=== PATIENT | female | born 1955 | race Caucasian/White ===

== ENCOUNTER 2016-11-20 16:00 | Inpatient (IN) | payer MEDICARE, MEDICAID ==
[2016-11-20] MEDS ORDERED: ASPIRIN 81 MG TABLET, CHEWABLE PO ONE (16:02)
--- NOTE | 2016-11-20 16:28 | RADIOLOGY REPORT (SQ) ---
EXAM DESCRIPTION: CHEST SINGLE VIEW COMPLETED DATE/TIME: 11/20/2016 4:20 pm REASON FOR STUDY: cp COMPARISON: 02/10/2015 EXAM PARAMETERS: NUMBER OF VIEWS: One view. TECHNIQUE: Single frontal radiographic view of the chest acquired. RADIATION DOSE: NA LIMITATIONS: None. FINDINGS: LUNGS AND PLEURA: No opacities, masses or pneumothorax. No pleural effusion. MEDIASTINUM AND HILAR STRUCTURES: No masses. Contour normal. HEART AND VASCULAR STRUCTURES: Heart normal in size. Normal vasculature. BONES: No acute findings. HARDWARE: Sternotomy wires are in place. OTHER: No other significant finding. IMPRESSION: NO ACUTE RADIOGRAPHIC FINDING IN THE CHEST. TECHNICAL DOCUMENTATION: JOB ID: [id number]
--- NOTE | 2016-11-20 16:32 | ER Document Report ---
ED Cardiac - General Chief Complaint: Chest Pain Stated Complaint: CHEST PAIN Time Seen by Provider: 11/20/16 16:21 Mode of Arrival: Medic Information source: Patient, Relative TRAVEL OUTSIDE OF THE [place] IN LAST 30 DAYS: No - HPI Patient complains to provider of: Chest pain - pt with episode of SSCP at rest earlier this afternoon while talking to sister (sharp pain) -- denies diaphoresis, radiation of pain, N,V. Pt given ASA by EMS and pain had totally resolved - Related Data Allergies/Adverse Reactions: No Known Allergies Allergy (Unverified 05/05/13 17:39) Past Medical History - General Information source: Patient, Relative - Social History Smoking Status: Current Every Day Smoker Cigarette use (# per day): Yes Chew tobacco use (# tins/day): No Smoking Education Provided: Yes Family History: Reviewed & Not Pertinent - Past Medical History Cardiac Medical History: Reports: Hx Hypercholesterolemia, Hx Hypertension Endocrine Medical History: Reports: Hx Diabetes Mellitus Type 2 Past Surgical History: Reports: Hx Cardiac Surgery - triple bypass, Hx Tubal Ligation - Immunizations Hx Diphtheria, Pertussis, Tetanus Vaccination: Yes Review of Systems - Review of Systems Constitutional: No symptoms reported Cardiovascular: See HPI, Chest pain Respiratory: No symptoms reported Gastrointestinal: No symptoms reported Musculoskeletal: No symptoms reported Neurological/Psychological: No symptoms reported -: Yes All other systems reviewed and negative Physical Exam - Vital signs Vitals: Temp Resp BP Pulse Ox 97.8 F 20 139/86 H 97 11/20/16 16:16 11/20/16 16:16 11/20/16 16:16 11/20/16 16:16 - General General appearance: Appears well In distress: None - Respiratory Respiratory status: No respiratory distress Breath sounds: Normal - Cardiovascular Rhythm: Regular Course - Re-evaluation Re-evalutation: 11/20/16 17:14 pt feels better on re-eval -- denies CP at present. Will call hospitalist for admission - Vital Signs Vital signs: Temp Pulse Resp BP Pulse Ox 97.8 F 16 139/86 H 98 11/20/16 16:16 11/20/16 16:18 11/20/16 16:16 11/20/16 16:18 - Laboratory Result Diagrams: 11/20/16 16:10 11/20/16 16:10 Laboratory results interpreted by me: 11/20/16 11/20/16 16:10 16:10 Lymphocytes % 45.9 H Glucose 350 H AST 12 L Alkaline Phosphatase 139 H - Diagnostic Test Radiology reviewed: Reports reviewed - nad - EKG Interpretation by Me EKG shows normal: Sinus rhythm Rate: Normal Rhythm: NSR - nsr with non-specific st-t changes but not acute change - Consults dr mckinney Time consulted: 17:15 Consulted provider: will come to ER Critical Care Note - Critical Care Note Total time excluding time spent on procedures (mins): 30 Discharge - Discharge Clinical Impression: Diabetes mellitus type 2 in nonobese, Smoker Chest pain Qualifiers: Chest pain type: unspecified Qualified Code(s): R07.9 - Chest pain, unspecified Hyperlipidemia Qualifiers: Hyperlipidemia type: unspecified Qualified Code(s): E78.5 - Hyperlipidemia, unspecified Condition: Stable Disposition: ADMITTED OBSERVATION Admitting Provider: Hospitalist Unit Admitted: Telemetry
[2016-11-20 16:35] LABS: ABSOLUTE BASOPHILS # (AUTO) 0.1 10^3/uL (0.0-0.2); ABSOLUTE EOSINOPHILS # (AUTO) 0.2 10^3/uL (0.0-0.6); ABSOLUTE LYMPHOCYTES (AUTO) 4.4 10^3/uL (0.5-4.7); ABSOLUTE MONOCYTES (AUTO) 0.7 10^3/uL (0.1-1.4); ABSOLUTE NEUT (AUTO) 4.2 10^3/uL (1.7-8.2); BASOPHILS % (AUTO) 0.7 % (0-2); EOSINOPHILS % (AUTO) 1.9 % (0-6); HEMATOCRIT 40.5 % (36.0-47.0); HEMOGLOBIN 14.3 g/dL (12.0-15.5); HGB HCT DIFFERENCE 2.4; LYMPHOCYTES % (AUTO) 45.9 % (13-45); MEAN CORPUSCULAR HEMOGLOBIN 29.7 pg (27.0-33.4); MEAN CORPUSCULAR HGB CONC 35.2 g/dL (32.0-36.0); MEAN CORPUSCULAR VOLUME 84 fl (80-97); MONOCYTES % (AUTO) 7.3 % (3-13); RED BLOOD COUNT 4.81 10^6/uL (3.72-5.28); RED CELL DISTRIBUTION WIDTH 13.5 % (11.5-14.0); SEGMENTED NEUTROPHILS % (AUTO) 44.2 % (42-78); WHITE BLOOD COUNT 9.6 10^3/uL (4.0-10.5)
[2016-11-20 16:52] LABS: ALANINE AMINOTRANSFERASE 19 U/L (9-52); ALBUMIN 3.9 g/dL (3.5-5.0); ALKALINE PHOSPHATASE 139 U/L (38-126); ANION GAP 13 (5-19); ASPARTATE AMINO TRANSFERASE 12 U/L (14-36); BILIRUBIN,DIRECT 0.4 mg/dL (0.0-0.4); BILIRUBIN,TOTAL 0.5 mg/dL (0.2-1.3); BLOOD UREA NITROGEN 12 mg/dL (7-20); CALCIUM 9.5 mg/dL (8.4-10.2); CARBON DIOXIDE 26 mmol/L (22-30); CHLORIDE 100 mmol/L (98-107); CREATINE KINASE 41 U/L (30-135); GLUCOSE 350 mg/dL (75-110); POTASSIUM 3.7 mmol/L (3.6-5.0); SODIUM 138.5 mmol/L (137-145); TOTAL PROTEIN 7.2 g/dL (6.3-8.2)
[2016-11-20 17:02] LABS: CREATINE KINASE MB 0.72 ng/mL (<4.55); TROPONIN I 0.02 ng/mL
[2016-11-20] MEDS ORDERED: NORMAL SALINE 1000 ML 1,000 ML IV ONE (17:09)
[2016-11-20] MEDS ORDERED: MORPHINE SULFATE 10 MG/ML INJ IV PRN (17:49)
[2016-11-20] MEDS ORDERED: MAG HYDROX/AL HYDROX/SIMETH SUSP 30 ML UDCUP PO PRN (17:49)
[2016-11-20] MEDS ORDERED: NITROGLYCERIN 0.4 MG/TAB 25 TAB/BOTTLE SL PRN (17:49)
[2016-11-20] MEDS ORDERED: ONDANSETRON HCL INJ/PF 4 MG/2 ML SDV IV PRN (17:49)
[2016-11-20] MEDS ORDERED: DIAZEPAM 5 MG TABLET PO PRN (17:49)
[2016-11-20] MEDS ORDERED: NORMAL SALINE 1000 ML 1,000 ML IV PRN (17:49)
[2016-11-20] MEDS ORDERED: GLUCAGON,HUMAN RECOMB 1 MG INJ IM PRN (18:03)
[2016-11-20] MEDS ORDERED: DEXTROSE 40% GEL 15 GM TUBE PO PRN ×2 (18:03)
[2016-11-20] MEDS ORDERED: DEXTROSE 50%-WATER 25 GM/50 ML DISP.SYRIN IV PRN ×2 (18:03)
[2016-11-20] MEDS ORDERED: ACETAMINOPHEN 325 MG TABLET PO PRN (19:15)
[2016-11-20] MEDS ORDERED: ENOXAPARIN SODIUM INJ 60 MG/0.6 ML DISP.SYRIN SUBCUT SCH (22:00)
--- NOTE | 2016-11-20 22:32 | HISTORY AND PHYSICAL E ---
History and Physical NAME: STELLA FRANKLIN : 1955 AGE: 61Y ADMITTED: 11/20/2016 ROOM: 534 PRIMARY CARE PHYSICIAN: Dr. Santizo. CHIEF COMPLAINT: Chest pain. HISTORY OF PRESENT ILLNESS: The patient reports that today she was talking with her sister and developed left upper chest pain without radiation. The patient reports that it improved after receiving 4 baby aspirin from EMS. She did not take her home medications today. She reports that she has not had any associated cough more than normal, sputum production, nausea, vomiting, diaphoresis or abnormal taste in her mouth. The patient is currently chest pain free. The patient also reports she is not taking her insulin due to not being able to give herself an injection. She is referred to the hospitalist service for chest pain. PAST MEDICAL HISTORY: 1. Coronary artery disease. 2. Hypertension. 3. Hyperlipidemia. 4. TIA. 5. Diabetes mellitus. 6. Questionable thyroid disease. PAST SURGICAL HISTORY: CABG 4 years ago and a stent in January. SOCIAL HISTORY: She is a pack per day smoker. She denies alcohol, denies illicit drugs. She cares for her son who is developmentally disabled. FAMILY HISTORY: Her mother of diabetes, coronary artery disease and hypertension. Father's history is unknown. CODE STATUS: FULL CODE. Her sister, Maria E Bradford, is her surrogate decision maker. HOME MEDICATIONS: Currently being reconciled but these do include Lantus, oxybutynin, Lopressor, Glucophage, Glucotrol, gabapentin, TriCor, Plavix vitamin D, Lipitor and aspirin. ALLERGIES: No known drug allergies. REVIEW OF SYSTEMS: CONSTITUTIONAL: The patient denies fever or chills, weight loss, weight gain, anorexia. HEENT: Denies visual disturbance, headache, hearing loss. RESPIRATORY: Denies dyspnea, cough, hemoptysis or pleurisy. CARDIAC: Admits to chest pain as outlined above. Denies PND, orthopnea or edema. ABDOMEN: Denies abdominal pain, nausea, vomiting and diarrhea, constipation, hematemesis, melena or hematochezia. GENITOURINARY: Denies dysuria, urgency, frequency or hematuria. SKIN: Denies rash or wounds. MUSCULOSKELETAL: Denies joint pain or swelling. NEUROLOGIC: Denies weakness, numbness, dizziness, dysphasia, dysarthria or ataxia. ENDOCRINE: Denies polydipsia, polyuria, hot or cold intolerance. PSYCHIATRIC: Denies depression, anxiety, hallucinations or delusions. HEMATOLOGIC: Denies easy bleeding or bruising. PHYSICAL EXAMINATION: VITAL SIGNS: Temperature is 97.8. Pulse of 79. Blood pressure of 143/85. Respiratory rate of 24. Saturation of 96% on room air. GENERAL: The patient appears well. She is in no acute distress. HEENT: She is normocephalic. She has no icterus. Conjunctivae are clear. Extraocular movements are intact. Pupils are small. Pupils are equal, round and reactive to light. Mucosa is dry. Her chin reveals hair. NECK: Her trachea is midline. She has no thyromegaly. RESPIRATORY: The patient has bilateral light wheezes with good air excursion. CARDIOVASCULAR: Regular rate and rhythm without appreciable murmur, rub or gallop. ABDOMEN: Soft, nontender to palpation, nondistended with active bowel sounds. Negative Gleason sign. RECTAL: Deferred. GENITOURINARY: Deferred. EXTREMITIES: Reveal no edema or cyanosis. She does have clubbing. MUSCULOSKELETAL: Reveals no joint swelling or deformity. VASCULATURE: Reveals normal peripheral pulses. NEUROLOGIC: She is alert and oriented to person, place and time. Her speech is normal. Her cranial nerves are grossly intact. Strength is 5/5 in upper and lower extremity extremities. Tactile sensation is present in all extremities. SKIN: Reveals no rashes, wounds or worrisome skin lesions. PSYCHIATRIC: Normal mood and affect. LABORATORY VALUES: White count of 9.6, hemoglobin 14.3, hematocrit 40.5 and platelets of 248. Sodium 139, potassium 3.7, chloride 100, CO2 of 26, BUN of 12, creatinine 0.6, glucose of 350, calcium 9.5, total bilirubin 0.5, direct bilirubin 0.4, AST 12, ALT 19, alkaline phosphatase 139, CK 41, MB of 0.72, troponin of 0.02, total protein of 7.2, albumin 3.9. The patient's EKG revealed normal sinus rhythm with very nonspecific T-wave changes laterally and left axis deviation. IMPRESSION AND PLAN: This is a 61-year-old female with: 1. Chest pain. The patient's chest pain is likely secondary to musculoskeletal given its relief with aspirin; however, given the patient's noncompliance and her significant cardiovascular risk, we will observe the patient and collect serial cardiac enzymes and continue her on aspirin, beta-fiordaliza and statin. Will obtain a stress test in the a.m. and monitor patient on telemetry. 2. For patient's diabetes mellitus, we will resume her metformin and Glipizide. We will place her on sliding scale insulin and we will consult Dietary and patient educator to help her with her diabetes mellitus. I have discussed it also with her sister. 3. For her hyperlipidemia, we will check an FLP. 4. For her tobacco abuse, she has been counseled to stop smoking and offered nicotine patch. Total time spent with the patient including physical examination, coordination of care and formulation of this plan was 40 minutes of time. DICTATING PHYSICIAN: MOHAN LOVETT M.D. [id number] PHY#: [id number] ID: [id number] JOB#: [id number] ACCT: [id number] cc:MOHAN LOVETT M.D. > MTDD
[2016-11-20] MEDS: FENOFIBRATE NANOCRYSTALLIZED 145 MG TABLET PO SCH (23:12)
[2016-11-20] MEDS: ATORVASTATIN CALCIUM 40 MG TABLET PO SCH (23:13)
[2016-11-20] MEDS: INSULIN LISPRO 100 UNIT/ML 3 ML VIAL SUBCUT PRN (23:15)
--- NOTE | 2016-11-20 23:25 | EKG REPORT ---
SEVERITY:- ABNORMAL ECG - SINUS RHYTHM LEFT ATRIAL ABNORMALITY NONSPECIFIC T ABNORMALITIES, LATERAL LEADS : Confirmed by: Rich Butler 20-Nov-2016 23:24:14
[2016-11-21 00:28] LABS: CREATINE KINASE MB 1.08 ng/mL (<4.55)
[2016-11-21 00:30] LABS: TROPONIN I 0.196 ng/mL
[2016-11-21] MEDS ORDERED: HEPARIN SODIUM,PORCINE/D5W 25,000 UNIT/250 ML RTUINJ IV PRN (01:14)
[2016-11-21] MEDS ORDERED: HEPARIN SOD (PORCINE) 1,000 UNIT/ML 10 ML VIAL IV PRN (01:14)
[2016-11-21] MEDS ORDERED: METOPROLOL TARTRATE PF/INJ 5 MG/5 ML SDV IV ONE (01:15)
[2016-11-21] MEDS: LANSOPRAZOLE 15 MG TAB.RAP.DR PO SCH ×2 (05:22→16:57)
[2016-11-21 06:38] LABS: CHOLESTEROL 210.68 mg/dL (0-200); CREATINE KINASE 42 U/L (30-135); Direct HDL 27 mg/dL (>40); TRIGLYCERIDES 304 mg/dL (<150)
[2016-11-21 06:48] LABS: DIRECT LDL 147 mg/dL (<100)
[2016-11-21 06:49] LABS: CREATINE KINASE MB 1.25 ng/mL (<4.55); VLDL CHOLESTEROL 60.8 mg/dL (10-31)
[2016-11-21 06:55] LABS: TROPONIN I 0.21 ng/mL
[2016-11-21] MEDS: INSULIN LISPRO 100 UNIT/ML 3 ML VIAL SUBCUT PRN ×2 (07:48→11:58)
--- NOTE | 2016-11-21 09:07 | EKG REPORT ---
SEVERITY:- ABNORMAL ECG - SINUS RHYTHM PROBABLE LEFT ATRIAL ABNORMALITY NONSPECIFIC T ABNORMALITIES, LATERAL LEADS BORDERLINE PROLONGED QT INTERVAL : Confirmed by: Lee Bautista MD 21-Nov-2016 09:07:02
--- NOTE | 2016-11-21 09:09 | EKG REPORT ---
SEVERITY:- ABNORMAL ECG - SINUS RHYTHM NONSPECIFIC ST-T CHANGES- LATERAL LEADS LEFT ATRIAL ENLARGEMENT : Confirmed by: Lee Bautista MD 21-Nov-2016 09:08:07
[2016-11-21 09:11] LABS: APPEARANCE,URINE CLEAR; BILIRUBIN,URINE NEGATIVE (NEGATIVE); GLUCOSE, URINE >=500 mg/dL (NEGATIVE); KETONES,URINE NEGATIVE (NEGATIVE); LEUKOCYTE ESTERASE,URINE TRACE (NEGATIVE); NITRITE,URINE NEGATIVE (NEGATIVE); PROTEIN,URINE NEGATIVE (NEGATIVE); URINE SPECIFIC GRAVITY 1.005; UROBILINOGEN,URINE NEGATIVE mg/dL (<2.0)
[2016-11-21] MEDS: GABAPENTIN 100 MG CAPSULE PO SCH ×2 (09:44→16:58)
[2016-11-21] MEDS: OXYBUTYNIN CHLORIDE 5 MG TABLET PO SCH ×2 (09:44→16:59)
[2016-11-21] MEDS: GLIPIZIDE 10 MG TABLET PO SCH ×2 (09:44→16:57)
[2016-11-21] MEDS: METOPROLOL TARTRATE 25 MG TABLET PO SCH (09:44)
[2016-11-21] MEDS: ENOXAPARIN SODIUM INJ 60 MG/0.6 ML DISP.SYRIN SUBCUT SCH ×2 (09:45→16:57)
[2016-11-21] MEDS: ASPIRIN 325 MG TABLET, ENT COATED PO SCH (09:45)
[2016-11-21] MEDS ORDERED: CLOPIDOGREL BISULFATE 75 MG TABLET PO SCH ×2 (10:00)
[2016-11-21] MEDS ORDERED: METFORMIN HCL 500 MG TABLET PO SCH (10:00)
--- NOTE | 2016-11-21 11:26 | PDOC CONSULTATION ---
Consultation Consult Date: 11/21/16 Attending physician:: MOHAN LOVETT Consult reason:: Chest pain and positive troponin I History of Present Illness Admission Date/PCP: 11/20/16 17:27 Patient complains of: Chest pain History of Present Illness: STELLA FRANKLIN is a 61 year old female, has known history of coronary artery disease, status post coronary artery bypass graft surgery and also a stent placement. Stent was placed within the last 1 year. Patient has continued to smoke. She presented to the emergency department with subsequent admission, with chest discomfort. Patient is very vague about the chest discomfort. She described is as pressure and tightness as well as sharp in the center of chest without any significant radiation but associated with some shortness of breath. There was no associated nausea vomiting or diaphoresis. Patient as a whole is a poor historian. Patient claims that the EMS gave her nitroglycerin and 4 sublingual aspirin to chew. Since then her chest discomfort has resolved and there has been no recurrence. Patient initial troponin I was negative but subsequently came back positive in the non-STEMI range. Patient electrocardiogram had shown minor nonspecific ST-T wave changes consistent with ischemia and or LVH. Patient claims that she has been noncompliant with the medication. Patient continues to smoke. Past Medical History Cardiac Medical History: Reports: Myocardial Infarction, Hyperlipidema, Hypertension Pulmonary Medical History: Reports: Asthma Endocrine Medical History: Reports: Diabetes Mellitus Type 2 Past Surgical History Past Surgical History: Reports: Cardiac Catheterization, Coronary Artery Bypass Graft, Coronary Stent, Tubal Ligation Social History Information Source: Patient Smoking Status: Current Every Day Smoker Frequency of Alcohol Use: None Hx Recreational Drug Use: No Hx Prescription Drug Abuse: No - Advance Directive Resuscitation Status: Full Code Surrogate healthcare decision maker:: Patient sister is the surrogate decision-maker Family History Family History: CAD, Hypertension Parental Family History Reviewed: Yes Children Family History Reviewed: Yes Sibling(s) Family History Reviewed.: Yes Medication/Allergy Home Medications: Aspirin [Aspirin EC] 81 mg PO DAILY 11/21/16 Atorvastatin Calcium [Lipitor 80 mg Tablet] 80 mg PO QHS 11/21/16 Cholecalciferol (Vitamin D3) [Vitamin D3 400 Unit Tablet] 400 unit PO DAILY 07/04 Fenofibrate 160 mg PO QHS 11/21/16 Gabapentin [Neurontin 100 mg Capsule] 100 mg PO BID 11/21/16 Glipizide [Glocotrol 10 Mg Tablet] 10 mg PO BIDBS 11/21/16 Metformin HCl [Glucophage] 1,000 mg PO BIDBS 11/21/16 Metoprolol Tartrate [Lopressor 25 mg Tablet] 25 mg PO Q12 11/21/16 Oxybutynin Chloride [Ditropan 5 Mg Tablet] 5 mg PO BID 11/21/16 Ticagrelor [Brilinta 90 mg Tablet] 90 mg PO BID 11/21/16 Allergies/Adverse Reactions: No Known Allergies Allergy (Unverified 05/05/13 17:39) Review of Systems Review of Systems: GENERAL: well-nourished and in no acute distress. Alert and oriented x3 HEAD: Atraumatic, normocephalic. EYES: Pupils equal round and reactive to light, extraocular movements intact, sclera anicteric, conjunctiva are normal. ENT: TMs normal, nares patent, oropharynx clear without exudates. Moist mucous membranes. No oral ulcerations or bleeding gums noted NECK: supple without lymphadenopathy. Trachea is central. No cervical or axillary lymphadenopathy noted. Carotids are 2+, JVD WNL LUNGS: Respiration seems nonlabored, no significant accessory muscle action noted. Breath sounds clear to auscultation bilaterally and equal noted. No wheezes rales or rhonchi noted. No significant dullness noted on percussion. CHEST: Palpation of the chest wall shows no significant chest wall tenderness. No other significant abnormalities noted. HEART: [employer], No PSH, 1/6 JANIYA aortic area, 1/6 best systolic murmur mitral area, no rubs, no gallops. ABDOMEN: Soft, no significant tenderness appreciated, normoactive bowel sounds. No guarding, no rebound. No rigidity noted . No masses appreciated. EXTREMITIES: Pedal pulses are 1-2+, no calf tenderness noted. No clubbing or cyanosis.trace to 1+ pedal edema noted NEUROLOGICAL: Focused neurological exam showed no significant neurologic deficit. Normal speech, no focal weakness appreciated. PSYCH: Normal mood, normal affect. Judgment and insight within normal limits. SKIN: No significant ecchymosis, rash, ulcerations or signs of pruritus noted. MUSCULOSKELETAL EXAM: No significant joint swelling noted. Physical Exam Vital Signs: Temp Pulse Resp BP Pulse Ox 98.0 F 80 18 121/69 97 11/21/16 07:58 11/21/16 07:58 11/21/16 07:58 11/21/16 07:58 11/21/16 07:58 Intake & Output 11/20/16 11/21/16 11/22/16 06:59 06:59 06:59 Weight 54.5 kg Exam: GENERAL: well-nourished and in no acute distress. Alert and oriented x3 HEAD: Atraumatic, normocephalic. Patient has significant facial hair and hirsutism EYES: Pupils equal round and reactive to light, extraocular movements intact, sclera anicteric, conjunctiva are normal. ENT: TMs normal, nares patent, oropharynx clear without exudates. Moist mucous membranes. No oral ulcerations or bleeding gums noted NECK: supple without lymphadenopathy. Trachea is central. No cervical or axillary lymphadenopathy noted. Carotids are 2+, JVD WNL LUNGS: Respiration seems nonlabored, no significant accessory muscle action noted. Breath sounds clear to auscultation bilaterally and equal noted. No wheezes rales or rhonchi noted. No significant dullness noted on percussion. CHEST: Palpation of the chest wall shows no significant chest wall tenderness. No other significant abnormalities noted. HEART: [employer], No PSH, 1/6 JANIYA aortic area, 1/6 best systolic murmur mitral area, no rubs, no gallops. ABDOMEN: Soft, no significant tenderness appreciated, normoactive bowel sounds. No guarding, no rebound. No rigidity noted . No masses appreciated. EXTREMITIES: Pedal pulses are 1-2+, no calf tenderness noted. No clubbing or cyanosis.trace to 1+ pedal edema noted NEUROLOGICAL: Focused neurological exam showed no significant neurologic deficit. Normal speech, no focal weakness appreciated. PSYCH: Normal mood, normal affect. Judgment and insight within normal limits. SKIN: No significant ecchymosis, rash, ulcerations or signs of pruritus noted. MUSCULOSKELETAL EXAM: No significant joint swelling noted. Results Laboratory Results: 11/21/16 11/21/16 05:47 08:55 Triglycerides 304 H Cholesterol 210.68 H LDL Cholesterol Direct 147 H VLDL Cholesterol 60.8 H HDL Cholesterol 27 L Urine Color STRAW Urine Appearance CLEAR Urine pH 6.0 Ur Specific Central 1.005 Urine Protein NEGATIVE Urine Glucose (UA) >=500 H Urine Ketones NEGATIVE Urine Blood NEGATIVE Urine Nitrite NEGATIVE Ur Leukocyte Esterase TRACE H Urine WBC (Auto) 9 Urine RBC (Auto) 1 11/20/16 11/20/16 11/21/16 22:20 23:34 05:47 Creatine Kinase CK-MB (CK-2) Cancelled 1.08 1.25 Troponin I Cancelled 0.196 0.210 11/21/16 05:47 Creatine Kinase 42 CK-MB (CK-2) Troponin I EKG Comments: Sinus rhythm with minor nonspecific ST-T wave changes. Impressions: Chest X-Ray 11/20/16 16:02 IMPRESSION: NO ACUTE RADIOGRAPHIC FINDING IN THE CHEST. Assessment & Plan - Diagnosis (1) Non-STEMI (non-ST elevated myocardial infarction) Is this a current diagnosis for this admission?: Yes (2) Chest pain Qualifiers: Chest pain type: unspecified Qualified Code(s): R07.9 - Chest pain, unspecified Is this a current diagnosis for this admission?: Yes (3) Diabetes mellitus type 2 in nonobese Is this a current diagnosis for this admission?: Yes (4) Hyperlipidemia Qualifiers: Hyperlipidemia type: unspecified Qualified Code(s): E78.5 - Hyperlipidemia , unspecified Is this a current diagnosis for this admission?: Yes (5) Smoker Is this a current diagnosis for this admission?: Yes (6) Hypertension Qualifiers: Hypertension type: essential hypertension Qualified Code(s): I10 - Essential (primary) hypertension Is this a current diagnosis for this admission?: Yes (7) PAD (peripheral artery disease) Is this a current diagnosis for this admission?: Yes - Notes Notes: Non-STEMI: Patient has known CAD with previous bypass surgery and stent placement. Patient presented with chest pain. Has positive troponin I elevation and also minor nonspecific ST-T wave changes. Patient qualifies for diagnosis of acute coronary syndrome and non-STEMI. At this point patient will be treated with full dose Lovenox or other anticoagulation, dual antiplatelet therapy, beta-fiordaliza, statins, CHANDLER inhibitor/ARB's. Should patient has recurrent chest pain will recommend transfer to tertiary care for heart catheterization however if patient remains stable would recommend stress testing for myocardium in jeopardy determination. Would also recommend a 2D echo for overall risk stratification. Chest pain: Currently chest pain-free. Optimize medical management for underlying CAD. Coronary artery disease: Currently stable. Patient did sustain a non-STEMI. Medical management is being optimized. Diabetes: Recommend good control of blood sugar. However should avoid any hypoglycemia. Patient being expertly managed by primary care MArielle Hypertension: Reasonably well controlled. Blood pressure goal in this patient is 135/85 or less. This was discussed with the patient. Currently blood pressure under reasonable control. Better medication for this patient are CHANDLER inhibitor/ARB/beta fiordaliza etc. Hyperlipidemia: LDL goal is less than 70. Recommend statin therapy at least intermediate or high dose, of high potency status. Periodic lipid panel and liver panel is indicated. Patient to report any significant muscle discomfort or other side effects. Patient has history of chronic smoking. Discussed detrimental effect of chronic smoking including worsening COPD, increased risk of cardiovascular events, cerebrovascular events, cancer and multiple other side effects of smoking. The benefits of smoking cessation discussed. Patient unwilling to give acommitment to quit. Patient informed that we'll be happy to help should pt decide to quit. Continue nicotine patch while inpatient. PVD: No acute limb ischemia noted. Based on previous evaluation, patient has significant PVD. Further evaluation can be performed as an outpatient. Rest ischemia symptoms discussed. Patient to report immediately if such symptoms occur. - Time Time Spent: 50 to 70 Minutes - CODE STATUS was discussed, patient remains full code. Surrogate decision-maker patient's sister. Multiple medical problems were addressed. More than 50% of the time spent coordinating care, discussing management plans with involved caregivers. Management plans discussed with involved personnels. Medical decision making was of moderate to high complexity , patient's has multiple comorbidities. Medications reviewed and adjusted accordingly: Yes
[2016-11-21 12:13] LABS: CREATINE KINASE MB 1.12 ng/mL (<4.55); TROPONIN I 0.127 ng/mL
--- NOTE | 2016-11-21 14:01 | XCELERA REPORT ---
[address] [address] Transthoracic Echocardiogram Report Name: STELLA FRANKLIN Age: 61 yrs Gender: Female : 1955 Patient Status: Inpatient Patient Location: [address] [place] [address] Study Date: 11/21/2016 12:20 PM Height: 61 in Weight: 120 lb BSA: 1.5 m2 Procedure: A complete two-dimensional transthoracic echocardiogram was performed (2D, M-mode, spectral and color flow Doppler). The study was technically adequate with some images being suboptimal in quality. Reason For Study: NSTEMI Ordering Physician: RICH JUDGE Performed By: James King Interpretation Summary The left ventricular ejection fraction is normal. There is mild concentric left ventricular hypertrophy. The left ventricle is grossly normal size. Doppler measurements suggest pseudonormalized left ventricular relaxation, which is associated with grade II/IV or mild to moderate diastolic dysfunction Wall motion cannot be accurately commented on, but no definite regional wall motion abnormalities noted. The right ventricle is grossly normal size. The right ventricular systolic function is normal. The left atrium is mildly dilated. There is no mitral valve stenosis. There is a mild amount of mitral regurgitation There is no aortic valve stenosis No aortic regurgitation is present. The aortic root is not well visualized. The inferior vena cava appeared dilated and decreased < 50% with respiration (RAP 15-20 mmHg) There is no pericardial effusion. MMode/2D Measurements & Calculations RVDd: 2.8 cm LVIDd: 4.3 cm FS: 30.7 % Ao root diam: 2.8 cm IVSd: 1.1 cm LVIDs: 3.0 cm EDV(Teich): 84.0 ml LVPWd: 1.1 cm ESV(Teich): 34.8 ml Ao root area: 6.3 cm2 EF(Teich): 58.6 % LA dimension: 4.1 cm Doppler Measurements & Calculations MV E max cristopher: MV P1/2t max cristopher: Ao V2 max: LV V1 max P.4 cm/sec 125.9 cm/sec 129.4 cm/sec 2.3 mmHg MV A max cristopher: MV P1/2t: 57.2 msec Ao max PG: LV V1 max: 78.5 cm/sec 6.7 mmHg 75.0 cm/sec MV E/A: 1.6 MVA(P1/2t): 3.8 cm2 MV dec slope: 644.8 cm/sec2 PA V2 max: PI end-d cristopher: TR max cristopher: RAP systole: 59.7 cm/sec 89.6 cm/sec 214.2 cm/sec 10.0 mmHg PA max P.4 mmHg TR max P.4 mmHg RVSP(TR): 28.4 mmHg Left Ventricle The left ventricle is grossly normal size. There is mild concentric left ventricular hypertrophy. The left ventricular ejection fraction is normal. Doppler measurements suggest pseudonormalized left ventricular relaxation, which is associated with grade II/IV or mild to moderate diastolic dysfunction. Wall motion cannot be accurately commented on, but no definite regional wall motion abnormalities noted. Right Ventricle The right ventricle is grossly normal size. There is normal right ventricular wall thickness. The right ventricular systolic function is normal. Atria The right atrium is normal in size. The left atrium is mildly dilated. Interarterial septum not well visualized and not well dopplered. Cannot comment on ASD/PFO presence. Mitral Valve The mitral valve leaflets are sclerotic, but show no functional abnormalities. There is no mitral valve stenosis. There is a mild amount of mitral regurgitation. Aortic Valve The aortic valve is grossly normal. There is no aortic valve stenosis. No aortic regurgitation is present. Tricuspid Valve The tricuspid valve is not well visualized, but is grossly normal. There is no tricuspid stenosis. There is a trace amount of tricuspid regurgitation. There is mild pulmonary hypertension by echo. Right ventricular systolic pressure is estimated to be elevated at 30-40mmHg. Pulmonic Valve The pulmonic valve is not well visualized. Great Vessels The aortic root is not well visualized. The inferior vena cava appeared dilated and decreased < 50% with respiration (RAP 15-20 mmHg). Effusions There is no pericardial effusion. : RICH JUDGE > Rich Judge
--- NOTE | 2016-11-21 14:49 | PDOC PROGRESS REPORT ---
Subjective Progress Note for:: 11/21/16 Subjective:: overnight, patient's cardiac enzymes became positive and are trending up. Patient reports she is feeling significantly improved. She denies any further chest pain. Patient denies chest pain, shortness of breath, abdominal pain, nausea, vomiting , fevers, chills, diarrhea, constipation, headache, new onset weakness. Physical Exam Vital Signs: Temp Pulse Resp BP Pulse Ox 98.2 F 63 18 138/76 H 100 11/21/16 11:48 11/21/16 14:00 11/21/16 11:48 11/21/16 11:48 11/21/16 11:48 Exam: General: Awake alert and oriented x3, no acute respiratory distress HEENT: AT/NC, PERRL, EOMI, oropharynx is moist, pink, no scleral icterus, no conjunctival injection Neck: No JVD, trachea midline Chest: Prolonged expiratory phase, clear to auscultation bilaterally, no wheezes rhonchi or rales CV: Regular rate and rhythm, normal S1 and S2, no rub or gallop Abdomen: Soft, nontender to palpation, nondistended, active bowel sounds; no rebound, rigidity, or guarding Extremities: No cyanosis; +clubbing; no edema Neuro: Cranial nerves II through XII are grossly intact without focal deficits; awake alert and oriented x3 Psych: Normal mood and affect Results Impressions: Chest X-Ray 11/20/16 16:02 IMPRESSION: NO ACUTE RADIOGRAPHIC FINDING IN THE CHEST. Assessment & Plan - Diagnosis (1) Non-STEMI (non-ST elevated myocardial infarction) Is this a current diagnosis for this admission?: Yes Plan: Overnight patient's troponin plateaued at 0.2 and is now trending down. Appreciate cardiology input. Continue patient on Lovenox. Patient likely suffered from some minor occlusion of a previously placed stent that she is not compliant with her medication and continues to smoke and does not take her medicines as prescribed. Generic Name Dose Route Start Last Admin Trade Name Freq PRN Reason Stop Dose Admin Nitroglycerin 1 tab 11/20/16 17:49 Nitrostat 0.4 Mg (1/150 Gr) Tabs 25/Bottle SL Q5MP PRN chest pain Ranolazine 500 mg 11/21/16 22:00 Ranexa 500 Mg Tab.Sr PO 12/21/16 21:59 Q12 ANAMARIA Aspirin 325 mg 11/21/16 10:00 11/21/16 09:45 Ecotrin 325 Mg Ec Tablet PO 12/21/16 09:59 325 mg DAILY [facility] Atorvastatin Calcium 40 mg 11/20/16 22:00 11/20/16 23:13 Lipitor 40 Mg Tablet PO 12/20/16 21:59 40 mg QHS [facility] Enoxaparin Sodium 60 mg 11/21/16 10:00 11/21/16 09:45 Lovenox Inj 60 Mg/0.6 Ml Disp.Syrin SUBCUT 12/21/16 09:59 60 mg BID [facility] Lisinopril 2.5 mg 11/22/16 10:00 Prinivil 5 Mg Tablet PO 12/22/16 09:59 DAILY [facility] Metoprolol Tartrate 25 mg 11/21/16 10:00 11/21/16 09:44 Lopressor 25 Mg Tablet PO 12/21/16 09:59 25 mg DAILY [facility] (2) Diabetes mellitus type 2 in nonobese Is this a current diagnosis for this admission?: Yes Plan: We will consider the addition of Lantus to her regimen Generic Name Dose Route Start Last Admin Trade Name Freq PRN Reason Stop Dose Admin Glipizide 10 mg 11/21/16 10:00 11/21/16 09:44 Glucotrol 10 Mg Tablet PO 12/21/16 09:59 10 mg BID [facility] Metformin HCl 1,000 mg 11/21/16 10:00 11/21/16 09:44 Glucophage 500 Mg Tablet PO 12/21/16 09:59 1,000 mg BID [facility] Insulin Human Lispro 0 - 12 unit 11/20/16 18:03 11/21/16 11:58 Humalog Insulin 100 Unit/1 Ml 3 Ml Vial SUBCUT 12/20/16 18:02 4 unit ACHSP PRN Protocol (3) Hyperlipidemia Qualifiers: Hyperlipidemia type: unspecified Qualified Code(s): E78.5 - Hyperlipidemia , unspecified Is this a current diagnosis for this admission?: Yes Plan: Lipitor (4) Diabetic neuropathy Qualifiers: Diabetes mellitus type: type 2 Diabetes mellitus complication detail: diabetic polyneuropathy Qualified Code(s): E11.42 - Type 2 diabetes mellitus with diabetic polyneuropathy Is this a current diagnosis for this admission?: Yes Plan: Continue Neurontin (5) Hypertension Qualifiers: Hypertension type: essential hypertension Qualified Code(s): I10 - Essential (primary) hypertension Is this a current diagnosis for this admission?: Yes Plan: Well-controlled on current medicine Generic Name Dose Route Start Last Admin Trade Name Ita PRN Reason Stop Dose Admin Lisinopril 2.5 mg 11/22/16 10:00 Prinivil 5 Mg Tablet PO 12/22/16 09:59 DAILY ANMAARIA Metoprolol Tartrate 25 mg 11/21/16 10:00 11/21/16 09:44 Lopressor 25 Mg Tablet PO 12/21/16 09:59 25 mg DAILY ANAMARIA (6) Hyperthyroidism Is this a current diagnosis for this admission?: Yes Plan: Check TSH and free T4 (7) OAB (overactive bladder) Is this a current diagnosis for this admission?: Yes (8) PAD (peripheral artery disease) Is this a current diagnosis for this admission?: Yes (9) Vitamin D deficiency Is this a current diagnosis for this admission?: Yes Plan: Vitamin D (10) Noncompliance w/medication treatment due to intermit use of medication Is this a current diagnosis for this admission?: Yes Plan: Patient reports that she is not taking any of her medication at home (11) Smoker Is this a current diagnosis for this admission?: Yes Plan: Have encouraged patient to stop. Given nicotine patch - Time Time Spent with patient: 25-34 minutes Medications reviewed and adjusted accordingly: Yes Anticipated discharge: Home Within: within 24 hours - Inpatient Certification Based on my medical assessment, after consideration of the patient's comorbidities, presenting symptoms, or acuity I expect that the services needed warrant INPATIENT care.: Yes I certify that my determination is in accordance with my understanding of Medicare's requirements for reasonable and necessary INPATIENT services [42 CFR 412.3e].: Yes Medical Necessity: Need For Continuous Telemetry Monitoring 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
--- NOTE | 2016-11-21 15:29 | RADIOLOGY REPORT (SQ) ---
EXAM DESCRIPTION: CTA CHEST COMPLETED DATE/TIME: 11/21/2016 3:09 pm REASON FOR STUDY: CP E78.2 MIXED HYPERLIPIDEMIA I20.8 OTHER FORMS OF ANGINA PECTORIS COMPARISON: None. TECHNIQUE: CT scan of the chest performed using helical scanning technique with dynamic intravenous contrast injection. Images reviewed with lung, soft tissue and bone windows. Reconstructed coronal and sagittal MPR images reviewed. Additional 3 dimensional post-processing performed to develop Maximal Intensity Projection images ([place] P). All images stored on PACS. All CT scanners at this facility use dose modulation, iterative reconstruction, and/or weight based d osing when appropriate to reduce radiation dose to as low as reasonably achievable (ALARA). [facility]: Dose Right [facility]: CareDose [facility]: Dose Right [facility]: Teradose 4D [facility]: [employer] CONTRAST TYPE AND DOSE: contrast/concentration: Isovue 370.00 mg/ml; Total Contrast Delivered: 62.0 ml; Total Saline Delivered: 103.0 ml Contrast bolus optimized for the pulmonary arteries. Not diagnostic for the aorta. RENAL FUNCTION: GFR > 60. RADIATION DOSE: Up-to-date CT equipment and radiation dose reduction techniques were employed. CTDIv ol: 14.7 - 16.5 mGy. DLP: 507 mGy-cm. . LIMITATIONS: None. FINDINGS: LUNGS AND PLEURA: Centrilobular and paraseptal emphysema most notably involving the upper lobes. 5 mm ground-glass nodule left lower lobe seen on series 4, image 74. Lungs otherwise clear. No pleural effusion or pneumothorax. AORTA AND GREAT VESSELS: No aneurysm. Contrast bolus not optimized for the aorta. HEART: No pericardial effusion. No significant coronary artery calcifications. PULMONARY ARTERIES: No emboli visualized in the main pulmonary arteries or the segmental branches. HILAR AND MEDIASTINAL STRUCTURES: Possible nodule versus secretions within the visualized upper trach ea seen on series 4, image 1. No addition identified masses or abnormal nodes. HARDWARE: Post CABG change. UPPER ABDOMEN: Mixed density mass right adrenal gland measuring 3.0 x 1.9 x 2.8 cm. Simple cyst left kidney. No additional acute or significant findings. THYROID AND OTHER SOFT TISSUES: No masses. No adenopathy. BONES: No acute or significant finding. 3D MIPS: Confirm above findings. OTHER: No other significant finding. IMPRESSION: NO PULMONARY EMBOLI. 5 MM GROUND-GLASS NODULE LEFT LOWER LOBE PRESUMABLY INFECTIOUS INFLAMMATORY. RECOMMEND THREE-MONTH F OLLOW-UP NONCONTRAST CT CHEST TO ENSURE RESOLUTION. 3 CM MIXED DENSITY MASS RIGHT ADRENAL GLAND. RECOMMEND DEDICATED ADRENAL CT OR MRI. COMMENT: Quality ID # [id number]: Final reports with documentation of one or more dose reduction techniques (e.g., Automated exposure control, adjustment of the mA and/or kV according to patient size, use of iterative reconstruction technique) TECHNICAL DOCUMENTATION: JOB ID: [id number] [employer]- All Rights Reserved
[2016-11-21] MEDS ORDERED: NICOTINE 21 MG/24 HR PATCH.TD24 TD ONE (15:30)
[2016-11-21 19:00] LABS: THYROID STIMULATING HORMONE < 0.01 uIU/mL (0.47-4.68)
[2016-11-21] MEDS: ATORVASTATIN CALCIUM 40 MG TABLET PO SCH (22:02)
[2016-11-21] MEDS: FENOFIBRATE NANOCRYSTALLIZED 145 MG TABLET PO SCH (22:02)
[2016-11-21] MEDS: RANOLAZINE 500 MG TAB.SR.12H PO SCH (22:02)
[2016-11-22] MEDS: LANSOPRAZOLE 15 MG TAB.RAP.DR PO SCH ×2 (05:37→16:34)
[2016-11-22] MEDS: INSULIN LISPRO 100 UNIT/ML 3 ML VIAL SUBCUT PRN ×4 (07:33→22:32)
[2016-11-22] MEDS: ASPIRIN 325 MG TABLET, ENT COATED PO SCH (09:41)
[2016-11-22] MEDS: METOPROLOL TARTRATE 25 MG TABLET PO SCH (09:41)
[2016-11-22] MEDS: LISINOPRIL 5 MG TABLET PO SCH (09:41)
[2016-11-22] MEDS: ENOXAPARIN SODIUM INJ 60 MG/0.6 ML DISP.SYRIN SUBCUT SCH ×2 (09:41→17:47)
[2016-11-22] MEDS: GABAPENTIN 100 MG CAPSULE PO SCH ×2 (09:42→17:47)
[2016-11-22] MEDS: OXYBUTYNIN CHLORIDE 5 MG TABLET PO SCH ×2 (09:42→17:48)
[2016-11-22] MEDS: RANOLAZINE 500 MG TAB.SR.12H PO SCH ×2 (09:42→22:06)
[2016-11-22] MEDS: CHOLECALCIFEROL (D3) 400 UNIT TABLET PO SCH (09:42)
[2016-11-22] MEDS: GLIPIZIDE 10 MG TABLET PO SCH ×2 (09:42→16:34)
[2016-11-22] MEDS: NICOTINE 21 MG/24 HR PATCH.TD24 TD SCH (09:43)
[2016-11-22] MEDS ORDERED: DEXTROSE 50%-WATER 25 GM/50 ML DISP.SYRIN IV PRN ×2 (10:18)
[2016-11-22] MEDS ORDERED: DEXTROSE 40% GEL 15 GM TUBE PO PRN ×2 (10:18)
[2016-11-22] MEDS ORDERED: GLUCAGON,HUMAN RECOMB 1 MG INJ SUBCUT PRN (10:18)
[2016-11-22] MEDS ORDERED: DIAZEPAM 5 MG TABLET PO PRN (10:30)
[2016-11-22] MEDS ORDERED: ONDANSETRON HCL INJ/PF 4 MG/2 ML SDV IV PRN (10:30)
[2016-11-22] MEDS ORDERED: MAG HYDROX/AL HYDROX/SIMETH SUSP 30 ML UDCUP PO PRN (10:30)
[2016-11-22] MEDS ORDERED: MORPHINE SULFATE 10 MG/ML INJ IV PRN (10:30)
--- NOTE | 2016-11-22 10:45 | PDOC PROGRESS REPORT ---
Subjective Progress Note for:: 11/22/16 Subjective:: Pt states that she wants to go home. Pt states that she has not been taking her home medication as directed. Physical Exam Vital Signs: Temp Pulse Resp BP Pulse Ox 98.3 F 83 18 130/96 H 99 11/22/16 07:36 11/22/16 07:36 11/22/16 07:36 11/22/16 07:36 11/22/16 07:36 Intake & Output 11/21/16 11/22/16 11/23/16 06:59 06:59 06:59 Intake Total 1660 Balance 1660 Weight 58.4 kg General appearance: PRESENT: no acute distress, other - ambulating around room Head exam: PRESENT: atraumatic, normocephalic Eye exam: PRESENT: conjunctiva pink, EOMI, PERRLA. ABSENT: scleral icterus Ear exam: PRESENT: normal external ear exam Mouth exam: PRESENT: moist, tongue midline Neck exam: ABSENT: carotid bruit, JVD, lymphadenopathy, thyromegaly Respiratory exam: PRESENT: clear to auscultation caroline. ABSENT: rales, rhonchi, wheezes Cardiovascular exam: PRESENT: RRR, systolic murmur Pulses: PRESENT: normal dorsalis pedis pul Vascular exam: PRESENT: normal capillary refill GI/Abdominal exam: PRESENT: normal bowel sounds, soft. ABSENT: distended, guarding, mass, organolmegaly, rebound, tenderness Rectal exam: PRESENT: deferred Extremities exam: PRESENT: full ROM. ABSENT: calf tenderness, clubbing, pedal edema Neurological exam: PRESENT: alert, awake, oriented to person, oriented to place , oriented to time, oriented to situation, CN II-XII grossly intact. ABSENT: motor sensory deficit Psychiatric exam: PRESENT: appropriate affect, normal mood. ABSENT: homicidal ideation, suicidal ideation Skin exam: PRESENT: dry, intact, warm. ABSENT: cyanosis, rash Results Laboratory Results: 11/21/16 17:47 TSH < 0.01 L Free T4 1.12 11/21/16 11/21/16 17:47 23:41 Troponin I 0.108 0.095 Impressions: Chest X-Ray 11/20/16 16:02 IMPRESSION: NO ACUTE RADIOGRAPHIC FINDING IN THE CHEST. Chest/Abdomen CTA 11/21/16 14:08 IMPRESSION: NO PULMONARY EMBOLI. 5 MM GROUND-GLASS NODULE LEFT LOWER LOBE PRESUMABLY INFECTIOUS INFLAMMATORY. RECOMMEND THREE-MONTH FOLLOW-UP NONCONTRAST CT CHEST TO ENSURE RESOLUTION. 3 CM MIXED DENSITY MASS RIGHT ADRENAL GLAND. RECOMMEND DEDICATED ADRENAL CT OR MRI. Assessment & Plan - Diagnosis (1) Non-STEMI (non-ST elevated myocardial infarction) Is this a current diagnosis for this admission?: Yes Plan: Cardiology recommends that pt have stress test done prior to discharge. Pt states that she wants to go home now. Have recommended that pt have stress done to ensure that no additional procedures are required. Pt has agreed to stress test for tomorrow. Will continue current treatment regimen. (2) Chest pain Qualifiers: Chest pain type: unspecified Qualified Code(s): R07.9 - Chest pain, unspecified Is this a current diagnosis for this admission?: Yes Plan: Secondary to NSTEMI: Will continue current treatment plan. Pt has agreed to stress test for tomorrow. Will continue current treatment. (3) Noncompliance w/medication treatment due to intermit use of medication Is this a current diagnosis for this admission?: Yes Plan: Expressed that importance of using medication as directed. (4) Diabetes mellitus type 2 in nonobese Is this a current diagnosis for this admission?: Yes Plan: Will continue SSI. (5) Hyperlipidemia Qualifiers: Hyperlipidemia type: unspecified Qualified Code(s): E78.5 - Hyperlipidemia , unspecified Is this a current diagnosis for this admission?: Yes Plan: Will continue Tricor and Lipitor. (6) Smoker Is this a current diagnosis for this admission?: Yes Plan: Encouraged the importance of not smoking. (7) Hypertension Qualifiers: Hypertension type: essential hypertension Qualified Code(s): I10 - Essential (primary) hypertension Is this a current diagnosis for this admission?: Yes Plan: Will continue current regimen. Will most likely increase Lisinopril. (8) PAD (peripheral artery disease) Is this a current diagnosis for this admission?: Yes Plan: Encourage not smoking. Pt also encouraged to use medications as directed. - Time Time Spent with patient: 25-34 minutes
[2016-11-22] MEDS: ATORVASTATIN CALCIUM 40 MG TABLET PO SCH (22:05)
[2016-11-22] MEDS: FENOFIBRATE NANOCRYSTALLIZED 145 MG TABLET PO SCH (22:06)
--- NOTE | 2016-11-22 22:58 | PROGRESS NOTE E ---
Progress Note NAME: STELLA FRANKLIN : 1955 AGE: 61Y DATE: 11/22/2016 ROOM: 534 SUBJECTIVE: The patient denies any chest pain or discomfort. There is no shortness of breath. There is no PND, orthopnea. There are no palpitations. The patient is very anxious to go home. She just had a non-ST elevation FL. She is a smoker and has multiple risk factors and has a history of coronary artery bypass graft surgery. Hence, counseled the patient she should stay until tomorrow to have a stress test done. Finally she accepted. OBJECTIVE: GENERAL: On examination the patient is well-built and well-nourished, in no acute distress. VITAL SIGNS: She is afebrile with a temperature of 98.3 degrees Fahrenheit, pulse is 83 beats per minute, blood pressure 130/96, respirations are 18 per minute, O2 saturations are 99% on room air. HEENT: Head is atraumatic, normocephalic. Eyes: Pupils are equal, round and regular, reactive to light and accommodation. Extraocular movements are normal. There is no conjunctival pallor. There is no scleral icterus. ENT is negative. NECK: Supple. There is no JVD. There is no lymphadenopathy. There is no goiter. Carotids are equal. There is no bruit. LUNGS: Clear to auscultation and percussion. There is no chest wall tenderness. HEART: S1 and S2 is heard. There is no S3 gallop. There is no S4 gallop. There is a systolic murmur in the left sternal border and the apex. There is no rub. ABDOMEN: Soft, nontender. There is no hepatosplenomegaly. Bowel sounds are well heard. There are no tender areas of masses. EXTREMITIES: Femorals are diminished. There are no femoral bruits. Leg pulses are diminished. There is no pedal edema. There is no DVT or cellulitis. There is no calf tenderness. CENTRAL NERVOUS SYSTEM: The patient is conscious, awake, alert and oriented x3 with no focal deficits. PSYCHIATRIC: The patient's judgment and insight are intact. Her affect is normal. ASSESSMENT: 1. NON-ST ELEVATION FL. Note that the patient is on full dose of heparin, she is also on aspirin 325 mg p.o. daily. She is also on lisinopril and fenofibrate and also metoprolol. The metoprolol is a short acting drug that is only placed on her once a day. After the stress test tomorrow we will change it to Toprol XL. 2. CHEST PAIN. 3. CAD, HISTORY OF CORONARY ARTERY BYPASS GRAFT SURGERY. 4. DIABETES MELLITUS TYPE 2 IN A NONOBESE PATIENT. 5. HYPERLIPIDEMIA. 6. HYPERTENSION. BLOOD PRESSURE, DIASTOLIC IS SLIGHTLY ELEVATED. 7. PERIPHERAL ARTERIAL DISEASE. PLAN: As mentioned earlier the patient will have a stress test done tomorrow in the form of IV Lexiscan Cardiolite. Continue her beta fiordaliza. Continue aspirin. Continue her other cardiac medications. Her medications have been reviewed. She is also on metformin. She is also on sliding scale insulin. She is also on hypoglycemic precautions. She is also on Lovenox 60 mg subcutaneously b.i.d. Discussed procedure of stress testing with the patient. Note 30 minutes spent on this patient with more than 50% of the time spent on direct patient care. Medications have been reviewed and the case was discussed with the other caregiving providers on the case. Medical decision making is of high complexity *------* need for stress test in a patient with coronary artery disease and history of coronary artery bypass graft surgery and who has sustained a non-ST elevation FL. DICTATING PHYSICIAN: DORIS CHILDRESS M.D. [id number] GASPERY#: [id number] ID: [id number] JOB#: [id number] ACCT: [id number] cc: >
[2016-11-23] MEDS: LANSOPRAZOLE 15 MG TAB.RAP.DR PO SCH (05:22)
[2016-11-23 05:25] LABS: ABSOLUTE BASOPHILS # (AUTO) 0.1 10^3/uL (0.0-0.2); ABSOLUTE EOSINOPHILS # (AUTO) 0.2 10^3/uL (0.0-0.6); ABSOLUTE LYMPHOCYTES (AUTO) 3.4 10^3/uL (0.5-4.7); ABSOLUTE MONOCYTES (AUTO) 0.7 10^3/uL (0.1-1.4); ABSOLUTE NEUT (AUTO) 4.3 10^3/uL (1.7-8.2); BASOPHILS % (AUTO) 0.8 % (0-2); EOSINOPHILS % (AUTO) 2.1 % (0-6); HEMATOCRIT 40.5 % (36.0-47.0); HEMOGLOBIN 13.7 g/dL (12.0-15.5); HGB HCT DIFFERENCE 0.6; LYMPHOCYTES % (AUTO) 39.2 % (13-45); MEAN CORPUSCULAR HEMOGLOBIN 28.9 pg (27.0-33.4); MEAN CORPUSCULAR VOLUME 85 fl (80-97); MONOCYTES % (AUTO) 7.7 % (3-13); RED BLOOD COUNT 4.76 10^6/uL (3.72-5.28); RED CELL DISTRIBUTION WIDTH 13.1 % (11.5-14.0); SEGMENTED NEUTROPHILS % (AUTO) 50.2 % (42-78); WHITE BLOOD COUNT 8.6 10^3/uL (4.0-10.5)
[2016-11-23 06:41] LABS: ANION GAP 10 (5-19); BLOOD UREA NITROGEN 23 mg/dL (7-20); CALCIUM 10.1 mg/dL (8.4-10.2); CARBON DIOXIDE 28 mmol/L (22-30); CHLORIDE 103 mmol/L (98-107); CREATININE RESULT 0.92 mg/dL (0.52-1.25); GLUCOSE 213 mg/dL (75-110); POTASSIUM 4.1 mmol/L (3.6-5.0); SODIUM 140.5 mmol/L (137-145)
[2016-11-23 08:21] LABS: APPEARANCE,URINE SLIGHTLY-CLOUDY; BILIRUBIN,URINE NEGATIVE (NEGATIVE); GLUCOSE, URINE NEGATIVE (NEGATIVE); KETONES,URINE NEGATIVE (NEGATIVE); LEUKOCYTE ESTERASE,URINE TRACE (NEGATIVE); NITRITE,URINE NEGATIVE (NEGATIVE); PROTEIN,URINE NEGATIVE (NEGATIVE); URINE SPECIFIC GRAVITY 1.012; UROBILINOGEN,URINE NEGATIVE mg/dL (<2.0)
[2016-11-23] MEDS: GLIPIZIDE 10 MG TABLET PO SCH (08:42)
[2016-11-23] MEDS: INSULIN LISPRO 100 UNIT/ML 3 ML VIAL SUBCUT PRN ×2 (08:43→11:44)
[2016-11-23] MEDS ORDERED: REGADENOSON INJ 0.4 MG/5 ML DISP.SYRIN IV ONE (11:21)
[2016-11-23] MEDS ORDERED: AMINOPHYLLINE INJ/PF 250 MG/10 ML SDV IV ONE (11:21)
[2016-11-23] MEDS: ENOXAPARIN SODIUM INJ 60 MG/0.6 ML DISP.SYRIN SUBCUT SCH (11:44)
[2016-11-23] MEDS: GABAPENTIN 100 MG CAPSULE PO SCH (11:46)
[2016-11-23] MEDS: LISINOPRIL 5 MG TABLET PO SCH (11:46)
[2016-11-23] MEDS: METOPROLOL TARTRATE 25 MG TABLET PO SCH (11:46)
[2016-11-23] MEDS: ASPIRIN 325 MG TABLET, ENT COATED PO SCH (11:47)
[2016-11-23] MEDS: OXYBUTYNIN CHLORIDE 5 MG TABLET PO SCH (11:47)
[2016-11-23] MEDS: NICOTINE 21 MG/24 HR PATCH.TD24 TD SCH (11:48)
[2016-11-23] MEDS: RANOLAZINE 500 MG TAB.SR.12H PO SCH (11:48)
[2016-11-23] MEDS: CHOLECALCIFEROL (D3) 400 UNIT TABLET PO SCH (11:48)
--- NOTE | 2016-11-23 12:59 | DRAGON STRESS TEST REPORT ---
INTRAVENOUS LEXISCAN CARDIOLITE STRESS TEST USING SINGLE PHOTON EMMISION COMPUTERIZED TOMOGRAPHIC. DATE OF PROCEDURE: November 23, 2016 INDICATION : Chest pain and non-STEMI CARDIAC RISK FACTORS: Hypertension, dyslipidemia, tobacco abuse and diabetes. RESTING EKG: Sinus rhythm with nonspecific ST-T wave changes STRESS EKG: No significant changes noted with LexiScan bolus REASON FOR TERMINATION: Protocol. PROCEDURE REPORT: Baseline heart rate 75 beats per minute with blood pressure of 129/62. Patient had no significant complaints. Heart rate at 2 minutes post bolus 104 with a blood pressure of 127/48. 3 minutes post bolus heart rate 83 with blood pressure of 127/53. No significant EKG changes were noted. Patient had no significant complaints during the procedure or postprocedure. Patient injected with Aminophyllin 75 mg at 3 minutes or later after Lexiscan bolus. CONCLUSIONS: Normal EKG and hemodynamic response to IV LexiScan. NUCLEAR DATA: At rest the patient was given 10.73 millicuries of technetium 99 sestamibi injected intravenously. As per protocol rest gated SPECT images were obtained. Subsequently the patient was given intravenous LexiScan at a dose of 0.4 mg in 5 mL intravenously, followed by flush with normal saline. Subsequently the stress dose of 23.8 millicuries of technetium 99 sestamibi was injected intravenously. As per protocol stress gated images were obtained. NUCLEAR INTERPRETATION: Both raw and processed data were used for interpretation. Visual, qualitative, computer-generated quantitative data was used. There was good myocardial uptake of technetium compound. Motion artifact and soft tissue attenuations were noted. Increased visceral uptake was noted. No definitive areas of transient perfusion defect noted. No definitive areas of fixed perfusion defect or scars noted. EKG gated imaging showed LV EF at 63 %, rest and stress gated EF similar visually. T. I D. ratio was 1.10. Lung heart ratio noted to be within normal limits 0.36. No significant extracardiac and abnormal radiotracer activities were noted. RV free wall uptake was noted to be normal. IMPRESSION: Also refer to comments under nuclear interpretation. Also test results needs to be interpreted in the context of pretest probability. 1. There is no definitive scintigraphic evidence of LexiScan induced myocardial ischemia. 2. There is no definitive scintigraphic evidence of myocardial infarction/scar. 3. EKG gated imaging shows left ventricular ejection fraction of approximately 63 %. 4. Clinical correlation requested as occasionally single vessel disease or balanced ischemia could be missed. In approximately 10% of the cases Lexiscan may not cause adequate vasodilatory stress. RECOMMENDATIONS: Aggressive risk factor modification, medical therapy. Clinical correlation with echocardiogram derived ejection fraction. Inability to exercise by itself can lead to increased cardiovascular event risks. Consider cardiology consultation and or follow-up if clinically indicated. I AM AVAILABLE FOR CARDIOLOGY CONSULTATION AND FOLLOWUP IF REQUESTED BY PMD Rich Butler M.D., BLAN[place] Assistant Superintendent microfilmer, Board certified in cardiovascular diseases, Nuclear cardiology, Echocardiography Cardiac CT and cardiac MRI Ph. [phone] [facility]
[2016-11-23 14:27] VITALS: BP 133/58
--- NOTE | 2016-11-23 15:43 | PDOC DISCHARGE SUMMARY ---
General - Admit/Disc Date/PCP Admission Date/Primary Care Provider: 11/21/16 13:05 Discharge Date: 11/23/16 - Discharge Diagnosis (1) Non-STEMI (non-ST elevated myocardial infarction) Is this a current diagnosis for this admission?: Yes Summary: Patient was noncompliant with home medications. Patient had a nuclear stress test demonstrated no significant disease. Cardiology recommended medical management and patient been adherent with medications. (2) Chest pain Is this a current diagnosis for this admission?: Yes Summary: NSTEMI. Told to use home medications. (3) Noncompliance w/medication treatment due to intermit use of medication Is this a current diagnosis for this admission?: Yes Summary: She reported that she stopped taking all of her home medications because she did not want to take them. Patient was instructed that she needs to take her home medications as directed. (4) Diabetes mellitus type 2 in nonobese Is this a current diagnosis for this admission?: Yes Summary: Patient stated that she did not want to take insulin therefore patient was continued on home medications. Patient was told to make dietary changes. (5) Hyperlipidemia Is this a current diagnosis for this admission?: Yes Summary: Continue statin and fenofibrate (6) Smoker Is this a current diagnosis for this admission?: Yes Summary: Patient was encouraged to stop smoking (7) Hypertension Is this a current diagnosis for this admission?: Yes Summary: We will continue current medications (8) PAD (peripheral artery disease) Is this a current diagnosis for this admission?: Yes Summary: Continue current medications - Additional Information Resuscitation Status: Full Code Discharge Diet: Cardiac, Diabetic Discharge Activity: Activity As Tolerated Home Medications: Aspirin [Aspirin EC] 81 mg PO DAILY 11/21/16 Atorvastatin Calcium [Lipitor 80 mg Tablet] 80 mg PO QHS 11/21/16 Fenofibrate 160 mg PO QHS 11/21/16 Gabapentin [Neurontin 100 mg Capsule] 100 mg PO BID 11/21/16 Glipizide [Glucotrol 10 mg Tablet] 10 mg PO BIDBS 11/21/16 Metformin HCl [Glucophage] 1,000 mg PO BIDBS 11/21/16 Metoprolol Tartrate [Lopressor 25 mg Tablet] 25 mg PO Q12 11/21/16 Oxybutynin Chloride [Ditropan 5 mg Tablet] 5 mg PO BID 11/21/16 Ticagrelor [Brilinta 90 mg Tablet] 90 mg PO BID 11/21/16 Aspirin [Adult Low Dose Aspirin EC] 81 mg PO DAILY #2 tablet. 11/23/16 Lisinopril [Prinivil 5 mg Tablet] 2.5 mg PO DAILY #30 tablet 11/23/16 Ranolazine [Ranexa 500 mg Tab.sr] 500 mg PO Q12 #60 tab.sr.12h 11/23/16 History of Present Illness History of Present Illness: STELLA FRANKLIN is a 61 year old female who presents to our facility with complaint of chest pain. Patient reported that she had not been taking any of her home medications for the last several weeks. When patient was seen in the emergency department patient was found to have elevated troponins with nonspecific ST T-wave changes. Patient was seen by cardiology and diagnosed as having an STEMI. Patient had a 2D echo which demonstrated a normal EF. Cardiology recommended the patient have a nuclear stress test due to patient's cardiac history therefore patient a nuclear stress test which demonstrated no significant disease. Patient did well throughout hospitalization and was discharged home Physical Exam Vital Signs: Temp Pulse Resp BP Pulse Ox 98.0 F 89 17 133/58 H 97 11/23/16 14:17 11/23/16 14:17 11/23/16 14:17 11/23/16 14:17 11/23/16 14:17 Intake & Output 11/22/16 11/23/16 11/24/16 06:59 06:59 06:59 Intake Total 1660 1626 Balance 1660 1626 Weight 58.4 kg 55.5 kg General appearance: PRESENT: no acute distress, well-developed, well-nourished Head exam: PRESENT: atraumatic, normocephalic Eye exam: PRESENT: conjunctiva pink, EOMI, PERRLA. ABSENT: scleral icterus Ear exam: PRESENT: normal external ear exam Mouth exam: PRESENT: dry mucosa Neck exam: ABSENT: carotid bruit, JVD, lymphadenopathy, thyromegaly Respiratory exam: PRESENT: clear to auscultation caroline. ABSENT: rales, rhonchi, wheezes Cardiovascular exam: PRESENT: RRR. ABSENT: diastolic murmur, rubs, systolic murmur Pulses: PRESENT: normal dorsalis pedis pul Vascular exam: PRESENT: normal capillary refill GI/Abdominal exam: PRESENT: normal bowel sounds, soft. ABSENT: distended, guarding, mass, organolmegaly, rebound, tenderness Rectal exam: PRESENT: deferred Extremities exam: PRESENT: full ROM. ABSENT: calf tenderness, clubbing, pedal edema Neurological exam: PRESENT: alert, awake, oriented to person, oriented to place , oriented to time, oriented to situation, CN II-XII grossly intact. ABSENT: motor sensory deficit Psychiatric exam: PRESENT: appropriate affect, normal mood. ABSENT: homicidal ideation, suicidal ideation Skin exam: PRESENT: dry, intact, warm. ABSENT: cyanosis, rash Results Laboratory Results: 11/23/16 05:12 11/23/16 05:12 11/23/16 11/23/16 11/23/16 05:12 05:12 08:00 WBC 8.6 RBC 4.76 Hgb 13.7 Hct 40.5 MCV 85 MCH 28.9 MCHC 34.0 RDW 13.1 Plt Count 229 Seg Neutrophils % 50.2 Lymphocytes % 39.2 Monocytes % 7.7 Eosinophils % 2.1 Basophils % 0.8 Absolute Neutrophils 4.3 Absolute Lymphocytes 3.4 Absolute Monocytes 0.7 Absolute Eosinophils 0.2 Absolute Basophils 0.1 Sodium 140.5 Potassium 4.1 Chloride 103 Carbon Dioxide 28 Anion Gap 10 BUN 23 H Creatinine 0.92 Est GFR ( Amer) > 60 Est GFR (Non-Af Amer) > 60 Glucose 213 H Calcium 10.1 Urine Color YELLOW Urine Appearance SLIGHTLY-CLOUDY Urine pH 5.0 Ur Specific [place] 1.012 Urine Protein NEGATIVE Urine Glucose (UA) NEGATIVE Urine Ketones NEGATIVE Urine Blood NEGATIVE Urine Nitrite NEGATIVE Ur Leukocyte Esterase TRACE H Urine WBC (Auto) 45 Urine RBC (Auto) 1 11/21/16 11/21/16 17:47 23:41 Troponin I 0.108 0.095 Impressions: Chest X-Ray 11/20/16 16:02 IMPRESSION: NO ACUTE RADIOGRAPHIC FINDING IN THE CHEST. Chest/Abdomen CTA 11/21/16 14:08 IMPRESSION: NO PULMONARY EMBOLI. 5 MM GROUND-GLASS NODULE LEFT LOWER LOBE PRESUMABLY INFECTIOUS INFLAMMATORY. RECOMMEND THREE-MONTH FOLLOW-UP NONCONTRAST CT CHEST TO ENSURE RESOLUTION. 3 CM MIXED DENSITY MASS RIGHT ADRENAL GLAND. RECOMMEND DEDICATED ADRENAL CT OR MRI. Qualifiers PATEINT BEING DISCHARGED WITH ANY OF THE FOLLOWING DIAGNOSIS?: OK VTE patient discharged on overlapping Therapy?: Yes Plan Time Spent: Greater than 30 Minutes
--- NOTE | 2016-11-23 19:22 | PDOC PROGRESS REPORT ---
Subjective Progress Note for:: 11/23/16 Subjective:: Patient seems to be doing better. Pt is denying any chest arm or neck discomfort. Patient denying any PND, orthopnea. Patient denied any sustained palpitations, dizziness, syncope, near syncope. Patient denying any fever chills. Patient denying any other significant discomfort. Patient is maintaining sinus rhythm. Review of systems: Rest review of systems negative. Medications: Medications have been reviewed. Nuclear stress test procedure was explained to the patient in detail. Risks benefits were discussed and informed consent was obtained. Alternatives were discussed. Patient informed that based on risk factors, physical exam, lab data findings and symptoms there is at least intermediate probability of underlying CAD. Nuclear stress test procedure was therefore scheduled. Physical Exam Vital Signs: Temp Pulse Resp BP Pulse Ox 98.0 F 89 17 133/58 H 97 11/23/16 14:17 11/23/16 14:17 11/23/16 14:17 11/23/16 14:17 11/23/16 14:17 Intake & Output 11/22/16 11/23/16 11/24/16 06:59 06:59 06:59 Intake Total 1660 1626 Balance 1660 1626 Weight 58.4 kg 55.5 kg Exam: GENERAL: well-nourished and in no acute distress. Alert and oriented x3 HEAD: Atraumatic, normocephalic. EYES: Pupils equal round and reactive to light, extraocular movements intact, sclera anicteric, conjunctiva are normal. ENT: TMs normal, nares patent, oropharynx clear without exudates. Moist mucous membranes. No oral ulcerations or bleeding gums noted NECK: supple without lymphadenopathy. Trachea is central. No cervical or axillary lymphadenopathy noted. Carotids are 2+, JVD WNL LUNGS: Respiration seems nonlabored, no significant accessory muscle action noted. Breath sounds clear to auscultation bilaterally and equal noted. No wheezes rales or rhonchi noted. No significant dullness noted on percussion. CHEST: Palpation of the chest wall shows no significant chest wall tenderness. No other significant abnormalities noted. HEART: [place] [employer]APH[employer] DES[employer] TE[employer]ER, No PSH, 1/6 JANIYA aortic area, 1/6 best systolic murmur mitral area, no rubs, no gallops. ABDOMEN: Soft, no significant tenderness appreciated, normoactive bowel sounds. No guarding, no rebound. No rigidity noted . No masses appreciated. EXTREMITIES: Pedal pulses are 1-2+, no calf tenderness noted. No clubbing or cyanosis.trace to 1+ pedal edema noted NEUROLOGICAL: Focused neurological exam showed no significant neurologic deficit. Normal speech, no focal weakness appreciated. PSYCH: Normal mood, normal affect. Judgment and insight within normal limits. SKIN: No significant ecchymosis, rash, ulcerations or signs of pruritus noted. MUSCULOSKELETAL EXAM: No significant joint swelling noted. Results Laboratory Results: 11/23/16 05:12 11/23/16 05:12 11/23/16 11/23/16 11/23/16 05:12 05:12 08:00 WBC 8.6 RBC 4.76 Hgb 13.7 Hct 40.5 MCV 85 MCH 28.9 MCHC 34.0 RDW 13.1 Plt Count 229 Seg Neutrophils % 50.2 Lymphocytes % 39.2 Monocytes % 7.7 Eosinophils % 2.1 Basophils % 0.8 Absolute Neutrophils 4.3 Absolute Lymphocytes 3.4 Absolute Monocytes 0.7 Absolute Eosinophils 0.2 Absolute Basophils 0.1 Sodium 140.5 Potassium 4.1 Chloride 103 Carbon Dioxide 28 Anion Gap 10 BUN 23 H Creatinine 0.92 Est GFR ( Amer) > 60 Est GFR (Non-Af Amer) > 60 Glucose 213 H Calcium 10.1 Urine Color YELLOW Urine Appearance SLIGHTLY-CLOUDY Urine pH 5.0 Ur Specific [place] 1.012 Urine Protein NEGATIVE Urine Glucose (UA) NEGATIVE Urine Ketones NEGATIVE Urine Blood NEGATIVE Urine Nitrite NEGATIVE Ur Leukocyte Esterase TRACE H Urine WBC (Auto) 45 Urine RBC (Auto) 1 11/21/16 11/21/16 17:47 23:41 Troponin I 0.108 0.095 EKG Comments: Telemetry strips reviewed showed sinus rhythm, no acute ST-T wave changes were noted. Impressions: Chest X-Ray 11/20/16 16:02 IMPRESSION: NO ACUTE RADIOGRAPHIC FINDING IN THE CHEST. Chest/Abdomen CTA 11/21/16 14:08 IMPRESSION: NO PULMONARY EMBOLI. 5 MM GROUND-GLASS NODULE LEFT LOWER LOBE PRESUMABLY INFECTIOUS INFLAMMATORY. RECOMMEND THREE-MONTH FOLLOW-UP NONCONTRAST CT CHEST TO ENSURE RESOLUTION. 3 CM MIXED DENSITY MASS RIGHT ADRENAL GLAND. RECOMMEND DEDICATED ADRENAL CT OR MRI. Assessment & Plan - Diagnosis (1) Non-STEMI (non-ST elevated myocardial infarction) Is this a current diagnosis for this admission?: Yes (2) Chest pain Qualifiers: Chest pain type: unspecified Qualified Code(s): R07.9 - Chest pain, unspecified Is this a current diagnosis for this admission?: Yes (3) Diabetes mellitus type 2 in nonobese Is this a current diagnosis for this admission?: Yes (4) Hyperlipidemia Qualifiers: Hyperlipidemia type: unspecified Qualified Code(s): E78.5 - Hyperlipidemia , unspecified Is this a current diagnosis for this admission?: Yes (5) Smoker Is this a current diagnosis for this admission?: Yes (6) Hypertension Qualifiers: Hypertension type: essential hypertension Qualified Code(s): I10 - Essential (primary) hypertension Is this a current diagnosis for this admission?: Yes (7) PAD (peripheral artery disease) Is this a current diagnosis for this admission?: Yes - Notes Notes: Nuclear stress test completed and results discussed. 2D echo results reviewed. Risk factor modifications discussed. Non-STEMI: Patient has known CAD with previous bypass surgery and stent placement. Patient presented with chest pain. Has positive troponin I elevation and also minor nonspecific ST-T wave changes. 2D echo results were reviewed with the patient. Patient today underwent nuclear stress test which was noted to be negative for any significant ischemia or fixed defect. These results were discussed. Patient's medical regimen to be optimized. Patient encouraged to follow-up as an outpatient. Chest pain: Currently chest pain-free. Optimize medical management for underlying CAD. Coronary artery disease: Currently stable. Patient did sustain a non-STEMI. Medical management is being optimized. Diabetes: Recommend good control of blood sugar. However should avoid any hypoglycemia. Patient being expertly managed by primary care MArielle Hypertension: Reasonably well controlled. Blood pressure goal in this patient is 135/85 or less. This was discussed with the patient. Currently blood pressure under reasonable control. Better medication for this patient are CHANDLER inhibitor/ARB/beta fiordaliza etc. Hyperlipidemia: LDL goal is less than 70. Recommend statin therapy at least intermediate or high dose, of high potency status. Periodic lipid panel and liver panel is indicated. Patient to report any significant muscle discomfort or other side effects. Patient has history of chronic smoking. Discussed detrimental effect of chronic smoking including worsening COPD, increased risk of cardiovascular events, cerebrovascular events, cancer and multiple other side effects of smoking. The benefits of smoking cessation discussed. Patient unwilling to give acommitment to quit. Patient informed that we'll be happy to help should pt decide to quit. Continue nicotine patch while inpatient. PVD: No acute limb ischemia noted. Based on previous evaluation, patient has significant PVD. Further evaluation can be performed as an outpatient. Rest ischemia symptoms discussed. Patient to report immediately if such symptoms occur. - Time Time with patient: Greater than 35 minutes - Patient was seen multiple times. Total time exceeds 40 minutes. In the morning nuclear stress test procedure, risks benefits, alternatives were discussed. Patient seen during the stress test. Patient also seen after stress test when results were discussed with the patient in detail. Patient's questions were answered. Nuclear stress test results were discussed with the patient. Patient was informed that no definitive evidence of pharmacologic stress-induced ischemia noted. No definite fixed defects were noted. Patient informed that occasionally balanced ischemia could be missed. However based on the current study results, would recommend aggressive risk factor modification and medical therapy. Patient informed that if she has recurrence or persistent in having chest pain, then cardiac catheterization should be considered. Right now, recommendations are for aggressive risk factor modification and medical management. CODE STATUS was discussed, patient remains full code. Surrogate decision-maker unchanged. Multiple medical problems were addressed. More than 50% of the time spent coordinating care, discussing management plans with involved caregivers. Management plans discussed with involved personnels. Medical decision making was of moderate to high complexity, patient's has multiple comorbidities. Medications reviewed and adjusted accordingly: Yes
== END 2016-11-23 14:52 | disposition hospice, inpatient (51) | DRG 282 ==
LOC: ER 16:00 → EH 17:27 → 5 21:05 → OBSVTOIN 11-21 13:05
PROVIDERS: ADMIT Family Medicine; ATTEND Family Medicine
DX: I21.4 Non-ST elevation (NSTEMI) myocardial infarction (principal); I73.9 Peripheral vascular disease, unspecified; I10 Essential (primary) hypertension; I25.10 Atherosclerotic heart disease of native coronary artery without angina pectoris; F17.210 Nicotine dependence, cigarettes, uncomplicated; J45.909 Unspecified asthma, uncomplicated; E11.42 Type 2 diabetes mellitus with diabetic polyneuropathy; E87.5 Hyperkalemia; E05.90 Thyrotoxicosis, unspecified without thyrotoxic crisis or storm; N32.81 Overactive bladder; E55.9 Vitamin D deficiency, unspecified; Z95.1 Presence of aortocoronary bypass graft; Z79.82 Long term (current) use of aspirin; Z79.84 Long term (current) use of oral hypoglycemic drugs; Z79.899 Other long term (current) drug therapy; Z91.14 Patient's other noncompliance with medication regimen; Z98.51 Tubal ligation status; Z82.49 Family history of ischemic heart disease and other diseases of the circulatory system; Z86.73 Personal history of transient ischemic attack (TIA), and cerebral infarction without residual deficits
CPT/HCPCS: 36415; 71010; 71275; 78452; 80048; 80053; 80061; 81001; 82550; 82553; 82962; 84439; 84443; 84484; 85025; 93005; 93010; 93017; 93306; 96360; 99291; A9500; G0378; J0280; J1650; J1815; J2785; J3490; J7030; Q9969

== ENCOUNTER 2017-02-05 05:06 | Emergency (ER) | payer MEDICARE, MEDICAID ==
--- NOTE | 2017-02-05 05:36 | ER Document Report ---
Doctor's Note Notes: 02/05/17 05:34 I performed a quick triage evaluation the patient. Patient is a pleasant 61- year-old female presents with complaint of difficulty breathing is started suddenly tonight. She does have history of asthma and COPD. She does still smoke. She does not wear oxygen at home. She denies any chest pain. She does have a history of open heart surgery coronary bypass. She denies any recent fevers or infections. No vomiting. No other complaints at this time. She says she is feeling improved since arriving to the ER. No other complaints at this time. On exam patient has very faint rales in the bases. Her lung amador are otherwise clear. He is in no distress. She appears very comfortable. Heart is regular rate. EKG does not show any ST segment elevation or signs of [place]. She has no edema in her lower extremities. I will order blood work as well as chest x-ray. Will place patient on oven unloader. Dictation of this chart was performed using voice recognition software; therefore, there may be some unintended grammatical errors.
[2017-02-05 06:01] LABS: ABSOLUTE BASOPHILS # (AUTO) 0.1 10^3/uL (0.0-0.2); ABSOLUTE EOSINOPHILS # (AUTO) 0.1 10^3/uL (0.0-0.6); ABSOLUTE MONOCYTES (AUTO) 0.7 10^3/uL (0.1-1.4); ABSOLUTE NEUT (AUTO) 6.1 10^3/uL (1.7-8.2); BASOPHILS % (AUTO) 0.7 % (0-2); EOSINOPHILS % (AUTO) 1.6 % (0-6); HEMATOCRIT 38.7 % (36.0-47.0); HEMOGLOBIN 13.3 g/dL (12.0-15.5); HGB HCT DIFFERENCE 1.2; LYMPHOCYTES % (AUTO) 21.8 % (13-45); MEAN CORPUSCULAR HEMOGLOBIN 28.4 pg (27.0-33.4); MEAN CORPUSCULAR HGB CONC 34.3 g/dL (32.0-36.0); MEAN CORPUSCULAR VOLUME 83 fl (80-97); MONOCYTES % (AUTO) 8.2 % (3-13); RED BLOOD COUNT 4.67 10^6/uL (3.72-5.28); RED CELL DISTRIBUTION WIDTH 13.3 % (11.5-14.0); SEGMENTED NEUTROPHILS % (AUTO) 67.7 % (42-78)
--- NOTE | 2017-02-05 06:18 | RADIOLOGY REPORT (SQ) ---
EXAM DESCRIPTION: CHEST SINGLE VIEW CLINICAL HISTORY: dyspnea COMPARISON: None. FINDINGS: Single frontal view of the chest. Prior median sternotomy. Leads overlie the chest. No consolidation, pneumothorax, or pleural effusion. No displaced rib fractures identified. Upper abdominal soft tissues are unremarkable. IMPRESSION: 1. No acute pulmonary process identified.
[2017-02-05 06:29] LABS: CREATINE KINASE MB 0.56 ng/mL (<4.55)
[2017-02-05 07:12] LABS: ALANINE AMINOTRANSFERASE 22 U/L (9-52); ALBUMIN 3.7 g/dL (3.5-5.0); ALKALINE PHOSPHATASE 127 U/L (38-126); ANION GAP 11 (5-19); ASPARTATE AMINO TRANSFERASE 34 U/L (14-36); BILIRUBIN,DIRECT 0.5 mg/dL (0.0-0.4); BILIRUBIN,TOTAL 0.5 mg/dL (0.2-1.3); BLOOD UREA NITROGEN 16 mg/dL (7-20); CALCIUM 9.1 mg/dL (8.4-10.2); CARBON DIOXIDE 29 mmol/L (22-30); CHLORIDE 103 mmol/L (98-107); CREATINE KINASE 38 U/L (30-135); CREATININE RESULT 0.67 mg/dL (0.52-1.25); GLUCOSE 260 mg/dL (75-110); POTASSIUM 3.4 mmol/L (3.6-5.0); SODIUM 142.8 mmol/L (137-145); TOTAL PROTEIN 7.4 g/dL (6.3-8.2)
[2017-02-05 07:13] LABS: TROPONIN I 0.487 ng/mL
[2017-02-05] MEDS ORDERED: ENOXAPARIN SODIUM INJ 60 MG/0.6 ML DISP.SYRIN SUBCUT SCH (07:30)
[2017-02-05] MEDS ORDERED: ASPIRIN 325 MG TABLET PO ONE (07:56)
--- NOTE | 2017-02-05 08:01 | ER Document Report ---
ED General - General Chief Complaint: Shortness Of Breath Stated Complaint: SHORTNESS OF BREATH Time Seen by Provider: 02/05/17 05:33 TRAVEL OUTSIDE OF THE [place] IN LAST 30 DAYS: No - HPI Patient complains to provider of: Shortness of breath Notes: Patient coming in for evaluation shortness of breath. Patient states woke up in the middle night around 3 to 4:00 with extreme shortness of breath. Upon EMS arrival patient was found to have normal vital signs. No signs of hypoxia or tachypnea. Patient does have a significant history of COPD and smoking. Patient states continues to smoke. Patient was transported to the ER upon my evaluation patient is on 2 L nasal cannula states feeling better after receiving oxygen. Patient denies any chest pain fevers chills nausea vomiting diarrhea. Patient states recently was admitted to the hospital and November with a negative stress test. - Related Data Allergies/Adverse Reactions: No Known Allergies Allergy (Verified 02/05/17 05:56) Past Medical History - Social History Smoking Status: Unknown if Ever Smoked Chew tobacco use (# tins/day): No Frequency of alcohol use: None Drug Abuse: None Family History: CAD, Hypertension Patient has suicidal ideation: No Patient has homicidal ideation: No - Past Medical History Cardiac Medical History: Reports: Hx Congestive Heart Failure, Hx Heart Attack, Hx Hypercholesterolemia, Hx Hypertension Pulmonary Medical History: Reports: Hx Asthma, Hx COPD Endocrine Medical History: Reports: Hx Diabetes Mellitus Type 2 Renal/ Medical History: Denies: Hx Peritoneal Dialysis Past Surgical History: Reports: Hx Cardiac Catheterization, Hx Cardiac Surgery - CABG, Hx Coronary Artery Bypass Graft, Hx Coronary Stent, Hx Tubal Ligation - Immunizations Hx Diphtheria, Pertussis, Tetanus Vaccination: Yes Review of Systems - Review of Systems Constitutional: No symptoms reported EENT: No symptoms reported Cardiovascular: No symptoms reported Respiratory: Short of breath Gastrointestinal: No symptoms reported Genitourinary: No symptoms reported Female Genitourinary: No symptoms reported Musculoskeletal: No symptoms reported Skin: No symptoms reported Hematologic/Lymphatic: No symptoms reported Neurological/Psychological: No symptoms reported -: Yes All other systems reviewed and negative Physical Exam - Vital signs Vitals: Temp 97.6 F 02/05/17 05:07 Interpretation: Normal - General General appearance: Appears well, Alert - HEENT Head: Normocephalic, Atraumatic Eyes: Normal Pupils: PERRL - Respiratory Respiratory status: No respiratory distress Chest status: Nontender Breath sounds: Wheezing - Very fine wheezing Chest palpation: Normal - Cardiovascular Rhythm: Regular Heart sounds: Normal auscultation Murmur: No - Abdominal Inspection: Normal Distension: No distension Bowel sounds: Normal Tenderness: Nontender Organomegaly: No organomegaly - Back Back: Normal, Nontender - Extremities General upper extremity: Normal inspection, Nontender, Normal color, Normal ROM , Normal temperature General lower extremity: Normal inspection, Nontender, Normal color, Normal ROM , Normal temperature, Normal weight bearing. No: Ari's sign - Neurological Neuro grossly intact: Yes Cognition: Normal Orientation: AAOx4 [place] Coma Scale Eye Opening: Spontaneous [place] Coma Scale Verbal: Oriented [place] Coma Scale Motor: Obeys Commands [place] Coma Scale Total: 15 Speech: Normal Motor strength normal: LUE, RUE, LLE, RLE Sensory: Normal - Psychological Associated symptoms: Normal affect, Normal mood - Skin Skin Temperature: Warm Skin Moisture: Dry Skin Color: Normal Course - Re-evaluation Re-evalutation: 02/05/17 09:[address] segment depressions V4 through V6 and is noted ST segment elevation no signs of acute MD. Troponin did return positive at 0.4. With a recent negative stress test felt patient would be better served to the facility that can provide cardiac catheterization more likely dyspnea this anginal equivalent. Patient case was discussed with Dr. garcia of [facility] patient was accepted in transfer. Currently waiting for transport 02/05/17 14:54 Transfer team currently at bedside patient has been stable for transfer while pending here in the ER. Patient looks good from door. - Vital Signs Vital signs: Temp Pulse Resp BP Pulse Ox 97.6 F 22 H 117/74 96 02/05/17 05:07 02/05/17 14:05 02/05/17 14:05 02/05/17 14:05 - Laboratory Result Diagrams: 02/05/17 05:38 02/05/17 05:38 Laboratory results interpreted by me: 02/05/17 02/05/17 05:38 05:38 Potassium 3.4 L Glucose 260 H Direct Bilirubin 0.5 H Alkaline Phosphatase 127 H NT-Pro-B Natriuret Pep 1370 H Critical Care Note - Critical Care Note Total time excluding time spent on procedures (mins): 35 Comments: Management ofnSTEMI Discharge - Discharge Clinical Impression: Diabetes mellitus type 2 in nonobese, Noncompliance w/medication treatment due to intermit use of medication, Smoker, NSTEMI (non-ST elevated myocardial infarction) Dyspnea Qualifiers: Dyspnea type: unspecified Qualified Code(s): R06.00 - Dyspnea, unspecified Referrals: GEO AVALOS MD [Primary Care Provider] - Follow up as needed
[2017-02-05 15:16] VITALS: BP 120/69
--- NOTE | 2017-02-06 09:09 | EKG REPORT ---
SEVERITY:- ABNORMAL ECG - SINUS RHYTHM PROBABLE LVH WITH SECONDARY REPOL ABNRM ST DEPRESSION, CONSIDER ISCHEMIA, ANT-LAT LDS : Confirmed by: Rich Butler 06-Feb-2017 09:09:15
--- NOTE | 2017-02-06 09:10 | EKG REPORT ---
SEVERITY:- ABNORMAL ECG - SINUS RHYTHM PROBABLE LVH WITH SECONDARY REPOL ABNRM ST DEPRESSION, CONSIDER ISCHEMIA, ANT-LAT LDS : Confirmed by: Rich Butler 06-Feb-2017 09:09:24
== END 2017-02-05 15:20 | disposition short-term general hospital (02) ==
LOC: ER 05:06
DX: I21.4 Non-ST elevation (NSTEMI) myocardial infarction (principal); R06.00 Dyspnea, unspecified; E11.9 Type 2 diabetes mellitus without complications; Z91.14 Patient's other noncompliance with medication regimen; J44.9 Chronic obstructive pulmonary disease, unspecified; F17.200 Nicotine dependence, unspecified, uncomplicated
CPT/HCPCS: 93005; 99291; 96372; 36415; 82553; 82550; 85025; 80053; 84484; 83880; 71010; 93010; A9270; J1650

== ENCOUNTER 2017-08-27 00:10 | Observation (INO) | payer MEDICARE, MEDICAID ==
[2017-08-27 00:51] LABS: ABSOLUTE BASOPHILS # (AUTO) 0.2 10^3/uL (0.0-0.2); ABSOLUTE EOSINOPHILS # (AUTO) 0.2 10^3/uL (0.0-0.6); ABSOLUTE LYMPHOCYTES (AUTO) 2.8 10^3/uL (0.5-4.7); ABSOLUTE MONOCYTES (AUTO) 0.9 10^3/uL (0.1-1.4); ABSOLUTE NEUT (AUTO) 8.5 10^3/uL (1.7-8.2); BASOPHILS % (AUTO) 1.4 % (0-2); EOSINOPHILS % (AUTO) 1.3 % (0-6); HEMATOCRIT 38.1 % (36.0-47.0); LYMPHOCYTES % (AUTO) 22.3 % (13-45); MEAN CORPUSCULAR HEMOGLOBIN 28.1 pg (27.0-33.4); MEAN CORPUSCULAR HGB CONC 34.1 g/dL (32.0-36.0); MEAN CORPUSCULAR VOLUME 83 fl (80-97); MONOCYTES % (AUTO) 7.5 % (3-13); PLATELET COUNT 257 10^3/uL (150-450); RED BLOOD COUNT 4.62 10^6/uL (3.72-5.28); RED CELL DISTRIBUTION WIDTH 13.6 % (11.5-14.0); SEGMENTED NEUTROPHILS % (AUTO) 67.5 % (42-78); TOTAL CELLS COUNTED % (AUTO) 100 %; WHITE BLOOD COUNT 12.5 10^3/uL (4.0-10.5)
[2017-08-27 01:07] LABS: ANION GAP 12 (5-19); BLOOD UREA NITROGEN 9 mg/dL (7-20); CALCIUM 9.3 mg/dL (8.4-10.2); CARBON DIOXIDE 27 mmol/L (22-30); CHLORIDE 102 mmol/L (98-107); GLUCOSE 287 mg/dL (75-110); POTASSIUM 3.1 mmol/L (3.6-5.0); SODIUM 141.3 mmol/L (137-145)
--- NOTE | 2017-08-27 01:11 | RADIOLOGY REPORT (SQ) ---
EXAM DESCRIPTION: XR CHEST 1 VIEW CLINICAL HISTORY: 62 years Female, chest pain COMPARISON: 11.19.17 NUMBER OF VIEWS/TECHNIQUE: 1/AP FINDINGS: Increased lung volume, mild interstitial markings, normal cardiac silhouette, and sternotomy. IMPRESSION: Mild interstitial markings. Differential diagnosis includes pulmonary edema, atypical pneumonitis, and chronic interstitial lung disease.
--- NOTE | 2017-08-27 02:08 | ER Document Report ---
ED General - General Chief Complaint: Shortness Of Breath Stated Complaint: CHEST PAIN Time Seen by Provider: 08/27/17 00:32 Notes: Patient is a 62-year-old female with a history of coronary artery disease status post CABG as well as repeat catheterizations with stenting most recently in January 2017, diabetes, hypertension, hyperlipidemia, who presents with an episode of chest pain that started at 11:30 PM tonight and resolved after approximately 2-3 minutes when she took sublingual nitroglycerin. The patient describes as a heaviness or pressure in the left side of her chest that did not radiate. States the pain came on abruptly and resolved rapidly after taking nitroglycerin. She states last time she had similar pain was in January when she had a stent placed. She also notes that she has been more short of breath for the past several hours. Nothing seems to improve or worsen that shortness of breath. She reports that she has some orthopnea at baseline but that this has not changed in the recent past. She denies any history of DVT or pulmonary embolus. No ongoing pain. She denies any pleuritic pain. She has not seen her primary doctor regarding today's concerns. TRAVEL OUTSIDE OF THE [place] IN LAST 30 DAYS: No - Related Data Allergies/Adverse Reactions: No Known Allergies Allergy (Verified 02/05/17 05:56) Past Medical History - General Information source: Patient - Social History Smoking Status: Current Every Day Smoker Frequency of alcohol use: None Drug Abuse: None Lives with: Family Family History: CAD, Hypertension - Past Medical History Cardiac Medical History: Reports: Hx Congestive Heart Failure, Hx Heart Attack, Hx Hypercholesterolemia, Hx Hypertension Pulmonary Medical History: Reports: Hx Asthma, Hx COPD Endocrine Medical History: Reports: Hx Diabetes Mellitus Type 2 Renal/ Medical History: Denies: Hx Peritoneal Dialysis Past Surgical History: Reports: Hx Cardiac Catheterization, Hx Cardiac Surgery - CABG, Hx Coronary Artery Bypass Graft, Hx Coronary Stent, Hx Tubal Ligation - Immunizations Hx Diphtheria, Pertussis, Tetanus Vaccination: Yes Review of Systems - Review of Systems Notes: Constitutional: Negative for fever. HENT: Negative for sore throat. Eyes: Negative for visual changes. Cardiovascular: Positive for chest pain. Respiratory: Positive for shortness of breath. Gastrointestinal: Negative for abdominal pain, vomiting or diarrhea. Genitourinary: Negative for dysuria. Musculoskeletal: Negative for back pain. Skin: Negative for rash. Neurological: Negative for headaches, weakness or numbness. 10 point ROS negative except as marked above and in HPI. Physical Exam - Vital signs Interpretation: Hypoxic, Tachypneic Notes: PHYSICAL EXAMINATION: GENERAL: Well-appearing, well-nourished and in no acute distress. HEAD: Atraumatic, normocephalic. EYES: Pupils equal round and reactive to light, extraocular movements intact, sclera anicteric, conjunctiva are normal. ENT: nares patent, oropharynx clear without exudates. Moderately dry mucous membranes. NECK: Normal range of motion, supple without lymphadenopathy LUNGS: Scattered rales in all lung amador. No respiratory distress. HEART: Regular tachycardia without murmurs ABDOMEN: Soft, nontender, normoactive bowel sounds. No guarding, no rebound. No masses appreciated. EXTREMITIES: Normal range of motion, 1+ pitting edema in the bilateral lower extremities that is equal NEUROLOGICAL: No focal neurological deficits. Moves all extremities spontaneously and on command. PSYCH: Normal mood, normal affect. SKIN: Warm, Dry, normal turgor, no rashes or lesions noted. Course - Re-evaluation Re-evalutation: 08/27/17 02:07 Patient presents with chest discomfort now resolved after taking a nitroglycerin but also with associated shortness of breath and hypoxia. Examination shows scattered rales in all lung amador, mild tachypnea although improved on supplemental oxygenation which she does not require baseline. Patient is currently chest pain-free. Heart score 5 at time of presentation. She has a known history of coronary artery disease, last stent placed in January at [facility]. EKG shows PVCs but no acute ischemic changes. Initial troponin is very minimally elevated at 0.035 - Laboratory Result Diagrams: 08/27/17 00:30 08/27/17 00:30 Laboratory results interpreted by me: 08/27/17 08/27/17 08/27/17 00:30 00:30 00:30 WBC 12.5 H Absolute Neutrophils 8.5 H Potassium 3.1 L Creatinine 0.51 L Glucose 287 H NT-Pro-B Natriuret Pep 1620 H - Diagnostic Test Radiology reviewed: Image reviewed, Reports reviewed Radiology results interpreted by me: 08/27/17 03:31 Chest x-ray: Trace pulmonary edema and vascular congestion. - EKG Interpretation by Me Additional EKG results interpreted by me: 08/27/17 03:32 Sinus tachycardia. Rate 103. PVCs. No ST elevations or depressions. QTC is 471. Discharge - Discharge Clinical Impression: Hypoxia Chest pain Qualifiers: Chest pain type: unspecified Qualified Code(s): R07.9 - Chest pain, unspecified Pulmonary edema Qualifiers: Chronicity: acute Qualified Code(s): J81.0 - Acute pulmonary edema Condition: Fair Disposition: ADMITTED OBSERVATION Admitting Provider: Hospitalist Unit Admitted: Telemetry Referrals: GEO AVALOS MD [Primary Care Provider] - Follow up as needed
[2017-08-27] MEDS ORDERED: FUROSEMIDE INJ/PF 20 MG/2 ML SDV IV ONE (02:10)
[2017-08-27] MEDS ORDERED: NITROGLYCERIN 0.4 MG/TAB 25 TAB/BOTTLE SL PRN (02:11)
[2017-08-27] MEDS ORDERED: POTASSIUM CHLORIDE 10 MEQ TABLET.SA PO ONE (03:25)
[2017-08-27] MEDS ORDERED: MAGNESIUM SULFATE/D5W 1 GM/100 ML RTUPB IV SCH ×2 (05:30→12:00)
--- NOTE | 2017-08-27 06:23 | PDOC H&P ---
History of Present Illness Admission Date/PCP: 08/27/17 03:57 GOE AVALOS MD Patient complains of: Chest pain History of Present Illness: STELLA FRANKLIN is a 62 year old female with a past medical history of hypertension, dyslipidemia, diabetes, TIA, obesity, tobacco dependence and coronary artery disease status post stent times 19 December 2016. Patient presents with retrosternal chest pain of 4-5 associated with shortness of breath palpitations, worsened by activity alleviated by nitroglycerin prompting her to seek evaluation emergency room where she is found to have indeterminate troponin and hypertensive urgency. She admits to noncompliance with her medications for several weeks and ongoing tobacco dependence. She is currently pain-free. Past Medical History Cardiac Medical History: Reports: Congestive Heart Failure, Myocardial Infarction, Hyperlipidema, Hypertension Pulmonary Medical History: Reports: Asthma, Chronic Obstructive Pulmonary Disease (COPD) Endocrine Medical History: Reports: Diabetes Mellitus Type 2 Psychiatric Medical History: Reports: Tobacco Dependency Past Surgical History Past Surgical History: Reports: Cardiac Catheterization, Coronary Artery Bypass Graft, Coronary Stent, Tubal Ligation Social History Information Source: Patient, [facility] Records Lives with: Family Smoking Status: Current Every Day Smoker Frequency of Alcohol Use: None Hx Recreational Drug Use: No Drugs: None Hx Prescription Drug Abuse: No - Advance Directive Resuscitation Status: Full Code Family History Family History: CAD, COPD, Hypertension Parental Family History Reviewed: Yes Children Family History Reviewed: Yes Sibling(s) Family History Reviewed.: Yes Medication/Allergy Home Medications: Aspirin [Aspirin EC] 81 mg PO DAILY 11/21/16 Atorvastatin Calcium [Lipitor 80 mg Tablet] 80 mg PO QHS 11/21/16 Fenofibrate 160 mg PO QHS 11/21/16 Gabapentin [Neurontin 100 mg Capsule] 100 mg PO BID 11/21/16 Glipizide [Glucotrol 10 mg Tablet] 10 mg PO BIDBS 11/21/16 Metformin HCl [Glucophage] 1,000 mg PO BIDBS 11/21/16 Metoprolol Tartrate [Lopressor 25 mg Tablet] 25 mg PO Q12 11/21/16 Oxybutynin Chloride [Ditropan 5 mg Tablet] 5 mg PO BID 11/21/16 Ticagrelor [Brilinta 90 mg Tablet] 90 mg PO BID 11/21/16 Aspirin [Adult Low Dose Aspirin EC] 81 mg PO DAILY #2 tablet. 11/23/16 Lisinopril [Prinivil 5 mg Tablet] 2.5 mg PO DAILY #30 tablet 11/23/16 Ranolazine [Ranexa 500 mg Tab.sr] 500 mg PO Q12 #60 tab.sr.12h 11/23/16 Allergies/Adverse Reactions: No Known Allergies Allergy (Verified 02/05/17 05:56) Review of Systems Constitutional: PRESENT: as per HPI, fatigue, weakness, weight gain Eyes: ABSENT: visual disturbances Ears: ABSENT: hearing changes Cardiovascular: PRESENT: as per HPI, chest pain, dyspnea on exertion, edema, orthropnea, palpitations Respiratory: PRESENT: as per HPI, cough, dyspnea. ABSENT: sputum Gastrointestinal: ABSENT: abdominal pain, constipation, diarrhea, hematemesis, hematochezia, nausea, vomiting Genitourinary: ABSENT: dysuria, hematuria Musculoskeletal: ABSENT: joint swelling Integumentary: ABSENT: rash, wounds Neurological: ABSENT: abnormal gait, abnormal speech, confusion, dizziness, focal weakness, syncope Psychiatric: ABSENT: anxiety, depression, homidical ideation, suicidal ideation Endocrine: ABSENT: cold intolerance, heat intolerance, polydipsia, polyuria Hematologic/Lymphatic: ABSENT: easy bleeding, easy bruising Physical Exam Vital Signs: Temp Pulse Resp BP Pulse Ox 20 151/88 H 98 08/27/17 04:30 08/27/17 04:30 08/27/17 04:30 General appearance: PRESENT: cooperative, mild distress, obese Head exam: PRESENT: atraumatic, normocephalic Eye exam: PRESENT: conjunctiva pink, EOMI, PERRLA. ABSENT: scleral icterus Ear exam: PRESENT: normal external ear exam Mouth exam: PRESENT: moist, tongue midline Neck exam: PRESENT: full ROM, JVD. ABSENT: carotid bruit, lymphadenopathy Respiratory exam: PRESENT: crackles, prolonged expiratory phas. ABSENT: rales, retraction Cardiovascular exam: PRESENT: gallop, +S1, +S2 Pulses: PRESENT: normal dorsalis pedis pul Vascular exam: PRESENT: normal capillary refill GI/Abdominal exam: PRESENT: normal bowel sounds, soft. ABSENT: distended, guarding, mass, organolmegaly, rebound, tenderness Rectal exam: PRESENT: deferred Extremities exam: PRESENT: +1 edema Neurological exam: PRESENT: alert, awake, oriented to person, oriented to place , oriented to time, oriented to situation, CN II-XII grossly intact. ABSENT: motor sensory deficit Psychiatric exam: PRESENT: appropriate affect, normal mood. ABSENT: homicidal ideation, suicidal ideation Skin exam: PRESENT: dry, intact, warm. ABSENT: cyanosis, rash Results Impressions: Chest X-Ray 08/27/17 00:33 IMPRESSION: Mild interstitial markings. Differential diagnosis includes pulmonary edema, atypical pneumonitis, and chronic interstitial lung disease. Assessment & Plan - Diagnosis (1) Hypertensive urgency Is this a current diagnosis for this admission?: Yes Plan: Secondary to dietary and medication noncompliance. Resume home regiment and diuresis. (2) Chest pain Qualifiers: Chest pain type: unspecified Qualified Code(s): R07.9 - Chest pain, unspecified Is this a current diagnosis for this admission?: Yes Plan: Likely secondary to #1 no comp gated by coronary artery disease. No documentation of post stent stress test. Subsequently ordered (3) Pulmonary edema Qualifiers: Chronicity: acute Qualified Code(s): J81.0 - Acute pulmonary edema Is this a current diagnosis for this admission?: Yes Plan: Likely secondary to #1, the possible new underlying congestive heart failure, follow-up 2D echo, loop diuretic initiated (4) Smoker Is this a current diagnosis for this admission?: Yes Plan: Tobacco Dependence patient received tobacco cessation counseling and offered nicotine replacement options - Time Time Spent: 50 to 70 Minutes - Inpatient Certification Medical Necessity: Need Close Monitoring Due to Risk of Patient Decompensation
[2017-08-27] MEDS: POTASSI CL 20 MEQ/50 ML RIDER 20 MEQ/50 ML RTUPB IV SCH ×2 (06:30→10:29)
[2017-08-27] MEDS ORDERED: NICOTINE 14 MG/24 HR PATCH.TD24 TD ONE (07:00)
[2017-08-27] MEDS ORDERED: GLUCAGON,HUMAN RECOMB 1 MG INJ IM PRN (08:15)
[2017-08-27] MEDS ORDERED: DEXTROSE 40% GEL 15 GM TUBE PO PRN ×2 (08:15)
[2017-08-27] MEDS ORDERED: DEXTROSE 50%-WATER 25 GM/50 ML DISP.SYRIN IV PRN ×2 (08:15)
[2017-08-27 09:44] LABS: ANION GAP 12 (5-19); BLOOD UREA NITROGEN 9 mg/dL (7-20); CARBON DIOXIDE 31 mmol/L (22-30); CHLORIDE 100 mmol/L (98-107); CHOLESTEROL 207.12 mg/dL (0-200); CREATINE KINASE 48 U/L (30-135); GLUCOSE 329 mg/dL (75-110); POTASSIUM 3.8 mmol/L (3.6-5.0); SODIUM 142.9 mmol/L (137-145); TRIGLYCERIDES 94 mg/dL (<150)
[2017-08-27 09:54] LABS: DIRECT LDL 168 mg/dL (<100)
[2017-08-27] MEDS ORDERED: TICAGRELOR 90 MG TABLET PO SCH (10:00)
[2017-08-27] MEDS: GABAPENTIN 100 MG CAPSULE PO SCH ×2 (10:08→17:28)
[2017-08-27] MEDS: RAMIPRIL 5 MG CAPSULE PO SCH ×2 (10:08→21:23)
[2017-08-27] MEDS: ASPIRIN 81 MG TABLET, ENT COATED PO SCH (10:09)
[2017-08-27] MEDS: DOCUSATE SODIUM 100 MG CAPSULE PO SCH ×2 (10:09→17:28)
[2017-08-27] MEDS: INSULIN LISPRO 100 UNIT/ML 3 ML VIAL SUBCUT PRN ×3 (11:49→23:14)
[2017-08-27] MEDS ORDERED: IPRATROPIUM/ALBUTEROL 0.5-2.5 MG/3 ML AMPUL NEB PRN (13:01)
[2017-08-27] MEDS ORDERED: IPRATROPIUM/ALBUTEROL 0.5-2.5 MG/3 ML AMPUL NEB ONE ×2 (13:30)
[2017-08-27] MEDS ORDERED: PREDNISONE 20 MG TABLET PO ONE (13:30)
[2017-08-27] MEDS ORDERED: HYDRALAZINE HCL INJ/PF 20 MG/1 ML SDV IV PRN (18:00)
--- NOTE | 2017-08-27 18:08 | PDOC PROGRESS REPORT ---
Subjective Progress Note for:: 08/27/17 Subjective:: The patient is a 60-year-old female with a past medical history of hypertension , dyslipidemia, diabetes, TIA, obesity, coronary artery disease status post stents 2 in December 2016, and tobacco dependence with continuous use who was admitted on 08/27/17 for chest pain workup. Patient is seen on morning rounds. She is found resting in bed comfortably on supplemental oxygen via nasal cannula. She denies any further occurrences of chest pain. She did go downstairs for her resting portion of her stress test this morning. She understands that she will complete an echocardiogram and second have strep testing tomorrow. Her only complaint at present is shortness of breath and wheezing. She reports that she began having symptoms the day prior to her discomfort. She reports that it is her COPD; she denies fever, chills, upper respiratory symptoms, and productive cough. Reason For Visit: CHEST PAIN CAD Physical Exam Vital Signs: Temp Pulse Resp BP Pulse Ox 97.7 F 99 24 H 166/79 H 95 08/27/17 15:48 08/27/17 15:48 08/27/17 15:48 08/27/17 15:48 08/27/17 15:48 Intake & Output 08/26/17 08/27/17 08/28/17 06:59 06:59 06:59 Intake Total 118 Balance 118 General appearance: PRESENT: no acute distress, disheveled, well-developed, well -nourished, other - Overweight Head exam: PRESENT: atraumatic, normocephalic Eye exam: PRESENT: conjunctiva pink, EOMI, PERRLA. ABSENT: scleral icterus Mouth exam: PRESENT: moist, tongue midline Neck exam: ABSENT: carotid bruit, JVD, lymphadenopathy, thyromegaly Respiratory exam: PRESENT: prolonged expiratory phas, symmetrical, tachypnea, wheezes, other - Supplemental oxygen via nasal cannula. ABSENT: rales, rhonchi Cardiovascular exam: PRESENT: RRR, tachycardia. ABSENT: diastolic murmur, rubs , systolic murmur Pulses: PRESENT: normal dorsalis pedis pul Vascular exam: PRESENT: normal capillary refill GI/Abdominal exam: PRESENT: normal bowel sounds, soft. ABSENT: distended, guarding, mass, organolmegaly, rebound, tenderness Rectal exam: PRESENT: deferred Extremities exam: PRESENT: full ROM. ABSENT: calf tenderness, clubbing, pedal edema Neurological exam: PRESENT: alert, awake, oriented to person, oriented to place , oriented to time, oriented to situation, CN II-XII grossly intact. ABSENT: motor sensory deficit Psychiatric exam: PRESENT: appropriate affect, normal mood. ABSENT: homicidal ideation, suicidal ideation Skin exam: PRESENT: dry, intact, warm. ABSENT: cyanosis, rash Results Laboratory Results: 08/27/17 08:43 08/27/17 08:43 Sodium 142.9 Potassium 3.8 Chloride 100 Carbon Dioxide 31 H Anion Gap 12 BUN 9 Creatinine 0.55 Est GFR ( Amer) > 60 Est GFR (Non-Af Amer) > 60 Glucose 329 H Calcium 9.0 Triglycerides 94 Cholesterol 207.12 H LDL Cholesterol Direct 168 H VLDL Cholesterol 19.0 HDL Cholesterol 43 08/27/17 08/27/17 08/27/17 08:43 08:43 08:43 Creatine Kinase 48 CK-MB (CK-2) 1.25 Troponin I 0.036 08/27/17 15:10 Creatine Kinase CK-MB (CK-2) Troponin I 0.029 Impressions: Chest X-Ray 08/27/17 00:33 IMPRESSION: Mild interstitial markings. Differential diagnosis includes pulmonary edema, atypical pneumonitis, and chronic interstitial lung disease. Assessment & Plan - Diagnosis (1) Hypertensive urgency Is this a current diagnosis for this admission?: Yes Plan: Secondary to dietary and medication noncompliance. Her home medication regimen is resumed. IV hydralazine as needed for blood pressure control. (2) Chest pain Qualifiers: Chest pain type: unspecified Qualified Code(s): R07.9 - Chest pain, unspecified Is this a current diagnosis for this admission?: Yes Plan: Likely secondary to hypertensive emergency, complicated by coronary artery disease. The patient did undergo cardiac catheterization in December 2016 with placement of 2 stents. She has not followed up for post stent placement stress testing. EKG demonstrates sinus tachycardia with multiple PVCs. Chest x-ray reveals mild interstitial changes. Troponins are indeterminate but trending down 4 Continue Plavix and statin therapy. Blood pressure control as above. Nuclear stress test and echocardiogram are ordered. Nitroglycerin tabs as needed. (3) COPD exacerbation Is this a current diagnosis for this admission?: Yes Plan: Patient report of dyspnea and wheezing 2 days. Chest x-ray reveals mild interstitial markings; pulmonary edema versus chronic interstitial lung disease. Supplemental oxygen as needed to maintain oxygen saturations above 88%. BiPAP as needed. As needed nebulizer treatments. Resume the patient's Brio. Begin prednisone 60 mg daily. (4) Diabetes Is this a current diagnosis for this admission?: Yes Plan: Oral diabetic medications were held while inpatient. Patient is placed on a consistent carb diet. Accu-Cheks before meals and at bedtime with Humalog for sliding scale coverage. (5) Tobacco abuse Is this a current diagnosis for this admission?: Yes Plan: Smoking cessation is encouraged. Nicotine replacement therapies are offered. (6) Pulmonary edema Qualifiers: Chronicity: acute Qualified Code(s): J81.0 - Acute pulmonary edema Is this a current diagnosis for this admission?: Yes Plan: Likely secondary to hypertensive urgency, however, proBNP is elevated to 1620. Echocardiogram is pending. Optimize blood pressure control. BiPAP as needed. Patient did receive IV furosemide overnight. - Time Time Spent with patient: 25-34 minutes Medications reviewed and adjusted accordingly: Yes Anticipated discharge: Home
[2017-08-27] MEDS: RANOLAZINE 500 MG TAB.SR.12H PO SCH (21:22)
[2017-08-27] MEDS: METOPROLOL TARTRATE 25 MG TABLET PO SCH (21:22)
[2017-08-27] MEDS ORDERED: FENOFIBRATE NANOCRYSTALLIZED 145 MG TABLET PO SCH (22:00)
[2017-08-27] MEDS ORDERED: ATORVASTATIN CALCIUM 80 MG TABLET PO SCH (22:00)
--- NOTE | 2017-08-28 07:34 | EKG REPORT ---
SEVERITY:- ABNORMAL ECG - SINUS TACHYCARDIA MULTIPLE VENTRICULAR PREMATURE COMPLEXES REPOL ABNRM SUGGESTS ISCHEMIA, DIFFUSE LEADS LA ABNORMALITY : Confirmed by: Lee Bautista MD 28-Aug-2017 07:33:59
[2017-08-28] MEDS ORDERED: (PENDING PHARMACY ID) (Fluticasone/Vilanterol [Breo Ellipta 100-25 Mcg Inh] 1 PUFF) IH SCH (10:00)
[2017-08-28] MEDS ORDERED: NICOTINE 14 MG/24 HR PATCH.TD24 TD SCH (10:00)
[2017-08-28] MEDS ORDERED: FENOFIBRATE NANOCRYSTALLIZED 145 MG TABLET PO SCH (10:00)
[2017-08-28] MEDS ORDERED: CLOPIDOGREL BISULFATE 75 MG TABLET PO SCH (10:00)
[2017-08-28] MEDS ORDERED: (PENDING PHARMACY ID) (Fenofibrate [Fenofibrate] 160 MG) PO SCH (10:00)
[2017-08-28] MEDS ORDERED: PREDNISONE 20 MG TABLET PO SCH (10:00)
[2017-08-28] MEDS ORDERED: REGADENOSON INJ 0.4 MG/5 ML DISP.SYRIN IV ONE (10:25)
[2017-08-28 11:17] LABS: HEMATOCRIT 39.3 % (36.0-47.0); HEMOGLOBIN 13.1 g/dL (12.0-15.5); MEAN CORPUSCULAR HGB CONC 33.5 g/dL (32.0-36.0); MEAN CORPUSCULAR VOLUME 84 fl (80-97); PLATELET COUNT 289 10^3/uL (150-450); RED BLOOD COUNT 4.69 10^6/uL (3.72-5.28); RED CELL DISTRIBUTION WIDTH 13.9 % (11.5-14.0); WHITE BLOOD COUNT 14.3 10^3/uL (4.0-10.5)
--- NOTE | 2017-08-28 11:37 | DRAGON STRESS TEST REPORT ---
Intravenous Lexiscan Cardiolite stress test using single photon emmision computerized tomography. Date of procedure: 08/28/2017. Ordering Provider: Dr. Osorio Oreilly. Patient's status: In Patient. Indication: Chest pain. Coronary risk factors: Age, coronary artery disease, history of [place], history of coronary artery bypass graft surgery, history of diabetes mellitus, history of hypertension, history of dyslipidemia, tobacco abuse disorder, and family history of coronary artery disease. Resting EKG: Sinus Rhythm. Possible old anterior and basal lateral NJ. T inversion in lateral leads compatible with ischemia. PVC. Nonspecific IVCD. Stress EKG: No changes of ischemia. The patient no chest pain or discomfort, and there were no arrhythmias seen. Reason for termination: Protocol. Conclusions: Normal EKG and hemodynamic response to IV Lexiscan. Nuclear data: At rest the patient was given 9.99 millicuries of technetium 99m sestamibi injected intravenously. As per protocol rest non gated SPECT images were obtained. Subsequently the patient was given intravenous Lexiscan at a dose of 0.4 mg in 5 mL intravenously, followed by flush with normal saline. Subsequently the stress dose of 30.5 millicuries of technetium 99m sestamibi was injected intravenously. As per protocol stress gated images were obtained. Nuclear interpretation: Review of images showed that there is a mild to moderate perfusion defect in the stress images, which reverted to a mild perfusion defect in the rest images involving the inferior wall. This inferior wall has decreased motion contraction and thickening by gated study. There is a mild perfusion defect in the stress images which becomes less prominent in the resting images involving the inferolateral wall. This inferolateral wall has mildly decreased motion contraction and thickening by gated study. The rest of the segments of myocardium have normal perfusion at rest and normal perfusion post stress with IV Lexiscan. The rest of the myocardial segments have normal motion contraction and thickening by gated study. T. I D. ratio was normal at 0.97. Computer read rest, and stress left ventricular ejection fraction were 46 %, and 46 %, respectively. Conclusion: 1. There is scintigraphic evidence of Lexiscan induced mild to moderate myocardial ischemia, in a setting of mild myocardial infarction / scar involving the inferior wall.. 2. There is scintigraphic evidence of mild reversible ischemia in a setting of mild myocardial infarction/scar involving the inferolateral wall. Recommendations: 1. Recommend cardiac catheterization, and maximizing medical management of coronary artery disease. 2. Recommend checking echo for LV ejection fraction correlation 3. Aggressive risk factor modification, and treating the underlying co- morbidities. MTDD
[2017-08-28] MEDS: DOCUSATE SODIUM 100 MG CAPSULE PO SCH (11:41)
[2017-08-28] MEDS: GABAPENTIN 100 MG CAPSULE PO SCH (11:41)
[2017-08-28] MEDS: RAMIPRIL 5 MG CAPSULE PO SCH (11:41)
[2017-08-28] MEDS: RANOLAZINE 500 MG TAB.SR.12H PO SCH (11:42)
[2017-08-28] MEDS: ASPIRIN 81 MG TABLET, ENT COATED PO SCH (11:42)
[2017-08-28] MEDS: METOPROLOL TARTRATE 25 MG TABLET PO SCH (11:42)
[2017-08-28] MEDS: INSULIN LISPRO 100 UNIT/ML 3 ML VIAL SUBCUT PRN (11:43)
[2017-08-28] MEDS ORDERED: ENOXAPARIN SODIUM INJ 60 MG/0.6 ML DISP.SYRIN SUBCUT ONE (12:00)
[2017-08-28 12:01] LABS: ANION GAP 11 (5-19); BLOOD UREA NITROGEN 17 mg/dL (7-20); CALCIUM 9.9 mg/dL (8.4-10.2); CARBON DIOXIDE 29 mmol/L (22-30); CHLORIDE 103 mmol/L (98-107); GLUCOSE 233 mg/dL (75-110); POTASSIUM 3.8 mmol/L (3.6-5.0); SODIUM 143.4 mmol/L (137-145)
--- NOTE | 2017-08-28 14:27 | XCELERA REPORT ---
[address] [address] Transthoracic Echocardiogram Report Name: STELLA FRANKLIN Age: 62 yrs Gender: Female : 1955 Patient Status: Inpatient Patient Location: [address] [place], [place] [id number] Study Date: 08/28/2017 09:48 AM Height: 61 in Weight: 139 lb BSA: 1.6 m2 Procedure: A two-dimensional transthoracic echocardiogram with color flow and Doppler was performed. Study Quality: Fair. Reason For Study: chf History: CHF. Ordering Physician: JOSUE BOYKIN Performed By: Melissa Estrada Interpretation Summary The left ventricle is normal in size. There is normal left ventricular wall thickness. LV EF is 55% Left ventricular systolic function is low normal. Doppler measurements suggest normal left ventricular diastolic function Basal inferior wall hypkinesis.Rest of the LV guzman contract normally. There is no thrombus. There is no ventricular septal defect visualized. The right ventricle is grossly normal size. The left atrial size is normal. The interatrial septum is intact with no evidence for an atrial septal defect. There is mild mitral valve prolapse. There is no vegetation seen on the mitral valve. There is no mitral valve stenosis. There is a mild amount of mitral regurgitation There is no aortic valve stenosis There is no LVOT obstruction. No aortic regurgitation is present. There is no tricuspid stenosis. There is a trace to mild amount of tricuspid regurgitation Right ventricular systolic pressure is normal. RVSP is 22 mm of Hg , with RA mean of 5. The aortic root is not well visualized but is probably normal size. There is no pericardial effusion. MMode/2D Measurements & Calculations RVDd: 2.6 cm LVIDd: 4.9 cm FS: 23.2 % Ao root diam: 2.4 cm IVSd: 1.0 cm LVIDs: 3.8 cm EDV(Teich): 113.0 ml LVPWd: 0.98 cm ESV(Teich): 60.7 ml Ao root area: 4.6 cm2 EF(Teich): 46.3 % LA dimension: 3.6 cm Doppler Measurements & Calculations MV E max cristopher: MV P1/2t max cristopher: Ao V2 max: LV V1 max P.1 cm/sec 144.1 cm/sec 147.7 cm/sec 4.1 mmHg MV A max cristopher: MV P1/2t: 61.5 msec Ao max PG: LV V1 max: 94.3 cm/sec 8.7 mmHg 100.7 cm/sec MV E/A: 1.5 MVA(P1/2t): 3.6 cm2 MV dec slope: 686.7 cm/sec2 MV dec time: 0.19 sec PA V2 max: TR max cristopher: 76.0 cm/sec 231.3 cm/sec PA max PG: TR max P.4 mmHg 2.3 mmHg Left Ventricle The left ventricle is normal in size. There is normal left ventricular wall thickness. LV EF is 55%. Left ventricular systolic function is low normal. Doppler measurements suggest normal left ventricular diastolic function. Basal inferior wall hypkinesis.Rest of the LV guzman contract normally. There is no thrombus. There is no ventricular septal defect visualized. Right Ventricle The right ventricle is grossly normal size. Atria The right atrium is normal. The left atrial size is normal. The interatrial septum is intact with no evidence for an atrial septal defect. Mitral Valve There is mild mitral valve prolapse. There is no vegetation seen on the mitral valve. There is no mitral valve stenosis. There is a mild amount of mitral regurgitation. Aortic Valve There is no aortic valvular vegetation. There is no aortic valve stenosis. There is no LVOT obstruction. No aortic regurgitation is present. Tricuspid Valve There is no tricuspid stenosis. There is a trace to mild amount of tricuspid regurgitation. Right ventricular systolic pressure is normal. RVSP is 22 mm of Hg , with RA mean of 5. Pulmonic Valve There is no pulmonic valvular stenosis. There is no pulmonic valvular regurgitation. Great Vessels The aortic root is not well visualized but is probably normal size. Effusions There is no pericardial effusion. : JOSUE BOYKIN > Letty Vega
[2017-08-28 14:28] LABS: INTERNATIONAL RATION (INR) 0.97; PROTHROMBIN TIME 13.4 SEC (11.4-15.4)
[2017-08-28 14:29] LABS: PARTIAL THROMBOPLASTIN TIME 26.8 SEC (23.5-35.8)
--- NOTE | 2017-08-28 14:48 | PDOC TRANSFER SUMMARY ---
General Admission Date/PCP: 08/27/17 03:57 GEO AVALOS MD Admission Date: 08/27/17 Transfer Date: 08/28/17 Accepting Facility: [facility] Accepting Physician: Dr. Nichols; cardiology services Resuscitation Status: Full Code - Transfer Diagnosis (1) Hypertensive urgency Is this a current diagnosis for this admission?: Yes (2) Abnormal cardiovascular stress test Is this a current diagnosis for this admission?: Yes (3) Chest pain Is this a current diagnosis for this admission?: Yes (4) COPD exacerbation Is this a current diagnosis for this admission?: Yes (5) Diabetes Is this a current diagnosis for this admission?: Yes (6) Tobacco abuse Is this a current diagnosis for this admission?: Yes (7) Pulmonary edema Is this a current diagnosis for this admission?: Yes - Transfer Medications Home Medications: Atorvastatin Calcium [Lipitor 80 mg Tablet] 80 mg PO QHS 08/27/17 Clopidogrel Bisulfate [Plavix 75 mg Tablet] 75 mg PO DAILY 08/27/17 Fenofibrate 160 mg PO DAILY 08/27/17 Fluticasone/Vilanterol [Breo Ellipta 100-25 Mcg INH] 1 puff IH DAILY 08/27/17 Glipizide [Glucotrol 10 mg Tablet] 10 mg PO Q12 08/27/17 Metformin HCl [Glucophage] 1,000 mg PO Q12 08/27/17 Metoprolol Tartrate [Lopressor 25 mg Tablet] 25 mg PO Q12 08/27/17 Ranolazine [Ranexa 500 mg Tab.sr] 500 mg PO Q12 08/27/17 Transfer Medications: Current Medications Albuterol/Ipratropium (Duoneb 3 Ml Ampul) 3 ml NEB RTQ6HP PRN PRN Reason: SHORTNESS OF BREATH Stop: 09/26/17 13:00 Aspirin (Ecotrin 81 Mg Ec Tablet) 81 mg PO DAILY [facility] Stop: 09/26/17 09:59 Last Admin: 08/28/17 11:42 Dose: 81 mg Atorvastatin Calcium (Lipitor 80 Mg Tablet) 80 mg PO QHS [facility] Stop: 09/26/17 21:59 Last Admin: 08/27/17 21:22 Dose: 80 mg Clopidogrel Bisulfate (Plavix 75 Mg Tablet) 75 mg PO DAILY [facility] Stop: 09/27/17 09:59 Last Admin: 08/28/17 11:42 Dose: 75 mg Dextrose (Dextrose Inj 50% Syringe (25 Gm/50 Ml)) 12.5 gm IV PRN PRN; Protocol PRN Reason: FOR BG 50-69 IN ALERT PATIENT Stop: 09/26/17 08:14 Dextrose (Dextrose Inj 50% Syringe (25 Gm/50 Ml)) 25 gm IV PRN PRN; Protocol PRN Reason: PER PROTOCOL Stop: 09/26/17 08:14 Docusate Sodium (Colace 100 Mg Capsule) 100 mg PO BID [facility] Stop: 09/26/17 09:59 Last Admin: 08/28/17 11:41 Dose: 100 mg Fenofibrate (Tricor 145 Mg Tablet) 145 mg PO DAILY [facility] Stop: 09/27/17 09:59 Last Admin: 08/28/17 11:41 Dose: 145 mg Gabapentin (Neurontin 100 Mg Capsule) 100 mg PO BID [facility] Stop: 09/26/17 09:59 Last Admin: 08/28/17 11:41 Dose: 100 mg Glucagon (Glucagen Inj 1 Mg Vial) 1 mg IM PRN PRN; Protocol PRN Reason: Evaluate for BG < 70 Stop: 09/26/17 08:14 Glucose (Glutose 40% Gel 15 Gm Tube) 15 gm PO PRN PRN; Protocol PRN Reason: FOR BG 50-69 IN ALERT PATIENT Stop: 09/26/17 08:14 Glucose (Glutose 40% Gel 15 Gm Tube) 30 gm PO PRN PRN; Protocol PRN Reason: FOR BG < 50 IN ALERT PATIENT Stop: 09/26/17 08:14 Hydralazine HCl (Apresoline Inj/Pf 20 Mg/1 Ml Sdv) 10 mg IV Q6HP PRN PRN Reason: SBP >180 DBP >100 Stop: 09/26/17 17:59 Insulin Human Lispro (Humalog Insulin 100 Unit/1 Ml 3 Ml Vial) 0 - 12 unit SUBCUT ACHSP PRN; Protocol PRN Reason: PER PROTOCOL Stop: 09/26/17 08:14 Last Admin: 08/28/17 11:43 Dose: 4 unit Metoprolol Tartrate (Lopressor 25 Mg Tablet) 25 mg PO Q12 [facility] Stop: 09/26/17 21:59 Last Admin: 08/28/17 11:42 Dose: 25 mg Nicotine (Nicoderm 14 Mg/24 Hr Transdermal Patch) 1 each TD DAILY [facility] Stop: 09/27/17 09:59 Last Admin: 08/28/17 11:43 Dose: 1 each Nitroglycerin (Nitrostat 0.4 Mg (1/150 Gr) Tabs 25/Bottle) 1 tab SL ASDIR PRN PRN Reason: PAIN SCALE PER MD Patient Own Medication (Fluticasone/Vilanterol [Breo Ellipta 100-25 Mcg Inh]) 1 puff IH DAILY [facility] Stop: 09/27/17 09:59 Prednisone (Deltasone 20 Mg Tablet) 60 mg PO DAILY [facility] Stop: 09/27/17 09:59 Last Admin: 08/28/17 11:41 Dose: 60 mg Ramipril (Altace 5 Mg Capsule) 5 mg PO Q12 [facility] Stop: 09/26/17 09:59 Last Admin: 08/28/17 11:41 Dose: 5 mg Ranolazine (Ranexa 500 Mg Tab.Sr) 500 mg PO Q12 [facility] Stop: 09/26/17 21:59 Last Admin: 08/28/17 11:42 Dose: 500 mg Sodium Chloride (Saline Flush 2.5 Ml Monoject Prefil Syrin) 2.5 ml IV Q8 [facility] Stop: 09/26/17 05:59 Last Admin: 08/28/17 14:22 Dose: 2.5 ml - Allergies Allergies/Adverse Reactions: No Known Allergies Allergy (Verified 02/05/17 05:56) - Diet/Activity Discharge Diet: Other (Comments) - NPO Discharge Activity: Activity As Tolerated, Balance Activity w/Rest Hospital Course Hospital Course: H&P: STELLA FRANKLIN is a 62 year old female with a past medical history of hypertension, dyslipidemia, diabetes, TIA, obesity, tobacco dependence and coronary artery disease status post stent times 19 December 2016. Patient presents with retrosternal chest pain of 4-5 associated with shortness of breath palpitations, worsened by activity alleviated by nitroglycerin prompting her to seek evaluation emergency room where she is found to have indeterminate troponin and hypertensive urgency. She admits to noncompliance with her medications for several weeks and ongoing tobacco dependence. She is currently pain-free. Course: The patient was admitted to our IMCU unit on continuous cardiac telemetry. Her home antihypertensive medications were resumed; metoprolol 25 mg twice daily and Ranexa 500 mg twice daily, with the addition of Ramipril 5 mg twice daily. The patient's home dose Plavix, Aspirin, atorvastatin, and tricor were continued. She received 1 dose of IV Lasix 20 mg. She has remained normotensive since resuming home medications. EKG revealed sinus tachycardia with multiple PVCs and report abnormalities in diffuse leads. Chest x-ray revealed mild interstitial markings. Troponins were initially indeterminate with a peak of 0.038 and have since trended down. ProBNP was mildly elevated at 1620. The resting portion of the stress test was completed on 08/27/17 without abnormal findings. The patient complained of slight dyspnea with activity and was noted to diffuse expiratory wheezing. Her home medication, Breo, was continued and she was provided as needed nebulizer treatments and initiated on p.o. prednisone 60 mg daily with rapid improvement in her symptoms. Echocardiogram revealed an LVEF of 55%, normal left ventricular diastolic dysfunction, basal inferior wall hypokinesis with the rest of the LV guzman alvarado normally, no thrombosis and no septal wall defect. The second portion of the stress test was completed today. The interpreting milk tanker driver contacted me to report that he has noted mild to moderate myocardial ischemia, in the setting of mild myocardial infarction/scar involving the inferior wall and mild reversible ischemia in the setting of mild myocardial infarction/scar involving the inferolateral wall. Cardiology recommended the patient be transferred to a tertiary care facility where interventional cardiac catheterization services are available. Currently, the patient states that she is chest pain-free, however she did note some chest discomfort overnight that she initially believed to be related to her COPD exacerbation. Of note, the patient underwent cardiac catheterization at [facility] with placement of 2 stents in January 2017. Records have been urgently requested. Patient requested be transferred to [facility] in the [place], [place]. I have spoken with Dr. Nichols at [facility], who has graciously accepted this patient for continued care. Physical Exam Vital Signs: Temp Pulse Resp BP Pulse Ox 97.5 F 86 18 125/67 99 08/28/17 11:08 08/28/17 11:08 08/28/17 11:08 08/28/17 11:08 08/28/17 11:08 Intake & Output 08/27/17 08/28/17 08/29/17 06:59 06:59 06:59 Intake Total 1098 375 Output Total 200 Balance 898 375 Weight 63.2 kg General appearance: PRESENT: no acute distress, well-developed, well-nourished, other - Overweight Head exam: PRESENT: atraumatic, normocephalic Eye exam: PRESENT: conjunctiva pink, EOMI, PERRLA. ABSENT: scleral icterus Mouth exam: PRESENT: moist, tongue midline Neck exam: ABSENT: carotid bruit, JVD, lymphadenopathy, thyromegaly Respiratory exam: PRESENT: clear to auscultation caroline. ABSENT: rales, rhonchi, wheezes Cardiovascular exam: PRESENT: RRR. ABSENT: diastolic murmur, rubs, systolic murmur Pulses: PRESENT: normal dorsalis pedis pul Vascular exam: PRESENT: normal capillary refill GI/Abdominal exam: PRESENT: normal bowel sounds, soft. ABSENT: distended, guarding, mass, organolmegaly, rebound, tenderness Rectal exam: PRESENT: deferred Extremities exam: PRESENT: full ROM. ABSENT: calf tenderness, clubbing, pedal edema Neurological exam: PRESENT: alert, awake, oriented to person, oriented to place , oriented to time, oriented to situation, CN II-XII grossly intact. ABSENT: motor sensory deficit Psychiatric exam: PRESENT: appropriate affect, normal mood. ABSENT: homicidal ideation, suicidal ideation Skin exam: PRESENT: dry, intact, warm. ABSENT: cyanosis, rash Results Laboratory Results: 08/28/17 10:51 08/28/17 10:51 08/28/17 08/28/17 10:51 10:51 WBC 14.3 H RBC 4.69 Hgb 13.1 Hct 39.3 MCV 84 MCH 28.0 MCHC 33.5 RDW 13.9 Plt Count 289 Sodium 143.4 Potassium 3.8 Chloride 103 Carbon Dioxide 29 Anion Gap 11 BUN 17 Creatinine 0.63 Est GFR ( Amer) > 60 Est GFR (Non-Af Amer) > 60 Glucose 233 H Calcium 9.9 08/27/17 08/27/17 08/27/17 08:43 08:43 08:43 Creatine Kinase 48 CK-MB (CK-2) 1.25 Troponin I 0.036 08/27/17 08/27/17 15:10 21:20 Creatine Kinase CK-MB (CK-2) Troponin I 0.029 0.020 Impressions: Chest X-Ray 08/27/17 00:33 IMPRESSION: Mild interstitial markings. Differential diagnosis includes pulmonary edema, atypical pneumonitis, and chronic interstitial lung disease. Plan Discharge Plan: Transfer to [facility] where interventional cardiac catheterization services are available. Time Spent: Less than 30 Minutes
[2017-08-28 16:48] VITALS: BP 126/75
[2017-08-28] MEDS ORDERED: ENOXAPARIN SODIUM INJ 60 MG/0.6 ML DISP.SYRIN SUBCUT SCH (22:00)
== END 2017-08-28 17:09 | disposition short-term general hospital (02) ==
LOC: ER 00:10 → EH 03:57 → 3W 08:07
PROVIDERS: ADMIT Internal Medicine; ATTEND Internal Medicine
DX: I16.0 Hypertensive urgency (principal); R94.39 Abnormal result of other cardiovascular function study; R07.2 Precordial pain; J44.1 Chronic obstructive pulmonary disease with (acute) exacerbation; E11.9 Type 2 diabetes mellitus without complications; J81.0 Acute pulmonary edema; F17.200 Nicotine dependence, unspecified, uncomplicated; I25.10 Atherosclerotic heart disease of native coronary artery without angina pectoris; R79.89 Other specified abnormal findings of blood chemistry; R00.0 Tachycardia, unspecified; I49.3 Ventricular premature depolarization; E78.5 Hyperlipidemia, unspecified; R53.83 Other fatigue; R09.02 Hypoxemia; I25.2 Old myocardial infarction; R06.82 Tachypnea, not elsewhere classified; R60.0 Localized edema; Z79.899 Other long term (current) drug therapy; Z79.02 Long term (current) use of antithrombotics/antiplatelets; Z86.73 Personal history of transient ischemic attack (TIA), and cerebral infarction without residual deficits; Z95.5 Presence of coronary angioplasty implant and graft; Z91.14 Patient's other noncompliance with medication regimen; Z82.49 Family history of ischemic heart disease and other diseases of the circulatory system; Z91.11 Patient's noncompliance with dietary regimen
CPT/HCPCS: 93005; 99285; 96375; 96365; 36415 ×2; 82553; 82962 ×2; 82550; 83735; 85025; 85027; 85610; 85730; 80048 ×2; 84484; 80061; 83880; 93306; 93017; 71045; 78452; 93010; 94640; G0378 ×3; A9500; J2785; A9270 ×22; J1940; J3475; J3490 ×2; J3480; Q9969; J1815; J7512; J7620

== ENCOUNTER 2018-11-07 23:49 | Inpatient (IN) | payer MEDICARE, MEDICAID ==
[2018-11-07] MEDS ORDERED: IPRATROPIUM/ALBUTEROL 0.5-2.5 MG/3 ML AMPUL NEB ONE (23:54)
[2018-11-07] MEDS ORDERED: METHYLPREDNISOLONE INJ 125 MG/2 ML SDV IV ONE (23:54)
[2018-11-08] MEDS: ALBUTEROL SULFATE 0.083% NEB 2.5 MG/3 ML AMPUL NEB SCH ×2 (00:13→00:30)
[2018-11-08] MEDS: MAGNESIUM SULFATE/D5W 1 GM/100 ML RTUPB IV SCH ×2 (00:21→01:40)
[2018-11-08 00:42] LABS: ABSOLUTE BASOPHILS # (AUTO) 0.1 10^3/uL (0.0-0.2); ABSOLUTE EOSINOPHILS # (AUTO) 0.2 10^3/uL (0.0-0.6); ABSOLUTE LYMPHOCYTES (AUTO) 3.5 10^3/uL (0.5-4.7); ABSOLUTE MONOCYTES (AUTO) 0.7 10^3/uL (0.1-1.4); ABSOLUTE NEUT (AUTO) 5.8 10^3/uL (1.7-8.2); BASOPHILS % (AUTO) 1.1 % (0-2); EOSINOPHILS % (AUTO) 1.7 % (0-6); HEMOGLOBIN 13.6 g/dL (12.0-15.5); LYMPHOCYTES % (AUTO) 33.8 % (13-45); MEAN CORPUSCULAR HEMOGLOBIN 27.6 pg (27.0-33.4); MEAN CORPUSCULAR HGB CONC 33.9 g/dL (32.0-36.0); MEAN CORPUSCULAR VOLUME 82 fl (80-97); MONOCYTES % (AUTO) 7.2 % (3-13); PLATELET COUNT 245 10^3/uL (150-450); RED BLOOD COUNT 4.91 10^6/uL (3.72-5.28); RED CELL DISTRIBUTION WIDTH 14.4 % (11.5-14.0); SEGMENTED NEUTROPHILS % (AUTO) 56.2 % (42-78); TOTAL CELLS COUNTED % (AUTO) 100 %; WHITE BLOOD COUNT 10.4 10^3/uL (4.0-10.5)
--- NOTE | 2018-11-08 00:47 | RADIOLOGY REPORT (SQ) ---
EXAM DESCRIPTION: XR CHEST 1 VIEW COMPLETED DATE/TME: 11/07/2018 23:51 CLINICAL HISTORY: 63 years, Female, difficulty breathing COMPARISON: 11/20/2016 chest x-ray NUMBER OF VIEWS: 1 TECHNIQUE: Portable chest LIMITATIONS: None. FINDINGS: The heart size is normal. Stable postsurgical change. Osteopenia. Equivocal/mild interstitial edema. No pneumothorax IMPRESSION: Equivocal/mild interstitial edema copyright 2010 [employer]- All Rights Reserved
--- NOTE | 2018-11-08 00:52 | ER Document Report ---
Entered by PRESTON LOFTON SCRIBE 11/08/18 0009 Acting as scribe for:UMER STONER MD ED Respiratory Problem - General Stated Complaint: TROUBLE BREATHING Time Seen by Provider: 11/07/18 23:59 Primary Care Provider: GEO AVALOS MD [ACTIVE STAFF] - Follow up as needed Mode of Arrival: Medic Information source: Patient Notes: Patient is a 63-year-old female who presents to the emergency department today with complaints of shortness of breath. She states that her shortness of breath got worse tonight. When EMS arrived on scene, the patient had an oxygen saturation on room air of 87%. Patient states she did not do any breathing treatments at home because she does not have any. Patient is on Brio and Pro Air. Patient denies cough. There is no history of fever. There is no chest pain. The patient was seen here in August of 2017 with chest pain and had a positive Cardiolite stress test. She was transferred to [facility] where she had a cath and a stent placed. TRAVEL OUTSIDE OF THE [place] IN LAST 30 DAYS: No - Related Data Allergies/Adverse Reactions: No Known Allergies Allergy (Verified 02/05/17 05:56) Past Medical History - General Information source: Patient - Social History Smoking Status: Current Every Day Smoker Cigarette use (# per day): Yes Frequency of alcohol use: None Drug Abuse: None Occupation: unemployed Family History: CAD, COPD, Hypertension - Past Medical History Cardiac Medical History: Reports: Hx Congestive Heart Failure, Hx Heart Attack, Hx Hypercholesterolemia, Hx Hypertension Pulmonary Medical History: Reports: Hx Asthma, Hx COPD Endocrine Medical History: Reports: Hx Diabetes Mellitus Type 2 Past Surgical History: Reports: Hx Cardiac Catheterization, Hx Coronary Artery Bypass Graft, Hx Coronary Stent - Her most recent stent was at [facility] in August 2017, Hx Open Heart Surgery, Hx Tubal Ligation - Immunizations Hx Diphtheria, Pertussis, Tetanus Vaccination: Yes Review of Systems - Review of Systems Constitutional: No symptoms reported EENT: No symptoms reported Cardiovascular: No symptoms reported Respiratory: See HPI, Short of breath, Wheezing. denies: Cough Gastrointestinal: No symptoms reported Genitourinary: No symptoms reported Female Genitourinary: No symptoms reported Musculoskeletal: No symptoms reported Skin: No symptoms reported Hematologic/Lymphatic: No symptoms reported Neurological/Psychological: No symptoms reported -: Yes All other systems reviewed and negative Physical Exam - Vital signs Vitals: Temp 98.3 F 11/07/18 23:49 - Notes Notes: Physical Exam: General: Alert, appears older than stated age. HEENT: Normocephalic. Atraumatic. PERRL. Extraocular movements intact. Oropharynx clear. Neck: Supple. Non-tender. Respiratory: No respiratory distress. Wheezing and rhonchi bilaterally. Cardiovascular: Regular rate and rhythm. Abdominal: Normal Inspection. Non-tender. No distension. Normal Bowel Sounds. Back: Grossly normal. Extremities: Moves all four extremities. Upper extremities: Normal inspection. Normal ROM. Lower extremities: Normal inspection. No edema. Normal ROM. Neurological: Normal cognition. AAOx4. Normal speech. Psychological: Normal affect. Normal Mood. Skin: Warm. Dry. Normal color. Measurement of right now Course - Re-evaluation Re-evalutation: 11/08/18 02:36 Patient is doing much better on BiPAP and breathing treatments. She still has some wheezes when she takes a deep breath and coughs. The nurse attempted to get a ABG, it was unsuccessful and the patient refused to allow further attempts. - Vital Signs Vital signs: Temp Pulse Resp BP Pulse Ox 98.3 F 19 150/82 H 97 11/07/18 23:49 11/08/18 01:01 11/08/18 01:00 11/08/18 01:01 - Laboratory Result Diagrams: 11/08/18 00:24 11/08/18 00:24 Laboratory results interpreted by me: 11/08/18 11/08/18 11/08/18 00:24 00:24 00:24 RDW 14.4 H Potassium 3.1 L Glucose 335 H Hemoglobin A1c % Magnesium 1.5 L Alkaline Phosphatase 134 H NT-Pro-B Natriuret Pep 1490 H 11/08/18 00:24 RDW Potassium Glucose Hemoglobin A1c % 10.5 H Magnesium Alkaline Phosphatase NT-Pro-B Natriuret Pep - Diagnostic Test Radiology reviewed: Image reviewed, Reports reviewed - Chest x-ray is read as equivocal/mild interstitial edema - EKG Interpretation by Me EKG shows normal: Sinus rhythm, [place], Intervals, QRS Complexes. abnormal: ST-T Waves - Anterolateral ST depression Rate: Tachycardia - 109 Rhythm: PVC's - Ventricular trigeminy Voltage: Consistant with LVH When compared to previous EKG there are: No significant change - Consults Dr. 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 I personally performed the services described in the documentation, reviewed and edited the documentation which was dictated to the scribe in my presence, and it accurately records my words and actions.
[2018-11-08 00:59] LABS: ALBUMIN 3.8 g/dL (3.5-5.0); ALKALINE PHOSPHATASE 134 U/L (38-126); ANION GAP 8 (5-19); ASPARTATE AMINO TRANSFERASE 34 U/L (14-36); BILIRUBIN,DIRECT 0.4 mg/dL (0.0-0.4); BILIRUBIN,TOTAL 0.6 mg/dL (0.2-1.3); BLOOD UREA NITROGEN 13 mg/dL (7-20); CALCIUM 9.1 mg/dL (8.4-10.2); CARBON DIOXIDE 30 mmol/L (22-30); CHLORIDE 100 mmol/L (98-107); CREATINE KINASE 39 U/L (30-135); GLUCOSE 335 mg/dL (75-110); POTASSIUM 3.1 mmol/L (3.6-5.0); TOTAL PROTEIN 7.4 g/dL (6.3-8.2)
[2018-11-08 01:11] LABS: CREATINE KINASE MB 0.68 ng/mL (<4.55); TROPONIN I 0.023 ng/mL
[2018-11-08] MEDS ORDERED: PROMETHAZINE HCL INJ 25 MG/1 ML VIAL IV PRN (03:24)
[2018-11-08] MEDS ORDERED: MAGNESIUM HYDROXIDE SUSP 30 ML UDCUP PO PRN (03:24)
[2018-11-08] MEDS ORDERED: MAG HYDROX/AL HYDROX/SIMETH SUSP 30 ML UDCUP PO PRN (03:24)
[2018-11-08] MEDS ORDERED: NALBUPHINE HCL INJ 10 MG/1 ML AMPULE IV PRN (03:29)
[2018-11-08] MEDS ORDERED: LEVALBUTEROL HCL NEB 0.63 MG/3 ML AMPUL NEB PRN (03:29)
[2018-11-08] MEDS ORDERED: ACETAMINOPHEN 325 MG TABLET PO PRN (03:29)
[2018-11-08] MEDS ORDERED: NICOTINE 21 MG/24 HR PATCH.TD24 TD PRN (03:29)
[2018-11-08] MEDS ORDERED: HYDRALAZINE HCL INJ/PF 20 MG/1 ML SDV IV PRN (03:29)
[2018-11-08] MEDS ORDERED: DEXTROSE 40% GEL 15 GM TUBE PO PRN ×2 (03:31)
[2018-11-08] MEDS ORDERED: GLUCAGON,HUMAN RECOMB 1 MG INJ IM PRN (03:31)
[2018-11-08] MEDS ORDERED: DEXTROSE 50%-WATER 25 GM/50 ML DISP.SYRIN IV PRN ×2 (03:31)
[2018-11-08] MEDS ORDERED: POTASSIUM CHLORIDE 20 MEQ PACKET PO ONE (04:48)
[2018-11-08] MEDS: POTASSI CL 20 MEQ/50 ML RIDER 20 MEQ/50 ML RTUPB IV SCH (04:51)
[2018-11-08 05:05] LABS: APPEARANCE,URINE SLIGHTLY-CLOUDY; BILIRUBIN,URINE NEGATIVE (NEGATIVE); COLOR,URINE YELLOW; GLUCOSE, URINE >=500 mg/dL (NEGATIVE); KETONES,URINE TRACE mg/dL (NEGATIVE); LEUKOCYTE ESTERASE,URINE LARGE (NEGATIVE); NITRITE,URINE NEGATIVE (NEGATIVE); PROTEIN,URINE 30 mg/dL (NEGATIVE); URINE SPECIFIC GRAVITY 1.024
[2018-11-08] MEDS: METHYLPREDNISOLONE INJ 40 MG/1 ML SDV IV SCH ×3 (06:09→21:56)
[2018-11-08] MEDS: HEPARIN SOD (PORCINE) 5,000 UNIT/ML 1 ML VIAL SUBCUT SCH ×3 (06:10→21:54)
--- NOTE | 2018-11-08 06:26 | PDOC H&P ---
History of Present Illness Admission Date/PCP: 11/08/2018 02:32 No PCP Patient complains of: Dyspnea History of Present Illness: STELLA FRANKLIN is a 63 year old female who presented to the emergency room with acute dyspnea. She admits sudden worsening of her chronic dyspnea accompanied by wheezing and air hunger a few hours prior to her presentation. Her dyspnea was worsened with any activity or exertion. She denies other associated or accompanying symptoms. She admits numerous prior similar episodes due to her COPD. She denies identification of any additional aggravating or ameliorating factors for her acute dyspnea. Her symptoms gradually worsened over the next hour or so causing her to summon EMS to her home. On arrival EMS found her to have an O2 sat of 87% on room air and initiated treatment with nebulizers and supplemental oxygen. In the ER she was treated with BiPAP and nebulizer treatments as well as intravenous steroids. She was subsequently admitted to the hospital for further evaluation and treatment. Past Medical History Cardiac Medical History: Reports: Congestive Heart Failure, Coronary Artery Disease, Myocardial Infarction, Hyperlipidema, Hypertension, Peripheral Vascular Disease Denies: Atrial Fibrillation, DVT, Pulmonary Embolism Pulmonary Medical History: Reports: Asthma, Chronic Obstructive Pulmonary Disease (COPD), Respiratory Failure EENT Medical History: Denies: Cataracts, Ears - Hearing aids, Nose - Allergic rhinitis Neurological Medical History: Reports: Other - TIA Denies: Hemorrhagic CVA, Ischemic CVA, Multiple Sclerosis, Seizures Endocrine Medical History: Reports: Diabetes Mellitus Type 2, Hyperthyroidism - Was told once her thyroid might be high, Other - Diabetic peripheral neuropathy Denies: Diabetes Mellitus Type 1, Hypothyroidism Renal/ Medical History: Denies: Chronic Kidney Disease, Nephrolithiasis Malignancy Medical History: Reports: None GI Medical History: Denies: Cirrhosis, Crohn's Disease, Diverticulitis, Hepatitis, Peptic Ulcer Disease, Ulcerative Colitis Musculoskeltal Medical History: Denies: Arthritis, Fibromyalgia Skin Medical History: Denies: Eczema, Psoriasis Psychiatric Medical History: Reports: Tobacco Dependency Denies: Alcohol Dependency, Depression, Substance Abuse Traumatic Medical History: Reports: None Hematology: Denies: Anemia, Bleeding Tendencies Infectious Medical History: Reports: None Past Surgical History Past Surgical History: Reports: Cardiac Catheterization, Coronary Artery Bypass Graft, Coronary Stent, Tubal Ligation Social History Information Source: Patient Lives with: Family Smoking Status: Current Every Day Smoker Frequency of Alcohol Use: None Hx Recreational Drug Use: No Drugs: None Hx Prescription Drug Abuse: No - Advance Directive Resuscitation Status: Full Code Surrogate healthcare decision maker:: Misael Khan Family History Family History: CAD, DM, Hypertension. denies: Malignancy Parental Family History Reviewed: Yes Children Family History Reviewed: No Sibling(s) Family History Reviewed.: Yes Medication/Allergy Home Medications: Atorvastatin Calcium [Lipitor 80 mg Tablet] 80 mg PO QHS 08/27/17 Clopidogrel Bisulfate [Plavix 75 mg Tablet] 75 mg PO DAILY 08/27/17 Fenofibrate 160 mg PO DAILY 08/27/17 Fluticasone/Vilanterol [Breo Ellipta 100-25 Mcg INH] 1 puff IH DAILY 08/27/17 Glipizide [Glucotrol 10 mg Tablet] 10 mg PO Q12 08/27/17 Metformin HCl [Glucophage] 1,000 mg PO Q12 08/27/17 Metoprolol Tartrate [Lopressor 25 mg Tablet] 25 mg PO Q12 08/27/17 Ranolazine [Ranexa 500 mg Tab.sr] 500 mg PO Q12 08/27/17 Allergies/Adverse Reactions: No Known Allergies Allergy (Verified 02/05/17 05:56) Review of Systems Constitutional: ABSENT: chills, fever(s) Eyes: ABSENT: visual disturbances, other - Eye pain Ears: ABSENT: hearing changes, other - Ear pain Nose, Mouth, and Throat: ABSENT: mouth pain, sore throat Cardiovascular: PRESENT: dyspnea on exertion. ABSENT: chest pain, edema, orthropnea, palpitations Respiratory: PRESENT: dyspnea. ABSENT: cough Gastrointestinal: ABSENT: abdominal pain, constipation, diarrhea, nausea, vomiting Genitourinary: ABSENT: dysuria, hematuria Musculoskeletal: ABSENT: back pain, joint swelling, muscle weakness Integumentary: ABSENT: pruritus, rash Neurological: ABSENT: confusion, convulsions, focal weakness, numbness, syncope Psychiatric: ABSENT: anxiety, depression Endocrine: ABSENT: cold intolerance, heat intolerance Hematologic/Lymphatic: ABSENT: easy bleeding, easy bruising Allergic/Immunologic: ABSENT: seasonal rhinorrhea Physical Exam Vital Signs: Temp Pulse Resp BP Pulse Ox 98.3 F 19 150/82 H 97 11/07/18 23:49 11/08/18 01:01 11/08/18 01:00 11/08/18 01:01 Intake & Output 11/06/18 11/07/18 11/08/18 23:59 23:59 23:59 Intake Total 100 Balance 100 Weight 60.5 kg General appearance: PRESENT: no acute distress, cooperative, other - On BiPAP Head exam: PRESENT: atraumatic, normocephalic Eye exam: PRESENT: conjunctiva pink. ABSENT: conjunctival injection, nystagmus, scleral icterus Ear exam: PRESENT: normal external ear exam. ABSENT: bleeding, drainage Mouth exam: PRESENT: dry mucosa, neck supple Neck exam: ABSENT: JVD, thyromegaly, tracheal deviation Respiratory exam: PRESENT: decreased breath sounds - Mildly decreased breath so unds in all amador consistent with mild to moderate COPD, prolonged expiratory phas - Moderately prolonged expiratory phase in all amador, symmetrical, wheezes - Expiratory wheezes present in all amador, other - On BiPAP Cardiovascular exam: PRESENT: RRR. ABSENT: clicks, gallop, rubs Pulses: ABSENT: normal radial pulses, normal dorsalis pedis pul Vascular exam: PRESENT: normal capillary refill. ABSENT: pallor GI/Abdominal exam: PRESENT: normal bowel sounds, soft Rectal exam: PRESENT: deferred Extremities exam: ABSENT: joint swelling, pedal edema, tenderness Musculoskeletal exam: PRESENT: full ROM, normal inspection Neurological exam: PRESENT: alert, oriented to person, oriented to place, o riented to time, oriented to situation, CN II-XII grossly intact. ABSENT: motor sensory deficit Psychiatric exam: PRESENT: appropriate affect, normal mood Skin exam: PRESENT: dry, intact, warm. ABSENT: jaundice, rash, urticaria Results Laboratory Results: 11/08/18 00:24 11/08/18 00:24 11/08/18 11/08/18 00:24 00:24 WBC 10.4 RBC 4.91 Hgb 13.6 Hct 40.0 MCV 82 MCH 27.6 MCHC 33.9 RDW 14.4 H Plt Count 245 Seg Neutrophils % 56.2 Sodium 138.2 Potassium 3.1 L Chloride 100 Carbon Dioxide 30 Anion Gap 8 BUN 13 Creatinine 0.56 Est GFR ( Amer) > 60 Glucose 335 H Calcium 9.1 Magnesium 1.5 L Total Bilirubin 0.6 AST 34 Alkaline Phosphatase 134 H Total Protein 7.4 Albumin 3.8 11/08/18 11/08/18 00:24 00:24 Creatine Kinase 39 CK-MB (CK-2) 0.68 Troponin I 0.023 NT-Pro-B Natriuret Pep 1490 H Impressions: Chest X-Ray 11/07/18 23:51 IMPRESSION: Equivocal/mild interstitial edema copyright 2011 [employer]- All Rights Reserved Assessment and Plan - Diagnosis (1) COPD exacerbation Is this a current diagnosis for this admission?: Yes Plan: Patient will be treated with an aggressive pulmonary toilet utilizing Xopenex, Atrovent and Pulmicort delivered via nebulizer. She will receive IV Solu-Medrol and a burst therapy dosing. She will also receive supplemental oxygen via noninvasive methods utilizing nasal cannula and/or CPAP/BiPAP. Her CBC and O2 sats to be monitored frequently throughout her hospital course. (2) Acute respiratory failure with hypoxia Is this a current diagnosis for this admission?: Yes Plan: She will Receive supplemental oxygen via noninvasive methods utilizing nasal cannula and/or CPAP/BiPAP. Her O2 sats will be monitored frequently throughout her hospital course with ABGs obtained if needed. (3) Diabetes mellitus type 2 in nonobese Is this a current diagnosis for this admission?: Yes Plan: Patient will be continued on her usual diabetic therapy and diabetic diet. She will have before meals and at bedtime Accu-Cheks performed with sliding scale insulin administered for hyperglycemia and a hypoglycemic protocol in place if needed. Hemoglobin A1c will be obtained to assess the efficacy of current therapy. (4) Hypertension Qualifiers: Hypertension type: essential hypertension Qualified Code(s): I10 - Essential (primary) hypertension Is this a current diagnosis for this admission?: Yes Plan: Patient be continued on her usual antihypertensive regimen. Her blood pressure be monitored closely throughout her hospital course. Daily metabolic profiles and magnesium levels will be monitored as part of her therapy. (5) Hyperlipidemia Qualifiers: Hyperlipidemia type: unspecified Qualified Code(s): E78.5 - Hyperlipidemia, unspecified Is this a current diagnosis for this admission?: Yes Plan: A lipid profile will be obtained to assess the efficacy of patient's current therapy. She will be continued on her usual medications unless changes in the rapy are required. She will be treated with a cardiac diet in addition to her diabetic restrictions. (6) CAD (coronary artery disease) Qualifiers: Coronary Disease-Associated Artery/Lesion type: [place] artery [place] vs. transplanted heart: [place] heart Associated angina: without angina Qualified Code(s): I25.10 - Atherosclerotic heart disease of [place] coronary artery wit hout angina pectoris Is this a current diagnosis for this admission?: Yes Plan: Patient be continued on a cardiac diet and will also continue on her usual medications. She will be observed closely for any changes in her cardiac status. Serial cardiac enzymes and a proBNP will be obtained to evaluate any possibility of a cardiac etiology of her acute dyspnea. (7) Tobacco abuse Is this a current diagnosis for this admission?: Yes Plan: Smoking cessation is advised and counseled briefly at the bedside. A nicotine replacement patch will be available for patients use. - Time Time Spent with patient: 25-34 minutes Smoking Cessation Education: 3 to 10 minutes Anticipated discharge: Home - Inpatient Certification Based on my medical assessment, after consideration of the patient's comorbidities, presenting symptoms, or acuity I expect that the services needed warrant INPATIENT care.: Yes I certify that my determination is in accordance with my understanding of Medicare's requirements for reasonable and necessary INPATIENT services [42 CFR 412.3e].: Yes Medical Necessity: Significant Comorbidiites Make Outpatient Treatment Too Risky, Need Close Monitoring Due to Risk of Patient Decompensation, Need for Nebulizer Therapy and Monitoring of Response, Risk of Complication if Not Cared For in Hospital
[2018-11-08 07:55] LABS: CHOLESTEROL 241.61 mg/dL (0-200); TRIGLYCERIDES 71 mg/dL (<150)
[2018-11-08] MEDS ORDERED: METFORMIN HCL 500 MG TABLET PO SCH (08:00)
[2018-11-08 08:06] LABS: DIRECT LDL 203 mg/dL (<100)
[2018-11-08 08:08] LABS: CREATINE KINASE MB 0.69 ng/mL (<4.55); TROPONIN I 0.018 ng/mL
[2018-11-08] MEDS: INSULIN REG, HUMAN 100 UNIT/ML 3 ML VIAL (PYX) SUBCUT PRN ×2 (08:13→22:00)
[2018-11-08] MEDS: GLIPIZIDE 10 MG TABLET PO SCH ×2 (08:13→17:16)
[2018-11-08 08:15] LABS: FREE T3 4.54 pg/mL (2.77-5.27); FREE T4 (FREE THYROXINE) 1.52 ng/dL (0.78-2.19)
[2018-11-08] MEDS: IPRATROPIUM BROMIDE 0.02% NEB 0.5 MG/2.5 ML AMPUL NEB SCH ×2 (08:23→15:47)
[2018-11-08] MEDS: BUDESONIDE NEB 0.5 MG/2 ML AMPUL NEB SCH ×2 (08:23→19:59)
[2018-11-08] MEDS: LEVALBUTEROL HCL NEB 1.25 MG/3 ML AMPUL NEB SCH ×2 (08:24→15:47)
[2018-11-08 08:31] LABS: THYROID STIMULATING HORMONE < 0.01 uIU/mL (0.47-4.68)
--- NOTE | 2018-11-08 08:56 | PDOC PROGRESS REPORT ---
Subjective Progress Note for:: 11/08/18 Subjective:: 63 year old female who presented to the emergency room with acute dyspnea. She admits sudden worsening of her chronic dyspnea accompanied by wheezing and air hunger a few hours prior to her presentation. Her dyspnea was worsened with any activity or exertion. She denies other associated or accompanying symptoms. She admits numerous prior similar episodes due to her COPD. She denies identification of any additional aggravating or ameliorating factors for her acute dyspnea. Her symptoms gradually worsened over the next hour or so causing her to summon EMS to her home. On arrival EMS found her to have an O2 sat of 87% on room air and initiated treatment with nebulizers and supplemental oxygen. In the ER she was treated with BiPAP and nebulizer treatments as well as intravenous steroids. She was subsequently admitted to the hospital for further evaluation and treatment. 11/08/2018 no acute events since the admission. Patient is still on BiPAP. Cu rrently in the emergency room waiting for a bed upstairs. Denies any complaints concerns. Reason For Visit: COPD EXACERBATION, DIABETES MELLITUS TYPE 2 IN Physical Exam Vital Signs: Temp Pulse Resp BP Pulse Ox 98.1 F 87 23 H 150/82 H 96 11/08/18 05:00 11/08/18 08:23 11/08/18 08:23 11/08/18 01:00 11/08/18 08:23 Intake & Output 11/07/18 11/08/18 11/09/18 06:59 06:59 06:59 Intake Total 200 Balance 200 Weight 60.5 kg General appearance: PRESENT: no acute distress, cooperative, other - On BiPAP Head exam: PRESENT: atraumatic, normocephalic Eye exam: PRESENT: conjunctiva pink, PERRLA. ABSENT: periorbital swelling, scleral icterus Ear exam: PRESENT: normal external ear exam Mouth exam: PRESENT: moist, tongue midline Teeth exam: PRESENT: poor dentation Neck exam: ABSENT: carotid bruit, JVD, lymphadenopathy, thyromegaly Respiratory exam: PRESENT: decreased breath sounds Cardiovascular exam: PRESENT: RRR. ABSENT: diastolic murmur, rubs, systolic murmur Pulses: PRESENT: normal dorsalis pedis pul GI/Abdominal exam: PRESENT: normal bowel sounds, soft. ABSENT: distended, guarding, mass, organolmegaly, rebound, tenderness Rectal exam: PRESENT: deferred Extremities exam: PRESENT: full ROM. ABSENT: calf tenderness, clubbing, pedal edema Musculoskeletal exam: PRESENT: full ROM, normal inspection Neurological exam: PRESENT: alert, awake, oriented to person, oriented to place, oriented to time, oriented to situation, CN II-XII grossly intact. ABSENT: motor sensory deficit Psychiatric exam: PRESENT: anxious Skin exam: PRESENT: dry, intact, warm. ABSENT: cyanosis, rash Results Laboratory Results: 11/08/18 00:24 11/08/18 00:24 11/08/18 11/08/18 11/08/18 00:24 00:24 04:35 WBC 10.4 RBC 4.91 Hgb 13.6 Hct 40.0 MCV 82 MCH 27.6 MCHC 33.9 RDW 14.4 H Plt Count 245 Seg Neutrophils % 56.2 Sodium 138.2 Potassium 3.1 L Chloride 100 Carbon Dioxide 30 Anion Gap 8 BUN 13 Creatinine 0.56 Est GFR ( Amer) > 60 Glucose 335 H Calcium 9.1 Magnesium 1.5 L Total Bilirubin 0.6 AST 34 Alkaline Phosphatase 134 H Total Protein 7.4 Albumin 3.8 Triglycerides Cholesterol LDL Cholesterol Direct VLDL Cholesterol HDL Cholesterol TSH Free T4 Free T3 pg/mL Urine Color YELLOW Urine Appearance SLIGHTLY-CLOUDY Urine pH 6.0 Ur Specific [place] 1.024 Urine Protein 30 H Urine Glucose (UA) >=500 H Urine Ketones TRACE H Urine Blood SMALL H Urine Nitrite NEGATIVE Ur Leukocyte Esterase LARGE H Urine WBC (Auto) 19 Urine RBC (Auto) 1 11/08/18 11/08/18 06:52 06:52 WBC RBC Hgb Hct MCV MCH MCHC RDW Plt Count Seg Neutrophils % Sodium Potassium Chloride Carbon Dioxide Anion Gap BUN Creatinine Est GFR ( Amer) Glucose Calcium Magnesium Total Bilirubin AST Alkaline Phosphatase Total Protein Albumin Triglycerides 71 Cholesterol 241.61 H LDL Cholesterol Direct 203 H VLDL Cholesterol 14.0 HDL Cholesterol 51 TSH < 0.01 L Free T4 1.52 Free T3 pg/mL 4.54 Urine Color Urine Appearance Urine pH Ur Specific [place] Urine Protein Urine Glucose (UA) Urine Ketones Urine Blood Urine Nitrite Ur Leukocyte Esterase Urine WBC (Auto) Urine RBC (Auto) 11/08/18 11/08/18 11/08/18 00:24 00:24 06:52 Creatine Kinase 39 CK-MB (CK-2) 0.68 0.69 Troponin I 0.023 0.018 NT-Pro-B Natriuret Pep 1490 H 1650 H 11/08/18 06:52 Creatine Kinase 31 CK-MB (CK-2) Troponin I NT-Pro-B Natriuret Pep Impressions: Chest X-Ray 11/07/18 23:51 IMPRESSION: Equivocal/mild interstitial edema copyright 2010 [employer]- All Rights Reserved Assessment and Plan - Diagnosis (1) COPD exacerbation Is this a current diagnosis for this admission?: Yes Plan: Patient will be treated with an aggressive pulmonary toilet utilizing Xopenex, Atrovent and Pulmicort delivered via nebulizer. She will receive IV Solu-Medrol and a burst therapy dosing. She will also receive supplemental oxygen via noninvasive methods utilizing nasal cannula and/or CPAP/BiPAP. Her CBC and O2 sats to be monitored frequently throughout her hospital course. 11/08/[id number]ggy-old female admitted with COPD exacerbation chest x-ray shows mild equivocal interstitial edema no pneumonia no pleural effusions. Presently on BiPAP. She is also receiving Xopenex, Atrovent, Pulmicort. Presently on IV Solu-Medrol 40 mg every 8 hours. Plan is to do the daily ABGs and labs to monitor the oxygen requirements. (2) Acute respiratory failure with hypoxia Is this a current diagnosis for this admission?: Yes Plan: She will Receive supplemental oxygen via noninvasive methods utilizing nasal cannula and/or CPAP/BiPAP. Her O2 sats will be monitored frequently throughout her hospital course with ABGs obtained if needed. 11/08/2018-patient admitted with acute on chronic respiratory failure with hypoxia most likely secondary to COPD exacerbation. Patient presently requiring BiPAP. Plan is to continue the present management. (3) Diabetes mellitus type 2 in nonobese Is this a current diagnosis for this admission?: Yes Plan: Patient will be continued on her usual diabetic therapy and diabetic diet. She will have before meals and at bedtime Accu-Cheks performed with sliding scale insulin administered for hyperglycemia and a hypoglycemic protocol in place if n eeded. Hemoglobin A1c will be obtained to assess the efficacy of current therapy. 11/08/2018-patient's hemoglobin is 10.5 and blood sugars are 333 presently on IV Solu-Medrol 40 mg every 8 hours on insulin sliding scale before meals and at bedtime along with glipizide 10 mg p.o. twice daily and metformin thousand milligrams p.o. twice daily. To hold metformin during the hospital stay and to start her on Lantus 15 units twice daily. Hemoglobin A1c is 10.5. Diet exercise weight loss lifestyle modifications were discussed with the patient dietary consult was requested. (4) Hypertension Qualifiers: Hypertension type: essential hypertension Qualified Code(s): I10 - Essential (primary) hypertension Is this a current diagnosis for this admission?: Yes Plan: Patient be continued on her usual antihypertensive regimen. Her blood pressure be monitored closely throughout her hospital course. Daily metabolic profiles and magnesium levels will be monitored as part of her therapy. 11/08/2018 patient blood pressure today is 150/82 stable plan is to continue the present management. Metoprolol 50 mg p.o. daily and hydralazine 20 mg 20 IV every 4 PRN for systolic blood pressure more than 160. (5) CAD (coronary artery disease) Qualifiers: Coronary Disease-Associated Artery/Lesion type: [place] artery [place] vs. transplanted heart: [place] heart Associated angina: without angina Qualified Code(s): I25.10 - Atherosclerotic heart disease of [place] coronary artery without angina pectoris Is this a current diagnosis for this admission?: Yes Plan: Patient be continued on a cardiac diet and will also continue on her usual medications. She will be observed closely for any changes in her cardiac status. Serial cardiac enzymes and a proBNP will be obtained to evaluate any possibility of a cardiac etiology of her acute dyspnea. 11/08/2018-patient has history of coronary artery disease presently on cardiac diet. No complaints of chest pain troponins within normal range. BNP is at 1650. (6) Smoker Is this a current diagnosis for this admission?: Yes Plan: 11/08/2018-patient is a chronic smoker currently smoking smoking counseling was provided for more than 15 minutes. Offered nicotine patches. - Time Time Spent with patient: 25-34 minutes Smoking Cessation Education: over 10 minutes Medications reviewed and adjusted accordingly: Yes Anticipated discharge: Home
--- NOTE | 2018-11-08 09:01 | EKG REPORT ---
SEVERITY:- ABNORMAL ECG - SINUS TACHYCARDIA VENTRICULAR TRIGEMINY ABERRANT COMPLEX, POSSIBLY SUPRAVENTRICULAR PROBABLE LVH WITH SECONDARY REPOL ABNRM ST DEPRESSION, CONSIDER ISCHEMIA, ANT-LAT LDS : Confirmed by: Letty Vega MD 08-Nov-2018 09:00:50
[2018-11-08] MEDS: DOCUSATE SODIUM 100 MG CAPSULE PO SCH ×2 (09:15→18:58)
[2018-11-08] MEDS: RANOLAZINE 500 MG TAB.SR.12H PO SCH ×2 (09:15→23:00)
[2018-11-08] MEDS: CLOPIDOGREL BISULFATE 75 MG TABLET PO SCH (09:15)
[2018-11-08] MEDS: FAMOTIDINE 20 MG TABLET PO SCH ×2 (09:15→21:56)
[2018-11-08] MEDS: FLUTICASONE/VILANTEROL 100-25 MCG/DOSE IH SCH (09:54)
[2018-11-08] MEDS ORDERED: METOPROLOL SUCCINATE 50 MG TAB.SR.24H PO SCH (10:00)
[2018-11-08 10:02] LABS: CREATINE KINASE MB 0.71 ng/mL (<4.55); TROPONIN I 0.013 ng/mL
[2018-11-08 15:58] LABS: CREATINE KINASE MB 0.72 ng/mL (<4.55)
[2018-11-08 15:59] LABS: TROPONIN I < 0.012 ng/mL
[2018-11-08] MEDS: ATORVASTATIN CALCIUM 80 MG TABLET PO SCH (21:56)
[2018-11-08] MEDS ORDERED: INSULIN GLARGINE,HUM.REC.ANLOG 1,000 UNIT/10 ML VIAL SUBCUT SCH (22:00)
[2018-11-09] MEDS: IPRATROPIUM BROMIDE 0.02% NEB 0.5 MG/2.5 ML AMPUL NEB SCH ×3 (00:18→16:04)
[2018-11-09] MEDS: LEVALBUTEROL HCL NEB 1.25 MG/3 ML AMPUL NEB SCH ×3 (00:18→16:04)
[2018-11-09 05:19] LABS: ABSOLUTE LYMPHOCYTES (AUTO) 1.3 10^3/uL (0.5-4.7); ABSOLUTE MONOCYTES (AUTO) 0.5 10^3/uL (0.1-1.4); ABSOLUTE NEUT (AUTO) 7.5 10^3/uL (1.7-8.2); BASOPHILS % (AUTO) 0.4 % (0-2); HEMATOCRIT 39.2 % (36.0-47.0); HEMOGLOBIN 13.3 g/dL (12.0-15.5); LYMPHOCYTES % (AUTO) 13.8 % (13-45); MEAN CORPUSCULAR HEMOGLOBIN 27.7 pg (27.0-33.4); MEAN CORPUSCULAR VOLUME 82 fl (80-97); MONOCYTES % (AUTO) 4.9 % (3-13); PLATELET COUNT 264 10^3/uL (150-450); RED BLOOD COUNT 4.81 10^6/uL (3.72-5.28); RED CELL DISTRIBUTION WIDTH 14.4 % (11.5-14.0); SEGMENTED NEUTROPHILS % (AUTO) 80.9 % (42-78); TOTAL CELLS COUNTED % (AUTO) 100 %; WHITE BLOOD COUNT 9.3 10^3/uL (4.0-10.5)
[2018-11-09] MEDS: HEPARIN SOD (PORCINE) 5,000 UNIT/ML 1 ML VIAL SUBCUT SCH ×3 (05:24→21:52)
[2018-11-09 05:30] LABS: ALBUMIN 3.9 g/dL (3.5-5.0); ALKALINE PHOSPHATASE 123 U/L (38-126); ANION GAP 8 (5-19); ASPARTATE AMINO TRANSFERASE 19 U/L (14-36); BILIRUBIN,DIRECT 0.4 mg/dL (0.0-0.4); BILIRUBIN,TOTAL 0.6 mg/dL (0.2-1.3); BLOOD UREA NITROGEN 19 mg/dL (7-20); CALCIUM 10.3 mg/dL (8.4-10.2); CARBON DIOXIDE 31 mmol/L (22-30); CHLORIDE 100 mmol/L (98-107); GLUCOSE 275 mg/dL (75-110); POTASSIUM 4.3 mmol/L (3.6-5.0); TOTAL PROTEIN 7.2 g/dL (6.3-8.2)
[2018-11-09] MEDS: METHYLPREDNISOLONE INJ 40 MG/1 ML SDV IV SCH (05:32)
[2018-11-09] MEDS: BUDESONIDE NEB 0.5 MG/2 ML AMPUL NEB SCH ×2 (08:06→19:33)
[2018-11-09] MEDS: GLIPIZIDE 10 MG TABLET PO SCH ×2 (08:39→16:39)
--- NOTE | 2018-11-09 08:41 | PDOC PROGRESS REPORT ---
Subjective Progress Note for:: 11/09/18 Subjective:: 63 year old female who presented to the emergency room with acute dyspnea. She admits sudden worsening of her chronic dyspnea accompanied by wheezing and air hunger a few hours prior to her presentation. Her dyspnea was worsened with any activity or exertion. She denies other associated or accompanying symptoms. She admits numerous prior similar episodes due to her COPD. She denies identification of any additional aggravating or ameliorating factors for her acute dyspnea. Her symptoms gradually worsened over the next hour or so causing her to summon EMS to her home. On arrival EMS found her to have an O2 sat of 87% on room air and initiated treatment with nebulizers and supplemental oxygen. In the ER she was treated with BiPAP and nebulizer treatments as well as intravenous steroids. She was subsequently admitted to the hospital for further evaluation and treatment. 11/08/2018 no acute events since the admission. Patient is still on BiPAP. Cu rrently in the emergency room waiting for a bed upstairs. Denies any complaints concerns. 11/09/2018-no acute events in the last 24 hours. Patient refused to wear BiPAP yesterday. Pulse ox is 93% on room air this morning. No complaints from the patient. Expressing desire to go home today. Reason For Visit: COPD EXACERBATION, DIABETES MELLITUS TYPE 2 IN Physical Exam Vital Signs: Temp Pulse Resp BP Pulse Ox 98.4 F 92 16 133/69 H 93 11/08/18 23:52 11/09/18 00:19 11/09/18 00:19 11/08/18 23:52 11/09/18 00:19 Intake & Output 11/08/18 11/09/18 11/10/18 06:59 06:59 06:59 Intake Total 200 800 Balance 200 800 Weight 58 kg 58.3 kg General appearance: PRESENT: no acute distress Head exam: PRESENT: atraumatic Eye exam: PRESENT: PERRLA Mouth exam: PRESENT: moist, tongue midline Teeth exam: PRESENT: poor dentation Neck exam: ABSENT: carotid bruit, JVD, lymphadenopathy, thyromegaly Respiratory exam: PRESENT: decreased breath sounds Cardiovascular exam: PRESENT: RRR. ABSENT: diastolic murmur, rubs, systolic murmur GI/Abdominal exam: PRESENT: normal bowel sounds, soft. ABSENT: distended, guarding, mass, organolmegaly, rebound, tenderness Rectal exam: PRESENT: deferred Extremities exam: PRESENT: full ROM. ABSENT: calf tenderness, clubbing, pedal edema Neurological exam: PRESENT: alert, awake, oriented to person, oriented to place, oriented to time, oriented to situation, CN II-XII grossly intact. ABSENT: motor sensory deficit Skin exam: PRESENT: dry, intact, warm. ABSENT: cyanosis, rash Results Laboratory Results: 11/09/18 04:47 11/09/18 04:47 11/09/18 11/09/18 04:47 04:47 WBC 9.3 RBC 4.81 Hgb 13.3 Hct 39.2 MCV 82 MCH 27.7 MCHC 34.0 RDW 14.4 H Plt Count 264 Seg Neutrophils % 80.9 H Sodium 138.6 Potassium 4.3 Chloride 100 Carbon Dioxide 31 H Anion Gap 8 BUN 19 Creatinine 0.69 Est GFR ( Amer) > 60 Glucose 275 H Calcium 10.3 H Magnesium 2.0 Total Bilirubin 0.6 AST 19 Alkaline Phosphatase 123 Total Protein 7.2 Albumin 3.9 11/08/18 11/08/18 11/08/18 00:24 00:24 06:52 Creatine Kinase 39 CK-MB (CK-2) 0.68 0.69 Troponin I 0.023 0.018 NT-Pro-B Natriuret Pep 1490 H 1650 H 11/08/18 11/08/18 11/08/18 06:52 09:22 09:22 Creatine Kinase 31 31 CK-MB (CK-2) 0.71 Troponin I 0.013 NT-Pro-B Natriuret Pep 11/08/18 11/08/18 15:02 15:02 Creatine Kinase 32 CK-MB (CK-2) 0.72 Troponin I < 0.012 NT-Pro-B Natriuret Pep Impressions: Chest X-Ray 11/07/18 23:51 IMPRESSION: Equivocal/mild interstitial edema copyright 2011 [employer]- All Rights Reserved Assessment and Plan - Diagnosis (1) COPD exacerbation Is this a current diagnosis for this admission?: Yes Plan: Patient will be treated with an aggressive pulmonary toilet utilizing Xopenex, Atrovent and Pulmicort delivered via nebulizer. She will receive IV Solu-Medrol and a burst therapy dosing. She will also receive supplemental oxygen via noninvasive methods utilizing nasal cannula and/or CPAP/BiPAP. Her CBC and O2 sats to be monitored frequently throughout her hospital course. 11/08/[id number]-nuqj-old female admitted with COPD exacerbation chest x-ray shows mild equivocal interstitial edema no pneumonia no pleural effusions. Presently on BiPAP. She is also receiving Xopenex, Atrovent, Pulmicort. Presently on IV Solu-Medrol 40 mg every 8 hours. Plan is to do the daily ABGs and labs to monitor the oxygen requirements. 11/09/[id number]-ihwt-old female admitted for COPD exacerbation on examination checked today chest bilateral entry was severely decreased no wheezing no crepitations are present. Presently receiving Xopenex, Atrovent and Pulmicort. Pulse ox is 93% on room air today. (2) Acute respiratory failure with hypoxia Is this a current diagnosis for this admission?: Yes Plan: She will Receive supplemental oxygen via noninvasive methods utilizing nasal cannula and/or CPAP/BiPAP. Her O2 sats will be monitored frequently throughout her hospital course with ABGs obtained if needed. 11/08/2018-patient admitted with acute on chronic respiratory failure with hypoxia most likely secondary to COPD exacerbation. Patient presently requiring BiPAP. Plan is to continue the present management. [id number]-old female admitted with acute on chronic respiratory failure with hypoxia secondary to COPD exacerbation pulse ox is 93% room air today. Chest bilateral entry was severely decreased but improved compared to yesterday. Plan is to continue the present management but at least another day. (3) Diabetes mellitus type 2 in nonobese Is this a current diagnosis for this admission?: Yes Plan: Patient will be continued on her usual diabetic therapy and diabetic diet. She will have before meals and at bedtime Accu-Cheks performed with sliding scale insulin administered for hyperglycemia and a hypoglycemic protocol in place if needed. Hemoglobin A1c will be obtained to assess the efficacy of current therapy. 11/08/2018-patient's hemoglobin is 10.5 and blood sugars are 333 presently on IV Solu-Medrol 40 mg every 8 hours on insulin sliding scale before meals and at bedtime along with glipizide 10 mg p.o. twice daily and metformin thousand milligrams p.o. twice daily. To hold metformin during the hospital stay and to start her on Lantus 15 units twice daily. Hemoglobin A1c is 10.5. Diet exercise weight loss lifestyle modifications were discussed with the patient dietary consult was requested. 11/09/2018-patient blood sugar today is 305. Presently on Lantus 15 units twice a day, glipizide 10 mg p.o. twice daily. Hemoglobin A1c is 10.5. Diet exercise weight loss lifestyle modifications are discussed with the patient. (4) Hypertension Qualifiers: Hypertension type: essential hypertension Qualified Code(s): I10 - Essential (primary) hypertension Is this a current diagnosis for this admission?: Yes Plan: Patient be continued on her usual antihypertensive regimen. Her blood pressure be monitored closely throughout her hospital course. Daily metabolic profiles and magnesium levels will be monitored as part of her therapy. 11/08/2018 patient blood pressure today is 150/82 stable plan is to continue the present management. Metoprolol 50 mg p.o. daily and hydralazine 20 mg 20 IV every 4 PRN for systolic blood pressure more than 160. 11/09/2018-patient blood pressure today is 133/70 stable. Plan is to continue the present management. (5) CAD (coronary artery disease) Qualifiers: Coronary Disease-Associated Artery/Lesion type: [place] artery [place] vs. tr ansplanted heart: [place] heart Associated angina: without angina Qualified Code(s): I25.10 - Atherosclerotic heart disease of [place] coronary artery without angina pectoris Is this a current diagnosis for this admission?: Yes (6) Smoker Is this a current diagnosis for this admission?: Yes - Time Time Spent with patient: 15-24 minutes Medications reviewed and adjusted accordingly: Yes Anticipated discharge: Home
[2018-11-09] MEDS ORDERED: FLUTICASONE/VILANTEROL 100-25 MCG/DOSE IH SCH (10:00)
[2018-11-09] MEDS ORDERED: (PENDING PHARMACY ID) (Lisinopril [Lisinopril] 20 MG) PO SCH (10:00)
[2018-11-09] MEDS: FAMOTIDINE 20 MG TABLET PO SCH ×2 (10:25→21:52)
[2018-11-09] MEDS: CLOPIDOGREL BISULFATE 75 MG TABLET PO SCH (10:25)
[2018-11-09] MEDS: METOPROLOL TARTRATE 50 MG TABLET PO SCH ×2 (10:25→21:52)
[2018-11-09] MEDS: DOCUSATE SODIUM 100 MG CAPSULE PO SCH ×3 (10:25→18:04)
[2018-11-09] MEDS: RANOLAZINE 500 MG TAB.SR.12H PO SCH ×2 (10:25→21:52)
[2018-11-09] MEDS: INSULIN GLARGINE,HUM.REC.ANLOG 1,000 UNIT/10 ML VIAL SUBCUT SCH ×2 (10:26→21:59)
[2018-11-09] MEDS: LISINOPRIL 10 MG TABLET PO SCH (10:26)
[2018-11-09] MEDS: FLUTICASONE/VILANTEROL 100-25 MCG/DOSE IH SCH (10:27)
[2018-11-09] MEDS: INSULIN REG, HUMAN 100 UNIT/ML 3 ML VIAL (PYX) SUBCUT PRN (16:40)
[2018-11-09] MEDS: ATORVASTATIN CALCIUM 80 MG TABLET PO SCH (21:52)
[2018-11-10] MEDS: IPRATROPIUM BROMIDE 0.02% NEB 0.5 MG/2.5 ML AMPUL NEB SCH ×2 (00:57→07:49)
[2018-11-10] MEDS: LEVALBUTEROL HCL NEB 1.25 MG/3 ML AMPUL NEB SCH ×2 (00:57→07:49)
[2018-11-10] MEDS ORDERED: GUAIFENESIN SYRP 200 MG/10 ML UDC PO PRN (03:56)
[2018-11-10] MEDS: HEPARIN SOD (PORCINE) 5,000 UNIT/ML 1 ML VIAL SUBCUT SCH (05:02)
[2018-11-10 07:09] LABS: HEMATOCRIT 38.4 % (36.0-47.0); HEMOGLOBIN 12.8 g/dL (12.0-15.5); MEAN CORPUSCULAR HEMOGLOBIN 27.4 pg (27.0-33.4); MEAN CORPUSCULAR HGB CONC 33.5 g/dL (32.0-36.0); MEAN CORPUSCULAR VOLUME 82 fl (80-97); PLATELET COUNT 256 10^3/uL (150-450); RED BLOOD COUNT 4.69 10^6/uL (3.72-5.28); RED CELL DISTRIBUTION WIDTH 14.7 % (11.5-14.0); WHITE BLOOD COUNT 14.7 10^3/uL (4.0-10.5)
[2018-11-10 07:36] LABS: ANION GAP 11 (5-19); BLOOD UREA NITROGEN 28 mg/dL (7-20); CALCIUM 9.4 mg/dL (8.4-10.2); CARBON DIOXIDE 26 mmol/L (22-30); CHLORIDE 102 mmol/L (98-107); GLUCOSE 154 mg/dL (75-110); POTASSIUM 3.9 mmol/L (3.6-5.0)
[2018-11-10] MEDS: BUDESONIDE NEB 0.5 MG/2 ML AMPUL NEB SCH (07:49)
[2018-11-10] MEDS: GLIPIZIDE 10 MG TABLET PO SCH (08:57)
[2018-11-10] MEDS: LISINOPRIL 10 MG TABLET PO SCH (10:14)
[2018-11-10] MEDS: CLOPIDOGREL BISULFATE 75 MG TABLET PO SCH (10:14)
[2018-11-10] MEDS: METOPROLOL TARTRATE 50 MG TABLET PO SCH (10:15)
[2018-11-10] MEDS: RANOLAZINE 500 MG TAB.SR.12H PO SCH (10:16)
[2018-11-10] MEDS: DOCUSATE SODIUM 100 MG CAPSULE PO SCH (10:16)
[2018-11-10] MEDS: FAMOTIDINE 20 MG TABLET PO SCH (10:16)
[2018-11-10] MEDS: FLUTICASONE/VILANTEROL 100-25 MCG/DOSE IH SCH (10:17)
[2018-11-10] MEDS: INSULIN GLARGINE,HUM.REC.ANLOG 1,000 UNIT/10 ML VIAL SUBCUT SCH (10:27)
--- NOTE | 2018-11-10 12:20 | PDOC DISCHARGE SUMMARY ---
General - Admit/Disc Date/PCP Admission Date/Primary Care Provider: 11/08/18 03:11 Discharge Date: 11/10/18 - Discharge Diagnosis (1) COPD exacerbation Is this a current diagnosis for this admission?: Yes Summary: Patient will be treated with an aggressive pulmonary toilet utilizing Xopenex, Atrovent and Pulmicort delivered via nebulizer. She will receive IV Solu-Medrol and a burst therapy dosing. She will also receive supplemental oxygen via noninvasive methods utilizing nasal cannula and/or CPAP/BiPAP. Her CBC and O2 sats to be monitored frequently throughout her hospital course. 11/08/[id number]-jpsn-old female admitted with COPD exacerbation chest x-ray shows mild equivocal interstitial edema no pneumonia no pleural effusions. Presently on BiPAP. She is also receiving Xopenex, Atrovent, Pulmicort. Presently on IV Solu-Medrol 40 mg every 8 hours. Plan is to do the daily ABGs and labs to monitor the oxygen requirements. 11/09/[id number]-pfex-old female admitted for COPD exacerbation on examination checked today chest bilateral entry was severely decreased no wheezing no crepitations are present. Presently receiving Xopenex, Atrovent and Pulmicort. Pulse ox is 93% on room air today. [id number]-old female admitted with COPD exacerbation which was resolved. On examination today chest bilateral entry was decreased no wheezing no crepitations. Pulse ox is 93% on room air. Patient is expressing desire to go home. (2) Acute respiratory failure with hypoxia Is this a current diagnosis for this admission?: Yes Summary: She will Receive supplemental oxygen via noninvasive methods utilizing nasal cannula and/or CPAP/BiPAP. Her O2 sats will be monitored frequently throughout her hospital course with ABGs obtained if needed. 11/08/2018-patient admitted with acute on chronic respiratory failure with hypoxia most likely secondary to COPD exacerbation. Patient presently requiring BiPAP. Plan is to continue the present management. 11/09/[id number]-vzbd-old female admitted with acute on chronic respiratory failure with hypoxia secondary to COPD exacerbation pulse ox is 93% room air today. Chest bilateral entry was severely decreased but improved compared to yesterday. Plan is to continue the present management but at least another day. 11/10/[id number]-pgnn-old female admitted with acute on chronic respiratory failure with hypoxia most likely secondary to COPD exacerbation. Pulse ox is 93% on room air today. (3) Diabetes mellitus type 2 in nonobese Is this a current diagnosis for this admission?: Yes Summary: Patient will be continued on her usual diabetic therapy and diabetic diet. She will have before meals and at bedtime Accu-Cheks performed with sliding scale insulin administered for hyperglycemia and a hypoglycemic protocol in place if needed. Hemoglobin A1c will be obtained to assess the efficacy of current therapy. 11/08/2018-patient's hemoglobin is 10.5 and blood sugars are 333 presently on IV Solu-Medrol 40 mg every 8 hours on insulin sliding scale before meals and at bedtime along with glipizide 10 mg p.o. twice daily and metformin thousand milligrams p.o. twice daily. To hold metformin during the hospital stay and to start her on Lantus 15 units twice daily. Hemoglobin A1c is 10.5. Diet exercise weight loss lifestyle modifications were discussed with the patient dietary consult was requested. 11/09/2018-patient blood sugar today is 305. Presently on Lantus 15 units twice a day, glipizide 10 mg p.o. twice daily. Hemoglobin A1c is 10.5. Diet exercise weight loss lifestyle modifications are discussed with the patient. 2018-patient has history of type 2 diabetes mellitus blood sugar this morning is 100. Patient is on IV Solu-Medrol. High blood sugars most likely secondary to steroids (4) Hypertension Is this a current diagnosis for this admission?: Yes Summary: Patient be continued on her usual antihypertensive regimen. Her blood pressure be monitored closely throughout her hospital course. Daily metabolic profiles and magnesium levels will be monitored as part of her therapy. 11/08/2018 patient blood pressure today is 150/82 stable plan is to continue the present management. Metoprolol 50 mg p.o. daily and hydralazine 20 mg 20 IV every 4 PRN for systolic blood pressure more than 160. 11/09/2018-patient blood pressure today is 133/70 stable. Plan is to continue the present management. 11/10/2018-patient blood pressure today is 120/50 stable. Patient is advised to continue her home medications. (5) CAD (coronary artery disease) Is this a current diagnosis for this admission?: Yes (6) Smoker Is this a current diagnosis for this admission?: Yes - Additional Information Resuscitation Status: Full Code Discharge Diet: Diabetic Discharge Activity: Activity As Tolerated Prescriptions: Glipizide [Glucotrol 10 mg Tablet] 10 mg PO BIDBS #60 tablet Metoprolol Tartrate [Lopressor 50 mg Tablet] 50 mg PO Q12 #60 Home Medications: Fluticasone/Vilanterol [Breo Ellipta 100-25 Mcg INH] 1 puff IH DAILY 08/27/17 Lisinopril 20 mg PO DAILY 11/08/18 Nitroglycerin [Nitrostat 0.4 mg (1/150 Gr) Tabs 25/Bottle] 1 tab SL Q5MP PRN 11/08/18 Atorvastatin Calcium [Lipitor 80 mg Tablet] 80 mg PO QHS tablet 11/10/18 Glipizide [Glucotrol 10 mg Tablet] 10 mg PO BIDBS #60 tablet 11/10/18 Metoprolol Tartrate [Lopressor 50 mg Tablet] 50 mg PO Q12 #60 11/10/18 History of Present Illness History of Present Illness: STELLA FRANKLIN is a 63 year old female 63 year old female who presented to the emergency room with acute dyspnea. She admits sudden worsening of her chronic dyspnea accompanied by wheezing and air hunger a few hours prior to her presentation. Her dyspnea was worsened with any activity or exertion. She denies other associated or accompanying symptoms. She admits numerous prior similar episodes due to her COPD. She denies identification of any additional aggravating or ameliorating factors for her acute dyspnea. Her symptoms gradually worsened over the next hour or so causing her to summon EMS to her home. On arrival EMS found her to have an O2 sat of 87% on room air and initiated treatment with nebulizers and supplemental oxygen. In the ER she was treated with BiPAP and nebulizer treatments as well as intravenous steroids. She was subsequently admitted to the hospital for further evaluation and treatment. Hospital Course Hospital Course: 63 year old female who presented to the emergency room with acute dyspnea. She admits sudden worsening of her chronic dyspnea accompanied by wheezing and air hunger a few hours prior to her presentation. Her dyspnea was worsened with any activity or exertion. She denies other associated or accompanying symptoms. She admits numerous prior similar episodes due to her COPD. She denies identi fication of any additional aggravating or ameliorating factors for her acute dyspnea. Her symptoms gradually worsened over the next hour or so causing her to summon EMS to her home. On arrival EMS found her to have an O2 sat of 87% on room air and initiated treatment with nebulizers and supplemental oxygen. In the ER she was treated with BiPAP and nebulizer treatments as well as intravenous steroids. She was subsequently admitted to the hospital for further evaluation and treatment. 11/10/[id number]-nepg-old female admitted with COPD exacerbation which was resolved. No acute events during the hospital stay. Pulse ox is 93% today patient expressing desire to go home today strongly advised to be compliant with her medications. Including nebulizations. Physical Exam Vital Signs: Temp Pulse Resp BP Pulse Ox 98.0 F 85 16 139/74 H 94 11/10/18 07:38 11/10/18 07:50 11/10/18 07:50 11/10/18 07:38 11/10/18 07:50 Intake & Output 11/09/18 11/10/18 11/11/18 06:59 06:59 06:59 Intake Total 800 780 Output Total 2000 Balance 800 -1220 Weight 58.3 kg 59.5 kg General appearance: PRESENT: no acute distress Head exam: PRESENT: atraumatic Eye exam: PRESENT: PERRLA Mouth exam: PRESENT: dry mucosa Teeth exam: PRESENT: poor dentation Neck exam: ABSENT: carotid bruit, JVD, lymphadenopathy, thyromegaly Respiratory exam: PRESENT: decreased breath sounds Cardiovascular exam: PRESENT: RRR. ABSENT: diastolic murmur, rubs, systolic murmur Pulses: PRESENT: normal dorsalis pedis pul GI/Abdominal exam: PRESENT: normal bowel sounds, soft. ABSENT: distended, guarding, mass, organolmegaly, rebound, tenderness Rectal exam: PRESENT: deferred Extremities exam: PRESENT: full ROM. ABSENT: calf tenderness, clubbing, pedal edema Neurological exam: PRESENT: alert, awake, oriented to person, oriented to place, oriented to time, oriented to situation, CN II-XII grossly intact. ABSENT: motor sensory deficit Psychiatric exam: PRESENT: appropriate affect, normal mood. ABSENT: homicidal ideation, suicidal ideation Results Laboratory Results: 11/10/18 06:24 11/10/18 06:24 11/10/18 11/10/18 06:24 06:24 WBC 14.7 H RBC 4.69 Hgb 12.8 Hct 38.4 MCV 82 MCH 27.4 MCHC 33.5 RDW 14.7 H Plt Count 256 Sodium 138.5 Potassium 3.9 Chloride 102 Carbon Dioxide 26 Anion Gap 11 BUN 28 H Creatinine 0.75 Est GFR ( Amer) > 60 Glucose 154 H Calcium 9.4 Magnesium 1.7 11/08/18 11/08/18 11/08/18 00:24 00:24 06:52 Creatine Kinase 39 CK-MB (CK-2) 0.68 0.69 Troponin I 0.023 0.018 NT-Pro-B Natriuret Pep 1490 H 1650 H 11/08/18 11/08/18 11/08/18 06:52 09:22 09:22 Creatine Kinase 31 31 CK-MB (CK-2) 0.71 Troponin I 0.013 NT-Pro-B Natriuret Pep 11/08/18 11/08/18 15:02 15:02 Creatine Kinase 32 CK-MB (CK-2) 0.72 Troponin I < 0.012 NT-Pro-B Natriuret Pep Impressions: Chest X-Ray 11/07/18 23:51 IMPRESSION: Equivocal/mild interstitial edema copyright 2011 [employer]- All Rights Reserved Qualifiers - * PATIENT BEING DISCHARGED WITH ANY OF THE FOLLOWING DIAGNOSIS: No VTE patient discharged on overlapping Therapy?: No Acute Heart Failure - Is this a Heart Failure Patient?: No Plan Time Spent: Greater than 30 Minutes
[2018-11-10 12:39] VITALS: BP 135/59
[2018-11-10] MEDS: INSULIN REG, HUMAN 100 UNIT/ML 3 ML VIAL (PYX) SUBCUT PRN (12:45)
== END 2018-11-10 13:10 | disposition home or self-care (01) | DRG 190 ==
LOC: ER 23:49 → EH 11-08 03:11 → 4N 11-08 13:05
PROVIDERS: ADMIT Emergency Medicine; ATTEND Emergency Medicine
PROC: 5A09357 Assistance with Respiratory Ventilation, Less than 24 Consecutive Hours, Continuous Positive Airway Pressure (ICD-10-PCS; principal; 2018-11-08)
DX: J44.1 Chronic obstructive pulmonary disease with (acute) exacerbation (principal); J96.21 Acute and chronic respiratory failure with hypoxia; I11.0 Hypertensive heart disease with heart failure; I50.9 Heart failure, unspecified; E11.51 Type 2 diabetes mellitus with diabetic peripheral angiopathy without gangrene; E11.65 Type 2 diabetes mellitus with hyperglycemia; I25.10 Atherosclerotic heart disease of native coronary artery without angina pectoris; I49.3 Ventricular premature depolarization; F17.210 Nicotine dependence, cigarettes, uncomplicated; I25.2 Old myocardial infarction; Z86.73 Personal history of transient ischemic attack (TIA), and cerebral infarction without residual deficits; Z95.1 Presence of aortocoronary bypass graft; Z95.5 Presence of coronary angioplasty implant and graft; Z83.3 Family history of diabetes mellitus; Z82.49 Family history of ischemic heart disease and other diseases of the circulatory system; Z79.02 Long term (current) use of antithrombotics/antiplatelets; Z79.84 Long term (current) use of oral hypoglycemic drugs
CPT/HCPCS: 36415; 71045; 80048; 80053; 80061; 81001; 82550; 82553; 82962; 83036; 83735; 83880; 84439; 84443; 84481; 84484; 85025; 85027; 93005; 93010; 94640; 94660; 96365; 96366; 96375; 99291; J1644; J1815; J2550; J2920; J2930; J3475; J3490; J7614; J7620

== ENCOUNTER 2019-02-07 03:16 | Inpatient (IN) | payer MEDICARE, MEDICAID ==
[2019-02-07 04:21] LABS: ALBUMIN 3.5 g/dL (3.5-5.0); ALKALINE PHOSPHATASE 135 U/L (38-126); ANION GAP 9 (5-19); ASPARTATE AMINO TRANSFERASE 13 U/L (14-36); BILIRUBIN,DIRECT 0.1 mg/dL (0.0-0.4); BILIRUBIN,TOTAL 0.3 mg/dL (0.2-1.3); BLOOD UREA NITROGEN 16 mg/dL (7-20); CALCIUM 9.3 mg/dL (8.4-10.2); CARBON DIOXIDE 26 mmol/L (22-30); CHLORIDE 102 mmol/L (98-107); CREATINE KINASE 38 U/L (30-135); GLUCOSE 337 mg/dL (75-110); POTASSIUM 4.1 mmol/L (3.6-5.0); TOTAL PROTEIN 6.4 g/dL (6.3-8.2)
[2019-02-07 04:32] LABS: CREATINE KINASE MB 0.92 ng/mL (<4.55); TROPONIN I 0.022 ng/mL
--- NOTE | 2019-02-07 04:33 | ER Document Report ---
ED Medical Screen (RME) - General Chief Complaint: Chest Pain Stated Complaint: CHEST PAIN Time Seen by Provider: 02/07/19 04:24 Primary Care Provider: GAURI PONCE FNP-C [Primary Care Provider] - Follow up as needed Notes: 63-year-old female comes by EMS for chief complaint of chest pain that started just prior to arrival at home while she was lying in bed. She took 324 mg of aspirin, called EMS, reportedly dispatch told her to take an additional 324 mg of aspirin so she did this. She also was given 1 sublingual nitroglycerin. Patient states upon arrival her pain has completely resolved, she has no current complaints. She reports occasional cough, denies fever, shortness of breath, nausea/vomiting. Past medical history of CABG, current smoker, COPD (is not oxygen dependent), and she most recently had a stent at [facility] last year she thinks. 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 TRAVEL OUTSIDE OF THE [place] IN LAST 30 DAYS: No - Related Data Allergies/Adverse Reactions: No Known Allergies Allergy (Verified 02/05/17 05:56) Past Medical History - Past Medical History Cardiac Medical History: Reports: Hx Congestive Heart Failure, Hx Coronary Artery Disease, Hx Heart Attack, Hx Hypercholesterolemia, Hx Hypertension, Hx Peripheral Vascular Disease Denies: Hx Atrial Fibrillation, Hx DVT, Hx Pulmonary Embolism Pulmonary Medical History: Reports: Hx Asthma, Hx COPD, Hx Respiratory Failure Neurological Medical History: Denies: Hx Seizures Endocrine Medical History: Reports: Hx Diabetes Mellitus Type 2, Hx Hyperthyroidism - Was told once her thyroid might be high. Denies: Hx Diabetes Mellitus Type 1, Hx Hypothyroidism Renal/ Medical History: Denies: Hx Peritoneal Dialysis GI Medical History: Denies: Hx Cirrhosis, Hx Crohn's Disease, Hx Diverticulitis, Hx Hepatitis, Hx Ulcerative Colitis Musculoskeltal Medical History: Denies Hx Arthritis, Denies Hx Fibromyalgia Skin Medical History: Denies Hx Eczema, Denies Hx Psoriasis Psychiatric Medical History: Denies: Hx Depression Infectious Medical History: Denies: Hx Hepatitis Past Surgical History: Reports: Hx Cardiac Catheterization, Hx Cardiac Surgery - CABG, Hx Coronary Artery Bypass Graft, Hx Coronary Stent, Hx Open Heart Surgery, Hx Tubal Ligation - Immunizations Hx Diphtheria, Pertussis, Tetanus Vaccination: Yes Physical Exam - Respiratory Respiratory status: No respiratory distress Breath sounds: Normal Course - Re-evaluation Re-evalutation: EKG slightly borderline with borderline depressions but no overt changes, patient is currently chest pain-free with unremarkable vital signs and she is alert and well-appearing. Work-up pending. I have greeted and performed a rapid initial assessment of this patient. A comprehensive ED assessment and evaluation of the patient, analysis of test results and completion of the medical decision making process will be conducted by additional ED providers. - Laboratory Result Diagrams: 02/07/19 03:35 02/07/19 03:35 Laboratory results interpreted by me: 02/07/19 03:35 Sodium 136.8 L Glucose 337 H AST 13 L Alkaline Phosphatase 135 H Doctor's Discharge - Discharge Referrals: GAURI PONCE FNP-C [Primary Care Provider] - Follow up as needed
--- NOTE | 2019-02-07 04:33 | RADIOLOGY REPORT (SQ) ---
EXAM DESCRIPTION: XR CHEST 1 VIEW COMPLETED DATE/TME: 02/07/2019 00:00 CLINICAL HISTORY: 63 years Female, C/P COMPARISON: 11/08/18 NUMBER OF VIEWS/TECHNIQUE: 1/AP FINDINGS: Clear lungs of increased volume, and normal cardiac silhouette. Sternotomy. Cardiac/mediastinal hardware/clips. No pneumothorax. Stable bony thorax. IMPRESSION: No acute cardiopulmonary findings.
[2019-02-07 04:39] LABS: ABSOLUTE BASOPHILS # (AUTO) 0.1 10^3/uL (0.0-0.2); ABSOLUTE EOSINOPHILS # (AUTO) 0.2 10^3/uL (0.0-0.6); ABSOLUTE LYMPHOCYTES (AUTO) 2.5 10^3/uL (0.5-4.7); ABSOLUTE MONOCYTES (AUTO) 0.9 10^3/uL (0.1-1.4); ABSOLUTE NEUT (AUTO) 6.4 10^3/uL (1.7-8.2); BASOPHILS % (AUTO) 0.8 % (0-2); HEMATOCRIT 37.8 % (36.0-47.0); HEMOGLOBIN 12.9 g/dL (12.0-15.5); LYMPHOCYTES % (AUTO) 25.1 % (13-45); MEAN CORPUSCULAR HEMOGLOBIN 28.4 pg (27.0-33.4); MEAN CORPUSCULAR HGB CONC 34.1 g/dL (32.0-36.0); MEAN CORPUSCULAR VOLUME 83 fl (80-97); MONOCYTES % (AUTO) 8.6 % (3-13); PLATELET COUNT 263 10^3/uL (150-450); RED BLOOD COUNT 4.53 10^6/uL (3.72-5.28); RED CELL DISTRIBUTION WIDTH 15.3 % (11.5-14.0); SEGMENTED NEUTROPHILS % (AUTO) 63.5 % (42-78); TOTAL CELLS COUNTED % (AUTO) 100 %; WHITE BLOOD COUNT 10.1 10^3/uL (4.0-10.5)
[2019-02-07 05:22] LABS: INTERNATIONAL RATION (INR) 0.93; PROTHROMBIN TIME 12.5 SEC (11.4-15.4)
--- NOTE | 2019-02-07 07:18 | EKG REPORT ---
SEVERITY:- ABNORMAL ECG - SINUS RHYTHM NONSPECIFIC REPOL ABNORMALITY, DIFFUSE LEADS LVH LA ENLARGEMENT : Confirmed by: Lee Bautista MD 07-Feb-2019 07:18:32
--- NOTE | 2019-02-07 07:42 | ER Document Report ---
ED Cardiac - General Chief Complaint: Chest Pain Stated Complaint: CHEST PAIN Time Seen by Provider: 02/07/19 04:24 Primary Care Provider: GAURI PONCE FNP-C [Primary Care Provider] - Follow up as needed Mode of Arrival: Medic Information source: Patient, Relative, Emergency Med Personnel, [facility] Records Notes: This 63-year-old female patient with a history of coronary artery disease, diabetes, hypertension, hyperlipidemia, COPD, known to be poorly compliant with her medication. She reports onset about 1 AM of left anterior chest pain. She reports she did take 325 mg aspirin, and took 1 of her nitroglycerin at some point. The nitroglycerin did not help. She called 911 and they encouraged her to take an additional 325 mg of aspirin. When EMS arrived they gave her one nitroglycerin and she reports that the pain seemed to ease off after maybe 10 to 15 minutes. She was pain-free on arrival at about 3:15 AM this morning. She has not had any pain since then, and this time is anxious to go home. TRAVEL OUTSIDE OF THE [place] IN LAST 30 DAYS: No - Related Data Allergies/Adverse Reactions: No Known Allergies Allergy (Verified 02/07/19 07:54) Past Medical History - Social History Smoking Status: Current Every Day Smoker Cigarette use (# per day): Yes Chew tobacco use (# tins/day): No Smoking Education Provided: No Frequency of alcohol use: None Drug Abuse: None Lives with: Family Family History: CAD, DM, Hypertension Patient has suicidal ideation: No Patient has homicidal ideation: No - Past Medical History Cardiac Medical History: Reports: Hx Congestive Heart Failure, Hx Coronary Artery Disease, Hx Heart Attack, Hx Hypercholesterolemia, Hx Hypertension, Hx Peripheral Vascular Disease Pulmonary Medical History: Reports: Hx Asthma, Hx COPD, Hx Respiratory Failure Endocrine Medical History: Reports: Hx Diabetes Mellitus Type 2 Past Surgical History: Reports: Hx Cardiac Catheterization, Hx Coronary Artery Bypass Graft, Hx Coronary Stent, Hx Tubal Ligation - Immunizations Hx Diphtheria, Pertussis, Tetanus Vaccination: Yes Review of Systems - Review of Systems Constitutional: No symptoms reported EENT: No symptoms reported Cardiovascular: See HPI Respiratory: Cough Gastrointestinal: No symptoms reported Genitourinary: No symptoms reported Female Genitourinary: Post menopausal Musculoskeletal: No symptoms reported Skin: No symptoms reported Hematologic/Lymphatic: No symptoms reported Neurological/Psychological: No symptoms reported Physical Exam - Vital signs Vitals: Resp Pulse Ox 23 H 99 02/07/19 03:21 02/07/19 03:21 Interpretation: Normal - General General appearance: Appears well, Alert In distress: None Notes: Looks much older than her stated age. - HEENT Head: Normocephalic, Atraumatic Eyes: Normal Pupils: PERRL - Respiratory Respiratory status: No respiratory distress Breath sounds: Other - Coarse breath sounds consistent with her long history of COPD - Cardiovascular Rhythm: Regular Heart sounds: Normal auscultation Murmur: No - Abdominal Inspection: Normal Tenderness: Nontender - Back Back: Normal - Extremities General upper extremity: Normal inspection General lower extremity: Normal inspection - Neurological Neuro grossly intact: Yes - Psychological Associated symptoms: Normal affect, Normal mood Course - Vital Signs Vital signs: Temp Pulse Resp BP Pulse Ox 98.6 F 18 139/87 H 98 02/07/19 07:16 02/07/19 07:16 02/07/19 07:16 02/07/19 07:16 - Laboratory Result Diagrams: 02/07/19 03:35 02/07/19 03:35 Laboratory results interpreted by me: 02/07/19 02/07/19 03:35 03:35 RDW 15.3 H Sodium 136.8 L Glucose 337 H AST 13 L Alkaline Phosphatase 135 H - Diagnostic Test Radiology reviewed: Image reviewed, Reports reviewed - Chest x-ray does not show acute findings. - EKG Interpretation by Me EKG shows normal: Sinus rhythm, [place], Intervals, QRS Complexes. abnormal: ST-T Waves - Nonspecific repolarization abnormality in diffuse leads. Rate: Normal - 83 Rhythm: NSR - Consults Dr. Bauman Time consulted: 08:23 Consulted provider: will come to ER Discharge - Discharge Clinical Impression: Non-ST elevation myocardial infarction (NSTEMI), Tobacco abuse Chest pain Qualifiers: Chest pain type: chest pain due to myocardial ischemia Ischemic chest pain type: unspecified angina pectoris type Qualified Code(s): I25.9 - Chronic ischemic heart disease, unspecified COPD (chronic obstructive pulmonary disease) Qualifiers: COPD type: unspecified COPD Qualified Code(s): J44.9 - Chronic obstructive pulmonary disease, unspecified Condition: Good Disposition: ADMITTED INPATIENT Admitting Provider: Mitul (Hospitalist) Unit Admitted: Telemetry Referrals: GILBERT,STORMY, [employer]-C [Primary Care Provider] - Follow up as needed
[2019-02-07] MEDS ORDERED: ENOXAPARIN SODIUM INJ 60 MG/0.6 ML DISP.SYRIN SUBCUT ONE (07:56)
[2019-02-07] MEDS ORDERED: CLOPIDOGREL BISULFATE 75 MG TABLET PO ONE (07:56)
[2019-02-07] MEDS ORDERED: DEXTROSE 40% GEL 15 GM TUBE PO PRN ×2 (09:56)
[2019-02-07] MEDS ORDERED: DEXTROSE 50%-WATER 25 GM/50 ML DISP.SYRIN IV PRN ×2 (09:56)
[2019-02-07] MEDS ORDERED: GLUCAGON,HUMAN RECOMB 1 MG INJ IM PRN (09:56)
[2019-02-07] MEDS ORDERED: TICAGRELOR 90 MG TABLET PO SCH (11:00)
[2019-02-07 11:04] LABS: CREATINE KINASE MB 2.14 ng/mL (<4.55)
--- NOTE | 2019-02-07 11:11 | EKG REPORT ---
SEVERITY:- ABNORMAL ECG - SINUS RHYTHM REPOL ABNRM SUGGESTS ISCHEMIA, ANT-LAT LEADS : Confirmed by: Lee Bautista MD 07-Feb-2019 11:10:48
[2019-02-07 11:15] LABS: TROPONIN I 0.38 ng/mL
[2019-02-07] MEDS: METOPROLOL SUCCINATE 50 MG TAB.SR.24H PO SCH ×2 (11:27→21:19)
[2019-02-07] MEDS: INSULIN LISPRO 100 UNIT/ML 3 ML VIAL SUBCUT SCH ×3 (13:39→21:57)
[2019-02-07] MEDS ORDERED: INFLUENZA QUAD (6MOS+) 2019-20 VAC 0.5 ML SYR IM ONE (14:46)
--- NOTE | 2019-02-07 15:55 | PDOC H&P ---
History of Present Illness Admission Date/PCP: 02/07/19 09:30 MCKAYLA KIRKLAND History of Present Illness: STELLA FRANKLIN is a 63 year old female who presents from home with chest pain. This patient has a history of coronary artery disease status post CABG in 2012, she said at [facility] [place]. In August 2017, she was transferred from this hospital to [facility] because of an abnormal stress test, and at [facility] she wound up getting 2 cardiac stents, not sure if those were in [place] arteries or in the bypass grafts. Not sure how many vessels were bypassed in 2012. She also has a history of COPD and is a current every day smoker. She is a diabetic. She woke up this morning with some pain in the left upper part of her chest. She describes it as a dull pain. It did not radiate. She said that she took a nitroglycerin and 4 baby aspirin, but it did not immediately go away and so she called EMS. She said that they gave her 4 more aspirin. She said they did not give her any more nitroglycerin. She said that the pain left her chest while in route to the ER from home. The estimated duration of the pain spell was about 20 minutes. She was pain-free by the time she got to the ER. Her initial troponin was equivocal but the second 1 was elevated. She does not have any new ischemic changes relative to the last EKG that we have here for her. I spoke with Dr. Vega about her and he recommended admitting her for medical optimization and further evaluation. Past Medical History Cardiac Medical History: Reports: Congestive Heart Failure, Coronary Artery Disease, Myocardial Infarction, Hyperlipidema, Hypertension, Peripheral Vascular Disease Denies: Atrial Fibrillation, DVT, Pulmonary Embolism Pulmonary Medical History: Reports: Asthma, Chronic Obstructive Pulmonary Disease (COPD), Respiratory Failure Neurological Medical History: Denies: Seizures Endocrine Medical History: Reports: Diabetes Mellitus Type 2, Hyperthyroidism - Was told once her thyroid might be high Denies: Diabetes Mellitus Type 1, Hypothyroidism GI Medical History: Denies: Cirrhosis, Crohn's Disease, Diverticulitis, Hepatitis, Ulcerative Colitis Musculoskeltal Medical History: Denies: Arthritis, Fibromyalgia Skin Medical History: Denies: Eczema, Psoriasis Psychiatric Medical History: Denies: Depression Hematology: Denies: Anemia, Bleeding Tendencies Past Surgical History Past Surgical History: Reports: Cardiac Catheterization, Coronary Artery Bypass Graft, Coronary Stent, Tubal Ligation Social History Lives with: Family Smoking Status: Current Every Day Smoker Cigarettes Packs Per Day: 1 Electronic Cigarette use?: No Number of Years Smokin Frequency of Alcohol Use: None Hx Recreational Drug Use: No Drugs: None Hx Prescription Drug Abuse: No - Advance Directive Resuscitation Status: Full Code Family History Family History: CAD, DM, Hypertension Parental Family History Reviewed: Yes Children Family History Reviewed: Yes Sibling(s) Family History Reviewed.: Yes Medication/Allergy Home Medications: Aspirin [Adult Low Dose Aspirin EC] 81 mg PO DAILY 02/07/19 Atorvastatin Calcium [Lipitor 80 mg Tablet] 80 mg PO QHS 02/07/19 Clopidogrel Bisulfate [Plavix 75 mg Tablet] 75 mg PO DAILY 02/07/19 Fluticasone/Vilanterol [Breo 100-25 Mcg Ellipta 14 Dose/Dpi] 1 puff IH DAILY 02/07/19 Gabapentin [Neurontin 100 mg Capsule] 100 mg PO Q12 02/07/19 Glipizide [Glocotrol 10 Mg Tablet] 10 mg PO BID 02/07/19 Lisinopril [Prinivil] 20 mg PO DAILY 02/07/19 Metformin HCl [Glucophage] 1,000 mg PO BID 02/07/19 Metoprolol Tartrate [Lopressor 50 mg Tablet] 50 mg PO Q12 02/07/19 Nitroglycerin [Nitrostat 0.4 mg (1/150 Gr) Tabs 25/Bottle] 1 tab SL Q5MP PRN 02/07/19 Ranolazine [Ranexa 500 mg Tab.sr] 500 mg PO Q12 02/07/19 Allergies/Adverse Reactions: No Known Allergies Allergy (Verified 02/07/19 07:54) Review of Systems All systems: reviewed and no additional remarkable complaints except as stated - All systems were reviewed and were negative except as noted in the HPI Physical Exam Vital Signs: Temp Pulse Resp BP Pulse Ox 97.3 F 79 18 154/85 H 100 02/07/19 14:15 02/07/19 14:15 02/07/19 14:15 02/07/19 14:15 02/07/19 14:15 Intake & Output 02/06/19 02/07/19 02/08/19 06:59 06:59 06:59 Weight 60.5 kg General appearance: PRESENT: no acute distress, cooperative, disheveled, other - She had a deep raspy voice and a thick smoker's cough Head exam: PRESENT: atraumatic, normocephalic Eye exam: PRESENT: EOMI, PERRLA. ABSENT: conjunctival injection, nystagmus, scleral icterus Ear exam: PRESENT: normal external ear exam Mouth exam: PRESENT: moist, neck supple Teeth exam: PRESENT: poor dentation Throat exam: ABSENT: post pharyngeal erythema Neck exam: PRESENT: full ROM. ABSENT: carotid bruit, JVD, lymphadenopathy, meningismus, tenderness, thyromegaly Respiratory exam: PRESENT: clear to auscultation caroline, symmetrical, unlabored. ABSENT: accessory muscle use, chest wall tenderness, crackles, prolonged expiratory phas, rhonchi, tachypnea, wheezes Cardiovascular exam: PRESENT: RRR, +S1, +S2 Pulses: PRESENT: normal carotid pulses, normal femoral pulses GI/Abdominal exam: PRESENT: normal bowel sounds, soft. ABSENT: distended, guarding, rebound, tenderness Extremities exam: ABSENT: clubbing, pedal edema Musculoskeletal exam: PRESENT: normal inspection. ABSENT: deformity Neurological exam: PRESENT: alert, awake, oriented to person, oriented to place, oriented to situation, CN II-XII grossly intact. ABSENT: motor sensory deficit Psychiatric exam: PRESENT: appropriate affect, normal mood Skin exam: PRESENT: dry, warm Results Laboratory Results: 02/07/19 03:35 02/07/19 03:35 02/07/19 02/07/19 03:35 03:35 WBC 10.1 RBC 4.53 Hgb 12.9 Hct 37.8 MCV 83 MCH 28.4 MCHC 34.1 RDW 15.3 H Plt Count 263 Seg Neutrophils % 63.5 Sodium 136.8 L Potassium 4.1 Chloride 102 Carbon Dioxide 26 Anion Gap 9 BUN 16 Creatinine 0.68 Est GFR ( Amer) > 60 Glucose 337 H Calcium 9.3 Total Bilirubin 0.3 AST 13 L Alkaline Phosphatase 135 H Total Protein 6.4 Albumin 3.5 02/07/19 02/07/19 02/07/19 03:35 03:35 06:40 Creatine Kinase 38 CK-MB (CK-2) 0.92 Troponin I 0.022 0.121 02/07/19 10:15 Creatine Kinase CK-MB (CK-2) 2.14 Troponin I 0.380 Impressions: Chest X-Ray 02/07/19 00:00 IMPRESSION: No acute cardiopulmonary findings. Assessment and Plan - Diagnosis (1) Non-ST elevation myocardial infarction (NSTEMI) Is this a current diagnosis for this admission?: Yes Plan: This lady has a very broad cornucopia of risk factors. She is pain-free but her second troponin was elevated. She is high risk for another cardiac event. We will bring her in medically optimize her and trend her troponins. Dr. Vega is going to see her in consultation. She is on Lovenox. She has been switched over to Brilinta at Dr. Vega's recommendation. (2) COPD (chronic obstructive pulmonary disease) Qualifiers: COPD type: unspecified COPD Qualified Code(s): J44.9 - Chronic obstructive pulmonary disease, unspecified Is this a current diagnosis for this admission?: Yes Plan: We will continue her home medications, not acutely exacerbated (3) Tobacco abuse Is this a current diagnosis for this admission?: Yes Plan: Smoking cessation counseling was provided and strongly recommended (4) CAD (coronary artery disease) Qualifiers: Coronary Disease-Associated Artery/Lesion type: [place] artery [place] vs. transplanted heart: [place] heart Associated angina: without angina Qualified Code(s): I25.10 - Atherosclerotic heart disease of [place] coronary artery without angina pectoris Is this a current diagnosis for this admission?: Yes Plan: In addition to switching her Brilinta, will continue her beta-fiordaliza and her statin (5) Diabetes mellitus type 2 in nonobese Is this a current diagnosis for this admission?: Yes Plan: It looks like she is on a sulfonylurea, will cover her with insulin for the time being as her blood sugars are in the 300s on initial presentation. (6) Hyperlipidemia Qualifiers: Hyperlipidemia type: unspecified Qualified Code(s): E78.5 - Hyperlipidemia, unspecified Is this a current diagnosis for this admission?: Yes Plan: We have her on high-dose Lipitor - Time Time Spent with patient: 35 or more minutes - Inpatient Certification Based on my medical assessment, after consideration of the patient's comorbidities, presenting symptoms, or acuity I expect that the services needed warrant INPATIENT care.: Yes I certify that my determination is in accordance with my understanding of Medicare's requirements for reasonable and necessary INPATIENT services [42 CFR 412.3e].: Yes Medical Necessity: Significant Comorbidiites Make Outpatient Treatment Too Risky, Need Close Monitoring Due to Risk of Patient Decompensation, Need For Continuous Telemetry Monitoring, Risk of Complication if Not Cared For in Hospital, Risk of Diagnosis Which Will Require Inpatient Eval/Care/Monitoring
[2019-02-07 16:43] LABS: CREATINE KINASE MB 2.25 ng/mL (<4.55)
[2019-02-07 16:52] LABS: TROPONIN I 0.811 ng/mL
--- NOTE | 2019-02-07 18:32 | PDOC CONSULTATION ---
Consultation-Blank Consultation: CARDIOLOGY CONSULTATION by Dr. Letty Vega on 02/07/2019. Patient seen at 2:45 PM. 60 minutes spent on this patient more than 50% of time spent direct patient care. REASON FOR CONSULTATION: Patient with chest pain and evidence of non-ST elevation CA in a patient with history of coronary artery disease and history of coronary bypass graft surgery and history of stents. CONSULT REQUESTING PHYSICIAN: Dr. Gume Bauman, [facility]. HISTORY PRESENT ILLNESS: Patient is a 63-year-old female with known history of coronary artery disease prior history of CA who had coronary bypass graft surgery in [place]. Details of this are not known. The patient has not followed up with her occasional babysitter. She was admitted here with chest pain and had an abnormal stress test in 2018 and was transferred to [facility] where she had 2 stents placed, again records are awaited. The patient states that today early in the morning she was still in bed when she started having dull/pressure-like sensation in the left front of the chest. Last aid she took a nitroglycerin and aspirin and although it did not resolve immediately she called the paramedics, and in route to the hospital about 20 minutes after the onset of the symptoms the pain resolved. The patient is EKG shows lateral T inversions suggestive of ischemia and elevated troponin I consistent with non-ST elevation CA. The patient denies any palpitations shortness of breath or dizziness or syncope or near syncope. She states this is the first time she has had chest pain since 2018. The patient has history of COPD and is a smoker, but has no symptoms of acute exacerbation of COPD. The patient is also diabetic and has hypertension. She has a remote history of TIA with no recurrence. Past Medical History Cardiac Medical History: Reports: Congestive Heart Failure, Coronary Artery Disease, Myocardial Infarction, Hyperlipidema, Hypertension, Peripheral Vascular Disease Denies: Atrial Fibrillation, DVT, Pulmonary Embolism Pulmonary Medical History: Reports: Asthma, Chronic Obstructive Pulmonary Disease (COPD), Respiratory Failure Neurological Medical History: Denies: Seizures Endocrine Medical History: Reports: Diabetes Mellitus Type 2, Hyperthyroidism - Was told once her thyroid might be high Denies: Diabetes Mellitus Type 1, Hypothyroidism GI Medical History: Denies: Cirrhosis, Crohn's Disease, Diverticulitis, Hepatitis, Ulcerative Colitis Musculoskeltal Medical History: Denies: Arthritis, Fibromyalgia Skin Medical History: Denies: Eczema, Psoriasis Psychiatric Medical History: Denies: Depression Hematology: Denies: Anemia, Bleeding Tendencies Past Surgical History Past Surgical History: Reports: Cardiac Catheterization, Coronary Artery Bypass Graft, Coronary Stent, Tubal Ligation Social History Lives with: Family Smoking Status: Current Every Day Smoker Cigarettes Packs Per Day: 1 Electronic Cigarette use?: No Number of Years Smokin Frequency of Alcohol Use: None Hx Recreational Drug Use: No Drugs: None Hx Prescription Drug Abuse: No - Advance Directive Resuscitation Status: Full Code. The patient's daughter is her surrogate healthcare decision maker. Family History Family History: CAD, DM, Hypertension Parental Family History Reviewed: Yes Children Family History Reviewed: Yes Sibling(s) Family History Reviewed.: Yes Medication/Allergy Home Medications: Aspirin [Adult Low Dose Aspirin EC] 81 mg PO DAILY 02/07/19 Atorvastatin Calcium [Lipitor 80 mg Tablet] 80 mg PO QHS 02/07/19 Clopidogrel Bisulfate [Plavix 75 mg Tablet] 75 mg PO DAILY 02/07/19 Fluticasone/Vilanterol [Breo 100-25 Mcg Ellipta 14 Dose/Dpi] 1 puff IH DAILY 02/07/19 Gabapentin [Neurontin 100 mg Capsule] 100 mg PO Q12 02/07/19 Glipizide [Glocotrol 10 Mg Tablet] 10 mg PO BID 02/07/19 Lisinopril [Prinivil] 20 mg PO DAILY 02/07/19 Metformin HCl [Glucophage] 1,000 mg PO BID 02/07/19 Metoprolol Tartrate [Lopressor 50 mg Tablet] 50 mg PO Q12 02/07/19 Nitroglycerin [Nitrostat 0.4 mg (1/150 Gr) Tabs 25/Bottle] 1 tab SL Q5MP PRN 02/07/19 Ranolazine [Ranexa 500 mg Tab.sr] 500 mg PO Q12 02/07/19 Allergies/Adverse Reactions: No Known Allergies Allergy (Verified 02/07/19 07:54) Current Medications Generic Name Dose Route Start Last Admin Trade Name Freq PRN Reason Stop Dose Admin Atorvastatin Calcium 80 mg 02/07/19 22:00 Lipitor 80 Mg Tablet PO 03/09/19 21:59 QHS ANAMARIA Dextrose 12.5 gm 02/07/19 09:56 Dextrose Inj 50% Syringe (25 Gm/50 Ml) IV 03/09/19 09:55 PRN PRN FOR BG 50-69 IN ALERT PATIENT Protocol Dextrose 25 gm 02/07/19 09:56 Dextrose Inj 50% Syringe (25 Gm/50 Ml) IV 03/09/19 09:55 PRN PRN PER PROTOCOL Protocol Enoxaparin Sodium 60 mg 02/07/19 22:00 Lovenox Inj 60 Mg/0.6 Ml Disp.Syrin SUBCUT 03/09/19 21:59 Q12 ANAMARIA Glucagon 1 mg 02/07/19 09:56 Glucagen Inj 1 Mg Vial IM 03/09/19 09:55 PRN PRN Evaluate for BG < 70 Protocol Glucose 15 gm 02/07/19 09:56 Glutose 40% Gel 15 Gm Tube PO 03/09/19 09:55 PRN PRN FOR BG 50-69 IN ALERT PATIENT Protocol Glucose 30 gm 02/07/19 09:56 Glutose 40% Gel 15 Gm Tube PO 03/09/19 09:55 PRN PRN FOR BG < 50 IN ALERT PATIENT Protocol Insulin Human Lispro 0 - 12 unit 02/07/19 11:00 02/07/19 17:09 Humalog Insulin 100 Unit/1 Ml 3 Ml Vial SUBCUT 03/09/19 10:59 Not Given [facility] Protocol Metoprolol Succinate 50 mg 02/07/19 10:00 02/07/19 11:27 Toprol Xl 50 Mg Tab.Sr PO 03/09/19 09:59 50 mg Q12 ANAMARIA Administration Ticagrelor 90 mg 02/07/19 22:00 Brilinta 90 Mg Tablet PO 03/09/19 21:59 Q12 ANAMARIA Discontinued Medications Generic Name Dose Route Start Last Admin Trade Name Freq PRN Reason Stop Dose Admin Clopidogrel Bisulfate 75 mg 02/07/19 07:56 02/07/19 08:14 Plavix 75 Mg Tablet PO 02/07/19 07:57 75 mg NOW ONE Administration Enoxaparin Sodium 60 mg 02/07/19 07:56 02/07/19 08:16 Lovenox Inj 60 Mg/0.6 Ml Disp.Syrin SUBCUT 02/07/19 07:57 60 mg NOW ONE Administration Influenza Virus Vaccine Quadrival 0.5 ml 02/07/19 14:46 Flulaval Quad 2019-20 Vac 0.5 Ml Syr IM 02/07/19 14:47 .ONCE ONE Ticagrelor 90 mg 02/07/19 11:00 02/07/19 11:28 Brilinta 90 Mg Tablet PO 03/09/19 10:59 Not Given BID ANAMARIA Note above medications were reviewed and medication changes made by me, after consultation with the attending provider Dr. Bauman. Review of Systems: Constitutional: Denies fever fever chills or Reiger's. No history of generalized fatigue or weakness. HEAD: No history of headaches or head injury. EYES: No history of amblyopia diplopia. No history of amaurosis fugax. EARS: No history of hearing loss. No history of tinnitus. NOSE: No history of hayfever no history of nosebleeds. MOUTH: Nose altered taste sensation. No ulcers in the mouth. THROAT: There is no odynophagia or dysphagia. SKIN: There is no skin rashes. There is no pruritus. There is no skin lesions. There is no allergic discoloration of the skin. NECK: There is no swelling in the neck. There is no neck pain. LUNGS: She has no symptoms of upper or lower respiratory tract infection. There is no recent wheezing. There is no cough or sputum production. There is no symptoms suggestive of acute exacerbation of COPD. There is no history of sleep apnea. HEART: History of coronary artery disease. History of remote CA and history of coronary bypass graft surgery in 2013 in [place]. She also had 2 stents placed in [facility] in 2018. Recent symptoms suggestive of unstable angina/non-ST elevation CA with the biomarkers being elevated. She has a history of hypertension. No history of cardiac arrhythmia. No history of congestive heart failure. Denies palpitations syncope or leg edema or PND orthopnea. ENDOCRINE: History of diabetes mellitus No history of thyroid disease. No history of polydipsia polyuria. No history of heat or cold intolerance. GI: No history of GERD or peptic ulcer disease. No history of GI bleed no fatty food intolerance. No altered bowel movements. RENAL: Denies history of chronic kidney disease. No symptoms of recurrent UTI. 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 No history of CVA. No history of headaches migraines or seizures. PSYCHIATRIC: No history of anxiety or depression. No suicidal ideation. No history of homicidal ideation. MUSCULOSKELETAL: Denies arthritis or collagen vascular disease. METABOLIC: Denies gout. Does have hyperlipidemia. No history of obesity. VASCULAR: No history of DVT. History of peripheral vascular disease, but the patient does not ambulate much and hence has no buttock or calf claudication. PHYSICAL EXAMINATION: The patient is well-built and well-nourished at present in no acute distress. She has no chest pain or discomfort at present. Selected Entries 02/07/19 02/07/19 13:01 14:15 Temperature 98.5 F Heart Rate ( 89 Monitors) Respiratory 22 H Rate Blood Pressure 128/78 H Blood Pressure 94 Mean O2 Sat by Pulse 98 Oximetry Oxygen Delivery Room Air Method ( includes room air) HEAD: Head is atraumatic and normocephalic. EYES: Pupils are equal round regular reactive to light accommodation. Extraocular movements are normal, there is no conjunctival pallor, and no scleral icterus. EARS: Tympanic membranes are intact external auditory canals are clear. NOSE: There is no inflammation of the nasal mucous membrane there is no deviated nasal septum. MOUTH: Mucous membranes of mouth and tongue are moist, there is no ulcers in the mouth or tongue, and no bleeding from the gums. THROAT: There is no redness of the oropharynx, no exudate seen. SKIN: There is no petechia or ecchymosis. There is no rashes or lesions. NECK: Supple. There is no JVD. Carotids are equal there is no bruit. There is no lymphadenopathy. There is no goiter. Trachea central LUNGS: There is diminished air entry and prolonged expiration. Clear to auscultation bilaterally, no wheezes, rales or rhonchi. On percussion there is hyperresonance although there is no chest wall tenderness HEART: S1 and S2 are heard. S1 is of normal intensity, there is no S3 or S4 gallops. There is a systolic murmur the left sternal border and the apex. There is no rub. ABDOMEN: Normoactive bowel sounds, soft, nontender, no masses, no rebound, no guarding. There is no hepatosplenomegaly. EXTREMITIES: Femorals are slightly diminished. There is no femoral bruits. Leg pulses are diminished. There is no pedal edema. There is no DVT or cellulitis. There is no cyanosis or clubbing. There is no calf tenderness. NEUROLOGICAL the patient is awake alert oriented 3 with no focal deficits. PSYCHIATRIC: The patient judgment and insight are intact his affect is normal. EKG: The patient is to EKG shows sinus rhythm. LVH with strain pattern. Cannot exclude lateral wall ischemia. Probable left atrial abnormality. Labs- Entire Visit 02/07/19 02/07/19 02/07/19 03:35 03:35 03:35 WBC 10.1 RBC 4.53 Hgb 12.9 Hct 37.8 MCV 83 MCH 28.4 MCHC 34.1 RDW 15.3 H Plt Count 263 Lymph % (Auto) 25.1 Winkler % (Auto) 8.6 Eos % (Auto) 2.0 Baso % (Auto) 0.8 Absolute Neuts (auto) 6.4 Absolute Lymphs (auto) 2.5 Absolute Monos (auto) 0.9 Absolute Eos (auto) 0.2 Absolute Basos (auto) 0.1 Seg Neutrophils % 63.5 PT 12.5 INR 0.93 Sodium 136.8 L Potassium 4.1 Chloride 102 Carbon Dioxide 26 Anion Gap 9 BUN 16 Creatinine 0.68 Est GFR ( Amer) > 60 Est GFR (MDRD) Non-Af > 60 Glucose 337 H POC Glucose Calcium 9.3 Total Bilirubin 0.3 Direct Bilirubin 0.1 Neonat Total Bilirubin Not Reportable Neonat Direct Bilirubin Not Reportable Neonat Indirect Bili Not Reportable AST 13 L ALT 13 Alkaline Phosphatase 135 H Creatine Kinase 38 CK-MB (CK-2) Troponin I Total Protein 6.4 Albumin 3.5 02/07/19 02/07/19 02/07/19 03:35 06:40 10:15 WBC RBC Hgb Hct MCV MCH MCHC RDW Plt Count Lymph % (Auto) Winkler % (Auto) Eos % (Auto) Baso % (Auto) Absolute Neuts (auto) Absolute Lymphs (auto) Absolute Monos (auto) Absolute Eos (auto) Absolute Basos (auto) Seg Neutrophils % PT INR Sodium Potassium Chloride Carbon Dioxide Anion Gap BUN Creatinine Est GFR ( Amer) Est GFR (MDRD) Non-Af Glucose POC Glucose Calcium Total Bilirubin Direct Bilirubin Neonat Total Bilirubin Neonat Direct Bilirubin Neonat Indirect Bili AST ALT Alkaline Phosphatase Creatine Kinase CK-MB (CK-2) 0.92 2.14 Troponin I 0.022 0.121 0.380 Total Protein Albumin 02/07/19 02/07/19 02/07/19 13:14 15:51 16:03 WBC RBC Hgb Hct MCV MCH MCHC RDW Plt Count Lymph % (Auto) Winkler % (Auto) Eos % (Auto) Baso % (Auto) Absolute Neuts (auto) Absolute Lymphs (auto) Absolute Monos (auto) Absolute Eos (auto) Absolute Basos (auto) Seg Neutrophils % PT INR Sodium Potassium Chloride Carbon Dioxide Anion Gap BUN Creatinine Est GFR ( Amer) Est GFR (MDRD) Non-Af Glucose POC Glucose 301 H 89 Calcium Total Bilirubin Direct Bilirubin Neonat Total Bilirubin Neonat Direct Bilirubin Neonat Indirect Bili AST ALT Alkaline Phosphatase Creatine Kinase CK-MB (CK-2) 2.25 Troponin I 0.811 Total Protein Albumin Chest X-Ray 02/07/19 00:00 IMPRESSION: No acute cardiopulmonary findings. IMPRESSION/RECOMMENDATION: 1. Non-ST elevation CA: Agree with continue the patient on Lovenox 1 mg/kg every 12 hours for at least 48 hours. We will trend the troponin patient's troponin down. Will check an echocardiogram. Later was discussed with the patient the option of her stress test versus repeat cardiac catheterization. Records from [facility] awaited. Continue the patient metoprolol. Would recommend strongly to stop the patient's Plavix and place the patient on Brilinta along with aspirin 81 mg p.o. daily.Would also base the patient on topical nitrates, and switch over to oral nitrates as per toleration of the patient. 2. Coronary artery disease. History of coronary bypass graft surgery, and history of stent placements. Records from [facility] awaited. 3. Hypertension: Seems to be well controlled. 4. Diabetes mellitus: Stable continue current antidiabetic regimen and Accu- Cheks periodically. 5. COPD: Stable at baseline. 6. Hyperlipidemia: Continue statin 7. History of tobacco abuse: Tobacco cessation counseling given to the patient. 3 minutes spent on this. Medications reviewed. Medications adjusted and management plan and medical regimen discussed with the attending provider on the case. Medical decision making is of high complexity. 60 minutes spent on this patient more than 50% of time spent in direct patient care. Will follow
[2019-02-07] MEDS: ENOXAPARIN SODIUM INJ 60 MG/0.6 ML DISP.SYRIN SUBCUT SCH (21:19)
[2019-02-07] MEDS: ATORVASTATIN CALCIUM 80 MG TABLET PO SCH (21:20)
[2019-02-07] MEDS: TICAGRELOR 90 MG TABLET PO SCH (21:58)
[2019-02-07 22:35] LABS: CREATINE KINASE MB 1.63 ng/mL (<4.55)
[2019-02-07 22:39] LABS: TROPONIN I 0.496 ng/mL
[2019-02-08 06:38] LABS: HEMATOCRIT 40.9 % (36.0-47.0); MEAN CORPUSCULAR HEMOGLOBIN 28.2 pg (27.0-33.4); MEAN CORPUSCULAR HGB CONC 34.3 g/dL (32.0-36.0); MEAN CORPUSCULAR VOLUME 82 fl (80-97); PLATELET COUNT 262 10^3/uL (150-450); RED BLOOD COUNT 4.96 10^6/uL (3.72-5.28); RED CELL DISTRIBUTION WIDTH 14.5 % (11.5-14.0); WHITE BLOOD COUNT 9.9 10^3/uL (4.0-10.5)
--- NOTE | 2019-02-08 06:50 | EKG REPORT ---
SEVERITY:- ABNORMAL ECG - SINUS RHYTHM ABNORMAL T, CONSIDER ISCHEMIA, LATERAL LEADS : Confirmed by: Lee Bautista MD 08-Feb-2019 06:49:56
[2019-02-08 06:57] LABS: ANION GAP 9 (5-19); BLOOD UREA NITROGEN 17 mg/dL (7-20); CALCIUM 9.7 mg/dL (8.4-10.2); CARBON DIOXIDE 24 mmol/L (22-30); CHLORIDE 108 mmol/L (98-107); CHOLESTEROL 254.96 mg/dL (0-200); GLUCOSE 240 mg/dL (75-110); POTASSIUM 4.2 mmol/L (3.6-5.0); TRIGLYCERIDES 208 mg/dL (<150)
[2019-02-08 07:08] LABS: DIRECT LDL 175 mg/dL (<100); VLDL CHOLESTEROL 41.6 mg/dL (10-31)
[2019-02-08] MEDS: INSULIN LISPRO 100 UNIT/ML 3 ML VIAL SUBCUT SCH ×4 (08:50→21:56)
[2019-02-08] MEDS: ENOXAPARIN SODIUM INJ 60 MG/0.6 ML DISP.SYRIN SUBCUT SCH ×2 (09:30→21:32)
[2019-02-08] MEDS: METOPROLOL SUCCINATE 50 MG TAB.SR.24H PO SCH ×2 (09:30→21:32)
[2019-02-08] MEDS: TICAGRELOR 90 MG TABLET PO SCH ×2 (10:00→21:32)
--- NOTE | 2019-02-08 17:26 | PDOC PROGRESS REPORT ---
Subjective Progress Note for:: 02/08/19 Subjective:: No adverse events overnight. No new complaints. Vital signs been stable. No chest pain or shortness of breath. She is been ambulating independently in the hallway. Reason For Visit: NSTEMI Physical Exam Vital Signs: Temp Pulse Resp BP Pulse Ox 97.1 F 72 18 132/71 H 100 02/08/19 15:56 02/08/19 15:56 02/08/19 15:56 02/08/19 15:56 02/08/19 15:56 Intake & Output 02/07/19 02/08/19 02/09/19 06:59 06:59 06:59 Intake Total 120 480 Balance 120 480 Weight 60 kg General appearance: PRESENT: no acute distress, cooperative, disheveled Respiratory exam: PRESENT: clear to auscultation caroline, symmetrical, unlabored. ABSENT: accessory muscle use, chest wall tenderness, crackles, prolonged expiratory phas, rhonchi, tachypnea, wheezes Cardiovascular exam: PRESENT: RRR, +S1, +S2 Pulses: PRESENT: normal carotid pulses, normal femoral pulses GI/Abdominal exam: PRESENT: normal bowel sounds, soft. ABSENT: distended, guarding, rebound, tenderness Extremities exam: ABSENT: clubbing, pedal edema Musculoskeletal exam: PRESENT: normal inspection. ABSENT: deformity Neurological exam: PRESENT: alert, awake, oriented to person, oriented to place, oriented to situation Psychiatric exam: PRESENT: appropriate affect, normal mood Skin exam: PRESENT: dry, warm Results Laboratory Results: 02/08/19 06:28 02/08/19 06:28 02/08/19 02/08/19 06:28 06:28 WBC 9.9 RBC 4.96 Hgb 14.0 Hct 40.9 MCV 82 MCH 28.2 MCHC 34.3 RDW 14.5 H Plt Count 262 Sodium 140.5 Potassium 4.2 Chloride 108 H Carbon Dioxide 24 Anion Gap 9 BUN 17 Creatinine 0.75 Est GFR ( Amer) > 60 Glucose 240 H Calcium 9.7 Triglycerides 208 H Cholesterol 254.96 H LDL Cholesterol Direct 175 H VLDL Cholesterol 41.6 H HDL Cholesterol 44 02/07/19 02/07/19 02/07/19 03:35 03:35 06:40 Creatine Kinase 38 CK-MB (CK-2) 0.92 Troponin I 0.022 0.121 02/07/19 02/07/19 02/07/19 10:15 15:51 21:53 Creatine Kinase CK-MB (CK-2) 2.14 2.25 1.63 Troponin I 0.380 0.811 0.496 Impressions: Chest X-Ray 02/07/19 00:00 IMPRESSION: No acute cardiopulmonary findings. Assessment and Plan - Diagnosis (1) Non-ST elevation myocardial infarction (NSTEMI) Is this a current diagnosis for this admission?: Yes Plan: On aspirin and Brilinta, on Lovenox. Troponin now trending down. Cardiology been consulted to see if this patient should have further testing, possibly either a stress test or cardiac catheterization. (2) COPD (chronic obstructive pulmonary disease) Qualifiers: COPD type: unspecified COPD Qualified Code(s): J44.9 - Chronic obstructive pulmonary disease, unspecified Is this a current diagnosis for this admission?: Yes Plan: We will continue her home medications, not acutely exacerbated (3) Tobacco abuse Is this a current diagnosis for this admission?: Yes Plan: Smoking cessation counseling was provided and strongly recommended (4) CAD (coronary artery disease) Qualifiers: Coronary Disease-Associated Artery/Lesion type: [place] artery [place] vs. transplanted heart: [place] heart Associated angina: without angina Qualified Code(s): I25.10 - Atherosclerotic heart disease of [place] coronary artery without angina pectoris Is this a current diagnosis for this admission?: Yes Plan: In addition to switching her Brilinta, will continue her beta-fiordaliza and her statin (5) Diabetes mellitus type 2 in nonobese Is this a current diagnosis for this admission?: Yes Plan: It looks like she is on a sulfonylurea, will cover her with insulin for the time being as her blood sugars are in the 300s on initial presentation. (6) Hyperlipidemia Qualifiers: Hyperlipidemia type: unspecified Qualified Code(s): E78.5 - Hyperlipidemia, unspecified Is this a current diagnosis for this admission?: Yes Plan: We have her on high-dose Lipitor - Time Time Spent with patient: 15-24 minutes
--- NOTE | 2019-02-08 19:15 | Progress Note ---
Provider Note Provider Note: CARDIOLOGY PROGRESS NOTE by Dr. Letty Vega on 9. OBJECTIVE: The patient denies any chest pain or discomfort. There is no shortness of breath. There is no PND orthopnea. There is no arrhythmia seen on the monitor. The patient is ambulating independently without any problems. Troponins are trending down. PHYSICAL EXAMINATION: The patient is of normal build. She appears to be well- nourished in no acute distress. Selected Entries 02/08/19 15:56 Temperature 97.1 F Temperature Oral Source Pulse Rate 72 Respiratory 18 Rate Blood Pressure 132/71 H Blood Pressure 91 Mean BP Location Right Arm BP Position Supine O2 Sat by Pulse 100 Oximetry Oxygen Delivery Room Air Method HEAD: Head is atraumatic and normocephalic. EYES: Pupils are equal round regular reactive to light accommodation. Extraocular movements are normal, there is no conjunctival pallor, and no scleral icterus. EARS: Tympanic membranes are intact external auditory canals are clear. NOSE: There is no inflammation of the nasal mucous membrane there is no deviated nasal septum. MOUTH: Mucous membranes of mouth and tongue are moist, there is no ulcers in the mouth or tongue, and no bleeding from the gums. THROAT: There is no redness of the oropharynx, no exudate seen. SKIN: There is no petechia or ecchymosis. There is no rashes or lesions. NECK: Supple. There is no JVD. Carotids are equal there is no bruit. There is no lymphadenopathy. There is no goiter. Trachea central LUNGS: There is diminished air entry and prolonged expiration. Clear to auscultation bilaterally, no wheezes, rales or rhonchi. On percussion there is hyperresonance although there is no chest wall tenderness HEART: S1 and S2 are heard. S1 is of normal intensity, there is no S3 or S4 gallops. There is a systolic murmur the left sternal border and the apex. There is no rub. ABDOMEN: Normoactive bowel sounds, soft, nontender, no masses, no rebound, no guarding. There is no hepatosplenomegaly. EXTREMITIES: Femorals are slightly diminished. There is no femoral bruits. Leg pulses are diminished. There is no pedal edema. There is no DVT or cellulitis. There is no cyanosis or clubbing. There is no calf tenderness. NEUROLOGICAL the patient is awake alert oriented 3 with no focal deficits. PSYCHIATRIC: The patient judgment and insight are intact his affect is normal. Labs- All tests 24 hr 02/07/19 02/07/19 02/08/19 21:26 21:53 06:28 WBC 9.9 RBC 4.96 Hgb 14.0 Hct 40.9 MCV 82 MCH 28.2 MCHC 34.3 RDW 14.5 H Plt Count 262 Sodium Potassium Chloride Carbon Dioxide Anion Gap BUN Creatinine Est GFR ( Amer) Est GFR (MDRD) Non-Af Glucose POC Glucose 191 H Hemoglobin A1c % Calcium CK-MB (CK-2) 1.63 Troponin I 0.496 Triglycerides Cholesterol LDL Cholesterol Direct VLDL Cholesterol HDL Cholesterol 02/08/19 02/08/19 02/08/19 06:28 06:28 08:20 WBC RBC Hgb Hct MCV MCH MCHC RDW Plt Count Sodium 140.5 Potassium 4.2 Chloride 108 H Carbon Dioxide 24 Anion Gap 9 BUN 17 Creatinine 0.75 Est GFR ( Amer) > 60 Est GFR (MDRD) Non-Af > 60 Glucose 240 H POC Glucose 243 H Hemoglobin A1c % 10.2 H Calcium 9.7 CK-MB (CK-2) Troponin I Triglycerides 208 H Cholesterol 254.96 H LDL Cholesterol Direct 175 H VLDL Cholesterol 41.6 H HDL Cholesterol 44 02/08/19 02/08/19 11:44 17:00 WBC RBC Hgb Hct MCV MCH MCHC RDW Plt Count Sodium Potassium Chloride Carbon Dioxide Anion Gap BUN Creatinine Est GFR ( Amer) Est GFR (MDRD) Non-Af Glucose POC Glucose 238 H 234 H Hemoglobin A1c % Calcium CK-MB (CK-2) Troponin I Triglycerides Cholesterol LDL Cholesterol Direct VLDL Cholesterol HDL Cholesterol Chest X-Ray 02/07/19 00:00 IMPRESSION: No acute cardiopulmonary findings. IMPRESSION/RECOMMENDATION: 1. Non-ST elevation [place]: Agree with continue the patient on Lovenox 1 mg/kg every 12 hours for at least 48 hours. We will trend the troponin patient's troponin down. We will add nitrates and also add lisinopril. Continue beta- fiordaliza. Will if the troponin trends further down. The patient's Lovenox at full dose tomorrow. 2. Coronary artery disease. History of coronary bypass graft surgery, and history of stent placements. The patient had a cardiac catheterization at [facility] about 3 years ago. At that time she was found that the DUNCAN to the LAD was patent. There is a saphenous vein graft to the circumflex was occluded. She had a drug-eluting stent placed in the PDA of the right coronary artery. LV function was seen to be reduced at that time. 3. Hypertension: Seems to be well controlled. 4. Diabetes mellitus: Stable continue current antidiabetic regimen and Accu- Cheks periodically. 5. COPD: Stable at baseline. 6. Hyperlipidemia: Continue statin 7. History of tobacco abuse: Tobacco cessation counseling given to the patient. Medications reviewed. Medications adjusted. Management plan discussed with the attending physician Dr. Bauman. Including medical management. The patient states she wants to go home and does not want to have any inpatient work-up such as stress test or echo. Will have the patient have an outpatient stress test and echocardiogram in view of the patient's wishes. This is in spite of the fact that the patient is very stable and has no anginal symptoms. Medical decision making is of high complexity. 40 minutes spent on this patient more than 50% time spent in direct patient care. Will follow
[2019-02-08] MEDS ORDERED: RANOLAZINE 500 MG TAB.SR.12H PO ONE (20:48)
[2019-02-08] MEDS: LISINOPRIL 10 MG TABLET PO SCH (21:32)
[2019-02-08] MEDS: ATORVASTATIN CALCIUM 80 MG TABLET PO SCH (21:32)
[2019-02-09 05:44] LABS: HEMATOCRIT 40.7 % (36.0-47.0); HEMOGLOBIN 14.2 g/dL (12.0-15.5); MEAN CORPUSCULAR HEMOGLOBIN 28.6 pg (27.0-33.4); MEAN CORPUSCULAR HGB CONC 34.9 g/dL (32.0-36.0); MEAN CORPUSCULAR VOLUME 82 fl (80-97); PLATELET COUNT 263 10^3/uL (150-450); RED BLOOD COUNT 4.96 10^6/uL (3.72-5.28); RED CELL DISTRIBUTION WIDTH 14.9 % (11.5-14.0); WHITE BLOOD COUNT 9.1 10^3/uL (4.0-10.5)
[2019-02-09 06:04] LABS: ANION GAP 10 (5-19); BLOOD UREA NITROGEN 22 mg/dL (7-20); CALCIUM 10.1 mg/dL (8.4-10.2); CARBON DIOXIDE 25 mmol/L (22-30); CHLORIDE 107 mmol/L (98-107); GLUCOSE 217 mg/dL (75-110); POTASSIUM 4.4 mmol/L (3.6-5.0)
[2019-02-09] MEDS: INSULIN LISPRO 100 UNIT/ML 3 ML VIAL SUBCUT SCH (08:56)
[2019-02-09] MEDS ORDERED: ISOSORBIDE MONONITRATE 60 MG TAB.ER.24H PO SCH (10:00)
[2019-02-09] MEDS: LISINOPRIL 10 MG TABLET PO SCH (11:21)
[2019-02-09] MEDS: METOPROLOL SUCCINATE 50 MG TAB.SR.24H PO SCH (11:21)
[2019-02-09] MEDS: TICAGRELOR 90 MG TABLET PO SCH (11:22)
[2019-02-09] MEDS: ENOXAPARIN SODIUM INJ 60 MG/0.6 ML DISP.SYRIN SUBCUT SCH (11:22)
[2019-02-09 12:07] VITALS: BP 116/61
--- NOTE | 2019-02-09 16:12 | PDOC DISCHARGE SUMMARY ---
Impression - Admit/DC Date/PCP Admission Date/Primary Care Provider: 02/07/19 09:30 MCKAYLA KIRKLAND Discharge Date: 02/09/19 - Discharge Diagnosis (1) Non-ST elevation myocardial infarction (NSTEMI) Is this a current diagnosis for this admission?: Yes (2) COPD (chronic obstructive pulmonary disease) Is this a current diagnosis for this admission?: Yes (3) Tobacco abuse Is this a current diagnosis for this admission?: Yes (4) CAD (coronary artery disease) Is this a current diagnosis for this admission?: Yes (5) Diabetes mellitus type 2 in nonobese Is this a current diagnosis for this admission?: Yes (6) Hyperlipidemia Is this a current diagnosis for this admission?: Yes - Additional Information Resuscitation Status: Full Code Discharge Diet: Cardiac, Diabetic Discharge Activity: Balance Activity w/Rest, Slowly Increase Activity Referrals: GAURI PONCE FNP-C [Primary Care Provider] - Follow up as needed DORIS CHILDRESS MD [ACTIVE STAFF] - (1 week) Prescriptions: Ticagrelor [Brilinta 90 mg Tablet] 90 mg PO Q12 #60 tablet Isosorbide Mononitrate [Imdur 60 mg Tablet.er] 30 mg PO DAILY #30 tab.er.24h Ranolazine [Ranexa 500 mg Tab.sr] 500 mg PO Q12 #60 tab.sr.12h Metoprolol Succinate [Toprol Xl 50 mg Tab.sr] 50 mg PO Q12 #60 tab.sr.24h Home Medications: Aspirin [Adult Low Dose Aspirin EC] 81 mg PO DAILY 02/07/19 Atorvastatin Calcium [Lipitor 80 mg Tablet] 80 mg PO QHS 02/07/19 Fluticasone/Vilanterol [Breo 100-25 Mcg Ellipta 14 Dose/Dpi] 1 puff IH DAILY 02/07/19 Gabapentin [Neurontin 100 mg Capsule] 100 mg PO Q12 02/07/19 Glipizide [Glucotrol 10 mg Tablet] 10 mg PO BID 02/07/19 Lisinopril [Prinivil] 20 mg PO DAILY 02/07/19 Metformin HCl [Glucophage] 1,000 mg PO BID 02/07/19 Nitroglycerin [Nitrostat 0.4 mg (1/150 Gr) Tabs 25/Bottle] 1 tab SL Q5MP PRN 11/21/19 Ranolazine [Ranexa 500 mg Tab.sr] 500 mg PO Q12 #60 tab.sr.12h 02/08/19 Isosorbide Mononitrate [Imdur 60 mg Tablet.er] 30 mg PO DAILY #30 tab.er.24h 02/09/19 Metoprolol Succinate [Toprol Xl 50 mg Tab.sr] 50 mg PO Q12 #60 tab.sr.24h 02/09/19 Ticagrelor [Brilinta 90 mg Tablet] 90 mg PO Q12 #60 tablet 02/09/19 History of Present Illiness History of Present Illness: STELLA FRANKLIN is a 63 year old female who presents from home with chest pain. This patient has a history of coronary artery disease status post CABG in 2012, she said at [place] in [place]. In August 2017, she was transferred from this hospital to [facility] because of an abnormal stress test, and at [facility] she wound up getting 2 cardiac stents, not sure if those were in [place] arteries or in the bypass grafts. Not sure how many vessels were bypassed in 2012. She also has a history of COPD and is a current every day smoker. She is a diabetic. She woke up this morning with some pain in the left upper part of her chest. She describes it as a dull pain. It did not radiate. She said that she took a nitroglycerin and 4 baby aspirin, but it did not immediately go away and so she called EMS. She said that they gave her 4 more aspirin. She said they did not give her any more nitroglycerin. She said that the pain left her chest while in route to the ER from home. The estimated duration of the pain spell was about 20 minutes. She was pain-free by the time she got to the ER. Her initial troponin was equivocal but the second 1 was elevated. She does not have any new ischemic changes relative to the last EKG that we have here for her. I spoke with Dr. Childress about her and he recommended admitting her for medical optimization and further evaluation. Hospital Course Hospital Course: She is pain-free but her troponin continue to trend up, fortunately never got very high. She responded well to medical therapy. She was seen in consultation by cardiology. They recommended aggressive medical management at this time with further work-up to be planned as an outpatient. She was provided with prescriptions for her new medications and discharged home today in good condition. Physical Exam Vital Signs: Temp Pulse Resp BP Pulse Ox 97.5 F 73 18 116/61 100 02/09/19 12:05 02/09/19 12:05 02/09/19 12:05 02/09/19 12:05 02/09/19 12:05 Intake & Output 02/08/19 02/09/19 02/10/19 06:59 06:59 06:59 Intake Total 120 1060 486 Balance 120 1060 486 Weight 60 kg 59.9 kg General appearance: PRESENT: no acute distress, cooperative, disheveled Respiratory exam: PRESENT: clear to auscultation caroline, symmetrical, unlabored. ABSENT: accessory muscle use, chest wall tenderness, crackles, prolonged expiratory phas, rhonchi, tachypnea, wheezes Cardiovascular exam: PRESENT: RRR, +S1, +S2 Pulses: PRESENT: normal carotid pulses, normal femoral pulses GI/Abdominal exam: PRESENT: normal bowel sounds, soft. ABSENT: distended, guarding, rebound, tenderness Extremities exam: ABSENT: clubbing, pedal edema Musculoskeletal exam: PRESENT: normal inspection. ABSENT: deformity Neurological exam: PRESENT: alert, awake, oriented to person, oriented to place, oriented to situation Psychiatric exam: PRESENT: appropriate affect, normal mood Skin exam: PRESENT: dry, warm Results Laboratory Results: WBC 9.1 10^3/uL (4.0-10.5) 02/09/19 05:15 RBC 4.96 10^6/uL (3.72-5.28) 02/09/19 05:15 Hgb 14.2 g/dL (12.0-15.5) 02/09/19 05:15 Hct 40.7 % (36.0-47.0) 02/09/19 05:15 MCV 82 fl (80-97) 02/09/19 05:15 MCH 28.6 pg (27.0-33.4) 02/09/19 05:15 MCHC 34.9 g/dL (32.0-36.0) 02/09/19 05:15 RDW 14.9 % (11.5-14.0) H 02/09/19 05:15 Plt Count 263 10^3/uL (150-450) 02/09/19 05:15 Lymph % (Auto) 25.1 % (13-45) 02/07/19 03:35 Carroll % (Auto) 8.6 % (3-13) 02/07/19 03:35 Eos % (Auto) 2.0 % (0-6) 02/07/19 03:35 Baso % (Auto) 0.8 % (0-2) 02/07/19 03:35 Absolute Neuts (auto) 6.4 10^3/uL (1.7-8.2) 02/07/19 03:35 Absolute Lymphs (auto) 2.5 10^3/uL (0.5-4.7) 02/07/19 03:35 Absolute Monos (auto) 0.9 10^3/uL (0.1-1.4) 02/07/19 03:35 Absolute Eos (auto) 0.2 10^3/uL (0.0-0.6) 02/07/19 03:35 Absolute Basos (auto) 0.1 10^3/uL (0.0-0.2) 02/07/19 03:35 Seg Neutrophils % 63.5 % (42-78) 02/07/19 03:35 PT 12.5 SEC (11.4-15.4) 02/07/19 03:35 INR 0.93 02/07/19 03:35 Sodium 141.6 mmol/L (137-145) 02/09/19 05:15 Potassium 4.4 mmol/L (3.6-5.0) 02/09/19 05:15 Chloride 107 mmol/L (98-107) 02/09/19 05:15 Carbon Dioxide 25 mmol/L (22-30) 02/09/19 05:15 Anion Gap 10 (5-19) 02/09/19 05:15 BUN 22 mg/dL (7-20) H 02/09/19 05:15 Creatinine 0.77 mg/dL (0.52-1.25) 02/09/19 05:15 Est GFR ( Amer) > 60 (>60) 02/09/19 05:15 Est GFR (MDRD) Non-Af > 60 (>60) 02/09/19 05:15 Glucose 217 mg/dL (75-110) H 02/09/19 05:15 POC Glucose 184 mg/dL (70-110) H 02/09/19 11:59 Hemoglobin A1c % 10.2 % (4.7-6.0) H 02/08/19 06:28 Calcium 10.1 mg/dL (8.4-10.2) 02/09/19 05:15 Total Bilirubin 0.3 mg/dL (0.2-1.3) 02/07/19 03:35 Direct Bilirubin 0.1 mg/dL (0.0-0.4) 02/07/19 03:35 Neonat Total Bilirubin Not Reportable 02/07/19 03:35 Neonat Direct Bilirubin Not Reportable 02/07/19 03:35 Neonat Indirect Bili Not Reportable 02/07/19 03:35 AST 13 U/L (14-36) L 02/07/19 03:35 ALT 13 U/L (<35) 02/07/19 03:35 Alkaline Phosphatase 135 U/L (38-126) H 02/07/19 03:35 Creatine Kinase 38 U/L (30-135) 02/07/19 03:35 CK-MB (CK-2) 1.63 ng/mL (<4.55) 02/07/19 21:53 Troponin I 0.242 ng/mL 02/09/19 05:15 Total Protein 6.4 g/dL (6.3-8.2) 02/07/19 03:35 Albumin 3.5 g/dL (3.5-5.0) 02/07/19 03:35 Triglycerides 208 mg/dL (<150) H 02/08/19 06:28 Cholesterol 254.96 mg/dL (0-200) H 02/08/19 06:28 LDL Cholesterol Direct 175 mg/dL (<100) H 02/08/19 06:28 VLDL Cholesterol 41.6 mg/dL (10-31) H 02/08/19 06:28 HDL Cholesterol 44 mg/dL (>40) 02/08/19 06:28 02/07/19 02/07/19 02/07/19 03:35 06:40 10:15 CK-MB (CK-2) 0.92 2.14 Troponin I 0.022 0.121 0.380 02/07/19 02/07/19 02/09/19 15:51 21:53 05:15 CK-MB (CK-2) 2.25 1.63 Troponin I 0.811 0.496 0.242 Impressions: Chest X-Ray 02/07/19 00:00 IMPRESSION: No acute cardiopulmonary findings. Plan Time Spent: Greater than 30 Minutes Stroke Is this a Stroke Patient?: No Acute Heart Failure - Is this a Heart Failure Patient?: No
== END 2019-02-09 12:35 | disposition home or self-care (01) | DRG 282 ==
LOC: ER 03:16 → EH 09:30 → 3W 14:04
PROVIDERS: ADMIT Family Medicine; ATTEND Family Medicine
DX: I21.4 Non-ST elevation (NSTEMI) myocardial infarction (principal); J44.9 Chronic obstructive pulmonary disease, unspecified; I25.10 Atherosclerotic heart disease of native coronary artery without angina pectoris; E11.9 Type 2 diabetes mellitus without complications; E78.5 Hyperlipidemia, unspecified; Z79.82 Long term (current) use of aspirin; Z79.899 Other long term (current) drug therapy; Z79.84 Long term (current) use of oral hypoglycemic drugs; Z95.1 Presence of aortocoronary bypass graft; F17.210 Nicotine dependence, cigarettes, uncomplicated; Z83.3 Family history of diabetes mellitus; Z82.49 Family history of ischemic heart disease and other diseases of the circulatory system
CPT/HCPCS: 36415; 71045; 80048; 80053; 80061; 82550; 82553; 82962; 83036; 84484; 85025; 85027; 85610; 93005; 93010; 96372; 99285; J1650; J1815; J3490

== ENCOUNTER 2019-02-28 23:06 | Emergency (ER) | payer MEDICARE, MEDICAID ==
[2019-02-28 23:34] LABS: ABSOLUTE BASOPHILS # (AUTO) 0.1 10^3/uL (0.0-0.2); ABSOLUTE EOSINOPHILS # (AUTO) 0.1 10^3/uL (0.0-0.6); ABSOLUTE LYMPHOCYTES (AUTO) 2.4 10^3/uL (0.5-4.7); ABSOLUTE NEUT (AUTO) 4.8 10^3/uL (1.7-8.2); EOSINOPHILS % (AUTO) 1.4 % (0-6); HEMATOCRIT 35.5 % (36.0-47.0); HEMOGLOBIN 12.6 g/dL (12.0-15.5); LYMPHOCYTES % (AUTO) 28.8 % (13-45); MEAN CORPUSCULAR HEMOGLOBIN 29.2 pg (27.0-33.4); MEAN CORPUSCULAR HGB CONC 35.5 g/dL (32.0-36.0); MEAN CORPUSCULAR VOLUME 82 fl (80-97); MONOCYTES % (AUTO) 11.4 % (3-13); PLATELET COUNT 260 10^3/uL (150-450); RED BLOOD COUNT 4.31 10^6/uL (3.72-5.28); RED CELL DISTRIBUTION WIDTH 14.6 % (11.5-14.0); SEGMENTED NEUTROPHILS % (AUTO) 57.4 % (42-78); TOTAL CELLS COUNTED % (AUTO) 100 %; WHITE BLOOD COUNT 8.4 10^3/uL (4.0-10.5)
[2019-02-28 23:53] LABS: ALBUMIN 3.7 g/dL (3.5-5.0); ALKALINE PHOSPHATASE 133 U/L (38-126); ANION GAP 12 (5-19); ASPARTATE AMINO TRANSFERASE 15 U/L (14-36); BILIRUBIN,DIRECT 0.2 mg/dL (0.0-0.4); BILIRUBIN,TOTAL 0.4 mg/dL (0.2-1.3); BLOOD UREA NITROGEN 16 mg/dL (7-20); CALCIUM 9.6 mg/dL (8.4-10.2); CARBON DIOXIDE 27 mmol/L (22-30); CHLORIDE 96 mmol/L (98-107); CREATINE KINASE 61 U/L (30-135); GLUCOSE 347 mg/dL (75-110); POTASSIUM 3.3 mmol/L (3.6-5.0); TOTAL PROTEIN 6.8 g/dL (6.3-8.2)
[2019-02-28] MEDS ORDERED: MORPHINE SULFATE 10 MG/ML INJ IV ONE (23:56)
--- NOTE | 2019-03-01 00:02 | ER Document Report ---
ED Cardiac - General TRAVEL OUTSIDE OF THE [place]. IN LAST 30 DAYS: No <ROMANJUMANA Geiger - Last Filed: 03/01/19 05:43> <PARAM LAMAR Pedro - Last Filed: 03/01/19 08:45> - General Chief Complaint: Chest Pain Stated Complaint: CHEST PAIN Time Seen by Provider: 02/28/19 23:35 Primary Care Provider: GAURI PONCE FNP-C [Primary Care Provider] - Follow up as needed Notes: 63-year-old female with past medical history of cardiac bypass, cardiac stents, diabetes, smoker presents with left-sided chest pain that started approximately an hour before arrival. Patient states it radiated down her left arm. Patient states she took 4 baby aspirin and 1 sublingual nitro at home and was given 2 additional sublingual nitro by EMS which relieved her chest pain. Patient denies any associated dyspnea, nausea/vomiting, dizziness. Patient's information broker is Dr. Vega. Patient was recently admitted for NSTEMI from February 07-. Pt did not receive stress test at that time due to her electing for outpatient followup. SHe is scheduled for stress test in March. (JUMANA ROMAN) - Related Data Allergies/Adverse Reactions: No Known Allergies Allergy (Verified 02/07/19 07:54) Past Medical History - Social History Smoking Status: Current Every Day Smoker Family History: CAD, DM, Hypertension Patient has suicidal ideation: No Patient has homicidal ideation: No - Past Medical History Cardiac Medical History: Reports: Hx Congestive Heart Failure, Hx Coronary Artery Disease, Hx Heart Attack, Hx Hypercholesterolemia, Hx Hypertension, Hx Peripheral Vascular Disease Denies: Hx Atrial Fibrillation, Hx DVT, Hx Pulmonary Embolism Pulmonary Medical History: Reports: Hx Asthma, Hx COPD, Hx Respiratory Failure Neurological Medical History: Denies: Hx Seizures Endocrine Medical History: Reports: Hx Diabetes Mellitus Type 2, Hx Hyper thyroidism - Was told once her thyroid might be high. Denies: Hx Diabetes Mellitus Type 1, Hx Hypothyroidism Renal/ Medical History: Denies: Hx Peritoneal Dialysis GI Medical History: Denies: Hx Cirrhosis, Hx Crohn's Disease, Hx Diverticulitis, Hx Hepatitis, Hx Ulcerative Colitis Musculoskeletal Medical History: Denies Hx Arthritis, Denies Hx Fibromyalgia Skin Medical History: Denies Hx Eczema, Denies Hx Psoriasis Psychiatric Medical History: Denies: Hx Depression Infectious Medical History: Denies: Hx Hepatitis Past Surgical History: Reports: Hx Cardiac Catheterization, Hx Cardiac Surgery - CABG, Hx Coronary Artery Bypass Graft, Hx Coronary Stent, Hx Open Heart Surgery, Hx Tubal Ligation - Immunizations Hx Diphtheria, Pertussis, Tetanus Vaccination: Yes <JUMANA ROMAN - Last Filed: 03/01/19 05:43> Review of Systems <JUMANA ROMAN - Last Filed: 03/01/19 05:43> - Review of Systems Notes: Constitutional: Negative for fever. HENT: Negative for sore throat. Eyes: Negative for visual changes. Cardiovascular: Positive for chest pain. Respiratory: Negative for shortness of breath. Gastrointestinal: Negative for abdominal pain, vomiting or diarrhea. Genitourinary: Negative for dysuria. Musculoskeletal: Negative for back pain. Skin: Negative for rash. Neurological: Negative for headaches, weakness or numbness. 10 point ROS negative except as marked above and in HPI. (JUMANA ROMAN) Physical Exam <JUMANA ROMAN - Last Filed: 03/01/19 05:43> - Vital signs Vitals: Resp BP Pulse Ox 22 H 120/74 96 02/28/19 23:19 02/28/19 23:19 02/28/19 23:19 - Notes Notes: GENERAL: Well-appearing, well-nourished and in no acute distress. HEAD: Atraumatic, normocephalic. EYES: Extraocular movements intact, sclera anicteric, conjunctiva are normal. NECK: Normal range of motion, supple without lymphadenopathy or JVD. LUNGS: Breath sounds clear to auscultation bilaterally and equal. No wheezes rales or rhonchi. HEART: Regular rate and rhythm without murmurs, rubs or gallops. ABDOMEN: Soft, nontender, normoactive bowel sounds. No guarding, no rebound. No masses appreciated. EXTREMITIES: Normal range of motion, no pitting or edema. No clubbing or cyanosis. NEUROLOGICAL: Cranial nerves II through XII grossly intact. Normal speech, normal gait. PSYCH: Normal mood, normal affect. SKIN: Warm, Dry, normal turgor, no rashes or lesions noted. (JUMANA ROMAN) Course - Laboratory Result Diagrams: 02/28/19 23:14 02/28/19 23:14 <JUMANA ROMAN - Last Filed: 03/01/19 05:43> - Laboratory Result Diagrams: 02/28/19 23:14 02/28/19 23:14 <PARAM LAMAR - Last Filed: 03/01/19 08:45> - Re-evaluation Re-evalutation: 03/01/19 63-year-old female with extensive cardiac history presents for left- sided chest pain that radiates down her left arm. This was relieved by aspirin and nitro. Patient's information broker is Dr. Vega. Cardiac work-up initiated. 03/01/19 00:00 Patient started to complain about chest pain. EKG was initiated. Morphine ordered. 03/01/19 04:[address] Stokes, who states pt needs to be transferred somewhere she can have a cath. 03/01/19 04:29 Discussed plan of care with pt. Pt requesting to go to [facility]. Pt continues to remain chest pain free. 03/01/19 04:30 Message left with [facility]. 03/01/19 05:35 Contacted [facility] to initiate transfer. Requested EKG be faxed to them. Will page out to hospitalist. 03/01/19 05:[address] Nolasco at [facility] who states he will call back after checking to see if they have beds. (JUMANA ROMAN) 03/01/19 08:41 Assumed care of patient from JATIN Roman. Patient is awaiting Transfer to [facility] for NSTEMI. She has a significant cardiac history with a CABG in 2012. She continues to smoke. She is currently chest pain free. She was recommended to go to [facility] for clinical laboratory medical director capabilities. She states she feels ok this AM. Transport is here. Brief exam shows: Constitutional: Alert, in No acute distress, appears older than stated age Cardiac: RRR, no M/R/G Lungs: clear to ausculatation Skin: normal turgor, dry Psych: normal mood, normal affect Neuro: CN 2-12 intact, no pronator drift, alert and oriented times 4 Patient is stable for transfer. (PARAM LAMAR) - Vital Signs Vital signs: Temp Pulse Resp BP Pulse Ox 98.5 F 99 15 119/64 94 02/28/19 23:29 02/28/19 23:29 03/01/19 06:01 03/01/19 06:00 03/01/19 06:01 - Laboratory Laboratory results interpreted by me: 02/28/19 02/28/19 03/01/19 23:14 23:14 06:35 Hct 35.5 L RDW 14.6 H Sodium 135.0 L Potassium 3.3 L Chloride 96 L Glucose 347 H Alkaline Phosphatase 133 H Urine Glucose (UA) >=500 H Discharge - Discharge Admitting Provider: Gaurav <JUMANA ROMAN - Last Filed: 03/01/19 05:43> <PARAM LAMAR - Last Filed: 03/01/19 08:45> - Discharge Clinical Impression: NSTEMI (non-ST elevated myocardial infarction) Condition: Stable Disposition: [facility] Referrals: GAURI PONCE FNP-C [Primary Care Provider] - Follow up as needed
[2019-03-01 00:05] LABS: CREATINE KINASE MB 1.65 ng/mL (<4.55)
[2019-03-01 00:07] LABS: TROPONIN I 0.159 ng/mL
[2019-03-01] MEDS ORDERED: ENOXAPARIN SODIUM INJ 150 MG/1 ML DISP.SYRIN SUBCUT SCH (06:00)
--- NOTE | 2019-03-01 06:46 | EKG REPORT ---
SEVERITY:- ABNORMAL ECG - SINUS TACHYCARDIA REPOL ABNRM SUGGESTS ISCHEMIA, DIFFUSE LEADS : Confirmed by: Lee Bautista MD 01-Mar-2019 06:45:05
--- NOTE | 2019-03-01 06:46 | EKG REPORT ---
SEVERITY:- ABNORMAL ECG - SINUS TACHYCARDIA BORDERLINE RIGHT AXIS DEVIATION REPOL ABNRM SUGGESTS ISCHEMIA, DIFFUSE LEADS : Confirmed by: Lee Bautista MD 01-Mar-2019 06:44:48
[2019-03-01 06:49] LABS: APPEARANCE,URINE CLEAR; BILIRUBIN,URINE NEGATIVE (NEGATIVE); COLOR,URINE YELLOW; GLUCOSE, URINE >=500 mg/dL (NEGATIVE); KETONES,URINE NEGATIVE (NEGATIVE); LEUKOCYTE ESTERASE,URINE NEGATIVE (NEGATIVE); NITRITE,URINE NEGATIVE (NEGATIVE); PROTEIN,URINE NEGATIVE (NEGATIVE); URINE SPECIFIC GRAVITY 1.008; UROBILINOGEN,URINE NEGATIVE mg/dL (<2.0)
[2019-03-01] MEDS ORDERED: POTASSIUM CHLORIDE 20 MEQ PACKET PO ONE (08:07)
[2019-03-01 08:43] VITALS: BP 119/75
== END 2019-03-01 08:40 | disposition short-term general hospital (02) ==
LOC: ER 23:06
DX: I22.2 Subsequent non-ST elevation (NSTEMI) myocardial infarction (principal); I21.4 Non-ST elevation (NSTEMI) myocardial infarction; I25.10 Atherosclerotic heart disease of native coronary artery without angina pectoris; I10 Essential (primary) hypertension; E11.51 Type 2 diabetes mellitus with diabetic peripheral angiopathy without gangrene; F17.200 Nicotine dependence, unspecified, uncomplicated; Z95.1 Presence of aortocoronary bypass graft; Z95.5 Presence of coronary angioplasty implant and graft; Z82.49 Family history of ischemic heart disease and other diseases of the circulatory system
CPT/HCPCS: 93005; 99285; 96372; 96374; 36415; 82553; 82550; 83735; 85025; 80053; 81001; 84484; 93010; J1650; J2270; J3490

== ENCOUNTER → 2019-04-26 | Outpatient (CLI) | payer MEDICARE, MEDICAID ==
--- NOTE | 2019-04-26 14:05 | WOMENS IMAGING REPORT ---
EXAM DESCRIPTION: BILAT SCREENING MAMMO W/CAD COMPLETED DATE/TIME: 04/26/2019 11:21 am REASON FOR STUDY: Z12.31 SCREENING [id number] ENCNTR SCREEN MAMMOGRAM FOR MALIGNANT NEOPLASM OF BR E COMPARISON: None. EXAM PARAMETERS: Standard craniocaudal and mediolateral oblique views of each breast recorded using digital acquisition. Read with the assistance of CAD. .[facility] - [email or web address] Version 9.2 LIMITATIONS: None. FINDINGS: RIGHT BREAST MASSES: No suspicious masses. CALCIFICATIONS: No new or suspicious calcifications. ARCHITECTURAL DISTORTION: None. ASYMMETRY: None noted. OTHER: No other significant findings. LEFT BREAST MASSES: In the left breast 11 to 12 o'clock position about 4 cm from the nipple, a subcentimeter mamm ographic mass with partial border loss is present. This requires further investigation cone compress ion magnification views, left breast 90 mediolateral view and ultrasound. CALCIFICATIONS: No new or suspicious calcifications. ARCHITECTURAL DISTORTION: None. ASYMMETRY: None noted. OTHER: No other significant findings. IMPRESSION: No mammographic evidence for malignancy right breast. Subcentimeter left breast mammographic mass for which additional diagnostic mammograms and ultrasound are recommended for followup. 0 Incomplete: Needs Additional Imaging Evaluation and/or prior Mammograms for Comparison. BREAST DENSITY: b. There are scattered areas of fibroglandular density. BIRAD: ASSESSMENT: 0 Incomplete: Needs Additional Imaging Evaluation and/or prior Mammograms for C omparison. RECOMMENDATION: RECOMMENDED FOLLOW-UP: Additional left breast magnification mammograms and ultrasoun d The patient will be contacted for additional imaging. COMMENT: The patient has been notified of the results by letter per MQSA requirements. Additional no tification policies are in place for contacting patient with suspicious or incomplete findings. Quality ID #225: The [employer] recommends an annual screening mammogram for women aged 40 years or over. This facility utilizes a reminder system to ensure that all patients receive reminder letters, and/or direct phone calls for appointments. This includes reminders for routine scr eening mammograms, diagnostic mammograms, or other Breast Imaging Interventions when appropriate. Th is patient will be placed in the appropriate reminder system. TECHNICAL DOCUMENTATION: FINDING NUMBER: (1) ASSESSMENT: (1) JOB ID: [id number] [employer]- All Rights Reserved Reading location - IP/workstation name: [email or web address]
== END ==
LOC: WI 10:35
PROVIDERS: ATTEND Nurse Practitioner Family
DX: Z12.31 Encounter for screening mammogram for malignant neoplasm of breast (principal); N63.10 Unspecified lump in the right breast, unspecified quadrant
CPT/HCPCS: 77067

== ENCOUNTER 2019-05-14 15:48 | Emergency (ER) | payer MEDICARE, MEDICAID ==
--- NOTE | 2019-05-14 16:43 | ER Document Report ---
ED Medical Screen (RME) - General Chief Complaint: Flank Pain Stated Complaint: FLANK PAIN Time Seen by Provider: 05/14/19 16:38 Primary Care Provider: GAURI PONCE FNP-C [Primary Care Provider] - Follow up as needed Notes: HPI: 63-year-old female with history of hypertension, hypercholesteremia and kidney stone when she was 13 years old presenting with right back and flank pain that began around 11 AM. Patient states it does hurt to move. She has not noticed any hematuria. Has not had nausea vomiting or fever. No dysuria I have greeted and performed a rapid initial assessment of this patient. A comprehensive ED assessment and evaluation of the patient, analysis of test results and completion of the medical decision making process will be conducted by additional ED providers PHYSICAL EXAMINATION: GENERAL: Well-appearing, well-nourished and in mild acute distress. HEAD: Atraumatic, normocephalic. EYES: sclera anicteric, conjunctiva are normal. ENT: Moist mucous membranes. NECK: Normal range of motion LUNGS: Normal work of breathing, clear to auscultation HEART: 2+ radial pulses bilaterally, regular rate and rhythm ABD: limited by positioning for exam in triage. Mild right CVA tenderness EXTREMITIES: no pitting or edema. No cyanosis. NEUROLOGICAL: No focal neurological deficits. Moves all extremities spontaneously and on command. PSYCH: Normal mood, normal affect. SKIN: Warm, Dry, normal turgor, no rashes or lesions noted. TRAVEL OUTSIDE OF THE [place] IN LAST 30 DAYS: No - Related Data Allergies/Adverse Reactions: No Known Allergies Allergy (Verified 02/07/19 07:54) Past Medical History - Past Medical History Cardiac Medical History: Reports: Hx Congestive Heart Failure, Hx Coronary Artery Disease, Hx Heart Attack, Hx Hypercholesterolemia, Hx Hypertension, Hx Peripheral Vascular Disease Denies: Hx Atrial Fibrillation, Hx DVT, Hx Pulmonary Embolism Pulmonary Medical History: Reports: Hx Asthma, Hx COPD, Hx Respiratory Failure Neurological Medical History: Denies: Hx Seizures Endocrine Medical History: Reports: Hx Diabetes Mellitus Type 2, Hx Hyperthyroidism - Was told once her thyroid might be high. Denies: Hx Diabetes Mellitus Type 1, Hx Hypothyroidism Renal/ Medical History: Denies: Hx Peritoneal Dialysis GI Medical History: Denies: Hx Cirrhosis, Hx Crohn's Disease, Hx Diverticulitis, Hx Hepatitis, Hx Ulcerative Colitis Musculoskeltal Medical History: Denies Hx Arthritis, Denies Hx Fibromyalgia Skin Medical History: Denies Hx Eczema, Denies Hx Psoriasis Psychiatric Medical History: Denies: Hx Depression Infectious Medical History: Denies: Hx Hepatitis Past Surgical History: Reports: Hx Cardiac Catheterization, Hx Cardiac Surgery - CABG, Hx Coronary Artery Bypass Graft, Hx Coronary Stent, Hx Open Heart Surgery, Hx Tubal Ligation - Immunizations Hx Diphtheria, Pertussis, Tetanus Vaccination: Yes Physical Exam - Vital signs Vitals: Temp Pulse Resp BP Pulse Ox 98.2 F 101 H 18 151/78 H 96 05/14/19 16:16 05/14/19 16:16 05/14/19 16:16 05/14/19 16:16 05/14/19 16:16 Course - Vital Signs Vital signs: Temp Pulse Resp BP Pulse Ox 98.2 F 101 H 18 151/78 H 96 05/14/19 16:16 05/14/19 16:16 05/14/19 16:16 05/14/19 16:16 05/14/19 16:16 Doctor's Discharge - Discharge Referrals: GAURI PONCE FNP-C [Primary Care Provider] - Follow up as needed
[2019-05-14 17:37] LABS: ABSOLUTE BASOPHILS # (AUTO) 0.1 10^3/uL (0.0-0.2); ABSOLUTE EOSINOPHILS # (AUTO) 0.2 10^3/uL (0.0-0.6); ABSOLUTE LYMPHOCYTES (AUTO) 2.7 10^3/uL (0.5-4.7); ABSOLUTE NEUT (AUTO) 7.7 10^3/uL (1.7-8.2); BASOPHILS % (AUTO) 0.5 % (0-2); EOSINOPHILS % (AUTO) 1.3 % (0-6); HEMATOCRIT 38.2 % (36.0-47.0); HEMOGLOBIN 13.1 g/dL (12.0-15.5); LYMPHOCYTES % (AUTO) 23.4 % (13-45); MEAN CORPUSCULAR HEMOGLOBIN 28.6 pg (27.0-33.4); MEAN CORPUSCULAR HGB CONC 34.2 g/dL (32.0-36.0); MEAN CORPUSCULAR VOLUME 84 fl (80-97); MONOCYTES % (AUTO) 8.4 % (3-13); PLATELET COUNT 353 10^3/uL (150-450); RED BLOOD COUNT 4.58 10^6/uL (3.72-5.28); SEGMENTED NEUTROPHILS % (AUTO) 66.4 % (42-78); TOTAL CELLS COUNTED % (AUTO) 100 %; WHITE BLOOD COUNT 11.6 10^3/uL (4.0-10.5)
[2019-05-14 18:00] LABS: ALBUMIN 3.7 g/dL (3.5-5.0); ALKALINE PHOSPHATASE 131 U/L (38-126); ANION GAP 10 (5-19); ASPARTATE AMINO TRANSFERASE 14 U/L (14-36); BILIRUBIN,TOTAL 0.5 mg/dL (0.2-1.3); BLOOD UREA NITROGEN 7 mg/dL (7-20); CALCIUM 9.5 mg/dL (8.4-10.2); CARBON DIOXIDE 30 mmol/L (22-30); CHLORIDE 98 mmol/L (98-107); GLUCOSE 243 mg/dL (75-110); POTASSIUM 3.4 mmol/L (3.6-5.0); TOTAL PROTEIN 6.9 g/dL (6.3-8.2)
--- NOTE | 2019-05-14 18:01 | RADIOLOGY REPORT (SQ) ---
EXAM DESCRIPTION: CT ABD/PELVIS NO ORAL OR IV COMPLETED DATE/TIME: 05/14/2019 5:29 pm REASON FOR STUDY: right flank pain kidney stone hx COMPARISON: None. TECHNIQUE: CT scan of the abdomen and pelvis performed without intravenous or oral contrast. Images reviewed with lung, soft tissue, and bone windows. Reconstructed coronal and sagittal MPR images revi ewed. All images stored on PACS. All CT scanners at this facility use dose modulation, iterative reconstruction, and/or weight based d osing when appropriate to reduce radiation dose to as low as reasonably achievable (ALARA). [facility]: Dose Right [facility]: CareDose [facility]: Dose Right [facility]: Teradose 4D [facility]: Smart Technologies RADIATION DOSE: CT Rad equipment meets quality standard of care and radiation dose reduction techniq ues were employed. CTDIvol: 5.2 mGy. DLP: 259 mGy-cm.mGy. LIMITATIONS: None. FINDINGS: LOWER CHEST: Small pleural effusion. Mild atelectasis in the right base. NON-CONTRASTED LIVER, SPLEEN, ADRENALS: 17 x 34 mm heterogeneous adrenal mass on the right. The live r and spleen are unremarkable. PANCREAS: No masses. No peripancreatic inflammatory changes. GALLBLADDER: No identified stones by CT criteria. No inflammatory changes to suggest cholecystitis. RIGHT KIDNEY AND URETER: No suspicious masses. Assessment limited by lack of IV contrast. There are some small nonobstructing intrarenal calculi. Likely vascular. No hydronephrosis or hydroureter. LEFT KIDNEY AND URETER: No suspicious masses. Assessment limited by lack of IV contrast. There are some small nonobstructing intrarenal calculi that are likely vascular. No hydronephrosis or hydrour eter. AORTA AND RETROPERITONEUM: No aneurysm. No retroperitoneal masses or adenopathy. BOWEL AND PERITONEAL CAVITY: No obvious masses or inflammatory changes. No free fluid. APPENDIX: Normal. PELVIS, BLADDER, AND ABDOMINAL WALL:No abnormal masses. No free fluid. Bladder normal. BONES: No significant findings. OTHER: No other significant finding. IMPRESSION: 1. Small pleural effusions. 17 x 34 mm heterogeneous adrenal mass on the right contain ing a definite fat component. 2. Small intrarenal calculi on each side that appear to be vascular. No ureteral stone or obstructi on. COMMENT: Quality ID # [id number]: Final reports with documentation of one or more dose reduction techniques (e.g., Automated exposure control, adjustment of the mA and/or kV according to patient size, use of iterative reconstruction technique) TECHNICAL DOCUMENTATION: JOB ID: [id number] 2011 [employer]- All Rights Reserved Reading location - IP/workstation name: [email or web address]
[2019-05-14] MEDS ORDERED: KETOROLAC TROMETHAMINE INJ/PF 30 MG/1 ML SDV IV ONE (18:12)
--- NOTE | 2019-05-14 20:35 | ER Document Report ---
ED GI/ - General Chief Complaint: Flank Pain Stated Complaint: FLANK PAIN Time Seen by Provider: 05/14/19 16:38 Primary Care Provider: TRAN KAUFMAN MD [ACTIVE STAFF] - Follow up tomorrow Notes: Patient is a 63 year old female that comes to the Emergency Department for chief complaint of right flank pain that started this morning. She denies vomiting, fever, dysuria, particular abdominal pain. She does have history of kidney stones many years ago, COPD, hypertension, hyperlipidemia. She denies any other complaints. She states that after the medication from triage her symptoms completely resolved. She [place] with [facility]. TRAVEL OUTSIDE OF THE [place] IN LAST 30 DAYS: No - Related Data Allergies/Adverse Reactions: No Known Allergies Allergy (Verified 02/07/19 07:54) Past Medical History - General Information source: Patient - Social History Smoking Status: Current Every Day Smoker Frequency of alcohol use: None Drug Abuse: None Lives with: Family Family History: CAD, DM, Hypertension Patient has suicidal ideation: No Patient has homicidal ideation: No - Past Medical History Cardiac Medical History: Reports: Hx Congestive Heart Failure, Hx Coronary Artery Disease, Hx Heart Attack, Hx Hypercholesterolemia, Hx Hypertension, Hx Peripheral Vascular Disease Denies: Hx Atrial Fibrillation, Hx DVT, Hx Pulmonary Embolism Pulmonary Medical History: Reports: Hx Asthma, Hx COPD, Hx Respiratory Failure Neurological Medical History: Denies: Hx Seizures Endocrine Medical History: Reports: Hx Diabetes Mellitus Type 2, Hx Hyperthyroidism - Was told once her thyroid might be high. Denies: Hx Diabetes Mellitus Type 1, Hx Hypothyroidism Renal/ Medical History: Denies: Hx Peritoneal Dialysis GI Medical History: Denies: Hx Cirrhosis, Hx Crohn's Disease, Hx Diverticulitis, Hx Hepatitis, Hx Ulcerative Colitis Musculoskeletal Medical History: Denies Hx Arthritis, Denies Hx Fibromyalgia Skin Medical History: Denies Hx Eczema, Denies Hx Psoriasis Psychiatric Medical History: Denies: Hx Depression Infectious Medical History: Denies: Hx Hepatitis Past Surgical History: Reports: Hx Cardiac Catheterization, Hx Cardiac Surgery - CABG, Hx Coronary Artery Bypass Graft, Hx Coronary Stent, Hx Open Heart Surgery, Hx Tubal Ligation - Immunizations Hx Diphtheria, Pertussis, Tetanus Vaccination: Yes Review of Systems - Review of Systems Constitutional: No symptoms reported EENT: No symptoms reported Cardiovascular: No symptoms reported Respiratory: No symptoms reported Gastrointestinal: See HPI Genitourinary: See HPI Female Genitourinary: No symptoms reported Musculoskeletal: No symptoms reported Skin: No symptoms reported Hematologic/Lymphatic: No symptoms reported Neurological/Psychological: No symptoms reported Physical Exam - Vital signs Vitals: Temp Pulse Resp BP Pulse Ox 98.2 F 101 H 18 151/78 H 96 05/14/19 16:16 05/14/19 16:16 05/14/19 16:16 05/14/19 16:16 05/14/19 16:16 - Notes Notes: GENERAL: Alert, interacts well. No acute distress. HEAD: Normocephalic, atraumatic. EYES: Pupils equal, round, and reactive to light. Extraocular movements intact. ENT: Oral mucosa moist, tongue midline. Oropharynx unremarkable. Airway patent. LUNGS: Clear to auscultation bilaterally, no wheezes, rales, or rhonchi. No respiratory distress. HEART: Regular rate and rhythm. No murmur ABDOMEN: Soft, non-tender. Non-distended. EXTREMITIES: Moves all 4 extremities spontaneously. No edema, normal radial and dorsalis pedis pulses bilaterally. No cyanosis. BACK: no cervical, thoracic, lumbar midline tenderness. No saddle anesthesia, normal distal neurovascular exam. Moves all extremities in full range of motion. NEUROLOGICAL: Alert and oriented x3. Normal speech. Cranial nerves II through XII grossly intact. PSYCH: Normal affect, normal mood. SKIN: Warm, dry, normal turgor. No rashes or lesions noted. Course - Re-evaluation Re-evalutation: Patient has a soft benign abdomen, no noted CVA tenderness, she has no signs of distress on my exam. CBC nonspecific, chemistry unremarkable, urine shows questionable infection. Culture, treating with Keflex. CAT scan performed in triage reviewed, shows mass on the right adrenal gland. No passing or obstructing stones. Nonspecific otherwise. Discussed in detail with patient. She was not aware of this previously. Suspect this could be causing her pain. 05/14/19 20:38 I called and spoke with Dr. Kaufman, oncology on-call. She states patient will likely need a PET scan, she recommends patient follow closely with her in the clinic for additional evaluation and management. Patient will be provided pain management pending her follow-up. Patient's son and patient state appreciation and agreement, they state they will follow-up closely and return for any concerning symptoms, this was also discussed. Stable at time of discharge. - Vital Signs Vital signs: Temp Pulse Resp BP Pulse Ox 98.7 F 93 16 134/78 H 98 05/14/19 22:16 05/14/19 22:16 05/14/19 22:16 05/14/19 22:16 05/14/19 22:16 - Laboratory Result Diagrams: 05/14/19 17:15 05/14/19 17:15 Laboratory results interpreted by me: 05/14/19 05/14/19 05/14/19 17:15 17:15 21:00 WBC 11.6 H Potassium 3.4 L Glucose 243 H Alkaline Phosphatase 131 H Urine Glucose (UA) 50 H Urine Urobilinogen 4.0 H Ur Leukocyte Esterase TRACE H Discharge - Discharge Clinical Impression: Right flank pain, Adrenal mass Condition: Stable Disposition: HOME, SELF-CARE Additional Instructions: There is a mass on your right adrenal gland which is sitting on the kidney. This is most likely the cause of your pain. No passing stone or concerning finding is seen otherwise. You also have a borderline urinary tract infection. Take Keflex as prescribed to completion, take the pain medication if needed, I r ecommend MiraLAX stool softener if you do to avoid constipation. I spoke with Dr. Kaufman, oncology, recommendation is that you follow-up closely with her in the clinic for additional evaluation, testing, and treatment for the adrenal mass. This is very important for close follow-up in case this is cancer to avoid spreading or worsening condition. Please call the listed referral tomorrow, she is expecting your close follow-up. Return if you worsen including severe worsening pain, vomiting, fever, or any other concerning symptoms. Prescriptions: Cephalexin Monohydrate [Keflex 500 mg Capsule] 500 mg PO BID 7 Days #14 capsule Polyethylene Glycol 3350 [Miralax Powder 17 gm/Packet] 1 packet PO DAILY PRN #1 pkg PRN Reason: Oxycodone HCl/Acetaminophen [Percocet 5-325 mg Tablet] 1 - 2 tab PO TID PRN #15 tablet PRN Reason: Referrals: TRAN KAUFMAN MD [ACTIVE STAFF] - Follow up tomorrow
[2019-05-14] MEDS ORDERED: NORMAL SALINE 1000 ML 1,000 ML IV ONE (20:39)
[2019-05-14] MEDS ORDERED: MORPHINE SULFATE 10 MG/ML INJ IV ONE (20:56)
[2019-05-14] MEDS ORDERED: ONDANSETRON HCL INJ/PF 4 MG/2 ML SDV IV ONE (20:56)
[2019-05-14 21:28] LABS: APPEARANCE,URINE SLIGHTLY-CLOUDY; BILIRUBIN,URINE NEGATIVE (NEGATIVE); COLOR,URINE YELLOW; GLUCOSE, URINE 50 mg/dL (NEGATIVE); KETONES,URINE NEGATIVE (NEGATIVE); LEUKOCYTE ESTERASE,URINE TRACE (NEGATIVE); NITRITE,URINE NEGATIVE (NEGATIVE); PROTEIN,URINE NEGATIVE (NEGATIVE); URINE SPECIFIC GRAVITY 1.011
[2019-05-14] MEDS ORDERED: HYDROCODONE/ACETAMINOPHEN 5-325 MG (6 TAB/ER DISP) PO PRN (21:51)
[2019-05-14] MEDS ORDERED: CEPHALEXIN 500 MG CAPSULE PO ONE (21:51)
[2019-05-14 22:16] VITALS: BP 134/78
== END 2019-05-14 22:18 | disposition home or self-care (01) ==
LOC: ER 15:48
DX: R10.9 Unspecified abdominal pain (principal); E27.9 Disorder of adrenal gland, unspecified; F17.200 Nicotine dependence, unspecified, uncomplicated; J44.9 Chronic obstructive pulmonary disease, unspecified; E78.5 Hyperlipidemia, unspecified; I50.9 Heart failure, unspecified; I11.0 Hypertensive heart disease with heart failure; Z87.442 Personal history of urinary calculi; Z95.1 Presence of aortocoronary bypass graft; Z98.51 Tubal ligation status
CPT/HCPCS: 99284; 96361; 96374; 96375; 36415; 87086; 85025; 87088; 80053; 81001; 74176; A9270 ×2; J1885; J2270; J2405; J7030; 87186

== ENCOUNTER 2019-05-28 05:35 | Inpatient (IN) | payer MEDICARE, MEDICAID ==
[2019-05-28] MEDS ORDERED: METHYLPREDNISOLONE INJ 125 MG/2 ML SDV IV ONE (05:48)
[2019-05-28] MEDS ORDERED: IPRATROPIUM/ALBUTEROL 0.5-2.5 MG/3 ML AMPUL NEB ONE ×4 (05:48→09:32)
[2019-05-28] MEDS ORDERED: METHYLPREDNISOLONE INJ 125 MG/2 ML SDV ONE (05:49)
--- NOTE | 2019-05-28 05:59 | ER Document Report ---
ED Medical Screen (RME) - General Chief Complaint: Breathing Difficulty Stated Complaint: DIFFICULTY BREATHING Time Seen by Provider: 05/28/19 05:53 Notes: 63-year-old female with a history of COPD, CHF comes from home with chief complaint of wheezing, cough, difficulty breathing that is sudden onset tonight. Patient is not on home oxygen. She reports feeling improved after 2 duo nebs from EMS but still has difficulty breathing. She denies ever being intubated. Denies fever. TRAVEL OUTSIDE OF THE [place] IN LAST 30 DAYS: No - Related Data Allergies/Adverse Reactions: No Known Allergies Allergy (Verified 02/07/19 07:54) Past Medical History - Past Medical History Cardiac Medical History: Reports: Hx Congestive Heart Failure, Hx Coronary Artery Disease, Hx Heart Attack, Hx Hypercholesterolemia, Hx Hypertension, Hx Peripheral Vascular Disease Denies: Hx Atrial Fibrillation, Hx DVT, Hx Pulmonary Embolism Pulmonary Medical History: Reports: Hx Asthma, Hx COPD, Hx Respiratory Failure Neurological Medical History: Denies: Hx Seizures Endocrine Medical History: Reports: Hx Diabetes Mellitus Type 2, Hx Hyperthyroidism - Was told once her thyroid might be high. Denies: Hx Diabetes Mellitus Type 1, Hx Hypothyroidism Renal/ Medical History: Denies: Hx Peritoneal Dialysis GI Medical History: Denies: Hx Cirrhosis, Hx Crohn's Disease, Hx Diverticulitis, Hx Hepatitis, Hx Ulcerative Colitis Musculoskeltal Medical History: Denies Hx Arthritis, Denies Hx Fibromyalgia Skin Medical History: Denies Hx Eczema, Denies Hx Psoriasis Psychiatric Medical History: Denies: Hx Depression Infectious Medical History: Denies: Hx Hepatitis Past Surgical History: Reports: Hx Cardiac Catheterization, Hx Cardiac Surgery - CABG, Hx Coronary Artery Bypass Graft, Hx Coronary Stent, Hx Open Heart Surgery, Hx Tubal Ligation - Immunizations Hx Diphtheria, Pertussis, Tetanus Vaccination: Yes Physical Exam - Vital signs Vitals: Temp Resp BP Pulse Ox 98.5 F 33 H 156/75 H 94 05/28/19 05:37 05/28/19 05:37 05/28/19 05:37 05/28/19 05:37 - Respiratory Breath sounds: Decreased air movement - Mild respiratory distress with labored breathing and tachypnea. Tight lung amador with expiratory wheezing throughout Course - Re-evaluation Re-evalutation: Patient in mild respiratory distress despite multiple duo nebs and being on oxygen. Oxygen saturation 91% on nasal cannula with tachypnea and labored breathing. She will be placed on BiPAP. Additional treatments initiated, work- up pending. I have greeted and performed a rapid initial assessment of this patient. A comprehensive ED assessment and evaluation of the patient, analysis of test results and completion of the medical decision making process will be conducted by additional ED providers. - Vital Signs Vital signs: Temp Pulse Resp BP Pulse Ox 98.5 F 33 H 156/75 H 94 05/28/19 05:37 05/28/19 05:37 05/28/19 05:37 05/28/19 05:37
[2019-05-28] MEDS ORDERED: ALBUTEROL SULFATE 0.083% NEB 2.5 MG/3 ML AMPUL NEB SCH (06:03)
[2019-05-28] MEDS: MAGNESIUM SULFATE/D5W 1 GM/100 ML RTUPB IV SCH ×2 (06:05→07:08)
--- NOTE | 2019-05-28 06:28 | ER Document Report ---
ED General - General Chief Complaint: Breathing Difficulty Stated Complaint: DIFFICULTY BREATHING Time Seen by Provider: 05/28/19 05:53 TRAVEL OUTSIDE OF THE [place] IN LAST 30 DAYS: No - HPI Patient complains to provider of: SOB Notes: 63-year-old female history of COPD presents with increased work of breathing coughing sputum production. Severe acute distress. Found to be hypoxic and tachypneic by EMS. Patient denies chest pain fever chills recent travel. - Related Data Allergies/Adverse Reactions: No Known Allergies Allergy (Verified 02/07/19 07:54) Past Medical History - Social History Smoking Status: Current Every Day Smoker Family History: CAD, DM, Hypertension Patient has suicidal ideation: No Patient has homicidal ideation: No - Past Medical History Cardiac Medical History: Reports: Hx Congestive Heart Failure, Hx Coronary Artery Disease, Hx Heart Attack, Hx Hypercholesterolemia, Hx Hypertension, Hx Peripheral Vascular Disease Denies: Hx Atrial Fibrillation, Hx DVT, Hx Pulmonary Embolism Pulmonary Medical History: Reports: Hx Asthma, Hx COPD, Hx Respiratory Failure Neurological Medical History: Denies: Hx Seizures Endocrine Medical History: Reports: Hx Diabetes Mellitus Type 2, Hx Hyperthyroidism - Was told once her thyroid might be high. Denies: Hx Diabetes Mellitus Type 1, Hx Hypothyroidism Renal/ Medical History: Denies: Hx Peritoneal Dialysis GI Medical History: Denies: Hx Cirrhosis, Hx Crohn's Disease, Hx Diverticulitis, Hx Hepatitis, Hx Ulcerative Colitis Musculoskeletal Medical History: Denies Hx Arthritis, Denies Hx Fibromyalgia Skin Medical History: Denies Hx Eczema, Denies Hx Psoriasis Psychiatric Medical History: Denies: Hx Depression Infectious Medical History: Denies: Hx Hepatitis Past Surgical History: Reports: Hx Cardiac Catheterization, Hx Cardiac Surgery - CABG, Hx Coronary Artery Bypass Graft, Hx Coronary Stent, Hx Open Heart Surgery, Hx Tubal Ligation - Immunizations Hx Diphtheria, Pertussis, Tetanus Vaccination: Yes Review of Systems - Review of Systems Notes: REVIEW OF SYSTEMS: CONSTITUTIONAL: -fevers, -chills EENT: -eye pain, -difficulty swallowing, -nasal congestion CARDIOVASCULAR: -chest pain, -syncope. RESPIRATORY: positive cough and SOB GASTROINTESTINAL: -abdominal pain, -nausea, -vomiting, -diarrhea GENITOURINARY: -dysuria, -hematuria MUSCULOSKELETAL: -back pain, -neck pain SKIN: -rash or skin lesions. HEMATOLOGIC: -easy bruising or bleeding. LYMPHATIC: -swollen, enlarged glands. NEUROLOGICAL: -altered mental status or loss of consciousness, -headache, - neurologic symptoms PSYCHIATRIC: -anxiety, -depression. ALL OTHER SYSTEMS REVIEWED AND NEGATIVE. Physical Exam - Vital signs Vitals: Temp Resp BP Pulse Ox 98.5 F 33 H 156/75 H 94 05/28/19 05:37 05/28/19 05:37 05/28/19 05:37 05/28/19 05:37 - Notes Notes: PHYSICAL EXAMINATION: GENERAL: Well-appearing, well-nourished and in severe acute distress. HEAD: Atraumatic, normocephalic. EYES: Pupils equal round and reactive to light, extraocular movements intact, sclera anicteric, conjunctiva are normal. ENT: nares patent, oropharynx clear without exudates. Moist mucous membranes. NECK: Normal range of motion, supple without lymphadenopathy LUNGS: respiratory distress, biphasic wheezing HEART: tachycardia and rhythm without murmurs ABDOMEN: Soft, nontender, normoactive bowel sounds. No guarding, no rebound. No masses appreciated. EXTREMITIES: Normal range of motion, no pitting or edema. No cyanosis. NEUROLOGICAL: Cranial nerves grossly intact. Normal speech, normal gait. Normal sensory and motor exams. PSYCH: Normal mood, normal affect. SKIN: Warm, Dry, normal turgor, no rashes or lesions noted. Course - Re-evaluation Re-evalutation: 05/28/19 07:24 Critically ill-appearing elderly female presents in severe respiratory distress. Initially hypoxic. Patient moved emergently to BiPAP. Patient will be given numerous breathing treatments IV steroids. 05/28/19 08:09 Critically ill-appearing patient with numerous nebs BiPAP. Respiratory status improving. Patient has no leukocytosis. Blood cultures obtained. Patient's chest x-ray finds opacity indicative of pneumonia. In the setting of respiratory distress with pneumonia. Initiate ceftriaxone azithromycin therapy. Patient will be admitted to the hospital for close monitoring. 05/28/19 08:38 Consult hospitalist for admission of this patient still on BiPAP. They will come evaluate patient. Admission or discharge will be at their discretion. - Vital Signs Vital signs: Temp Pulse Resp BP Pulse Ox 98.5 F 19 129/72 H 96 05/28/19 05:37 05/28/19 07:11 05/28/19 07:11 05/28/19 07:11 - Laboratory Result Diagrams: 05/28/19 06:21 05/28/19 06:21 Laboratory results interpreted by me: 05/28/19 05/28/19 06:21 06:21 VBG pH 7.43 H Potassium 3.1 L Carbon Dioxide 31 H Glucose 270 H Alkaline Phosphatase 137 H Critical Care Note - Critical Care Note Total time excluding time spent on procedures (mins): 33 Discharge - Discharge Clinical Impression: Smoker, Hypoxia, Acute respiratory failure with hypoxia COPD (chronic obstructive pulmonary disease) Qualifiers: COPD type: COPD with acute exacerbation Qualified Code(s): J44.1 - Chronic obstructive pulmonary disease with (acute) exacerbation Pneumonia Qualifiers: Pneumonia type: due to unspecified organism Laterality: unspecified laterality Lung location: unspecified part of lung Qualified Code(s): J18.9 - Pneumonia, unspecified organism Condition: Stable Disposition: ADMITTED INPATIENT Admitting Provider: Mitul (Hospitalist) Unit Admitted: Medical Floor
[2019-05-28 06:36] LABS: VENOUS BLOOD BASE EXCESS 4.2 mmol/L; VENOUS BLOOD PCO2 44.5 mmHg (35-63); VENOUS BLOOD PH 7.43 (7.30-7.42)
[2019-05-28 06:38] LABS: ABSOLUTE BASOPHILS # (AUTO) 0.1 10^3/uL (0.0-0.2); ABSOLUTE EOSINOPHILS # (AUTO) 0.1 10^3/uL (0.0-0.6); ABSOLUTE LYMPHOCYTES (AUTO) 3.2 10^3/uL (0.5-4.7); ABSOLUTE MONOCYTES (AUTO) 0.8 10^3/uL (0.1-1.4); ABSOLUTE NEUT (AUTO) 5.7 10^3/uL (1.7-8.2); BASOPHILS % (AUTO) 0.7 % (0-2); EOSINOPHILS % (AUTO) 1.3 % (0-6); HEMATOCRIT 36.6 % (36.0-47.0); HEMOGLOBIN 12.5 g/dL (12.0-15.5); MEAN CORPUSCULAR HEMOGLOBIN 28.2 pg (27.0-33.4); MEAN CORPUSCULAR HGB CONC 34.1 g/dL (32.0-36.0); MEAN CORPUSCULAR VOLUME 83 fl (80-97); MONOCYTES % (AUTO) 8.1 % (3-13); PLATELET COUNT 278 10^3/uL (150-450); RED BLOOD COUNT 4.43 10^6/uL (3.72-5.28); SEGMENTED NEUTROPHILS % (AUTO) 57.9 % (42-78); TOTAL CELLS COUNTED % (AUTO) 100 %; WHITE BLOOD COUNT 9.9 10^3/uL (4.0-10.5)
[2019-05-28 07:06] LABS: ALBUMIN 3.8 g/dL (3.5-5.0); ALKALINE PHOSPHATASE 137 U/L (38-126); ANION GAP 9 (5-19); ASPARTATE AMINO TRANSFERASE 18 U/L (14-36); BILIRUBIN,DIRECT 0.4 mg/dL (0.0-0.4); BILIRUBIN,TOTAL 0.7 mg/dL (0.2-1.3); BLOOD UREA NITROGEN 12 mg/dL (7-20); CARBON DIOXIDE 31 mmol/L (22-30); CHLORIDE 98 mmol/L (98-107); GLUCOSE 270 mg/dL (75-110); TOTAL PROTEIN 7.7 g/dL (6.3-8.2)
[2019-05-28 07:09] LABS: POTASSIUM 3.1 mmol/L (3.6-5.0)
--- NOTE | 2019-05-28 07:29 | RADIOLOGY REPORT (SQ) ---
EXAM DESCRIPTION: XR CHEST 1 VIEW COMPLETED DATE/TME: 05/28/2019 05:44 CLINICAL HISTORY: 63 years Female, SOB, CHEST PAIN COMPARISON: One day prior. NUMBER OF VIEWS/TECHNIQUE: 1/AP FINDINGS: Mild interstitial markings. Small bibasilar opacity-effusion. Moderate bandlike atelectasis or scar of the right lower lobe. Normal cardiac silhouette size. No pneumothorax. Stable bony thorax.Sternotomy. Cardiac/mediastinal hardware/clips. Limitation: Leads/hardware/artifact. IMPRESSION: Small bibasilar opacity-effusion. Interval worsening.
[2019-05-28] MEDS ORDERED: AZITHROMYCIN INJ 500 MG VIAL IV ONE (08:08)
[2019-05-28] MEDS ORDERED: CEFTRIAXONE 1 GM/D5W RTU 1 GM/50 ML RTUPB IV ONE (08:30)
[2019-05-28] MEDS: IPRATROPIUM/ALBUTEROL 0.5-2.5 MG/3 ML AMPUL NEB PRN (09:33)
[2019-05-28] MEDS ORDERED: POTASSI CL 20 MEQ/50 ML RIDER 20 MEQ/50 ML RTUPB IV SCH (10:00)
[2019-05-28] MEDS ORDERED: FUROSEMIDE INJ/PF 40 MG/4 ML SDV IV ONE (10:00)
[2019-05-28] MEDS ORDERED: DEXTROSE 50%-WATER 25 GM/50 ML DISP.SYRIN IV PRN ×2 (10:23)
[2019-05-28] MEDS ORDERED: DEXTROSE 40% GEL 15 GM TUBE PO PRN ×2 (10:23)
[2019-05-28] MEDS ORDERED: GLUCAGON,HUMAN RECOMB 1 MG INJ IM PRN (10:23)
[2019-05-28] MEDS ORDERED: INFLUENZA QUAD (6MOS+) 2019-20 VAC 0.5 ML SYR IM ONE (10:52)
[2019-05-28 10:56] LABS: APPEARANCE,URINE CLEAR; BILIRUBIN,URINE NEGATIVE (NEGATIVE); COLOR,URINE YELLOW; GLUCOSE, URINE >=500 mg/dL (NEGATIVE); KETONES,URINE TRACE mg/dL (NEGATIVE); LEUKOCYTE ESTERASE,URINE NEGATIVE (NEGATIVE); NITRITE,URINE NEGATIVE (NEGATIVE); PROTEIN,URINE 30 mg/dL (NEGATIVE); URINE SPECIFIC GRAVITY 1.021; UROBILINOGEN,URINE NEGATIVE mg/dL (<2.0)
[2019-05-28 11:08] LABS: A TYPE INFLUENZA AG NEGATIVE (NEGATIVE); B INFLUENZA AG NEGATIVE (NEGATIVE)
[2019-05-28] MEDS ORDERED: POTASSIUM CHLORIDE 10 MEQ TABLET.ER PO ONE ×2 (11:44→12:15)
--- NOTE | 2019-05-28 11:46 | EKG REPORT ---
SEVERITY:- ABNORMAL ECG - SINUS TACHYCARDIA RUN OF VENTRICULAR PREMATURE COMPLEXES PROBABLE LVH WITH SECONDARY REPOL ABNRM : Confirmed by: Rich Butler 28-May-2019 11:45:44
[2019-05-28] MEDS: LISINOPRIL 10 MG TABLET PO SCH (11:51)
[2019-05-28] MEDS: INSULIN LISPRO 100 UNIT/ML 3 ML VIAL SUBCUT SCH ×3 (11:52→22:43)
[2019-05-28] MEDS: METOPROLOL SUCCINATE 25 MG TAB.SR.24H PO SCH (11:52)
[2019-05-28] MEDS ORDERED: POTASSIUM CHLORIDE 20 MEQ PACKET PO ONE (12:15)
[2019-05-28] MEDS: HEPARIN SOD (PORCINE) 5,000 UNIT/ML 1 ML VIAL SUBCUT SCH ×2 (13:30→21:10)
[2019-05-28] MEDS ORDERED: INSULIN LISPRO 100 UNIT/ML 3 ML VIAL SUBCUT ONE (17:30)
--- NOTE | 2019-05-28 19:25 | XCELERA REPORT ---
[address] [address] Transthoracic Echocardiogram Report Name: STELLA FRANKLIN Age: 63 yrs Gender: Female : 1955 Patient Status: Inpatient Patient Location: [address] [place] [address] Study Date: 05/28/2019 02:18 PM Height: 62 in Weight: 132 lb BSA: 1.6 m2 Procedure: A complete two-dimensional transthoracic echocardiogram was performed (2D, M-mode, spectral and color flow Doppler). The study was technically adequate with some images being suboptimal in quality. Reason For Study: dyspnea Ordering Physician: ZEN RIOS Performed By: Melissa Estrada Interpretation Summary Left ventricular systolic function is mildly reduced. The Ejection Fraction estimate is 45-50% There is mild concentric left ventricular hypertrophy. The left ventricle is grossly normal size. Doppler measurements suggest pseudonormalized left ventricular relaxation, which is associated with grade II/IV or mild to moderate diastolic dysfunction Regional wall motion abnormalities cannot be excluded due to limited visualization. Right ventricular function cannot be assessed due to poor image quality. The right ventricle is grossly normal size. The left atrium is moderately dilated. The right atrium is normal. There is a mild amount of mitral regurgitation There is no mitral valve stenosis. No aortic regurgitation is present. There is no aortic valve stenosis Tricuspid regurgitation jet envelope not well defined to measure RV systolic pressure accurately. There is a trace or physiologic amount of tricuspid regurgitation The inferior vena cava appeared normal and decreased > 50% with respiration (RAP 5-10 mmHg) The aortic root is not well visualized but is probably normal size. There is no pericardial effusion. MMode/2D Measurements & Calculations RVDd: 3.0 cm LVIDd: 5.1 cm FS: 20.6 % Ao root diam: 2.6 cm IVSd: 1.1 cm LVIDs: 4.0 cm EDV(Teich): 122.1 ml Ao root area: 5.3 cm2 LVPWd: 1.1 cm ESV(Teich): 71.0 ml EF(Teich): 41.9 % Doppler Measurements & Calculations MV E max cristopher: MV dec slope: Ao V2 max: LV V1 max P.0 cm/sec 742.5 cm/sec2 152.6 cm/sec 5.1 mmHg MV A max cristopher: MV dec time: Ao max PG: LV V1 max: 39.4 cm/sec 0.20 sec 9.3 mmHg 112.5 cm/sec MV E/A: 3.7 PA V2 max: PI end-d cristopher: TR max cristopher: 58.6 cm/sec 117.5 cm/sec 242.9 cm/sec PA max P.4 mmHg TR max P.6 mmHg Left Ventricle The left ventricle is grossly normal size. There is mild concentric left ventricular hypertrophy. Left ventricular systolic function is mildly reduced. The Ejection Fraction estimate is 45-50%. Doppler measurements suggest pseudonormalized left ventricular relaxation, which is associated with grade II/IV or mild to moderate diastolic dysfunction. Regional wall motion abnormalities cannot be excluded due to limited visualization. Right Ventricle The right ventricle is grossly normal size. Right ventricular function cannot be assessed due to poor image quality. Atria The right atrium is normal. The left atrium is moderately dilated. Interarterial septum not well visualized and not well dopplered. Cannot comment on ASD/PFO presence. Mitral Valve The mitral valve leaflets are sclerotic, but show no functional abnormalities. There is no mitral valve stenosis. There is a mild amount of mitral regurgitation. Aortic Valve The aortic valve is not well visualized secondary to technical limitations. There is no aortic valve stenosis. No aortic regurgitation is present. Tricuspid Valve The tricuspid valve is not well visualized, but is grossly normal. There is no tricuspid stenosis. There is a trace or physiologic amount of tricuspid regurgitation. Tricuspid regurgitation jet envelope not well defined to measure RV systolic pressure accurately. Pulmonic Valve The pulmonic valve is not well visualized. Great Vessels The aortic root is not well visualized but is probably normal size. The inferior vena cava appeared normal and decreased > 50% with respiration (RAP 5-10 mmHg). Effusions There is no pericardial effusion. : ZEN RIOS Shyamal
--- NOTE | 2019-05-28 19:30 | PDOC H&P ---
History of Present Illness Admission Date/PCP: 05/28/19 09:48 History of Present Illness: STELLA FRANKLIN is a 63 year old female who was initially pitched to me as a pneumonia. She has a history of three-vessel CABG approximately 2014, hypertension, current every day smoker 1 pack a day, who has not been taking any of her medications for at least the past month, and has no primary care provider. She presented today with acute onset of shortness of breath. She has not been running a fever and she is not been coughing. She has had no sputum production. She sleeps propped up on 3 pillows. She has noticed development of lower extremity edema bilaterally over the last several days, and this is not something she typically experiences. She was also noted to have prominent JVD bilaterally. She required BiPAP in the ER. She got steroids and nebulizer treatments and the steroids made her blood sugar go really high. She did not, however, have any improvement in her shortness of breath. Past Medical History Cardiac Medical History: Reports: Congestive Heart Failure, Coronary Artery Disease, Myocardial Infarction, Hyperlipidema, Hypertension, Peripheral Vascular Disease Denies: Atrial Fibrillation, DVT, Pulmonary Embolism Pulmonary Medical History: Reports: Asthma, Chronic Obstructive Pulmonary Disease (COPD), Respiratory Failure Neurological Medical History: Denies: Seizures Endocrine Medical History: Reports: Diabetes Mellitus Type 2, Hyperthyroidism - Was told once her thyroid might be high Denies: Diabetes Mellitus Type 1, Hypothyroidism GI Medical History: Denies: Cirrhosis, Crohn's Disease, Diverticulitis, Hepatitis, Ulcerative Colitis Musculoskeltal Medical History: Denies: Arthritis, Fibromyalgia Skin Medical History: Denies: Eczema, Psoriasis Psychiatric Medical History: Denies: Depression Hematology: Denies: Anemia, Bleeding Tendencies Past Surgical History Past Surgical History: Reports: Cardiac Catheterization, Coronary Artery Bypass Graft, Coronary Stent, Tubal Ligation Social History Smoking Status: Current Every Day Smoker Cigarettes Packs Per Day: 1 Electronic Cigarette use?: No Frequency of Alcohol Use: None Hx Recreational Drug Use: No Drugs: None Hx Prescription Drug Abuse: No Family History Family History: CAD, DM, Hypertension Parental Family History Reviewed: Yes Children Family History Reviewed: Yes Sibling(s) Family History Reviewed.: Yes Medication/Allergy Home Medications: Atorvastatin Calcium [Lipitor 80 mg Tablet] 80 mg PO QHS 02/07/19 Fluticasone/Vilanterol [Breo 100-25 Mcg Ellipta 14 Dose/Dpi] 1 puff IH DAILY 02/07/19 Gabapentin [Neurontin 100 mg Capsule] 100 mg PO Q12 02/07/19 Glipizide [Glucotrol 10 mg Tablet] 10 mg PO BIDBS 02/07/19 Lisinopril [Prinivil] 20 mg PO DAILY 02/07/19 Metformin HCl [Glucophage] 1,000 mg PO BIDBS 02/07/19 Nitroglycerin [Nitrostat 0.4 mg (1/150 Gr) Tabs 25/Bottle] 1 tab SL Q5MP PRN 02/07/19 Ranolazine [Ranexa 500 mg Tab.sr] 500 mg PO Q12 #60 tab.sr.12h 02/08/19 Metoprolol Succinate [Toprol Xl 50 mg Tab.sr] 50 mg PO Q12 #60 tab.sr.24h 02/09/19 Oxycodone HCl/Acetaminophen [Percocet 5-325 mg Tablet] 1 - 2 tab PO TID PRN #15 tablet 05/14/19 Albuterol Sulfate [Proair Respiclick] 2 puff IH Q4HP PRN 05/28/19 Clopidogrel Bisulfate [Plavix 75 mg Tablet] 75 mg PO DAILY 05/28/19 Fenofibrate 160 mg PO DAILY 05/28/19 Insulin Glargine,Hum.rec.anlog [Lantus Insulin 100 Unit/1 ml 10 ml] 10 units SQ DAILY 05/28/19 Allergies/Adverse Reactions: No Known Allergies Allergy (Verified 02/07/19 07:54) Review of Systems All systems: reviewed and no additional remarkable complaints except as stated - All systems were reviewed and were negative except as noted in the HPI Physical Exam Vital Signs: Temp Pulse Resp BP Pulse Ox 97.5 F 90 18 110/63 92 05/28/19 10:16 05/28/19 15:46 05/28/19 10:16 05/28/19 15:46 05/28/19 16:12 Intake & Output 05/27/19 05/28/19 05/29/19 06:59 06:59 06:59 Intake Total 250 Balance 250 Weight 59.874 kg 60.2 kg General appearance: PRESENT: cooperative, disheveled, other - Moderate distress, looks older than her stated age Head exam: PRESENT: atraumatic, normocephalic Eye exam: PRESENT: EOMI, PERRLA. ABSENT: conjunctival injection, nystagmus, scleral icterus Ear exam: PRESENT: normal external ear exam Mouth exam: PRESENT: dry mucosa, neck supple Teeth exam: PRESENT: poor dentation Throat exam: ABSENT: post pharyngeal erythema Neck exam: PRESENT: full ROM, JVD. ABSENT: carotid bruit, lymphadenopathy, meningismus, tenderness, thyromegaly Respiratory exam: PRESENT: crackles - Bibasilar, decreased breath sounds, symmetrical, tachypnea. ABSENT: accessory muscle use, chest wall tenderness, prolonged expiratory phas, retraction, rhonchi, unlabored, wheezes Cardiovascular exam: PRESENT: RRR - Occasional premature beats, +S1, +S2 Pulses: PRESENT: normal carotid pulses Vascular exam: PRESENT: normal capillary refill GI/Abdominal exam: PRESENT: normal bowel sounds, soft. ABSENT: distended, guarding, rebound, tenderness Extremities exam: PRESENT: pedal edema, +2 edema. ABSENT: clubbing Musculoskeletal exam: PRESENT: normal inspection. ABSENT: deformity Neurological exam: PRESENT: alert, awake, oriented to person, oriented to place, oriented to situation, CN II-XII grossly intact. ABSENT: motor sensory deficit Psychiatric exam: PRESENT: flat affect Skin exam: PRESENT: dry, warm Results Laboratory Results: 05/28/19 06:21 05/28/19 06:21 05/28/19 05/28/19 05/28/19 06:21 06:21 06:21 WBC 9.9 RBC 4.43 Hgb 12.5 Hct 36.6 MCV 83 MCH 28.2 MCHC 34.1 RDW 14.0 Plt Count 278 Seg Neutrophils % 57.9 VBG pH 7.43 H VBG pCO2 44.5 VBG HCO3 29.0 VBG Base Excess 4.2 Sodium 138.4 Potassium 3.1 L Chloride 98 Carbon Dioxide 31 H Anion Gap 9 BUN 12 Creatinine 0.54 Est GFR ( Amer) > 60 Glucose 270 H Calcium 9.0 Total Bilirubin 0.7 AST 18 Alkaline Phosphatase 137 H Total Protein 7.7 Albumin 3.8 Urine Color Urine Appearance Urine pH Ur Specific [place] Urine Protein Urine Glucose (UA) Urine Ketones Urine Blood Urine Nitrite Ur Leukocyte Esterase Urine WBC (Auto) Urine RBC (Auto) 05/28/19 10:30 WBC RBC Hgb Hct MCV MCH MCHC RDW Plt Count Seg Neutrophils % VBG pH VBG pCO2 VBG HCO3 VBG Base Excess Sodium Potassium Chloride Carbon Dioxide Anion Gap BUN Creatinine Est GFR ( Amer) Glucose Calcium Total Bilirubin AST Alkaline Phosphatase Total Protein Albumin Urine Color YELLOW Urine Appearance CLEAR Urine pH 5.0 Ur Specific [place] 1.021 Urine Protein 30 H Urine Glucose (UA) >=500 H Urine Ketones TRACE H Urine Blood NEGATIVE Urine Nitrite NEGATIVE Ur Leukocyte Esterase NEGATIVE Urine WBC (Auto) 5 Urine RBC (Auto) 1 05/28/19 05/28/19 06:21 06:21 Troponin I 0.027 NT-Pro-B Natriuret Pep 2790 H Impressions: Chest X-Ray 05/28/19 05:44 IMPRESSION: Small bibasilar opacity-effusion. Interval worsening. Assessment and Plan - Diagnosis (1) Acute congestive heart failure Qualifiers: Heart failure type: unspecified Qualified Code(s): I50.9 - Heart failure, unspecified Is this a current diagnosis for this admission?: Yes Plan: Give her some Lasix to see how she responds. Check a BMP and it was much higher than her previously noted values. Typically she is around 1500 and this time she came in at 2800. She had JVD on exam and bibasilar crackles and lower extremity edema. There is a history of 3 pillow orthopnea. She has a history of coronary artery disease and is a current every day smoker, and is supposed to be on medication for hypertension as well. Continue to diurese, and an echocardiogram is pending. (2) Acute respiratory failure with hypoxia Is this a current diagnosis for this admission?: Yes Plan: BiPAP and supplemental O2 as needed to maintain SPO2 greater than 90%. Suspected to be due to heart failure. (3) Smoker Is this a current diagnosis for this admission?: Yes Plan: Strongly encourage cessation for multiple reasons. - Time Time Spent with patient: 35 or more minutes - Inpatient Certification Based on my medical assessment, after consideration of the patient's comorbidities, presenting symptoms, or acuity I expect that the services needed warrant INPATIENT care.: Yes I certify that my determination is in accordance with my understanding of Medicare's requirements for reasonable and necessary INPATIENT services [42 CFR 412.3e].: Yes Medical Necessity: Significant Comorbidiites Make Outpatient Treatment Too Risk y, Need Close Monitoring Due to Risk of Patient Decompensation, Need For Continuous Telemetry Monitoring, Risk of Complication if Not Cared For in Hospital
[2019-05-28] MEDS: ATORVASTATIN CALCIUM 80 MG TABLET PO SCH (21:10)
[2019-05-29] MEDS: IPRATROPIUM/ALBUTEROL 0.5-2.5 MG/3 ML AMPUL NEB PRN ×3 (00:27→20:07)
[2019-05-29 05:14] LABS: HEMATOCRIT 33.5 % (36.0-47.0); HEMOGLOBIN 11.6 g/dL (12.0-15.5); MEAN CORPUSCULAR HEMOGLOBIN 28.3 pg (27.0-33.4); MEAN CORPUSCULAR HGB CONC 34.7 g/dL (32.0-36.0); MEAN CORPUSCULAR VOLUME 82 fl (80-97); PLATELET COUNT 268 10^3/uL (150-450); RED BLOOD COUNT 4.12 10^6/uL (3.72-5.28); RED CELL DISTRIBUTION WIDTH 14.5 % (11.5-14.0); WHITE BLOOD COUNT 10.6 10^3/uL (4.0-10.5)
[2019-05-29] MEDS: HEPARIN SOD (PORCINE) 5,000 UNIT/ML 1 ML VIAL SUBCUT SCH ×3 (05:21→21:43)
[2019-05-29 05:42] LABS: ANION GAP 10 (5-19); BLOOD UREA NITROGEN 20 mg/dL (7-20); CARBON DIOXIDE 30 mmol/L (22-30); CHLORIDE 96 mmol/L (98-107); GLUCOSE 248 mg/dL (75-110); POTASSIUM 3.7 mmol/L (3.6-5.0)
[2019-05-29] MEDS: INSULIN LISPRO 100 UNIT/ML 3 ML VIAL SUBCUT SCH ×4 (08:18→21:44)
[2019-05-29] MEDS ORDERED: (PENDING PHARMACY ID) (Fenofibrate [Fenofibrate] 160 MG) PO SCH (10:00)
[2019-05-29] MEDS: FUROSEMIDE INJ/PF 20 MG/2 ML SDV IV SCH ×2 (11:20→22:16)
[2019-05-29] MEDS: FLUTICASONE/VILANTEROL 100-25 MCG/DOSE IH SCH (11:20)
[2019-05-29] MEDS: METOPROLOL SUCCINATE 25 MG TAB.SR.24H PO SCH (11:20)
[2019-05-29] MEDS: FENOFIBRATE NANOCRYSTALLIZED 145 MG TABLET PO SCH (11:20)
[2019-05-29] MEDS: INSULIN GLARGINE,HUM.REC.ANLOG 1,000 UNIT/10 ML VIAL SUBCUT SCH (11:20)
[2019-05-29] MEDS: CLOPIDOGREL BISULFATE 75 MG TABLET PO SCH (11:21)
[2019-05-29] MEDS: LISINOPRIL 10 MG TABLET PO SCH (11:21)
--- NOTE | 2019-05-29 18:33 | PDOC PROGRESS REPORT ---
Subjective Progress Note for:: 05/29/19 Subjective:: No adverse events overnight. She is been stable on the nasal cannula. Urine output was good. Reason For Visit: ACUTE CHF,ACUTE RESPIRATORY FAILURE Physical Exam Vital Signs: Temp Pulse Resp BP Pulse Ox 97.4 F 94 16 102/48 L 99 05/29/19 12:01 05/29/19 14:00 05/29/19 13:03 05/29/19 12:01 05/29/19 13:03 Intake & Output 05/28/19 05/29/19 05/30/19 06:59 06:59 06:59 Intake Total 830 690 Output Total 100 100 Balance 730 590 Weight 59.874 kg 61 kg General appearance: PRESENT: cooperative, disheveled Respiratory exam: PRESENT: crackles - Bibasilar, decreased breath sounds, symme trical, tachypnea. ABSENT: accessory muscle use, chest wall tenderness, prolonged expiratory phas, retraction, rhonchi, unlabored, wheezes Cardiovascular exam: PRESENT: RRR - Occasional premature beats, +S1, +S2 Pulses: PRESENT: normal carotid pulses Vascular exam: PRESENT: normal capillary refill GI/Abdominal exam: PRESENT: normal bowel sounds, soft. ABSENT: distended, guarding, rebound, tenderness Extremities exam: PRESENT: pedal edema, +1 edema. ABSENT: clubbing Musculoskeletal exam: PRESENT: normal inspection. ABSENT: deformity Neurological exam: PRESENT: alert, awake, oriented to person, oriented to place, oriented to situation Psychiatric exam: PRESENT: flat affect Skin exam: PRESENT: dry, warm Results Laboratory Results: 05/29/19 04:36 05/29/19 04:36 05/29/19 05/29/19 04:36 04:36 WBC 10.6 H RBC 4.12 Hgb 11.6 L Hct 33.5 L MCV 82 MCH 28.3 MCHC 34.7 RDW 14.5 H Plt Count 268 Sodium 136.0 L Potassium 3.7 Chloride 96 L Carbon Dioxide 30 Anion Gap 10 BUN 20 Creatinine 0.61 Est GFR ( Amer) > 60 Glucose 248 H Calcium 9.0 05/28/19 05/28/19 06:21 06:21 Troponin I 0.027 NT-Pro-B Natriuret Pep 2790 H Impressions: Chest X-Ray 05/28/19 05:44 IMPRESSION: Small bibasilar opacity-effusion. Interval worsening. Assessment and Plan - Diagnosis (1) Acute congestive heart failure Qualifiers: Heart failure type: combined systolic and diastolic Qualified Code(s): I50.41 - Acute combined systolic (congestive) and diastolic (congestive) heart failure Is this a current diagnosis for this admission?: Yes Plan: Continue IV Lasix. EF was 45% with grade 2 diastolic dysfunction on echocardiogram. We will make sure she is medically optimized and stressed to her the importance of taking her medications. (2) Acute respiratory failure with hypoxia Is this a current diagnosis for this admission?: Yes Plan: To new supplemental O2 to maintain SPO2 greater than 90% (3) Smoker Is this a current diagnosis for this admission?: Yes Plan: Strongly encourage cessation for multiple reasons. - Time Time Spent with patient: 15-24 minutes
[2019-05-29] MEDS ORDERED: ACETAMINOPHEN 325 MG TABLET PO PRN (19:10)
[2019-05-29] MEDS ORDERED: ACETAMINOPHEN 325 MG TABLET ONE (19:12)
[2019-05-29] MEDS: ATORVASTATIN CALCIUM 80 MG TABLET PO SCH (22:16)
[2019-05-30] MEDS: IPRATROPIUM/ALBUTEROL 0.5-2.5 MG/3 ML AMPUL NEB PRN (00:56)
[2019-05-30] MEDS: HEPARIN SOD (PORCINE) 5,000 UNIT/ML 1 ML VIAL SUBCUT SCH (05:09)
[2019-05-30 05:26] LABS: HEMATOCRIT 34.4 % (36.0-47.0); HEMOGLOBIN 11.9 g/dL (12.0-15.5); MEAN CORPUSCULAR HEMOGLOBIN 28.4 pg (27.0-33.4); MEAN CORPUSCULAR HGB CONC 34.7 g/dL (32.0-36.0); MEAN CORPUSCULAR VOLUME 82 fl (80-97); PLATELET COUNT 261 10^3/uL (150-450); RED CELL DISTRIBUTION WIDTH 14.6 % (11.5-14.0); WHITE BLOOD COUNT 9.2 10^3/uL (4.0-10.5)
[2019-05-30 05:51] LABS: ANION GAP 8 (5-19); BLOOD UREA NITROGEN 32 mg/dL (7-20); CALCIUM 9.1 mg/dL (8.4-10.2); CARBON DIOXIDE 33 mmol/L (22-30); CHLORIDE 98 mmol/L (98-107); GLUCOSE 141 mg/dL (75-110); POTASSIUM 3.6 mmol/L (3.6-5.0)
[2019-05-30] MEDS: FUROSEMIDE INJ/PF 20 MG/2 ML SDV IV SCH (09:32)
[2019-05-30] MEDS: METOPROLOL SUCCINATE 25 MG TAB.SR.24H PO SCH (09:32)
[2019-05-30] MEDS: INSULIN LISPRO 100 UNIT/ML 3 ML VIAL SUBCUT SCH (09:32)
[2019-05-30] MEDS: FENOFIBRATE NANOCRYSTALLIZED 145 MG TABLET PO SCH (09:32)
[2019-05-30] MEDS: LISINOPRIL 10 MG TABLET PO SCH (09:32)
[2019-05-30] MEDS: CLOPIDOGREL BISULFATE 75 MG TABLET PO SCH ×2 (09:32→09:34)
[2019-05-30] MEDS: INSULIN GLARGINE,HUM.REC.ANLOG 1,000 UNIT/10 ML VIAL SUBCUT SCH (09:33)
[2019-05-30] MEDS: FLUTICASONE/VILANTEROL 100-25 MCG/DOSE IH SCH (09:42)
[2019-05-30 12:15] VITALS: BP 125/74
--- NOTE | 2019-05-30 16:22 | PDOC DISCHARGE SUMMARY ---
Impression - Admit/DC Date/PCP Admission Date/Primary Care Provider: 05/28/19 09:48 Discharge Date: 05/30/19 - Discharge Diagnosis (1) Acute congestive heart failure Is this a current diagnosis for this admission?: Yes (2) Acute respiratory failure with hypoxia Is this a current diagnosis for this admission?: Yes (3) Smoker Is this a current diagnosis for this admission?: Yes - Additional Information Resuscitation Status: Full Code Discharge Diet: Cardiac, Diabetic Discharge Activity: Activity As Tolerated, Balance Activity w/Rest, Weigh Daily Referrals: DORIS CHILDRESS MD [ACTIVE STAFF] - 06/06/19 2:00 pm (3-5 days) Prescriptions: Fluticasone/Vilanterol [Breo 100-25 Mcg Ellipta 14 Dose/Dpi] 1 puff IH DAILY #1 inhaler Ticagrelor [Brilinta 90 mg Tablet] 1 tab PO BID #60 tablet Metformin HCl [Glucophage] 1,000 mg PO BIDBS #60 Glipizide [Glucotrol 10 mg Tablet] 10 mg PO BIDBS #60 Insulin Glargine,Hum.rec.anlog [Lantus Insulin 100 Unit/1 ml 10 ml] 10 units SQ DAILY #1 bottle Furosemide [Lasix 20 mg Tablet] 20 mg PO QAM #30 tablet Atorvastatin Calcium [Lipitor 80 mg Tablet] 80 mg PO QHS #30 Nitroglycerin [Nitrostat 0.4 mg (1/150 Gr) Tabs 25/Bottle] 1 tab SL Q5MP PRN #30 bottle PRN Reason: CHEST PAIN Lisinopril [Prinivil 10 mg Tablet] 10 mg PO DAILY #30 tablet Albuterol Sulfate [Proair Respiclick] 2 puff IH Q4HP PRN #1 PRN Reason: FOR SHORTNESS OF BREATH Metoprolol Succinate [Toprol Xl 25 mg Tab.sr] 25 mg PO DAILY #30 tab.sr.24h Home Medications: Albuterol Sulfate [Proair Respiclick] 2 puff IH Q4HP PRN #1 05/30/19 Atorvastatin Calcium [Lipitor 80 mg Tablet] 80 mg PO QHS #30 05/30/19 Fluticasone/Vilanterol [Breo 100-25 Mcg Ellipta 14 Dose/Dpi] 1 puff IH DAILY #1 inhaler 05/30/19 Furosemide [Lasix 20 mg Tablet] 20 mg PO QAM #30 tablet 05/30/19 Glipizide [Glucotrol 10 mg Tablet] 10 mg PO BIDBS #60 05/30/19 Insulin Glargine,Hum.rec.anlog [Lantus Insulin 100 Unit/1 ml 10 ml] 10 units SQ DAILY #1 bottle 05/30/19 Lisinopril [Prinivil 10 mg Tablet] 10 mg PO DAILY #30 tablet 05/30/19 Metformin HCl [Glucophage] 1,000 mg PO BIDBS #60 05/30/19 Metoprolol Succinate [Toprol Xl 25 mg Tab.sr] 25 mg PO DAILY #30 tab.sr.24h 03/08 Nitroglycerin [Nitrostat 0.4 mg (1/150 Gr) Tabs 25/Bottle] 1 tab SL Q5MP PRN #30 bottle 05/30/19 Ticagrelor [Brilinta 90 mg Tablet] 1 tab PO BID #60 tablet 05/30/19 History of Present Illiness History of Present Illness: STELLA FRANKLIN is a 63 year old female who was initially pitched to me as a pneumonia. She has a history of three-vessel CABG approximately 2014, hypertension, current every day smoker 1 pack a day, who has not been taking any of her medications for at least the past month, and has no primary care provider. She presented today with acute onset of shortness of breath. She has not been running a fever and she is not been coughing. She has had no sputum production. She sleeps propped up on 3 pillows. She has noticed development of lower extremity edema bilaterally over the last several days, and this is not something she typically experiences. She was also noted to have prominent JVD bilaterally. She required BiPAP in the ER. She got steroids and nebulizer treatments and the steroids made her blood sugar go really high. She did not, however, have any improvement in her shortness of breath. Hospital Course Hospital Course: She responded very quickly to diuresis. She is not taking her medications for at least a month and she was in encouraged to do so as directed. Her echocardiogram showed an EF of 45% with grade 2 diastolic dysfunction and mild to moderate pulmonary hypertension. It was strongly recommended that she quit smoking. She was provided with new prescriptions for all of her home medications that she was supposed to be on. A follow-up visit was set up with her supervisor electric motor testing Dr. Childress. She was on room air. Her labs and examination were reassuring and she was discharged in stable condition. Physical Exam Vital Signs: Temp Pulse Resp BP Pulse Ox 97.9 F 83 17 125/74 99 05/30/19 12:14 05/30/19 12:14 05/30/19 12:14 05/30/19 12:14 05/30/19 12:14 Intake & Output 05/29/19 05/30/19 05/31/19 06:59 06:59 06:59 Intake Total 830 1280 Output Total 100 750 Balance 730 530 Weight 61 kg 61.4 kg General appearance: PRESENT: cooperative, disheveled Respiratory exam: PRESENT: decreased breath sounds, symmetrical, tachypnea. ABSENT: accessory muscle use, crackles, chest wall tenderness, prolonged expiratory phas, retraction, rhonchi, unlabored, wheezes Cardiovascular exam: PRESENT: RRR - Occasional premature beats, +S1, +S2 Pulses: PRESENT: normal carotid pulses Vascular exam: PRESENT: normal capillary refill GI/Abdominal exam: PRESENT: normal bowel sounds, soft. ABSENT: distended, guarding, rebound, tenderness Extremities exam: PRESENT: Trace ankle edema. ABSENT: clubbing Musculoskeletal exam: PRESENT: normal inspection. ABSENT: deformity Neurological exam: PRESENT: alert, awake, oriented to person, oriented to place, oriented to situation Psychiatric exam: PRESENT: flat affect Skin exam: PRESENT: dry, warm Results Laboratory Results: WBC 9.2 10^3/uL (4.0-10.5) 05/30/19 04:37 RBC 4.20 10^6/uL (3.72-5.28) 05/30/19 04:37 Hgb 11.9 g/dL (12.0-15.5) L 05/30/19 04:37 Hct 34.4 % (36.0-47.0) L 05/30/19 04:37 MCV 82 fl (80-97) 05/30/19 04:37 MCH 28.4 pg (27.0-33.4) 05/30/19 04:37 MCHC 34.7 g/dL (32.0-36.0) 05/30/19 04:37 RDW 14.6 % (11.5-14.0) H 05/30/19 04:37 Plt Count 261 10^3/uL (150-450) 05/30/19 04:37 Lymph % (Auto) 32.0 % (13-45) 05/28/19 06:21 [place] % (Auto) 8.1 % (3-13) 05/28/19 06:21 Eos % (Auto) 1.3 % (0-6) 05/28/19 06:21 Baso % (Auto) 0.7 % (0-2) 05/28/19 06:21 Absolute Neuts (auto) 5.7 10^3/uL (1.7-8.2) 05/28/19 06:21 Absolute Lymphs (auto) 3.2 10^3/uL (0.5-4.7) 05/28/19 06:21 Absolute Monos (auto) 0.8 10^3/uL (0.1-1.4) 05/28/19 06:21 Absolute Eos (auto) 0.1 10^3/uL (0.0-0.6) 05/28/19 06:21 Absolute Basos (auto) 0.1 10^3/uL (0.0-0.2) 05/28/19 06:21 Seg Neutrophils % 57.9 % (42-78) 05/28/19 06:21 VBG pH 7.43 (7.30-7.42) H 05/28/19 06:21 VBG pCO2 44.5 mmHg (35-63) 05/28/19 06:21 VBG HCO3 29.0 mmol/L (20-32) 05/28/19 06:21 VBG Base Excess 4.2 mmol/L 05/28/19 06:21 Sodium 139.1 mmol/L (137-145) 05/30/19 04:37 Potassium 3.6 mmol/L (3.6-5.0) 05/30/19 04:37 Chloride 98 mmol/L (98-107) 05/30/19 04:37 Carbon Dioxide 33 mmol/L (22-30) H 05/30/19 04:37 Anion Gap 8 (5-19) 05/30/19 04:37 BUN 32 mg/dL (7-20) H 05/30/19 04:37 Creatinine 0.74 mg/dL (0.52-1.25) 05/30/19 04:37 Est GFR ( Amer) > 60 (>60) 05/30/19 04:37 Est GFR (MDRD) Non-Af > 60 (>60) 05/30/19 04:37 Glucose 141 mg/dL (75-110) H 05/30/19 04:37 POC Glucose 142 mg/dL (70-110) H 05/30/19 11:51 Calcium 9.1 mg/dL (8.4-10.2) 05/30/19 04:37 Total Bilirubin 0.7 mg/dL (0.2-1.3) 05/28/19 06:21 Direct Bilirubin 0.4 mg/dL (0.0-0.4) 05/28/19 06:21 Neonat Total Bilirubin Not Reportable 05/28/19 06:21 Neonat Direct Bilirubin Not Reportable 05/28/19 06:21 Neonat Indirect Bili Not Reportable 05/28/19 06:21 AST 18 U/L (14-36) 05/28/19 06:21 ALT 14 U/L (<35) 05/28/19 06:21 Alkaline Phosphatase 137 U/L (38-126) H 05/28/19 06:21 Troponin I 0.027 ng/mL 05/28/19 06:21 NT-Pro-B Natriuret Pep 2790 pg/mL (<125) H 05/28/19 06:21 Total Protein 7.7 g/dL (6.3-8.2) 05/28/19 06:21 Albumin 3.8 g/dL (3.5-5.0) 05/28/19 06:21 Urine Color YELLOW 05/28/19 10:30 Urine Appearance CLEAR 05/28/19 10:30 Urine pH 5.0 (5.0-9.0) 05/28/19 10:30 Ur Specific [place] 1.021 05/28/19 10:30 Urine Protein 30 mg/dL (NEGATIVE) H 05/28/19 10:30 Urine Glucose (UA) >=500 mg/dL (NEGATIVE) H 05/28/19 10:30 Urine Ketones TRACE mg/dL (NEGATIVE) H 05/28/19 10:30 Urine Blood NEGATIVE (NEGATIVE) 05/28/19 10:30 Urine Nitrite NEGATIVE (NEGATIVE) 05/28/19 10:30 Urine Bilirubin NEGATIVE (NEGATIVE) 05/28/19 10:30 Urine Urobilinogen NEGATIVE mg/dL (<2.0) 05/28/19 10:30 Ur Leukocyte Esterase NEGATIVE (NEGATIVE) 05/28/19 10:30 Urine WBC (Auto) 5 /HPF 05/28/19 10:30 Urine RBC (Auto) 1 /HPF 05/28/19 10:30 Urine Bacteria (Auto) TRACE /HPF 05/28/19 10:30 Squamous Epi Cells Auto 3 /HPF 05/28/19 10:30 Urine Mucus (Auto) RARE /LPF 05/28/19 10:30 Urine Ascorbic Acid NEGATIVE (NEGATIVE) 05/28/19 10:30 Influenza A (Rapid) NEGATIVE (NEGATIVE) 05/28/19 10:35 Influenza B (Rapid) NEGATIVE (NEGATIVE) 05/28/19 10:35 05/28/19 05/28/19 06:21 06:21 Troponin I 0.027 NT-Pro-B Natriuret Pep 2790 H Impressions: Chest X-Ray 05/28/19 05:44 IMPRESSION: Small bibasilar opacity-effusion. Interval worsening. Plan Time Spent: Greater than 30 Minutes Stroke Is this a Stroke Patient?: No Acute Heart Failure - Is this a Heart Failure Patient?: No
== END 2019-05-30 12:49 | disposition home or self-care (01) | DRG 291 ==
LOC: ER 05:35 → EH 09:48 → 3W 11:28
PROVIDERS: ADMIT Family Medicine; ATTEND Family Medicine
PROC: 5A09457 Assistance with Respiratory Ventilation, 24-96 Consecutive Hours, Continuous Positive Airway Pressure (ICD-10-PCS; principal; 2019-05-28)
DX: I11.0 Hypertensive heart disease with heart failure (principal); J96.01 Acute respiratory failure with hypoxia; I50.41 Acute combined systolic (congestive) and diastolic (congestive) heart failure; I25.10 Atherosclerotic heart disease of native coronary artery without angina pectoris; F17.210 Nicotine dependence, cigarettes, uncomplicated; T50.916A Underdosing of multiple unspecified drugs, medicaments and biological substances, initial encounter; E78.5 Hyperlipidemia, unspecified; E11.51 Type 2 diabetes mellitus with diabetic peripheral angiopathy without gangrene; J44.9 Chronic obstructive pulmonary disease, unspecified; I27.20 Pulmonary hypertension, unspecified; I25.2 Old myocardial infarction; Z79.51 Long term (current) use of inhaled steroids; Z79.899 Other long term (current) drug therapy; Z79.4 Long term (current) use of insulin; Z91.128 Patient's intentional underdosing of medication regimen for other reason; Z71.6 Tobacco abuse counseling; Z95.1 Presence of aortocoronary bypass graft; Z82.49 Family history of ischemic heart disease and other diseases of the circulatory system; Z83.3 Family history of diabetes mellitus
CPT/HCPCS: 36415; 71045; 80048; 80053; 81001; 82803; 82962; 83880; 84484; 85025; 85027; 87040; 87804; 93005; 93010; 93306; 94640; 94660; 96365; 96366; 96367; 96375; 99291; J0456; J0696; J1644; J1815; J1940; J2930; J3475; J3490; J7620

== ENCOUNTER 2019-06-05 23:42 | Observation (INO) | payer MEDICARE, MEDICAID ==
--- NOTE | 2019-06-06 00:05 | ER Document Report ---
ED General - General Chief Complaint: Flank Pain Stated Complaint: LEFT KIDNEY PAIN Notes: 63-year-old female with history of smoking, bilateral renal calculi and a right adrenal mass presents with left flank pain severe onset 2 days ago 10 intermittent and worse when standing up. Does not radiate around the front, does not have vomiting. No diarrhea or intra-abdominal pain. Denies fever or respiratory symptoms. Also incidentally complaining of chest pain which she is not forthcoming with but her son tells me about after she is finished tell me about her other pain. No urinary symptoms. Chest pain is intermittent pressure-like left-sided nonradiating with no shortness of breath. She has a history of heavy smoking with known coronary disease status post CABG 7 years ago subsequent cath but she does not know where and who did it. She is been to every hospital in the region and is confused. Here, in 2018 she had a grossly positive stress test and a cath was recommended but there is no documentation as to whether that occurred. She says that she has a stent but she does not know who placed it in where. She sees Dr. Vega for cardiology. TRAVEL OUTSIDE OF THE [place] IN LAST 30 DAYS: No - Related Data Allergies/Adverse Reactions: No Known Allergies Allergy (Verified 06/06/19 00:00) Past Medical History - Social History Smoking Status: Current Every Day Smoker Family History: CAD, DM, Hypertension Patient has suicidal ideation: No Patient has homicidal ideation: No - Past Medical History Cardiac Medical History: Reports: Hx Congestive Heart Failure, Hx Coronary Artery Disease, Hx Heart Attack, Hx Hypercholesterolemia, Hx Hypertension, Hx Peripheral Vascular Disease Denies: Hx Atrial Fibrillation, Hx DVT, Hx Pulmonary Embolism Pulmonary Medical History: Reports: Hx Asthma, Hx COPD, Hx Respiratory Failure Neurological Medical History: Denies: Hx Seizures Endocrine Medical History: Reports: Hx Diabetes Mellitus Type 2, Hx Hyperthyroidism - Was told once her thyroid might be high. Denies: Hx Diabetes Mellitus Type 1, Hx Hypothyroidism Renal/ Medical History: Denies: Hx Peritoneal Dialysis GI Medical History: Denies: Hx Cirrhosis, Hx Crohn's Disease, Hx Diverticulitis, Hx Hepatitis, Hx Ulcerative Colitis Musculoskeletal Medical History: Denies Hx Arthritis, Denies Hx Fibromyalgia Skin Medical History: Denies Hx Eczema, Denies Hx Psoriasis Psychiatric Medical History: Denies: Hx Depression Infectious Medical History: Denies: Hx Hepatitis Past Surgical History: Reports: Hx Cardiac Catheterization, Hx Cardiac Surgery - CABG, Hx Coronary Artery Bypass Graft, Hx Coronary Stent, Hx Open Heart Surgery, Hx Tubal Ligation - Immunizations Hx Diphtheria, Pertussis, Tetanus Vaccination: Yes Review of Systems - Review of Systems Notes: REVIEW OF SYSTEMS GEN: Denies fever, chills, weight loss ENT: Denies sore throat, nasal discharge, ear pain EYES: Denies blurry vision, eye pain, discharge CV: Chest pain RESP: Denies cough, shortness of breath, wheezing GI: Denies abdominal pain, nausea, vomiting, diarrhea MSK:\Joint pain a, SKIN: Denies rash, skin lesions LYMPH: Denies swollen glands/lymph nodes NEURO: Denies headache, focal weakness or numbness, dizziness PSYCH: Denies depression, suicidal or homicidal ideation PHYSICAL EXAMINATION General: No acute distress, well-nourished Head: Atraumatic, normocephalic ENT: Mouth normal, oropharynx moist, no exudates or tonsillar enlargement Eyes: Conjunctiva normal, pupils equal, lids normal Neck: No JVD, supple, no guarding CVS: Normal rate, regular rhythm, no murmurs Resp: No resp distress, equal and normal breath sounds bilaterally GI: Nondistended, soft, no tenderness to palpation, no rebound or guarding Ext: No deformities, no edema, normal range of motion in upper and lower ext Back: No CVA or midline TTP Skin: No rash, warm Lymphatic: No lymphadeopathy noted Neuro: Awake, alert. Face symmetric. GCS 15. Physical Exam - Vital signs Vitals: Resp 16 06/05/19 23:51 Course - Re-evaluation Re-evalutation: 06/06/19 01:26 Patient presents with flank pain with known nephrolithiasis without fever t enderness mostly and most likely due to said nephrolithiasis. She has no renal mass but in adrenal mass on the right. She also has chest pain which is concerning in that it is new in onset familiar to her and she has a long history of coronary disease with a last cath being done at 2017 at [facility]. In ED negative troponin. Heart score is 6. Patient to be admitted to hospitalist for chest pain work-up. Less concerned about flank pain given her work-up here today. She is chest pain-free and she was discussed with Dr. Quinonez for admission to the unit. Please note that clinical decision making for this patient was made during the 2019 pandemic of novel coronavirus which caused a significant strain on the healthcare system including at this particular facility. Criteria for admission, discharge and level of care decisions as well as treatment decisions have necessarily changed. - Vital Signs Vital signs: Temp Pulse Resp BP Pulse Ox 98 F 29 H 115/82 99 06/05/19 23:53 06/05/19 23:53 06/05/19 23:53 06/05/19 23:53 - Laboratory Result Diagrams: 06/06/19 00:14 06/06/19 00:14 Laboratory results interpreted by me: 06/06/19 06/06/19 06/06/19 00:14 00:14 00:28 WBC 10.6 H Hct 34.8 L RDW 14.5 H Sodium 132.6 L BUN 28 H Glucose 264 H Urine Glucose (UA) 50 H Discharge - Discharge Clinical Impression: Left flank pain Chest pain, unspecified Qualifiers: Chest pain type: other chest pain Qualified Code(s): R07.89 - Other chest pain Condition: Fair Disposition: ADMITTED OBSERVATION Admitting Provider: Cristiano (Hospitalist) Unit Admitted: Telemetry
[2019-06-06 00:28] LABS: ABSOLUTE BASOPHILS # (AUTO) 0.1 10^3/uL (0.0-0.2); ABSOLUTE EOSINOPHILS # (AUTO) 0.2 10^3/uL (0.0-0.6); ABSOLUTE LYMPHOCYTES (AUTO) 3.1 10^3/uL (0.5-4.7); ABSOLUTE NEUT (AUTO) 6.1 10^3/uL (1.7-8.2); BASOPHILS % (AUTO) 1.1 % (0-2); EOSINOPHILS % (AUTO) 1.6 % (0-6); HEMATOCRIT 34.8 % (36.0-47.0); LYMPHOCYTES % (AUTO) 29.7 % (13-45); MEAN CORPUSCULAR HEMOGLOBIN 28.3 pg (27.0-33.4); MEAN CORPUSCULAR HGB CONC 34.6 g/dL (32.0-36.0); MEAN CORPUSCULAR VOLUME 82 fl (80-97); MONOCYTES % (AUTO) 9.6 % (3-13); PLATELET COUNT 321 10^3/uL (150-450); RED BLOOD COUNT 4.25 10^6/uL (3.72-5.28); RED CELL DISTRIBUTION WIDTH 14.5 % (11.5-14.0); TOTAL CELLS COUNTED % (AUTO) 100 %; WHITE BLOOD COUNT 10.6 10^3/uL (4.0-10.5)
[2019-06-06 00:45] LABS: APPEARANCE,URINE SLIGHTLY-CLOUDY; BILIRUBIN,URINE NEGATIVE (NEGATIVE); COLOR,URINE YELLOW; GLUCOSE, URINE 50 mg/dL (NEGATIVE); KETONES,URINE NEGATIVE (NEGATIVE); LEUKOCYTE ESTERASE,URINE NEGATIVE (NEGATIVE); NITRITE,URINE NEGATIVE (NEGATIVE); PROTEIN,URINE NEGATIVE (NEGATIVE); URINE SPECIFIC GRAVITY 1.009; UROBILINOGEN,URINE NEGATIVE mg/dL (<2.0)
[2019-06-06] MEDS: KETOROLAC TROMETHAMINE INJ/PF 30 MG/1 ML SDV IV ONE ×2 (00:50→02:02)
[2019-06-06] MEDS: HYDROMORPHONE HCL INJ/PF 2 MG/ML AMPULE IV ONE ×2 (00:51→02:13)
[2019-06-06 01:07] LABS: ANION GAP 10 (5-19); BLOOD UREA NITROGEN 28 mg/dL (7-20); CALCIUM 9.2 mg/dL (8.4-10.2); CARBON DIOXIDE 25 mmol/L (22-30); CHLORIDE 98 mmol/L (98-107); GLUCOSE 264 mg/dL (75-110); POTASSIUM 4.4 mmol/L (3.6-5.0)
[2019-06-06] MEDS ORDERED: KETOROLAC TROMETHAMINE INJ/PF 30 MG/1 ML SDV IM ONE (01:19)
[2019-06-06] MEDS ORDERED: ASPIRIN 325 MG TABLET PO ONE (01:20)
[2019-06-06] MEDS ORDERED: MAGNESIUM HYDROXIDE SUSP 30 ML UDCUP PO PRN (02:06)
[2019-06-06] MEDS ORDERED: NICOTINE 21 MG/24 HR PATCH.TD24 TD PRN (02:06)
[2019-06-06] MEDS ORDERED: MAG HYDROX/AL HYDROX/SIMETH SUSP 30 ML UDCUP PO PRN (02:06)
[2019-06-06] MEDS ORDERED: MORPHINE SULFATE 10 MG/ML INJ IV PRN ×3 (02:06)
[2019-06-06] MEDS ORDERED: ACETAMINOPHEN 325 MG TABLET PO PRN (02:06)
[2019-06-06] MEDS ORDERED: ONDANSETRON HCL INJ/PF 4 MG/2 ML SDV IV PRN (02:07)
--- NOTE | 2019-06-06 05:11 | PDOC H&P ---
History of Present Illness Admission Date/PCP: 06/06/2019 01:44 No local PCP Patient complains of: Left flank pain History of Present Illness: STELLA FRANKLIN is a 63 year old female who presents the emergency room with a 2-day history of pain in her left flank. Her constant left flank pain has persisted since it began 2 days ago and at that time it was evaluated via CT scan where she was found to have bilateral renal calculi (nonobstructive) and a possible right adrenal mass. Her pain is moderate to severe and is localized to the left posterior flank without radiation. She denies any associated signs and symptoms. Her left flank pain has been accompanied by intermittent episodes of chest (pressure) pain in her left anterior and central chest radiating to her left arm and reminiscent of her chest pain associated with coronary artery disease in the past. She denies other accompanying signs and symptoms. She admits prior similar episodes. She has not identified any additional aggravating or ameliorating factors for her left flank pain. In the emergency room she was found to have normal cardiac enzymes and no significant new findings on her flank pain evaluation. 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 Past Medical History Cardiac Medical History: Reports: Congestive Heart Failure, Coronary Artery Disease, Myocardial Infarction, Hyperlipidema, Hypertension, Peripheral Vascular Disease Denies: Atrial Fibrillation, DVT, Pulmonary Embolism Pulmonary Medical History: Reports: Asthma, Chronic Obstructive Pulmonary Disease (COPD), Respiratory Failure EENT Medical History: Denies: Cataracts, Ears - Hearing aids Neurological Medical History: Denies: Hemorrhagic CVA, Ischemic CVA, Seizures Endocrine Medical History: Reports: Diabetes Mellitus Type 2, Hyperthyroidism - Was told once her thyroid might be high Denies: Diabetes Mellitus Type 1, Hypothyroidism Renal/ Medical History: Denies: Chronic Kidney Disease, Nephrolithiasis Malignancy Medical History: Reports: None GI Medical History: Denies: Cirrhosis, Crohn's Disease, Diverticulitis, Hepatitis, Ulcerative Colitis Musculoskeltal Medical History: Denies: Arthritis, Fibromyalgia Skin Medical History: Denies: Eczema, Psoriasis Psychiatric Medical History: Denies: Alcohol Dependency, Depression, Substance Abuse, Tobacco Dependency Traumatic Medical History: Reports: None Hematology: Denies: Anemia, Bleeding Tendencies Infectious Medical History: Reports: None Past Surgical History Past Surgical History: Reports: Cardiac Catheterization, Coronary Artery Bypass Graft, Coronary Stent, Tubal Ligation Social History Information Source: Patient Lives with: Alone Smoking Status: Current Every Day Smoker Electronic Cigarette use?: No Frequency of Alcohol Use: None Hx Recreational Drug Use: No Drugs: None Hx Prescription Drug Abuse: No - Advance Directive Resuscitation Status: Full Code Surrogate healthcare decision maker:: Misael Khan Family History Family History: CAD, DM, Hypertension Parental Family History Reviewed: Yes Children Family History Reviewed: No Sibling(s) Family History Reviewed.: Yes Medication/Allergy Home Medications: Albuterol Sulfate [Proair Respiclick] 2 puff IH Q4HP PRN #1 05/30/19 Atorvastatin Calcium [Lipitor 80 mg Tablet] 80 mg PO QHS #30 05/30/19 Fluticasone/Vilanterol [Breo 100-25 Mcg Ellipta 14 Dose/Dpi] 1 puff IH DAILY #1 inhaler 05/30/19 Furosemide [Lasix 20 mg Tablet] 20 mg PO QAM #30 tablet 05/30/19 Glipizide [Glucotrol 10 mg Tablet] 10 mg PO BIDBS #60 05/30/19 Insulin Glargine,Hum.rec.anlog [Lantus Insulin 100 Unit/1 ml 10 ml] 10 units SQ DAILY #1 bottle 05/30/19 Lisinopril [Prinivil 10 mg Tablet] 10 mg PO DAILY #30 tablet 05/30/19 Metformin HCl [Glucophage] 1,000 mg PO BIDBS #60 05/30/19 Metoprolol Succinate [Toprol Xl 25 mg Tab.sr] 25 mg PO DAILY #30 tab.sr.24h 05/30/19 Nitroglycerin [Nitrostat 0.4 mg (1/150 Gr) Tabs 25/Bottle] 1 tab SL Q5MP PRN #30 bottle 05/30/19 Ticagrelor [Brilinta 90 mg Tablet] 1 tab PO BID #60 tablet 05/30/19 Allergies/Adverse Reactions: No Known Allergies Allergy (Verified 06/06/19 00:00) Review of Systems Constitutional: ABSENT: chills, fever(s) Eyes: ABSENT: visual disturbances, other - Eye pain Ears: ABSENT: hearing changes, other - Ear pain Nose, Mouth, and Throat: ABSENT: headache(s), sore throat Cardiovascular: PRESENT: as per HPI, chest pain. ABSENT: dyspnea on exertion, edema, orthropnea, palpitations Respiratory: ABSENT: cough, dyspnea Gastrointestinal: ABSENT: abdominal pain, constipation, diarrhea, nausea, vomiting Genitourinary: PRESENT: as per HPI, other - Left flank pain. ABSENT: difficulty urinating, dysuria, hematuria Musculoskeletal: ABSENT: back pain, joint swelling, muscle weakness Integumentary: ABSENT: pruritus, rash Neurological: ABSENT: confusion, convulsions, focal weakness, memory loss, syncope Psychiatric: ABSENT: anxiety, depression Endocrine: ABSENT: cold intolerance, heat intolerance, polydipsia, polyphagia, polyuria Hematologic/Lymphatic: ABSENT: easy bleeding, easy bruising Allergic/Immunologic: ABSENT: seasonal rhinorrhea Physical Exam Vital Signs: Temp Pulse Resp BP Pulse Ox 98 F 26 H 112/66 97 06/05/19 23:53 06/06/19 01:01 06/06/19 01:01 06/06/19 01:01 Intake & Output 06/04/19 06/05/19 06/06/19 23:59 23:59 23:59 Weight 59.874 kg General appearance: PRESENT: no acute distress, cooperative Head exam: PRESENT: atraumatic, normocephalic Eye exam: PRESENT: conjunctiva pink. ABSENT: conjunctival injection, scleral icterus Ear exam: PRESENT: normal external ear exam. ABSENT: bleeding, drainage Mouth exam: PRESENT: dry mucosa, neck supple Neck exam: ABSENT: thyromegaly, tracheal deviation Respiratory exam: PRESENT: prolonged expiratory phas - Mildly prolonged expiratory phase noted all amador, symmetrical, unlabored Cardiovascular exam: PRESENT: RRR. ABSENT: clicks, gallop, rubs Vascular exam: PRESENT: normal capillary refill. ABSENT: pallor GI/Abdominal exam: PRESENT: normal bowel sounds, soft. ABSENT: tenderness Rectal exam: PRESENT: deferred Gentrourinary exam: PRESENT: other - Left flank tender to palpation in the area of the costovertebral angle. ABSENT: indwelling catheter Extremities exam: ABSENT: joint swelling, pedal edema Musculoskeletal exam: ABSENT: deformity, dislocation Neurological exam: PRESENT: alert, oriented to person, oriented to place, oriented to time, oriented to situation, CN II-XII grossly intact. ABSENT: motor sensory deficit Psychiatric exam: PRESENT: appropriate affect, normal mood Skin exam: PRESENT: dry, intact, warm. ABSENT: jaundice, rash, urticaria Results Laboratory Results: 06/06/19 00:14 06/06/19 00:14 06/06/19 06/06/19 06/06/19 00:14 00:14 00:28 WBC 10.6 H RBC 4.25 Hgb 12.0 Hct 34.8 L MCV 82 MCH 28.3 MCHC 34.6 RDW 14.5 H Plt Count 321 Seg Neutrophils % 58.0 Sodium 132.6 L Potassium 4.4 Chloride 98 Carbon Dioxide 25 Anion Gap 10 BUN 28 H Creatinine 0.92 Est GFR ( Amer) > 60 Glucose 264 H Calcium 9.2 Urine Color YELLOW Urine Appearance SLIGHTLY-CLOUDY Urine pH 5.0 Ur Specific [place] 1.009 Urine Protein NEGATIVE Urine Glucose (UA) 50 H Urine Ketones NEGATIVE Urine Blood NEGATIVE Urine Nitrite NEGATIVE Ur Leukocyte Esterase NEGATIVE Urine WBC (Auto) 1 06/06/19 00:14 Troponin I 0.017 Assessment and Plan - Diagnosis (1) Chest pain Qualifiers: Chest pain type: other chest pain Qualified Code(s): R07.89 - Other chest pain; R07.8 - Other chest pain Is this a current diagnosis for this admission?: Yes (2) Diabetes mellitus type 2 in nonobese Is this a current diagnosis for this admission?: Yes (3) Hypertension Qualifiers: Hypertension type: essential hypertension Qualified Code(s): I10 - Essential (primary) hypertension Is this a current diagnosis for this admission?: Yes (4) Hyperlipidemia Qualifiers: Hyperlipidemia type: unspecified Qualified Code(s): E78.5 - Hyperlipidemia, unspecified Is this a current diagnosis for this admission?: Yes (5) PAD (peripheral artery disease) Is this a current diagnosis for this admission?: Yes (6) Diabetic neuropathy Qualifiers: Diabetes mellitus type: type 2 Diabetes mellitus complication detail: diabetic polyneuropathy Qualified Code(s): E11.42 - Type 2 diabetes mellitus with diabetic polyneuropathy Is this a current diagnosis for this admission?: Yes (7) CAD (coronary artery disease) Qualifiers: Coronary Disease-Associated Artery/Lesion type: [place] artery [place] vs. transplanted heart: [place] heart Associated angina: without angina Qualified Code(s): I25.10 - Atherosclerotic heart disease of [place] coronary artery without angina pectoris Is this a current diagnosis for this admission?: Yes (8) COPD (chronic obstructive pulmonary disease) Qualifiers: COPD type: unspecified COPD Qualified Code(s): J44.9 - Chronic obstructive pulmonary disease, unspecified Is this a current diagnosis for this admission?: Yes (9) Tobacco abuse Is this a current diagnosis for this admission?: Yes - Plan Summary Summary: Patient will be admitted to observation status in a telemetry bed where she will receive usual supportive and symptomatic cares. A cardiology consultation will be obtained with Dr. Vega to direct further evaluation of the patient's disease. Serial cardiac enzymes will be obtained. Patient will use morphine sulfate 2 to 4 mg IV every 2 hours on an as-needed basis for pain. Where possible, she will be continued on her usual medications for her stable chronic medical illnesses. Patient will be on a cardiac and diabetic restricted diet. - Time Time Spent with patient: 15-24 minutes Medications reviewed and adjusted accordingly: Yes Anticipated discharge: Home Within: within 48 hours - Inpatient Certification Based on my medical assessment, after consideration of the patient's c omorbidities, presenting symptoms, or acuity I expect that the services needed warrant INPATIENT care.: No I certify that my determination is in accordance with my understanding of Medicare's requirements for reasonable and necessary INPATIENT services [42 CFR 412.3e].: No
[2019-06-06] MEDS: HEPARIN SOD (PORCINE) 5,000 UNIT/ML 1 ML VIAL SUBCUT SCH ×3 (05:21→21:25)
[2019-06-06 07:46] LABS: CREATINE KINASE MB 0.55 ng/mL (<4.55); TROPONIN I 0.019 ng/mL
[2019-06-06] MEDS: DOCUSATE SODIUM 100 MG CAPSULE PO SCH ×2 (10:58→18:38)
[2019-06-06] MEDS: FAMOTIDINE 20 MG TABLET PO SCH ×2 (10:58→21:25)
[2019-06-06] MEDS ORDERED: NITROGLYCERIN 0.4 MG/TAB 25 TAB/BOTTLE SL PRN (12:08)
[2019-06-06] MEDS ORDERED: (PENDING PHARMACY ID) (Albuterol Sulfate [Proair Respiclick] 2 PUFF) IH PRN (12:08)
[2019-06-06] MEDS ORDERED: ALBUTEROL SULFATE HFA (90 MCG/PUFF) 8 GM MDI IH PRN (12:22)
[2019-06-06 13:49] LABS: CREATINE KINASE MB 0.68 ng/mL (<4.55); TROPONIN I 0.018 ng/mL
[2019-06-06] MEDS ORDERED: DEXTROSE 40% GEL 15 GM TUBE PO PRN ×2 (14:42)
[2019-06-06] MEDS ORDERED: GLUCAGON,HUMAN RECOMB 1 MG INJ IM PRN (14:42)
[2019-06-06] MEDS ORDERED: DEXTROSE 50%-WATER 25 GM/50 ML DISP.SYRIN IV PRN ×2 (14:42)
--- NOTE | 2019-06-06 15:53 | EKG REPORT ---
SEVERITY:- ABNORMAL ECG - SINUS RHYTHM ABNORMAL T, CONSIDER ISCHEMIA, LATERAL LEADS : Confirmed by: Letty Vega MD 06-Jun-2019 15:52:22
[2019-06-06] MEDS: INSULIN REG, HUMAN 100 UNIT/ML 3 ML VIAL (PYX) SUBCUT SCH ×2 (16:43→22:00)
--- NOTE | 2019-06-06 17:20 | PDOC PROGRESS REPORT ---
Subjective Progress Note for:: 06/06/19 Subjective:: Patient was admitted overnight. She states she feels better at this time. She denies any complaints. She denies any chest pain or difficulty breathing Reason For Visit: LEFT FLANK PAIN,CHEST PAIN Physical Exam Vital Signs: Temp Pulse Resp BP Pulse Ox 98.1 F 76 15 114/62 97 06/06/19 15:06 06/06/19 15:06 06/06/19 15:06 06/06/19 15:06 06/06/19 15:06 Intake & Output 06/05/19 06/06/19 06/07/19 06:59 06:59 06:59 Intake Total 0 578 Output Total 0 Balance 0 578 Weight 58.2 kg General appearance: PRESENT: no acute distress, other - Sleeping but easily arousable Eye exam: PRESENT: PERRLA. ABSENT: scleral icterus Mouth exam: PRESENT: tongue midline Neck exam: ABSENT: carotid bruit, JVD, lymphadenopathy, thyromegaly Respiratory exam: PRESENT: clear to auscultation caroline. ABSENT: rales, rhonchi, wheezes Cardiovascular exam: PRESENT: RRR. ABSENT: diastolic murmur, rubs, systolic murmur Pulses: PRESENT: normal dorsalis pedis pul Vascular exam: PRESENT: normal capillary refill GI/Abdominal exam: PRESENT: normal bowel sounds, soft. ABSENT: distended, guarding, mass, organolmegaly, rebound, tenderness Rectal exam: PRESENT: deferred Extremities exam: PRESENT: full ROM. ABSENT: calf tenderness, clubbing, pedal edema Neurological exam: PRESENT: alert, awake, oriented to person, oriented to place, oriented to time, oriented to situation, CN II-XII grossly intact. ABSENT: motor sensory deficit Psychiatric exam: PRESENT: appropriate affect, normal mood. ABSENT: homicidal ideation, suicidal ideation Skin exam: PRESENT: dry, intact, warm. ABSENT: cyanosis, rash Results Laboratory Results: 06/06/19 00:14 06/06/19 00:14 06/06/19 06/06/19 06/06/19 00:14 00:14 00:28 WBC 10.6 H RBC 4.25 Hgb 12.0 Hct 34.8 L MCV 82 MCH 28.3 MCHC 34.6 RDW 14.5 H Plt Count 321 Seg Neutrophils % 58.0 Sodium 132.6 L Potassium 4.4 Chloride 98 Carbon Dioxide 25 Anion Gap 10 BUN 28 H Creatinine 0.92 Est GFR ( Amer) > 60 Glucose 264 H Calcium 9.2 Urine Color YELLOW Urine Appearance SLIGHTLY-CLOUDY Urine pH 5.0 Ur Specific [place] 1.009 Urine Protein NEGATIVE Urine Glucose (UA) 50 H Urine Ketones NEGATIVE Urine Blood NEGATIVE Urine Nitrite NEGATIVE Ur Leukocyte Esterase NEGATIVE Urine WBC (Auto) 1 06/06/19 06/06/19 06/06/19 00:14 06:45 06:45 Creatine Kinase 49 CK-MB (CK-2) 0.55 Troponin I 0.017 0.019 06/06/19 06/06/19 12:54 12:54 Creatine Kinase 49 CK-MB (CK-2) 0.68 Troponin I 0.018 Assessment and Plan - Diagnosis (1) Chest pain Qualifiers: Chest pain type: other chest pain Qualified Code(s): R07.89 - Other chest p ain; R07.8 - Other chest pain Is this a current diagnosis for this admission?: Yes (3) CAD (coronary artery disease) Qualifiers: Coronary Disease-Associated Artery/Lesion type: [place] artery [place] vs. 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 We will follow-up with cardiology only further interventions if needed. - Time Time Spent with patient: 15-24 minutes Anticipated discharge: Home Within: within 24 hours
[2019-06-06] MEDS: METFORMIN HCL 500 MG TABLET PO SCH (18:22)
[2019-06-06] MEDS: GLIPIZIDE 10 MG TABLET PO SCH (18:23)
[2019-06-06] MEDS: RANOLAZINE 500 MG TAB.SR.12H PO SCH (18:33)
[2019-06-06] MEDS: GABAPENTIN 100 MG CAPSULE PO SCH (18:33)
[2019-06-06] MEDS: TICAGRELOR 90 MG TABLET PO SCH (18:34)
[2019-06-06 18:56] LABS: CREATINE KINASE MB 0.51 ng/mL (<4.55); TROPONIN I 0.015 ng/mL
[2019-06-06] MEDS ORDERED: ATORVASTATIN CALCIUM 80 MG TABLET PO SCH (22:00)
[2019-06-07] MEDS ORDERED: HYDROCODONE/ACETAMINOPHEN 5-325 MG TABLET PO PRN (01:32)
[2019-06-07 04:54] LABS: ABSOLUTE BASOPHILS # (AUTO) 0.1 10^3/uL (0.0-0.2); ABSOLUTE EOSINOPHILS # (AUTO) 0.2 10^3/uL (0.0-0.6); ABSOLUTE LYMPHOCYTES (AUTO) 2.4 10^3/uL (0.5-4.7); ABSOLUTE MONOCYTES (AUTO) 0.7 10^3/uL (0.1-1.4); BASOPHILS % (AUTO) 0.8 % (0-2); EOSINOPHILS % (AUTO) 2.2 % (0-6); HEMOGLOBIN 11.8 g/dL (12.0-15.5); LYMPHOCYTES % (AUTO) 33.3 % (13-45); MEAN CORPUSCULAR HEMOGLOBIN 28.1 pg (27.0-33.4); MEAN CORPUSCULAR HGB CONC 34.8 g/dL (32.0-36.0); MEAN CORPUSCULAR VOLUME 81 fl (80-97); PLATELET COUNT 258 10^3/uL (150-450); RED BLOOD COUNT 4.21 10^6/uL (3.72-5.28); RED CELL DISTRIBUTION WIDTH 14.2 % (11.5-14.0); SEGMENTED NEUTROPHILS % (AUTO) 54.7 % (42-78); TOTAL CELLS COUNTED % (AUTO) 100 %; WHITE BLOOD COUNT 7.3 10^3/uL (4.0-10.5)
[2019-06-07] MEDS: HEPARIN SOD (PORCINE) 5,000 UNIT/ML 1 ML VIAL SUBCUT SCH (05:14)
[2019-06-07 05:15] LABS: ANION GAP 8 (5-19); BLOOD UREA NITROGEN 36 mg/dL (7-20); CALCIUM 8.9 mg/dL (8.4-10.2); CARBON DIOXIDE 26 mmol/L (22-30); CHLORIDE 102 mmol/L (98-107); GLUCOSE 164 mg/dL (75-110)
[2019-06-07 07:23] VITALS: BP 100/71
[2019-06-07] MEDS ORDERED: FUROSEMIDE 20 MG TABLET PO SCH (08:00)
[2019-06-07] MEDS: METFORMIN HCL 500 MG TABLET PO SCH (08:22)
[2019-06-07] MEDS: GLIPIZIDE 10 MG TABLET PO SCH (08:23)
[2019-06-07] MEDS: INSULIN REG, HUMAN 100 UNIT/ML 3 ML VIAL (PYX) SUBCUT SCH (08:24)
[2019-06-07] MEDS ORDERED: FENOFIBRATE NANOCRYSTALLIZED 145 MG TABLET PO SCH (10:00)
[2019-06-07] MEDS ORDERED: ASPIRIN 81 MG TABLET, ENT COATED PO SCH (10:00)
[2019-06-07] MEDS ORDERED: METOPROLOL SUCCINATE 25 MG TAB.SR.24H PO SCH (10:00)
[2019-06-07] MEDS ORDERED: (PENDING PHARMACY ID) (Fenofibrate [Fenofibrate] 160 MG) PO SCH (10:00)
[2019-06-07] MEDS ORDERED: INSULIN GLARGINE,HUM.REC.ANLOG 1,000 UNIT/10 ML VIAL SUBCUT SCH (10:00)
[2019-06-07] MEDS ORDERED: FLUTICASONE/VILANTEROL 100-25 MCG/DOSE IH SCH (10:00)
[2019-06-07] MEDS ORDERED: LISINOPRIL 10 MG TABLET PO SCH (10:00)
[2019-06-07] MEDS ORDERED: ISOSORBIDE MONONITRATE 30 MG TAB.ER.24H PO SCH (10:00)
--- NOTE | 2019-06-07 10:16 | PDOC DISCHARGE SUMMARY ---
Impression - Admit/DC Date/PCP Admission Date/Primary Care Provider: 06/06/19 01:55 Discharge Date: 06/07/19 - Discharge Diagnosis (1) Chest pain Is this a current diagnosis for this admission?: Yes (3) CAD (coronary artery disease) Is this a current diagnosis for this admission?: Yes (4) Hyperglycemia due to type 2 diabetes mellitus Is this a current diagnosis for this admission?: Yes (5) Hypertension Is this a current diagnosis for this admission?: Yes (6) Hypertensive urgency Is this a current diagnosis for this admission?: Yes - Assessment Summary: Patient is currently chest pain-free. She will follow-up with cardiology only further interventions as needed. - Additional Information Resuscitation Status: Full Code Discharge Diet: Cardiac Discharge Activity: Activity As Tolerated Referrals: DORIS CHILDRESS MD [ACTIVE STAFF] - Home Medications: Albuterol Sulfate [Proair Respiclick] 2 puff IH Q4HP PRN #1 05/30/19 Atorvastatin Calcium [Lipitor 80 mg Tablet] 80 mg PO QHS #30 05/30/19 Fluticasone/Vilanterol [Breo 100-25 Mcg Ellipta 14 Dose/Dpi] 1 puff IH DAILY #1 inhaler 05/30/19 Furosemide [Lasix 20 mg Tablet] 20 mg PO QAM #30 tablet 05/30/19 Glipizide [Glucotrol 10 mg Tablet] 10 mg PO BIDBS #60 05/30/19 Insulin Glargine,Hum.rec.anlog [Lantus Insulin 100 Unit/1 ml 10 ml] 10 units SQ DAILY #1 bottle 05/30/19 Lisinopril [Prinivil 10 mg Tablet] 10 mg PO DAILY #30 tablet 05/30/19 Metformin HCl [Glucophage] 1,000 mg PO BIDBS #60 05/30/19 Metoprolol Succinate [Toprol Xl 25 mg Tab.sr] 25 mg PO DAILY #30 tab.sr.24h 05/30/19 Nitroglycerin [Nitrostat 0.4 mg (1/150 Gr) Tabs 25/Bottle] 1 tab SL Q5MP PRN #30 bottle 05/30/19 Ticagrelor [Brilinta 90 mg Tablet] 1 tab PO BID #60 tablet 05/30/19 Aspirin [Adult Low Dose Aspirin EC] 81 mg PO DAILY 06/06/19 Fenofibrate 160 mg PO DAILY 06/06/19 Gabapentin [Neurontin 100 mg Capsule] 100 mg PO BID 06/06/19 Isosorbide Mononitrate [Imdur 30 mg Tablet.er] 15 mg PO DAILY 06/06/19 Ranolazine [Ranexa 500 mg Tab.sr] 500 mg PO BID 06/06/19 History of Present Illiness History of Present Illness: STELLA FRANKLIN is a 63 year old female Patient presents with left-sided flank pain. A CT scan done revealed bilateral renal calculi that was nonobstructive and a possible right adrenal mass. See admitting history and physical for full details as well as consultation report by retail business manager Hospital Course Hospital Course: She was admitted to the telemetry unit. She had serial cardiac enzymes done which were negative. She was seen by Dr. Childress on consultation. He recommended no acute interventions. Patient was hemodynamically stable throughout her hospital stay. She is currently chest pain-free. She has no other significant complaints. At this time with no further intervention has been planned she has been discharged home for outpatient follow-up Physical Exam Vital Signs: Temp Pulse Resp BP Pulse Ox 97.5 F 68 17 100/71 100 06/07/19 07:15 06/07/19 07:15 06/07/19 07:15 06/07/19 07:15 06/07/19 07:15 Intake & Output 06/06/19 06/07/19 06/08/19 06:59 06:59 06:59 Intake Total 0 1456 Output Total 0 Balance 0 1456 Weight 58.2 kg 58.5 kg General appearance: PRESENT: no acute distress, cooperative Head exam: PRESENT: atraumatic Eye exam: PRESENT: EOMI, PERRLA. ABSENT: scleral icterus Mouth exam: PRESENT: moist, tongue midline Neck exam: ABSENT: carotid bruit, JVD, lymphadenopathy, thyromegaly Respiratory exam: PRESENT: clear to auscultation caroline. ABSENT: rales, rhonchi, wheezes Cardiovascular exam: PRESENT: RRR, +S1, +S2. ABSENT: diastolic murmur, rubs, systolic murmur Pulses: PRESENT: normal dorsalis pedis pul Vascular exam: PRESENT: normal capillary refill GI/Abdominal exam: PRESENT: normal bowel sounds, soft. ABSENT: distended, guarding, mass, organolmegaly, rebound, tenderness Rectal exam: PRESENT: deferred Extremities exam: PRESENT: full ROM. ABSENT: calf tenderness, clubbing, pedal edema Musculoskeletal exam: PRESENT: ambulatory Neurological exam: PRESENT: alert, awake, oriented to person, oriented to place, oriented to time, oriented to situation, CN II-XII grossly intact. ABSENT: mot or sensory deficit Psychiatric exam: PRESENT: appropriate affect, normal mood. ABSENT: homicidal ideation, suicidal ideation Skin exam: PRESENT: dry, intact, warm. ABSENT: cyanosis, rash Results Laboratory Results: WBC 7.3 10^3/uL (4.0-10.5) 06/07/19 04:39 RBC 4.21 10^6/uL (3.72-5.28) 06/07/19 04:39 Hgb 11.8 g/dL (12.0-15.5) L 06/07/19 04:39 Hct 34.0 % (36.0-47.0) L 06/07/19 04:39 MCV 81 fl (80-97) 06/07/19 04:39 MCH 28.1 pg (27.0-33.4) 06/07/19 04:39 MCHC 34.8 g/dL (32.0-36.0) 06/07/19 04:39 RDW 14.2 % (11.5-14.0) H 06/07/19 04:39 Plt Count 258 10^3/uL (150-450) 06/07/19 04:39 Lymph % (Auto) 33.3 % (13-45) 06/07/19 04:39 [place] % (Auto) 9.0 % (3-13) 06/07/19 04:39 Eos % (Auto) 2.2 % (0-6) 06/07/19 04:39 Baso % (Auto) 0.8 % (0-2) 06/07/19 04:39 Absolute Neuts (auto) 4.0 10^3/uL (1.7-8.2) 06/07/19 04:39 Absolute Lymphs (auto) 2.4 10^3/uL (0.5-4.7) 06/07/19 04:39 Absolute Monos (auto) 0.7 10^3/uL (0.1-1.4) 06/07/19 04:39 Absolute Eos (auto) 0.2 10^3/uL (0.0-0.6) 06/07/19 04:39 Absolute Basos (auto) 0.1 10^3/uL (0.0-0.2) 06/07/19 04:39 Seg Neutrophils % 54.7 % (42-78) 06/07/19 04:39 Sodium 135.7 mmol/L (137-145) L 06/07/19 04:39 Potassium 4.0 mmol/L (3.6-5.0) 06/07/19 04:39 Chloride 102 mmol/L (98-107) 06/07/19 04:39 Carbon Dioxide 26 mmol/L (22-30) 06/07/19 04:39 Anion Gap 8 (5-19) 06/07/19 04:39 BUN 36 mg/dL (7-20) H 06/07/19 04:39 Creatinine 1.04 mg/dL (0.52-1.25) 06/07/19 04:39 Est GFR ( Amer) > 60 (>60) 06/07/19 04:39 Est GFR (MDRD) Non-Af 54 (>60) L 06/07/19 04:39 Glucose 164 mg/dL (75-110) H 06/07/19 04:39 POC Glucose 195 mg/dL (70-110) H 06/07/19 08:09 Calcium 8.9 mg/dL (8.4-10.2) 06/07/19 04:39 Creatine Kinase 54 U/L (30-135) 06/06/19 18:16 CK-MB (CK-2) 0.51 ng/mL (<4.55) 06/06/19 18:16 Troponin I 0.015 ng/mL 06/06/19 18:16 Urine Color YELLOW 06/06/19 00:28 Urine Appearance SLIGHTLY-CLOUDY 06/06/19 00:28 Urine pH 5.0 (5.0-9.0) 06/06/19 00:28 Ur Specific [place] 1.009 06/06/19 00:28 Urine Protein NEGATIVE mg/dL (NEGATIVE) 06/06/19 00:28 Urine Glucose (UA) 50 mg/dL (NEGATIVE) H 06/06/19 00:28 Urine Ketones NEGATIVE mg/dL (NEGATIVE) 06/06/19 00:28 Urine Blood NEGATIVE (NEGATIVE) 06/06/19 00:28 Urine Nitrite NEGATIVE (NEGATIVE) 06/06/19 00:28 Urine Bilirubin NEGATIVE (NEGATIVE) 06/06/19 00:28 Urine Urobilinogen NEGATIVE mg/dL (<2.0) 06/06/19 00:28 Ur Leukocyte Esterase NEGATIVE (NEGATIVE) 06/06/19 00:28 Urine WBC (Auto) 1 /HPF 06/06/19 00:28 Urine Bacteria (Auto) TRACE /HPF 06/06/19 00:28 Squamous Epi Cells Auto 3 /HPF 06/06/19 00:28 Urine Mucus (Auto) RARE /LPF 06/06/19 00:28 Urine Ascorbic Acid NEGATIVE (NEGATIVE) 06/06/19 00:28 06/06/19 06/06/19 06/06/19 00:14 06:45 12:54 CK-MB (CK-2) 0.55 0.68 Troponin I 0.017 0.019 0.018 06/06/19 18:16 CK-MB (CK-2) 0.51 Troponin I 0.015 EKG Comments: Abnormal T waves, sinus rhythm Plan Health Concerns: Chest x-ray showed small bibasilar opacityeffusion with interval worsening however patient was asymptomatic with no respiratory compromise. Follow-up with imaging studies is suggested Time Spent: Less than 30 Minutes Stroke Is this a Stroke Patient?: No Acute Heart Failure - Is this a Heart Failure Patient?: No
[2019-06-07] MEDS: TICAGRELOR 90 MG TABLET PO SCH (10:39)
[2019-06-07] MEDS: RANOLAZINE 500 MG TAB.SR.12H PO SCH (10:41)
[2019-06-07] MEDS: GABAPENTIN 100 MG CAPSULE PO SCH (10:41)
== END 2019-06-07 11:40 | disposition home or self-care (01) ==
LOC: ER 23:42 → EH 06-06 01:55 → 3W 06-06 03:38
PROVIDERS: ADMIT Emergency Medicine; ATTEND Internal Medicine
DX: R07.89 Other chest pain (principal); I25.10 Atherosclerotic heart disease of native coronary artery without angina pectoris; E11.65 Type 2 diabetes mellitus with hyperglycemia; E11.51 Type 2 diabetes mellitus with diabetic peripheral angiopathy without gangrene; E11.42 Type 2 diabetes mellitus with diabetic polyneuropathy; I16.0 Hypertensive urgency; N20.0 Calculus of kidney; F17.200 Nicotine dependence, unspecified, uncomplicated; J44.9 Chronic obstructive pulmonary disease, unspecified; E78.5 Hyperlipidemia, unspecified; I11.0 Hypertensive heart disease with heart failure; I50.9 Heart failure, unspecified; I25.2 Old myocardial infarction; Z79.899 Other long term (current) drug therapy; Z79.4 Long term (current) use of insulin; Z79.82 Long term (current) use of aspirin; Z95.5 Presence of coronary angioplasty implant and graft; Z60.2 Problems related to living alone; Z82.49 Family history of ischemic heart disease and other diseases of the circulatory system; Z95.1 Presence of aortocoronary bypass graft
CPT/HCPCS: 93005; 99285; 96372; 96374; 36415 ×2; 82553; 82962 ×2; 82550; 85025 ×2; 80048 ×2; 81001; 84484; 93010; G0378 ×3; A9270 ×21; J1644 ×2; J1885; J2270; J1170; J3490 ×3; J2405; J1815

== ENCOUNTER 2019-06-09 13:50 | Emergency (ER) | payer MEDICARE, MEDICAID ==
[2019-06-09 15:00] LABS: ABSOLUTE BASOPHILS # (AUTO) 0.1 10^3/uL (0.0-0.2); ABSOLUTE EOSINOPHILS # (AUTO) 0.1 10^3/uL (0.0-0.6); ABSOLUTE LYMPHOCYTES (AUTO) 1.9 10^3/uL (0.5-4.7); ABSOLUTE MONOCYTES (AUTO) 0.6 10^3/uL (0.1-1.4); ABSOLUTE NEUT (AUTO) 3.9 10^3/uL (1.7-8.2); EOSINOPHILS % (AUTO) 1.9 % (0-6); HEMATOCRIT 34.8 % (36.0-47.0); HEMOGLOBIN 12.1 g/dL (12.0-15.5); LYMPHOCYTES % (AUTO) 28.4 % (13-45); MEAN CORPUSCULAR HEMOGLOBIN 28.3 pg (27.0-33.4); MEAN CORPUSCULAR HGB CONC 34.8 g/dL (32.0-36.0); MEAN CORPUSCULAR VOLUME 81 fl (80-97); MONOCYTES % (AUTO) 9.4 % (3-13); PLATELET COUNT 295 10^3/uL (150-450); RED BLOOD COUNT 4.27 10^6/uL (3.72-5.28); RED CELL DISTRIBUTION WIDTH 14.7 % (11.5-14.0); SEGMENTED NEUTROPHILS % (AUTO) 59.3 % (42-78); TOTAL CELLS COUNTED % (AUTO) 100 %; WHITE BLOOD COUNT 6.6 10^3/uL (4.0-10.5)
[2019-06-09 15:14] LABS: BLOOD UREA NITROGEN 22 mg/dL (7-20); CALCIUM 9.7 mg/dL (8.4-10.2); GLUCOSE 144 mg/dL (75-110)
[2019-06-09 15:15] LABS: ALBUMIN 3.8 g/dL (3.5-5.0); ALKALINE PHOSPHATASE 94 U/L (38-126); ANION GAP 9 (5-19); ASPARTATE AMINO TRANSFERASE 27 U/L (14-36); BILIRUBIN,DIRECT 0.3 mg/dL (0.0-0.4); BILIRUBIN,TOTAL 0.4 mg/dL (0.2-1.3); CARBON DIOXIDE 27 mmol/L (22-30); CHLORIDE 101 mmol/L (98-107); POTASSIUM 4.1 mmol/L (3.6-5.0); TOTAL PROTEIN 7.2 g/dL (6.3-8.2)
[2019-06-09 15:29] LABS: APPEARANCE,URINE CLEAR; BILIRUBIN,URINE NEGATIVE (NEGATIVE); COLOR,URINE YELLOW; GLUCOSE, URINE NEGATIVE (NEGATIVE); KETONES,URINE NEGATIVE (NEGATIVE); LEUKOCYTE ESTERASE,URINE NEGATIVE (NEGATIVE); NITRITE,URINE NEGATIVE (NEGATIVE); PROTEIN,URINE NEGATIVE (NEGATIVE); URINE SPECIFIC GRAVITY 1.006; UROBILINOGEN,URINE NEGATIVE mg/dL (<2.0)
[2019-06-09 16:39] VITALS: BP 126/76
--- NOTE | 2019-06-10 05:48 | EKG REPORT ---
SEVERITY:- ABNORMAL ECG - SINUS ARRHYTHMIA, RATE [id number] MULTIPLE VENTRICULAR PREMATURE COMPLEXES PROBABLE LVH WITH SECONDARY REPOL ABNRM : Confirmed by: Letty Vega MD 10-Jun-2019 05:47:14
--- NOTE | 2019-06-10 16:54 | ER Document Report ---
Entered by SIMONA LOPEZ SCRIBE 06/09/19 1438 Acting as scribe for:RANDA HOWE MD ED General - General Chief Complaint: Flank Pain Stated Complaint: SHARP PAIN -LEFT Time Seen by Provider: 06/09/19 14:28 Primary Care Provider: [facility] [Provider Group] - Follow up in 3-5 days Information source: Patient Notes: This 63 year old female patient presents to the emergency department today with complaints of pain in her left lower back. Patient states she visited the emergency department x5 days ago for the same back pain. Patient states she does not know what is wrong with her left kidney and has been told there is a mass on her right kidney. Patient states she has not had any trouble urinating and there is not any pain or burning. Patient states she vomited last night and it was dark brown in color. Patient denies any fever, chills, black stool, or night sweats. TRAVEL OUTSIDE OF THE [place] IN LAST 30 DAYS: No - Related Data Allergies/Adverse Reactions: No Known Allergies Allergy (Verified 06/06/19 00:00) Home Medications: Lisinopril, Metoprolol, Lasix, Lipitor, Metformin, Albuterol, Nitro, Percocet Past Medical History - General Information source: Patient - Social History Smoking Status: Current Every Day Smoker Cigarette use (# per day): Yes Family History: CAD, DM, Hypertension Patient has suicidal ideation: No Patient has homicidal ideation: No - Past Medical History Cardiac Medical History: Reports: Hx Congestive Heart Failure, Hx Coronary Artery Disease, Hx Heart Attack, Hx Hypercholesterolemia, Hx Hypertension, Hx Peripheral Vascular Disease Pulmonary Medical History: Reports: Hx Asthma, Hx COPD, Hx Respiratory Failure Endocrine Medical History: Reports: Hx Diabetes Mellitus Type 2, Hx Hyperthyroidism - Was told once her thyroid might be high Past Surgical History: Reports: Hx Cardiac Catheterization, Hx Cardiac Surgery - CABG, Hx Coronary Artery Bypass Graft, Hx Coronary Stent, Hx Open Heart Surgery, Hx Tubal Ligation - Immunizations Hx Diphtheria, Pertussis, Tetanus Vaccination: Yes Hx Pneumococcal Vaccination: 12/18/18 Review of Systems - Review of Systems Constitutional: See HPI. denies: Chills, Fever EENT: No symptoms reported Cardiovascular: No symptoms reported Respiratory: No symptoms reported Gastrointestinal: See HPI, Vomiting. denies: Black stools Genitourinary: See HPI. denies: Burning, Pain Female Genitourinary: No symptoms reported Musculoskeletal: See HPI, Back pain Skin: No symptoms reported Hematologic/Lymphatic: No symptoms reported Neurological/Psychological: No symptoms reported Physical Exam - Vital signs Vitals: Temp Pulse Resp BP Pulse Ox 97.9 F 78 16 123/70 97 06/09/19 15:11 06/09/19 15:11 06/09/19 15:11 06/09/19 15:11 06/09/19 15:11 - General General appearance: Appears well, Alert In distress: Mild - HEENT Head: Normocephalic, Atraumatic Eyes: Normal Pupils: PERRL Pharynx: Other - Voice is raspy. - Respiratory Respiratory status: No respiratory distress Chest status: Nontender Chest palpation: Normal - Cardiovascular Rhythm: Regular Heart sounds: Normal auscultation Murmur: No - Abdominal Inspection: Normal Distension: Distended - Slightly distended. Bowel sounds: Normal - Back Back: Tender - Left lower flank., Other - No trauma, rash, or ecchymosis. - Extremities General upper extremity: Normal inspection. No: Edema General lower extremity: Normal inspection. No: Edema - Neurological Neuro grossly intact: Yes Cognition: Normal Orientation: AAOx4 - Psychological Associated symptoms: Normal affect, Normal mood - Skin Skin Temperature: Warm Skin Moisture: Dry Skin Color: Normal Course - Re-evaluation Re-evalutation: 06/09/19 16:14 Patient currently not having any left flank pain. Patient is hemodynamically stable and is ready for discharge. Reviewed patient's recent hospitalization admission and overnight stay. Patient had a CT scan of her abdomen showing bilateral renal stones nonobstructing. Incidentally it was noted to have an adrenal tumor mass which she is going to be following up with oncology this week. Inasmuch as patient has known kidney stones she has a urinalysis that shows 1+ bacteria without other evidence for infection nitrite negative and leukocyte esterase negative. There is no red cells seen also in her urinalysis the urinalysis is clear. Patient does not have symptoms of a urinary tract infection but rather kidney colic ureteral stone colic. Patient will be treated as though she is passing stones at this time and follow-up with urology service. - Vital Signs Vital signs: Temp Pulse Resp BP Pulse Ox 98.2 F 74 16 126/76 H 96 06/09/19 16:38 06/09/19 16:38 06/09/19 16:38 06/09/19 16:38 06/09/19 16:38 - Laboratory Result Diagrams: 06/09/19 14:40 06/09/19 14:40 Laboratory results interpreted by me: 06/09/19 06/09/19 14:40 14:40 Hct 34.8 L RDW 14.7 H BUN 22 H Glucose 144 H Laboratories within normal limits except for urinalysis showing 1+ bacteria nitrate leukocyte esterase negative. - Diagnostic Test Radiology results interpreted by me: 06/09/19 16:16 12-lead EKG done 06/09/2019 at 1501 shows sinus arrhythmia rate 72-1 26 multiple ventricular premature complexes. Probable LVH with secondary repull changes. No difference and previous EKG from 06/06/2019. 06/09/19 16:17 No x-rays are done today inasmuch as patient just recently had a CT scan of her abdomen pelvis on 319. Discharge - Discharge Clinical Impression: Ureteral colic, Nephrolithiasis Disposition: HOME, SELF-CARE Instructions: Antinausea Medication ([facility]) Additional Instructions: Kidney Stone You are passing or have passed a kidney stone. These stones are usually due to increased calcium or uric acid concentrations in your urine. Stones within the kidney itself are not painful. The pain occurs as the stone leaves the kidney to pass down the long tube, called the ureter, leading to the bladder. If the stone is small, it will usually pass by itself. Most patients can pass the stone at home. You will usually receive medications for pain, nausea or vomiting, and sometimes a medication to assist in passing the kidney stone. However, if the pain is very severe or if vomiting prevents you from taking oral pain medications, you may need to return for further treatment. Drink three or four quarts of fluids per day. You will be given pain medication (if needed) and urine strainers. Strain all your urine to see if the stone passes. If your doctor has asked you to bring the stone in for analysis, return with the stone once it has passed. Return if pain or vomiting become severe, if you develop a high fever, if you are unable to pass your urine, or if other unusual symptoms occur. Prescriptions: Acetaminophen with Codeine [Tylenol with Codeine 120 mg-12 mg/5 ml] 5 ml PO Q6HP PRN #120 ml PRN Reason: pain Tamsulosin HCl [Flomax 0.4 mg Cap.sr] 0.4 mg PO DAILY #7 cap.sr.24h Ondansetron [Zofran Odt 4 mg Tablet] 1 - 2 tab PO Q4H PRN #15 tab.rapdis PRN Reason: For Nausea/Vomiting Referrals: [facility] [Provider Group] - Follow up in 3-5 days I personally performed the services described in the documentation, reviewed and edited the documentation which was dictated to the scribe in my presence, and it accurately records my words and actions.
== END 2019-06-09 16:41 | disposition home or self-care (01) ==
LOC: ER 13:50
DX: N20.0 Calculus of kidney (principal); I11.0 Hypertensive heart disease with heart failure; I50.9 Heart failure, unspecified; R14.0 Abdominal distension (gaseous); E27.9 Disorder of adrenal gland, unspecified; J44.9 Chronic obstructive pulmonary disease, unspecified; E11.51 Type 2 diabetes mellitus with diabetic peripheral angiopathy without gangrene; I25.10 Atherosclerotic heart disease of native coronary artery without angina pectoris; M54.5 Low back pain; R11.10 Vomiting, unspecified; Z79.899 Other long term (current) drug therapy; Z79.84 Long term (current) use of oral hypoglycemic drugs; Z79.891 Long term (current) use of opiate analgesic; Z95.1 Presence of aortocoronary bypass graft
CPT/HCPCS: 36415; 80053; 81001; 83690; 85025; 93005; 93010; 99284

== ENCOUNTER 2019-10-25 13:37 | Emergency (ER) | payer MEDICARE, MEDICAID ==
[2019-10-25] MEDS ORDERED: NORMAL SALINE 1000 ML 1,000 ML IV ONE (15:20)
--- NOTE | 2019-10-25 15:21 | ER Document Report ---
ED Medical Screen (RME) - General Chief Complaint: Urinary Frequency Stated Complaint: URINARY ISSUES Time Seen by Provider: 10/25/19 15:10 Notes: Patient is a 64-year-old female who presents emergency department with a chief complaint of dysuria, urgency, and frequency for the past week. Patient states that now her pain is moving up to her back. She had a temperature of 99.0 when she went to urgent care, but was not seen by urgent care the other day. She has some mid lower abdominal pain. Exam: Tenderness noted to lower back. I have greeted and performed a rapid initial assessment of this patient. A comprehensive ED assessment and evaluation of the patient, analysis of test results and completion of medical decision making process will be conducted by an additional ED providers. TRAVEL OUTSIDE OF THE [place] IN LAST 30 DAYS: No - Related Data Allergies/Adverse Reactions: No Known Allergies Allergy (Verified 10/25/19 15:08) Past Medical History - Social History Chew tobacco use (# tins/day): No Frequency of alcohol use: None Drug Abuse: None - Past Medical History Cardiac Medical History: Reports: Hx Congestive Heart Failure, Hx Coronary Artery Disease, Hx Heart Attack, Hx Hypercholesterolemia, Hx Hypertension, Hx Peripheral Vascular Disease Denies: Hx Atrial Fibrillation, Hx DVT, Hx Pulmonary Embolism Pulmonary Medical History: Reports: Hx Asthma, Hx COPD, Hx Respiratory Failure Neurological Medical History: Denies: Hx Seizures Endocrine Medical History: Reports: Hx Diabetes Mellitus Type 2, Hx Hyperthyroidism - Was told once her thyroid might be high. Denies: Hx Diabetes Mellitus Type 1, Hx Hypothyroidism Renal/ Medical History: Denies: Hx Peritoneal Dialysis GI Medical History: Denies: Hx Cirrhosis, Hx Crohn's Disease, Hx Diverticulitis, Hx Hepatitis, Hx Ulcerative Colitis Musculoskeltal Medical History: Denies Hx Arthritis, Denies Hx Fibromyalgia Skin Medical History: Denies Hx Eczema, Denies Hx Psoriasis Psychiatric Medical History: Denies: Hx Depression Infectious Medical History: Denies: Hx Hepatitis Past Surgical History: Reports: Hx Cardiac Catheterization, Hx Cardiac Surgery - CABG, Hx Coronary Artery Bypass Graft, Hx Coronary Stent, Hx Open Heart Surgery, Hx Tubal Ligation - Immunizations Hx Diphtheria, Pertussis, Tetanus Vaccination: Yes Physical Exam - Vital signs Vitals: Temp Pulse Resp BP Pulse Ox 98.1 F 83 18 126/59 H 100 10/25/19 14:06 10/25/19 14:06 10/25/19 14:06 10/25/19 14:06 10/25/19 14:06 Course - Vital Signs Vital signs: Temp Pulse Resp BP Pulse Ox 98.1 F 83 18 126/59 H 100 10/25/19 14:06 10/25/19 14:06 10/25/19 14:06 10/25/19 14:06 10/25/19 14:06
[2019-10-25 15:24] LABS: APPEARANCE,URINE SLIGHTLY-CLOUDY; BILIRUBIN,URINE NEGATIVE (NEGATIVE); COLOR,URINE YELLOW; GLUCOSE, URINE >=500 mg/dL (NEGATIVE); KETONES,URINE NEGATIVE (NEGATIVE); LEUKOCYTE ESTERASE,URINE LARGE (NEGATIVE); NITRITE,URINE NEGATIVE (NEGATIVE); PROTEIN,URINE NEGATIVE (NEGATIVE); URINE SPECIFIC GRAVITY 1.005; UROBILINOGEN,URINE NEGATIVE mg/dL (<2.0)
[2019-10-25 15:56] LABS: ABSOLUTE EOSINOPHILS # (AUTO) 0.1 10^3/uL (0.0-0.6); ABSOLUTE LYMPHOCYTES (AUTO) 1.2 10^3/uL (0.5-4.7); ABSOLUTE MONOCYTES (AUTO) 0.8 10^3/uL (0.1-1.4); ABSOLUTE NEUT (AUTO) 8.5 10^3/uL (1.7-8.2); BASOPHILS % (AUTO) 0.3 % (0-2); EOSINOPHILS % (AUTO) 0.7 % (0-6); HEMATOCRIT 36.4 % (36.0-47.0); HEMOGLOBIN 12.3 g/dL (12.0-15.5); LYMPHOCYTES % (AUTO) 11.2 % (13-45); MEAN CORPUSCULAR HGB CONC 33.7 g/dL (32.0-36.0); MEAN CORPUSCULAR VOLUME 80 fl (80-97); MONOCYTES % (AUTO) 7.8 % (3-13); PLATELET COUNT 417 10^3/uL (150-450); RED BLOOD COUNT 4.54 10^6/uL (3.72-5.28); RED CELL DISTRIBUTION WIDTH 15.6 % (11.5-14.0); TOTAL CELLS COUNTED % (AUTO) 100 %; WHITE BLOOD COUNT 10.6 10^3/uL (4.0-10.5)
[2019-10-25 16:04] LABS: ALBUMIN 3.2 g/dL (3.5-5.0); ALKALINE PHOSPHATASE 193 U/L (38-126); ANION GAP 10 (5-19); ASPARTATE AMINO TRANSFERASE 26 U/L (14-36); BILIRUBIN,DIRECT 0.1 mg/dL (0.0-0.4); BILIRUBIN,TOTAL 0.6 mg/dL (0.2-1.3); BLOOD UREA NITROGEN 19 mg/dL (7-20); CALCIUM 8.8 mg/dL (8.4-10.2); CARBON DIOXIDE 31 mmol/L (22-30); CHLORIDE 93 mmol/L (98-107); GLUCOSE 307 mg/dL (75-110); POTASSIUM 3.3 mmol/L (3.6-5.0); TOTAL PROTEIN 7.1 g/dL (6.3-8.2)
[2019-10-25] MEDS ORDERED: CEPHALEXIN 500 MG CAPSULE PO ONE (17:33)
--- NOTE | 2019-10-25 17:34 | ER Document Report ---
ED GI/ - General Chief Complaint: Urinary Frequency Stated Complaint: URINARY ISSUES Time Seen by Provider: 10/25/19 15:10 Primary Care Provider: GERRY HOUSE DO [NO LOCAL MD] - 10/28/19 Notes: Patient is a 64-year-old female who presents emergency department with a chief complaint of dysuria, urgency, and frequency for the past week. Patient states that now her pain is moving up to her back. She had a temperature of 99.0 when she went to urgent care, but was not seen by urgent care the other day. She has some mid lower abdominal pain. TRAVEL OUTSIDE OF THE [place] IN LAST 30 DAYS: No - Related Data Allergies/Adverse Reactions: No Known Allergies Allergy (Verified 10/25/19 15:08) Past Medical History - Social History Smoking Status: Current Every Day Smoker Chew tobacco use (# tins/day): No Frequency of alcohol use: None Drug Abuse: None Family History: CAD, DM, Hypertension Patient has homicidal ideation: No - Past Medical History Cardiac Medical History: Reports: Hx Congestive Heart Failure, Hx Coronary Artery Disease, Hx Heart Attack, Hx Hypercholesterolemia, Hx Hypertension, Hx Peripheral Vascular Disease Denies: Hx Atrial Fibrillation, Hx DVT, Hx Pulmonary Embolism Pulmonary Medical History: Reports: Hx Asthma, Hx COPD, Hx Respiratory Failure Neurological Medical History: Denies: Hx Seizures Endocrine Medical History: Reports: Hx Diabetes Mellitus Type 2, Hx Hyperthyroidism - Was told once her thyroid might be high. Denies: Hx Diabetes Mellitus Type 1, Hx Hypothyroidism Renal/ Medical History: Denies: Hx Peritoneal Dialysis GI Medical History: Denies: Hx Cirrhosis, Hx Crohn's Disease, Hx Diverticulitis, Hx Hepatitis, Hx Ulcerative Colitis Musculoskeletal Medical History: Denies Hx Arthritis, Denies Hx Fibromyalgia Skin Medical History: Denies Hx Eczema, Denies Hx Psoriasis Psychiatric Medical History: Denies: Hx Depression Infectious Medical History: Denies: Hx Hepatitis Past Surgical History: Reports: Hx Cardiac Catheterization, Hx Cardiac Surgery - CABG, Hx Coronary Artery Bypass Graft, Hx Coronary Stent, Hx Open Heart Surgery, Hx Tubal Ligation - Immunizations Hx Diphtheria, Pertussis, Tetanus Vaccination: Yes Hx Pneumococcal Vaccination: 12/18/18 Review of Systems - Review of Systems Notes: REVIEW OF SYSTEMS: CONSTITUTIONAL : Denies recent illness. Denies recent unintentional weight loss. Denies fever, chills, or sweats. EENT: Denies eye, ear, throat, or mouth pain, discharge, or symptoms. Denies nasal or sinus congestion. CARDIOVASCULAR: Denies chest pain. RESPIRATORY: Denies shortness of breath, cough, congestion, difficulty breathing, or wheezing. GASTROINTESTINAL: Denies nausea, vomiting, and diarrhea. Denies constipation. See HPI. GENITOURINARY: Denies difficulty urinating, burning, blood in urine, urgency or frequency. MUSCULOSKELETAL: Denies neck and back pain. Denies joint pain or swelling. SKIN: Denies rash, itchiness, or lesions HEMATOLOGIC : Denies easy bruising or bleeding. LYMPHATIC: Denies swollen, painful, enlarged glands. NEUROLOGICAL: Denies no numbness or tingling denies weakness. Denies headache. Denies altered mental status. Denies alteration in speech. PSYCHIATRIC: Denies stress, anxiety, alteration in sleep patterns, or depression. All other systems reviewed and negative. Physical Exam - Vital signs Vitals: Temp Pulse Resp BP Pulse Ox 98.1 F 83 18 126/59 H 100 10/25/19 14:06 10/25/19 14:06 10/25/19 14:06 10/25/19 14:06 10/25/19 14:06 - Notes Notes: PHYSICAL EXAMINATION: GENERAL: Appears well, healthy, well-nourished, no acute distress. HEAD: Normocephalic, atraumatic. EYES: PERRL, conjunctiva normal, all extraocular movements intact, sclera nonicteric ENT: Moist mucous membranes. NECK: Supple, no noticeable swelling, redness, rash. Normal range of motion. LUNGS: Equal breath sounds bilaterally and clear to auscultation. No wheezes rales or rhonchi. CARDIOVASCULAR: S1-S2, regular rate, regular rhythm. Radial pulses 2+, normal. ABDOMEN: Normoactive bowel sounds. Soft, moderately tender mid lower abdomen., no rebound tenderness, and no masses palpated. EXTREMITIES: Normal strength and range of motion, no pitting or edema. No cyanosis. NEUROLOGICAL: Moves all extremities upon command. Strength 5/5 in all extremities. PSYCH: Normal mood, normal affect. SKIN: Warm, dry. No rash, lesions, ulcerations noted. Normal skin turgor. Course - Re-evaluation Re-evalutation: 10/25/19 17:36 The patient states that she wants to leave. I advised her that I would much rather her stay here and get a liter of fluids, as her sodium is mildly low and she has a blood sugar of 307. Patient states, "my sugars are high and in the 300s all the time." Advised that she make sure she checks her sugar and follows up with her primary care provider. She is in agreement with this plan. Hematology shows a leukocytosis of 10,600 with a left shift of 80% neutrophils. Chemistries show a sodium of 133.8. Potassium is 3.3. Glucose is 307. Urinalysis shows a large amount of leukocytes and blood in her urine. Urine culture was sent. Patient is nonseptic in appearance. Follow-up precautions were given. Verbal discharge instructions were given to the patient. They verbalized understanding. They are stable for discharge. - Vital Signs Vital signs: Temp Pulse Resp BP Pulse Ox 98.1 F 83 18 126/59 H 100 10/25/19 14:06 10/25/19 14:06 10/25/19 14:06 10/25/19 14:06 10/25/19 14:06 - Laboratory Result Diagrams: 10/25/19 15:25 10/25/19 15:25 Laboratory results interpreted by me: 10/25/19 10/25/19 10/25/19 14:15 15:25 15:25 WBC 10.6 H RDW 15.6 H Lymph % (Auto) 11.2 L Absolute Neuts (auto) 8.5 H Seg Neutrophils % 80.0 H Sodium 133.8 L Potassium 3.3 L Chloride 93 L Carbon Dioxide 31 H Glucose 307 H Alkaline Phosphatase 193 H Albumin 3.2 L Urine Glucose (UA) >=500 H Urine Blood LARGE H Ur Leukocyte Esterase LARGE H Discharge - Discharge Clinical Impression: Urinary tract infection Qualifiers: Urinary tract infection type: acute cystitis Hematuria presence: with hematuria Qualified Code(s): N30.01 - Acute cystitis with hematuria Abdominal pain Qualifiers: Abdominal location: lower abdomen, unspecified Qualified Code(s): R10.30 - Lower abdominal pain, unspecified Condition: Stable Disposition: HOME, SELF-CARE Additional Instructions: Your urine shows findings consistent with a urinary tract infection. Please take all the antibiotics as directed even if your symptoms have improved. Please follow-up with your primary care physician as needed. Return to emergency room if you develop fever >101F, persistent vomiting, become lethargic, have severe pain in your sides, or any other symptoms that are concerning to you. Prescriptions: Cephalexin [Keflex] 500 mg PO BID #13 capsule Referrals: GERRY HOUSE DO [NO LOCAL MD] - 10/28/19
[2019-10-25] MEDS ORDERED: POTASSIUM CHLORIDE 10 MEQ TABLET.ER PO ONE (17:35)
[2019-10-25] MEDS ORDERED: POTASSIUM CHLORIDE 20 MEQ PACKET PO ONE (17:39)
[2019-10-25 17:54] VITALS: BP 126/70
== END 2019-10-25 17:53 | disposition home or self-care (01) ==
LOC: ER 13:37
DX: N30.01 Acute cystitis with hematuria (principal); F17.200 Nicotine dependence, unspecified, uncomplicated; I25.10 Atherosclerotic heart disease of native coronary artery without angina pectoris; I10 Essential (primary) hypertension; J44.9 Chronic obstructive pulmonary disease, unspecified; E11.51 Type 2 diabetes mellitus with diabetic peripheral angiopathy without gangrene
CPT/HCPCS: 99283; 36415; 87086; 85025; 87088; 80053; 81001; 87186; A9270; J3490

== ENCOUNTER → 2019-12-04 | Outpatient (CLI) | payer MEDICARE, MEDICAID ==
--- NOTE | 2019-12-04 19:08 | EKG REPORT ---
SEVERITY:- ABNORMAL ECG - SINUS RHYTHM ATRIAL PREMATURE COMPLEX IVCD, CONSIDER ATYPICAL LBBB : Confirmed by: Rich Butler 04-Dec-2019 19:08:06
== END ==
LOC: OD 09:02
PROVIDERS: ATTEND Family Medicine
DX: R00.2 Palpitations (principal)
CPT/HCPCS: 93005; 93010

== ENCOUNTER 2019-12-24 00:33 | Emergency (ER) | payer MEDICARE, MEDICAID ==
--- NOTE | 2019-12-24 01:16 | ER Document Report ---
ED General - General Stated Complaint: DIFFICULTY BREATHING Time Seen by Provider: 12/24/19 01:15 Primary Care Provider: GERRY HOUSE DO [Primary Care Provider] - Follow up as needed TRAVEL OUTSIDE OF THE [place] IN LAST 30 DAYS: No - HPI Notes: 64-year-old female presents with shortness of breath. Patient states she is having problems breathing, further described as having a hard time breathing. She states that she woke up a few hours ago with chest pain, described as being stabbed with a knife, that has now resolved. However the shortness of breath has persisted. She reports during the daytime she was otherwise okay. She has noted that her legs have been swelling, she states she does take her Lasix. States however that she does not really take all of her meds as prescribed, sometimes she forgets to take them. She has no fever, cough, nausea/vomiting/diarrhea. - Related Data Allergies/Adverse Reactions: No Known Allergies Allergy (Verified 11/01/19 12:42) Past Medical History - Social History Smoking Status: Current Every Day Smoker Family History: CAD, DM, Hypertension - Past Medical History Cardiac Medical History: Reports: Hx Congestive Heart Failure, Hx Coronary Artery Disease, Hx Heart Attack, Hx Hypercholesterolemia, Hx Hypertension, Hx Peripheral Vascular Disease Denies: Hx Atrial Fibrillation, Hx DVT, Hx Pulmonary Embolism Pulmonary Medical History: Reports: Hx Asthma, Hx COPD, Hx Respiratory Failure Neurological Medical History: Denies: Hx Seizures Endocrine Medical History: Reports: Hx Diabetes Mellitus Type 2, Hx Hyperthyroidism - Was told once her thyroid might be high. Denies: Hx Diabetes Mellitus Type 1, Hx Hypothyroidism Renal/ Medical History: Denies: Hx Peritoneal Dialysis GI Medical History: Denies: Hx Cirrhosis, Hx Crohn's Disease, Hx Diverticulitis, Hx Hepatitis, Hx Ulcerative Colitis Musculoskeletal Medical History: Denies Hx Arthritis, Denies Hx Fibromyalgia Skin Medical History: Denies Hx Eczema, Denies Hx Psoriasis Psychiatric Medical History: Denies: Hx Depression Infectious Medical History: Denies: Hx Hepatitis Past Surgical History: Reports: Hx Cardiac Catheterization, Hx Cardiac Surgery - CABG, Hx Coronary Artery Bypass Graft, Hx Coronary Stent, Hx Open Heart Surgery, Hx Tubal Ligation - Immunizations Hx Diphtheria, Pertussis, Tetanus Vaccination: Yes Hx Pneumococcal Vaccination: 12/18/18 Physical Exam - Vital signs Vitals: Temp Pulse Ox 98.4 F 100 12/24/19 00:34 12/24/19 00:34 Course - Re-evaluation Re-evalutation: 12/24/19 02:20 No leukocytosis or left shift. Chronic anemia. Mild hypokalemia, oral replacement ordered. Creatinine within normal limits. Elevated BNP, consistent with previous values. Mild elevation of Trop, indeterminate range, suspect due to CHF and chronic leak as she has had multiple values higher than this in the past 12/24/19 03:40 Patient requesting breathing treatment. Went in to assess, no respiratory distress. Have ordered a DuoNeb. 12/24/19 05:04 Repeat troponin essentially similar to previous, remains within patient's known values along with indeterminate range 12/24/19 05:07 Patient reports much improvement in her symptoms. She states that she would like to go home. I discussed with her doubling her Lasix dose to 40 mg daily. Advise close follow-up with primary care doctor, return precautions given, stable at time of discharge. - Vital Signs Vital signs: Temp Pulse Resp BP Pulse Ox 98.5 F 16 116/63 100 12/24/19 04:00 12/24/19 05:01 12/24/19 05:01 12/24/19 05:01 - Laboratory Result Diagrams: 12/24/19 01:00 12/24/19 01:00 Laboratory results interpreted by me: 12/24/19 12/24/19 12/24/19 01:00 01:00 01:00 Hgb 11.4 L Hct 33.2 L RDW 17.9 H Potassium 3.0 L* Carbon Dioxide 31 H Glucose 202 H AST 12 L Alkaline Phosphatase 139 H NT-Pro-B Natriuret Pep 1630 H Albumin 3.3 L - Diagnostic Test Radiology reviewed: Image reviewed, Reports reviewed - EKG Interpretation by Me Additional EKG results interpreted by me: EKG as interpreted by me. Wide QRS, prolonged QTC. IVCD. Appears similar to previous. Discharge - Discharge Clinical Impression: Shortness of breath Disposition: HOME, SELF-CARE Additional Instructions: You may increase your Lasix dosing to 40 mg daily, you may take to 40 mg (2x 20mg pills) all at once, or you may take 1 pill twice a day. Do this for the next couple of days. Please have very close follow-up with your primary care doctor, please call them in the morning to discuss your emergency room visit and plan to increase Lasix. Please return to the emergency department for any concerning worsening symptoms. Forms: Smoking Cessation Education Referrals: GERRY HOUSE DO [Primary Care Provider] - Follow up as needed
[2019-12-24 01:26] LABS: ABSOLUTE BASOPHILS # (AUTO) 0.1 10^3/uL (0.0-0.2); ABSOLUTE EOSINOPHILS # (AUTO) 0.2 10^3/uL (0.0-0.6); ABSOLUTE LYMPHOCYTES (AUTO) 2.6 10^3/uL (0.5-4.7); ABSOLUTE MONOCYTES (AUTO) 0.8 10^3/uL (0.1-1.4); ABSOLUTE NEUT (AUTO) 5.3 10^3/uL (1.7-8.2); BASOPHILS % (AUTO) 0.8 % (0-2); EOSINOPHILS % (AUTO) 2.2 % (0-6); HEMATOCRIT 33.2 % (36.0-47.0); HEMOGLOBIN 11.4 g/dL (12.0-15.5); LYMPHOCYTES % (AUTO) 28.9 % (13-45); MEAN CORPUSCULAR HEMOGLOBIN 27.2 pg (27.0-33.4); MEAN CORPUSCULAR HGB CONC 34.2 g/dL (32.0-36.0); MEAN CORPUSCULAR VOLUME 80 fl (80-97); PLATELET COUNT 318 10^3/uL (150-450); RED BLOOD COUNT 4.18 10^6/uL (3.72-5.28); RED CELL DISTRIBUTION WIDTH 17.9 % (11.5-14.0); SEGMENTED NEUTROPHILS % (AUTO) 59.1 % (42-78); TOTAL CELLS COUNTED % (AUTO) 100 %; WHITE BLOOD COUNT 9.1 10^3/uL (4.0-10.5)
[2019-12-24] MEDS ORDERED: FUROSEMIDE INJ/PF 20 MG/2 ML SDV IV ONE (01:31)
[2019-12-24 01:32] LABS: ALBUMIN 3.3 g/dL (3.5-5.0); ALKALINE PHOSPHATASE 139 U/L (38-126); ANION GAP 7 (5-19); ASPARTATE AMINO TRANSFERASE 12 U/L (14-36); BILIRUBIN,DIRECT 0.3 mg/dL (0.0-0.4); BILIRUBIN,TOTAL 0.7 mg/dL (0.2-1.3); BLOOD UREA NITROGEN 14 mg/dL (7-20); CALCIUM 8.9 mg/dL (8.4-10.2); CARBON DIOXIDE 31 mmol/L (22-30); CHLORIDE 99 mmol/L (98-107); CREATINE KINASE 35 U/L (30-135); GLUCOSE 202 mg/dL (75-110); TOTAL PROTEIN 6.6 g/dL (6.3-8.2)
[2019-12-24 01:45] LABS: CREATINE KINASE MB 0.94 ng/mL (<4.55); TROPONIN I 0.029 ng/mL
--- NOTE | 2019-12-24 01:58 | RADIOLOGY REPORT (SQ) ---
EXAM: XR Chest, 1 View EXAM DATE/TIME: 12/24/2019 1:16 AM CLINICAL HISTORY: The patient is 64 years old and is Female; Shortness of breath, chest pain TECHNIQUE: Frontal view of the chest. COMPARISON: Chest radiograph from 05/28/2019 FINDINGS: LUNGS: There is mild diffuse interstitial prominence. This is also seen on the prior study. No focal consolidation. PLEURAL SPACE: No significant pleural effusion. No obvious pneumothorax. HEART: Borderline enlargement of the cardiac silhouette. MEDIASTINUM: Unremarkable. BONES/JOINTS: Poststernotomy changes. No acute fracture visualized. IMPRESSION: Mild diffuse interstitial prominence which is also present on the prior study and may be chronic. However, interstitial edema is not excluded.
[2019-12-24] MEDS ORDERED: POTASSIUM CHLORIDE 20 MEQ PACKET PO ONE (02:00)
[2019-12-24] MEDS ORDERED: IPRATROPIUM/ALBUTEROL 0.5-2.5 MG/3 ML AMPUL NEB ONE (04:04)
[2019-12-24 05:44] VITALS: BP 136/94
--- NOTE | 2019-12-24 17:37 | EKG REPORT ---
SEVERITY:- ABNORMAL ECG - SINUS TACHYCARDIA MULTIPLE ATRIAL PREMATURE COMPLEXES NONSPECIFIC INTRAVENTRICULAR CONDUCTION DELAY CONSIDER LEFT VENTRICULAR HYPERTROPHY : Confirmed by: Letty Vega MD 24-Dec-2019 17:36:02
== END 2019-12-24 05:50 | disposition home or self-care (01) ==
LOC: ER 00:33
DX: J44.9 Chronic obstructive pulmonary disease, unspecified (principal); I11.0 Hypertensive heart disease with heart failure; I50.9 Heart failure, unspecified; T50.1X6A Underdosing of loop [high-ceiling] diuretics, initial encounter; Z91.14 Patient's other noncompliance with medication regimen; D64.9 Anemia, unspecified; E87.6 Hypokalemia; R06.02 Shortness of breath; I25.10 Atherosclerotic heart disease of native coronary artery without angina pectoris; E11.51 Type 2 diabetes mellitus with diabetic peripheral angiopathy without gangrene; F17.200 Nicotine dependence, unspecified, uncomplicated; Z95.1 Presence of aortocoronary bypass graft; Z95.5 Presence of coronary angioplasty implant and graft
CPT/HCPCS: 93005; 94640; 99285; 96374; 36415; 82553; 82550; 85025; 80053; 84484; 83880; 71045; 93010; J1940; J3490

== ENCOUNTER 2020-02-23 20:09 | Observation (INO) | payer MEDICARE, MEDICAID ==
--- NOTE | 2020-02-23 20:39 | ER Document Report ---
ED Medical Screen (RME) - General Stated Complaint: DIZZINESS Time Seen by Provider: 02/23/20 20:28 Primary Care Provider: GERRY HOUSE DO [Primary Care Provider] - Follow up as needed Mode of Arrival: Wheelchair Information source: Patient Notes: HPI; 64-year-old female was brought to the emergency room by EMS after sudden onset of dizziness, chest pain, and vomiting that started around 6 weeks M after taking her metoprolol. Patient states she is taking the metoprolol in the past without any side effects or interactions. She states she felt like the room was spinning. Her symptoms have since resolved. Did not take any medications for her symptoms. Was recently started on Keflex for bilateral lower leg cellulitis. She denies any fevers, no shortness of breath, no difficulty breathing. PE: Alert and oriented x3. Lungs: Clear to auscultation without rales, rhonchi, wheezes. Regular rate rhythm without murmurs, rubs, gallops. I have greeted and performed a rapid initial assessment of this patient. A comprehensive ED assessment and evaluation of the patient, analysis of test results and completion of the medical decision making process will be conducted by additional ED providers. I have specifically instructed the patient or family members with the patient to immediately return to any nursing staff should anything change in the patient's condition or with their chief complaint. TRAVEL OUTSIDE OF THE [place] IN LAST 30 DAYS: No - Related Data Allergies/Adverse Reactions: No Known Allergies Allergy (Verified 11/01/19 12:42) Past Medical History - Past Medical History Cardiac Medical History: Reports: Hx Congestive Heart Failure, Hx Coronary Artery Disease, Hx Heart Attack, Hx Hypercholesterolemia, Hx Hypertension, Hx Peripheral Vascular Disease Denies: Hx Atrial Fibrillation, Hx DVT, Hx Pulmonary Embolism Pulmonary Medical History: Reports: Hx Asthma, Hx COPD, Hx Respiratory Failure Neurological Medical History: Denies: Hx Seizures Endocrine Medical History: Reports: Hx Diabetes Mellitus Type 2, Hx Hyperthyroidism - Was told once her thyroid might be high. Denies: Hx Diabetes Mellitus Type 1, Hx Hypothyroidism Renal/ Medical History: Denies: Hx Peritoneal Dialysis GI Medical History: Denies: Hx Cirrhosis, Hx Crohn's Disease, Hx Diverticulitis, Hx Hepatitis, Hx Ulcerative Colitis Musculoskeltal Medical History: Denies Hx Arthritis, Denies Hx Fibromyalgia Skin Medical History: Denies Hx Eczema, Denies Hx Psoriasis Psychiatric Medical History: Denies: Hx Depression Infectious Medical History: Denies: Hx Hepatitis Past Surgical History: Reports: Hx Cardiac Catheterization, Hx Cardiac Surgery - CABG, Hx Coronary Artery Bypass Graft, Hx Coronary Stent, Hx Open Heart Surgery, Hx Tubal Ligation - Immunizations Hx Diphtheria, Pertussis, Tetanus Vaccination: Yes Physical Exam - Vital signs Vitals: Temp Pulse Resp BP Pulse Ox 97.8 F 75 16 126/78 H 95 02/23/20 20:25 02/23/20 20:25 02/23/20 20:25 02/23/20 20:25 02/23/20 20:25 Course - Vital Signs Vital signs: Temp Pulse Resp BP Pulse Ox 97.8 F 75 16 126/78 H 95 02/23/20 20:25 02/23/20 20:25 02/23/20 20:25 02/23/20 20:25 02/23/20 20:25 Doctor's Discharge - Discharge Referrals: GERRY HOUSE DO [Primary Care Provider] - Follow up as needed
[2020-02-23 21:30] LABS: ABSOLUTE EOSINOPHILS # (AUTO) 0.1 10^3/uL (0.0-0.6); ABSOLUTE LYMPHOCYTES (AUTO) 1.5 10^3/uL (0.5-4.7); ABSOLUTE MONOCYTES (AUTO) 0.7 10^3/uL (0.1-1.4); ABSOLUTE NEUT (AUTO) 7.3 10^3/uL (1.7-8.2); BASOPHILS % (AUTO) 0.4 % (0-2); EOSINOPHILS % (AUTO) 1.1 % (0-6); HEMATOCRIT 36.8 % (36.0-47.0); HEMOGLOBIN 12.3 g/dL (12.0-15.5); LYMPHOCYTES % (AUTO) 15.4 % (13-45); MEAN CORPUSCULAR HEMOGLOBIN 25.9 pg (27.0-33.4); MEAN CORPUSCULAR HGB CONC 33.5 g/dL (32.0-36.0); MEAN CORPUSCULAR VOLUME 77 fl (80-97); MONOCYTES % (AUTO) 7.4 % (3-13); PLATELET COUNT 283 10^3/uL (150-450); RED BLOOD COUNT 4.76 10^6/uL (3.72-5.28); RED CELL DISTRIBUTION WIDTH 17.1 % (11.5-14.0); SEGMENTED NEUTROPHILS % (AUTO) 75.7 % (42-78); TOTAL CELLS COUNTED % (AUTO) 100 %; WHITE BLOOD COUNT 9.6 10^3/uL (4.0-10.5)
[2020-02-23 21:41] LABS: ALBUMIN 3.6 g/dL (3.5-5.0); ALKALINE PHOSPHATASE 134 U/L (38-126); ANION GAP 8 (5-19); ASPARTATE AMINO TRANSFERASE 17 U/L (14-36); BILIRUBIN,DIRECT 0.3 mg/dL (0.0-0.4); BILIRUBIN,TOTAL 0.8 mg/dL (0.2-1.3); BLOOD UREA NITROGEN 10 mg/dL (7-20); CALCIUM 9.3 mg/dL (8.4-10.2); CARBON DIOXIDE 37 mmol/L (22-30); CHLORIDE 93 mmol/L (98-107); GLUCOSE 178 mg/dL (75-110); TOTAL PROTEIN 7.6 g/dL (6.3-8.2)
[2020-02-23 21:43] LABS: POTASSIUM 2.9 mmol/L (3.6-5.0)
--- NOTE | 2020-02-23 21:55 | RADIOLOGY REPORT (SQ) ---
EXAM DESCRIPTION: XR CHEST 1 VIEW COMPLETED DATE/TME: 02/23/2020 21:19 CLINICAL HISTORY: 64 years, Female, chest pain COMPARISON: Prior study from 12/24/2019 NUMBER OF VIEWS: One TECHNIQUE: Single frontal view of the chest was obtained portably LIMITATIONS: None. FINDINGS: Status post median sternotomy. Cardiopericardial silhouette is enlarged. Mediastinal contours are stable. Mild bilateral perihilar opacity with vascular indistinctness is noted. Interstitial lines are evident about the periphery of both lung bases. No pneumothorax or large pleural effusion. IMPRESSION: Suspect mild interstitial edema. copyright 2010 [employer]- All Rights Reserved
[2020-02-23] MEDS ORDERED: POTASSI CL 20 MEQ/50 ML RIDER 20 MEQ/50 ML RTUPB IV ONE (22:13)
[2020-02-23] MEDS ORDERED: IPRATROPIUM/ALBUTEROL 0.5-2.5 MG/3 ML AMPUL NEB ONE (23:24)
[2020-02-23] MEDS ORDERED: FUROSEMIDE INJ/PF 20 MG/2 ML SDV IV ONE (23:24)
[2020-02-23] MEDS ORDERED: METHYLPREDNISOLONE INJ 125 MG/2 ML SDV IV ONE (23:28)
--- NOTE | 2020-02-23 23:28 | ER Document Report ---
ED General - General Chief Complaint: Chest Pain Stated Complaint: DIZZINESS Time Seen by Provider: 02/23/20 20:28 Primary Care Provider: GERRY HOUSE DO [Primary Care Provider] - Follow up as needed Mode of Arrival: Wheelchair Notes: This 64-year-old woman presents to the emergency department via EMS from home with a complaint of dizziness, chest pain and episode of vomiting around 6 PM. She states that her symptoms dizziness and chest discomfort began after taking Metroprolol. She felt the room was spinning and has continued to have episodic dizziness. She also complains of shortness of breath and exertion all dyspnea. She is a smoker, has a history of COPD and is on a nebulizer and inhalers at home. She states the chest pain has resolved. She complains of exertional dyspnea and O2 sat dropped into the 80s when she tried to walk to the bathroom in the emergency department tonight. A rapid coronavirus test was performed by EMS which was negative. TRAVEL OUTSIDE OF THE [place] IN LAST 30 DAYS: No - Related Data Allergies/Adverse Reactions: No Known Allergies Allergy (Verified 11/01/19 12:42) Past Medical History - General Information source: Patient - Social History Smoking Status: Current Every Day Smoker Frequency of alcohol use: None Drug Abuse: None Family History: CAD, DM, Hypertension Patient has homicidal ideation: No - Past Medical History Cardiac Medical History: Reports: Hx Congestive Heart Failure, Hx Coronary Artery Disease, Hx Heart Attack, Hx Hypercholesterolemia, Hx Hypertension, Hx Peripheral Vascular Disease Denies: Hx Atrial Fibrillation, Hx DVT, Hx Pulmonary Embolism Pulmonary Medical History: Reports: Hx Asthma, Hx COPD, Hx Respiratory Failure Neurological Medical History: Denies: Hx Seizures Endocrine Medical History: Reports: Hx Diabetes Mellitus Type 2, Hx Hyperthyroidism - Was told once her thyroid might be high. Denies: Hx Diabetes Mellitus Type 1, Hx Hypothyroidism Renal/ Medical History: Denies: Hx Peritoneal Dialysis GI Medical History: Denies: Hx Cirrhosis, Hx Crohn's Disease, Hx Diverticulitis, Hx Hepatitis, Hx Ulcerative Colitis Musculoskeletal Medical History: Denies Hx Arthritis, Denies Hx Fibromyalgia Skin Medical History: Denies Hx Eczema, Denies Hx Psoriasis Psychiatric Medical History: Denies: Hx Depression Infectious Medical History: Denies: Hx Hepatitis Past Surgical History: Reports: Hx Cardiac Catheterization, Hx Cardiac Surgery - CABG, Hx Coronary Artery Bypass Graft, Hx Coronary Stent, Hx Open Heart Surgery, Hx Tubal Ligation - Immunizations Hx Diphtheria, Pertussis, Tetanus Vaccination: Yes Hx Pneumococcal Vaccination: 12/18/18 Review of Systems - Review of Systems Notes: Constitutional: Negative for fever. HENT: Negative for sore throat. Eyes: Negative for visual changes. Cardiovascular: See HPI Respiratory: See HPI Gastrointestinal: Negative for abdominal pain, vomiting or diarrhea. Genitourinary: Negative for dysuria. Musculoskeletal: Negative for back pain. Skin: Negative for rash. Neurological: Negative for headaches, weakness or numbness. 10 point ROS negative except as marked above and in HPI. Physical Exam - Vital signs Vitals: Temp Pulse Resp BP Pulse Ox 97.8 F 75 16 126/78 H 95 02/23/20 20:25 02/23/20 20:25 02/23/20 20:25 02/23/20 20:25 02/23/20 20:25 - Notes Notes: PHYSICAL EXAMINATION: Physical Exam: General: Well-nourished well-developed in no acute distress HEENT: NC/AT, pupils equal round and reactive to light, MM moist,nares clear, oropharynx clear, airway patent Neck: supple, no adenopathy, no masses. Good range of motion Lungs: Coarse breath sounds with basilar rales CVS: Regular rate and rhythm no murmur gallop or rub Abdomen: Soft, active, nontender, no masses, no hepatosplenomegaly Ext: No edema, clubbing or cyanosis. Neuro: Alert and responsive, moving all 4 extremities on command, cranial nerves intact, no focal findings Skin: Intact no open lesions, no rash Course - Re-evaluation Re-evalutation: 02/24/20 00:36 Patient was given Lasix 20 mg, DuoNeb and Solu-Medrol due to respiratory distress and decreased O2 sat. Chest x-ray reveals a vascular congestion and her troponin was slightly elevated however repeat reveals a trending down. 02/24/20 01:38 I discussed the patient with the hospitalist by , he will see the patient in the emergency department for further evaluation and treatment. Review of the urinalysis reveals findings significant for UTI. - Vital Signs Vital signs: Temp Pulse Resp BP Pulse Ox 97.8 F 90 17 163/93 H 94 02/23/20 20:25 02/24/20 01:00 02/24/20 01:00 02/24/20 01:00 02/24/20 01:00 - Laboratory Result Diagrams: 02/23/20 21:11 02/23/20 21:11 Laboratory results interpreted by me: 02/23/20 02/23/20 02/23/20 21:11 21:11 21:11 MCV 77 L MCH 25.9 L RDW 17.1 H Potassium 2.9 L* Chloride 93 L Carbon Dioxide 37 H Glucose 178 H Alkaline Phosphatase 134 H NT-Pro-B Natriuret Pep 4840 H Urine Protein Urine Urobilinogen Leukocyte Esterase Rfl 02/23/20 22:45 MCV MCH RDW Potassium Chloride Carbon Dioxide Glucose Alkaline Phosphatase NT-Pro-B Natriuret Pep Urine Protein 30 H Urine Urobilinogen 2.0 H Leukocyte Esterase Rfl MODERATE H - Diagnostic Test Radiology reviewed: Image reviewed, Reports reviewed Radiology results interpreted by me: 02/24/20 01:40 Chest X-Ray 02/23/20 20:36 IMPRESSION: Suspect mild interstitial edema. copyright 2010 [employer]- All Rights Reserved - EKG Interpretation by Ut EKG shows normal: Sinus rhythm - EKG interpreted by Dr. Quezada: Normal sinus rhythm, rate 78, OR interval 144 ms, QT interval 472 ms, right axis deviation, atypical LBBB, compared to EKG dated 12/24/2019, no significant interval changes are noted.. Interpretation abnormal EKG Critical Care Note - Critical Care Note Total time excluding time spent on procedures (mins): 45 - Critical care time spent obtaining history from patient or surrogate, discussions with consultants, development of treatment plan with patient or surrogate, evaluation of patient's response to treatment, examination of patient, ordering and performing treatments and interventions, ordering and review of laboratory studies, re- evaluation of patient's condition, ordering and review of radiographic studies and review of old charts Discharge - Discharge Clinical Impression: COPD exacerbation, Tobacco abuse, Hypokalemia CHF (congestive heart failure) Qualifiers: Heart failure type: unspecified Heart failure chronicity: acute Qualified Code(s): I50.9 - Heart failure, unspecified Urinary tract infection Qualifiers: Urinary tract infection type: site unspecified Hematuria presence: without hematuria Qualified Code(s): N39.0 - Urinary tract infection, site not specified Chest pain Qualifiers: Chest pain type: unspecified Qualified Code(s): R07.9 - Chest pain, unspecified Condition: Good Disposition: ADMITTED OBSERVATION Admitting Provider: Dr Leggett - Hospitalist Unit Admitted: Telemetry Referrals: GERRY HOUSE DO [Primary Care Provider] - Follow up as needed
[2020-02-23 23:58] LABS: APPEARANCE,URINE CLEAR; BILIRUBIN,URINE NEGATIVE (NEGATIVE); COLOR,URINE YELLOW; GLUCOSE, URINE NEGATIVE (NEGATIVE); KETONES,URINE NEGATIVE (NEGATIVE); PROTEIN,URINE 30 mg/dL (NEGATIVE); URINE SPECIFIC GRAVITY 1.006
[2020-02-24] MEDS ORDERED: CEFTRIAXONE 1 GM/D5W RTU 1 GM/50 ML RTUPB IV ONE (01:37)
[2020-02-24] MEDS ORDERED: ONDANSETRON HCL INJ/PF 4 MG/2 ML SDV IV PRN (02:08)
[2020-02-24] MEDS ORDERED: ACETAMINOPHEN 325 MG TABLET PO PRN (02:08)
[2020-02-24] MEDS ORDERED: IPRATROPIUM/ALBUTEROL 0.5-2.5 MG/3 ML AMPUL NEB PRN (02:08)
[2020-02-24] MEDS ORDERED: DEXTROSE 40% GEL 15 GM TUBE PO PRN ×2 (02:16)
[2020-02-24] MEDS ORDERED: GLUCAGON,HUMAN RECOMB 1 MG INJ IM PRN (02:16)
[2020-02-24] MEDS ORDERED: DEXTROSE 50%-WATER 25 GM/50 ML DISP.SYRIN IV PRN ×2 (02:16)
--- NOTE | 2020-02-24 02:22 | PDOC H&P ---
History of Present Illness Admission Date/PCP: GERRY HOUSE DO Patient complains of: Shortness of breath History of Present Illness: STELLA FRANKLIN is a 64 year old female with a history of hypertension, type 2 diabetes, COPD, heart failure who presents with a 2-day duration of shortness of breath with exertion. Associated with this patient also reports that she has been having increased cough productive of clear white sputum, wheezing and dizziness. She also has increased bilateral lower extremity swelling. On arrival she was saturating mid 80s on room air. She denies any fever, chills, nausea, vomiting, diarrhea, chest pain, palpitation. She denies any recent sick contact history with sick patients. Past Medical History Cardiac Medical History: Reports: Congestive Heart Failure, Coronary Artery Disease, Myocardial Infarction, Hyperlipidema, Hypertension, Peripheral Vascular Disease Denies: Atrial Fibrillation, DVT, Pulmonary Embolism Pulmonary Medical History: Reports: Asthma, Chronic Obstructive Pulmonary Disease (COPD), Respiratory Failure Neurological Medical History: Denies: Seizures Endocrine Medical History: Reports: Diabetes Mellitus Type 2, Hyperthyroidism - Was told once her thyroid might be high Denies: Diabetes Mellitus Type 1, Hypothyroidism GI Medical History: Denies: Cirrhosis, Crohn's Disease, Diverticulitis, Hepatitis, Ulcerative Colitis Musculoskeltal Medical History: Denies: Arthritis, Fibromyalgia Skin Medical History: Denies: Eczema, Psoriasis Psychiatric Medical History: Denies: Depression Hematology: Denies: Anemia, Bleeding Tendencies Past Surgical History Past Surgical History: Reports: Cardiac Catheterization, Coronary Artery Bypass Graft, Coronary Stent, Tubal Ligation Social History Information Source: Patient Smoking Status: Current Every Day Smoker Frequency of Alcohol Use: None Hx Recreational Drug Use: No Drugs: None Hx Prescription Drug Abuse: No - Advance Directive Resuscitation Status: Full Code Family History Family History: CAD, DM, Hypertension Parental Family History Reviewed: Yes Children Family History Reviewed: Yes Sibling(s) Family History Reviewed.: Yes Medication/Allergy Home Medications: Albuterol Sulfate [Proair Respiclick] 2 puff IH Q4HP PRN #1 05/30/19 Atorvastatin Calcium [Lipitor 80 mg Tablet] 80 mg PO QHS #30 05/30/19 Fluticasone/Vilanterol [Breo 100-25 Mcg Ellipta 14 Dose/Dpi] 1 puff IH DAILY #1 inhaler 05/30/19 Insulin Glargine,Hum.rec.anlog [Lantus Insulin 100 Unit/1 ml 10 ml] 10 units SQ DAILY #1 bottle 05/30/19 Metformin HCl [Glucophage] 1,000 mg PO BIDBS #60 05/30/19 Fenofibrate 160 mg PO DAILY 06/06/19 Gabapentin [Neurontin 100 mg Capsule] 100 mg PO Q12 06/06/19 Ranolazine [Ranexa 500 mg Tab.sr] 500 mg PO BID 06/06/19 Clopidogrel Bisulfate [Plavix 75 mg Tablet] 75 mg PO DAILY 06/09/19 Cephalexin [Keflex] 500 mg PO BID #13 capsule MDD FILLED 02/19 FOR 10 DAY SUPPLY 10/25/19 Amlodipine Besylate [Norvasc 2.5 mg Tablet] 2.5 mg PO DAILY 02/24/20 Buspirone HCl 7.5 mg PO Q12 02/24/20 Furosemide [Lasix 20 mg Tablet] 20 mg PO QAMP PRN 02/24/20 Lisinopril [Prinivil 10 mg Tablet] 20 mg PO DAILY 02/24/20 Metoprolol Tartrate [Lopressor 50 mg Tablet] 50 mg PO Q12 02/24/20 Nicotine [Nicotrol] inh IH 02/24/20 Trazodone HCl [Desyrel 50 mg Tablet] 50 mg PO QHS 02/24/20 Allergies/Adverse Reactions: No Known Allergies Allergy (Verified 11/01/19 12:42) Review of Systems Constitutional: ABSENT: chills, fever(s), headache(s), weight gain, weight loss Eyes: ABSENT: visual disturbances Ears: ABSENT: hearing changes Cardiovascular: PRESENT: as per HPI Respiratory: PRESENT: as per HPI Gastrointestinal: ABSENT: abdominal pain, constipation, diarrhea, hematemesis, hematochezia, nausea, vomiting Genitourinary: ABSENT: dysuria, hematuria Musculoskeletal: ABSENT: joint swelling Integumentary: ABSENT: rash, wounds Neurological: ABSENT: abnormal gait, abnormal speech, confusion, dizziness, focal weakness, syncope Psychiatric: ABSENT: anxiety, depression, homidical ideation, suicidal ideation Endocrine: ABSENT: cold intolerance, heat intolerance, polydipsia, polyuria Hematologic/Lymphatic: ABSENT: easy bleeding, easy bruising Physical Exam Vital Signs: Temp Pulse Resp BP Pulse Ox 97.8 F 90 17 163/93 H 94 02/23/20 20:25 02/24/20 01:00 02/24/20 01:00 02/24/20 01:00 02/24/20 01:00 Intake & Output 02/22/20 02/23/20 02/24/20 06:59 06:59 06:59 Intake Total 50 Balance 50 Weight 59.874 kg Additional comments: GENERAL APPEARANCE: Alert and oriented x3, i currently requiring 2 L intranasal oxygen saturates 92% HEENT: Normocephalic and atraumatic. No scleral icterus. Moist oral mucosa NECK: Supple. No lymphadenopathy or tenderness. Elevated JVD CHEST: Symmetric. Nontender to palpation. LUNGS: Clear with good air entry bilaterally. Has diffuse wheezing bilaterally HEART: Regular rate and rhythm with normal S1 and S2. No murmurs, gallops, or rubs. ABDOMEN: soft, active bowel sounds, no direct or rebound tenderness. No organomegaly detected. EXTREMITIES: No cyanosis, clubbing, or edema. MUSCULOSKELETAL: No deformity, atrophy or swelling noted PSYCHIATRIC: Recent and remote memory is intact. Appropriate mood and affect. SKIN: Warm, dry, and well perfused. No lesions or rashes are noted. NEUROLOGIC: No focal sensory or motor deficits are noted. Results Laboratory Results: 02/23/20 21:11 02/23/20 21:11 02/23/20 02/23/20 02/23/20 21:11 21:11 21:11 WBC 9.6 RBC 4.76 Hgb 12.3 Hct 36.8 MCV 77 L MCH 25.9 L MCHC 33.5 RDW 17.1 H Plt Count 283 Seg Neutrophils % 75.7 Sodium 137.9 Potassium 2.9 L* Chloride 93 L Carbon Dioxide 37 H Anion Gap 8 BUN 10 Creatinine 0.82 Est GFR ( Amer) > 60 Glucose 178 H Calcium 9.3 Magnesium 1.6 Total Bilirubin 0.8 AST 17 Alkaline Phosphatase 134 H Total Protein 7.6 Albumin 3.6 Urine Color Urine Appearance Urine pH Ur Specific Cumm[place] Urine Protein Urine Glucose (UA) Urine Ketones Urine Blood Urine RBC (Auto) 02/23/20 22:45 WBC RBC Hgb Hct MCV MCH MCHC RDW Plt Count Seg Neutrophils % Sodium Potassium Chloride Carbon Dioxide Anion Gap BUN Creatinine Est GFR ( Amer) Glucose Calcium Magnesium Total Bilirubin AST Alkaline Phosphatase Total Protein Albumin Urine Color YELLOW Urine Appearance CLEAR Urine pH 6.0 Ur Specific [place] 1.006 Urine Protein 30 H Urine Glucose (UA) NEGATIVE Urine Ketones NEGATIVE Urine Blood NEGATIVE Urine RBC (Auto) 0 02/23/20 02/23/20 02/23/20 21:11 21:11 21:11 Troponin I 0.043 Cancelled NT-Pro-B Natriuret Pep Cancelled 4840 H 02/24/20 00:25 Troponin I 0.027 NT-Pro-B Natriuret Pep Impressions: Chest X-Ray 02/23/20 20:36 IMPRESSION: Suspect mild interstitial edema. copyright 2010 [employer]- All Rights Reserved Assessment and Plan - Diagnosis (1) Acute respiratory failure with hypoxia Is this a current diagnosis for this admission?: Yes Plan: Patient was saturating mid 80s on room air on presentation Likely due to COPD exacerbation and acute decompensated heart failure Currently on 2 L intranasal oxygen Continue IV Lasix, prednisone Started on breathing treatment Strict I&O's, daily weight and fluid restriction Closely monitor respiratory status (2) CHF (congestive heart failure) Qualifiers: Heart failure type: unspecified Heart failure chronicity: acute Qualified Code(s): I50.9 - Heart failure, unspecified Is this a current diagnosis for this admission?: Yes Plan: Presents with shortness of breath Has elevated JVD, bilateral leg swelling BNP is elevated at 4840 Placed on Lasix 40 mg IV twice daily Strict I&O's, daily weight and fluid restriction Continue telemetry monitoring Closely monitor electrolytes and replete as necessary (3) COPD exacerbation Is this a current diagnosis for this admission?: Yes Plan: Presents with shortness of breath Has diffuse bilateral wheezing Continue breathing treatment with DuoNeb Prednisone 40 mg p.o. daily Currently is on ceftriaxone for UTI Continue intranasal oxygen (4) Elevated troponin Is this a current diagnosis for this admission?: Yes Plan: Patient currently denies any chest pain Troponin was elevated at 0.043 which trended down to 0.027 Likely due to demand from hypoxia and heart failure Continue trending cardiac enzyme Placed on aspirin and statin On telemetry (5) Hypokalemia Is this a current diagnosis for this admission?: Yes Plan: Serum potassium was 2.9 on presentation Was given IV potassium chloride at the ED Closely monitor potassium level and keep potassium >4 Continue telemetry monitoring (6) Urinary tract infection Qualifiers: Urinary tract infection type: site unspecified Hematuria presence: without hematuria Qualified Code(s): N39.0 - Urinary tract infection, site not specified Is this a current diagnosis for this admission?: Yes Plan: UA was positive for moderate leukocyte esterase and 11 WBCs per high-power field Continue ceftriaxone Follow-up with urine culture (7) CAD (coronary artery disease) Qualifiers: Coronary Disease-Associated Artery/Lesion type: [place] artery [place] vs. transplanted heart: [place] heart Associated angina: without angina Qualified Code(s): I25.10 - Atherosclerotic heart disease of [place] coronary artery without angina pectoris Is this a current diagnosis for this admission?: Yes Plan: Status post CABG 7 years back Currently chest pain-free Troponin was elevated as stated above Continue aspirin, statin, telemetry monitoring (8) Diabetes mellitus type 2 in nonobese Is this a current diagnosis for this admission?: Yes Plan: We will place her on home dose Lantus insulin Continue sliding scale insulin, Accu-Chek and hypoglycemia protocol (9) Hyperlipidemia Qualifiers: Hyperlipidemia type: unspecified Qualified Code(s): E78.5 - Hyperlipidemia, unspecified Is this a current diagnosis for this admission?: Yes Plan: Continue atorvastatin (10) Hypertension Qualifiers: Hypertension type: essential hypertension Qualified Code(s): I10 - Essential (primary) hypertension Is this a current diagnosis for this admission?: Yes Plan: Currently BP is in acceptable range Continue home medications - Time Time Spent with patient: 35 or more minutes Total Critical Time (Minutes): 45 Smoking Cessation Education: 3 to 10 minutes Medications reviewed and adjusted accordingly: Yes Anticipated Discharge Disposition: Home, Self Care Anticipated Discharge Timeframe: within 48 hours - Inpatient Certification Based on my medical assessment, after consideration of the patient's comorbidities, presenting symptoms, or acuity I expect that the services needed warrant INPATIENT care.: Yes I certify that my determination is in accordance with my understanding of Medicare's requirements for reasonable and necessary INPATIENT services [42 CFR 412.3e].: Yes Medical Necessity: Significant Comorbidiites Make Outpatient Treatment Too Risky, Need Close Monitoring Due to Risk of Patient Decompensation, Need For Continuous Telemetry Monitoring, Need for Nebulizer Therapy and Monitoring of Response, Need for IV Antibiotics, Risk of Complication if Not Cared For in Hospital Post Hospital Care: D/C or Transfer Summary
[2020-02-24] MEDS: PREDNISONE 20 MG TABLET PO SCH ×2 (03:57→09:19)
[2020-02-24] MEDS: PANTOPRAZOLE SODIUM 40 MG TABLET.DR PO SCH (06:01)
[2020-02-24 07:43] LABS: ANION GAP 10 (5-19); BLOOD UREA NITROGEN 12 mg/dL (7-20); CALCIUM 9.1 mg/dL (8.4-10.2); CARBON DIOXIDE 37 mmol/L (22-30); CHLORIDE 95 mmol/L (98-107); GLUCOSE 303 mg/dL (75-110); POTASSIUM 3.2 mmol/L (3.6-5.0)
[2020-02-24] MEDS: INSULIN REG, HUMAN 100 UNIT/ML 3 ML VIAL (PYX) SUBCUT SCH ×4 (07:54→22:28)
--- NOTE | 2020-02-24 08:08 | EKG REPORT ---
SEVERITY:- ABNORMAL ECG - SINUS RHYTHM IVCD, CONSIDER ATYPICAL LBBB : Confirmed by: Rich Butler 24-Feb-2020 08:08:06
[2020-02-24] MEDS ORDERED: POTASSI CL 20 MEQ/50 ML RIDER 20 MEQ/50 ML RTUPB IV ONE (08:19)
[2020-02-24] MEDS: GABAPENTIN 100 MG CAPSULE PO SCH ×2 (09:40→21:47)
[2020-02-24] MEDS: FUROSEMIDE INJ/PF 40 MG/4 ML SDV IV SCH ×2 (09:40→21:47)
[2020-02-24] MEDS: ASPIRIN 81 MG TABLET, CHEWABLE PO SCH (09:40)
[2020-02-24] MEDS: ENOXAPARIN SODIUM INJ 40 MG/0.4 ML DISP.SYRIN SUBCUT SCH (09:41)
[2020-02-24] MEDS: LISINOPRIL 10 MG TABLET PO SCH (09:41)
[2020-02-24] MEDS: METOPROLOL SUCCINATE 25 MG TAB.SR.24H PO SCH (09:41)
[2020-02-24] MEDS: CLOPIDOGREL BISULFATE 75 MG TABLET PO SCH (09:41)
[2020-02-24] MEDS: AMLODIPINE BESYLATE 2.5 MG TABLET PO SCH (09:42)
[2020-02-24] MEDS ORDERED: POTASSIUM CHLORIDE 20 MEQ PACKET PO ONE (10:45)
--- NOTE | 2020-02-24 16:37 | EKG REPORT ---
SEVERITY:- ABNORMAL ECG - SINUS RHYTHM MULTIFORM VENTRICULAR PREMATURE COMPLEXES NONSPECIFIC INTRAVENTRICULAR CONDUCTION DELAY PROBABLE LVH WITH SECONDARY REPOL ABNRM : Confirmed by: Rich Butler 24-Feb-2020 16:36:23
--- NOTE | 2020-02-24 18:29 | Progress Note ---
Provider Note Provider Note: Patient 6-year-old female with history of COPD and CHF who was admitted for observation/treatment hypoxia due to COPD exacerbation and CHF. Oxygen saturation 92% room air at rest, 85% room air without exercise, 94% on 3 L nasal cannula with exercise. Not previously on home O2. Qualifies for home O2, case discussed with discharge planning arranging home O2 for patient. Currently receiving IV Lasix, prednisone and breathing treatments. Additionally being treated for UTI with ceftriaxone day 1. Of note potassium has been persistently low, patient refused IV potassium treated with oral instead. Repeat k on BMP in the morning. Previous notes reviewed this is her third visit to the hospital since in 2019 r egarding increased difficulty breathing. She had an echocardiogram 06/07/2019 LVEF 40 to 50%, LVH, grade 2 diastolic dysfunction. Patient overall stable. At this time I would plan to dc tomorrow wit home O2, cnt lasix, prednisone burst and abx for UTI. Recommend f/u with PCP and cardiology within x1 week dc from hospital.
[2020-02-24] MEDS ORDERED: ATORVASTATIN CALCIUM 40 MG TABLET PO SCH (22:00)
[2020-02-24] MEDS ORDERED: INSULIN GLARGINE,HUM.REC.ANLOG 1,000 UNIT/10 ML VIAL SUBCUT SCH (22:00)
[2020-02-24] MEDS ORDERED: CEFTRIAXONE 1 GM/D5W RTU 1 GM/50 ML RTUPB IV SCH (22:00)
[2020-02-25 05:19] LABS: ANION GAP 11 (5-19); BLOOD UREA NITROGEN 31 mg/dL (7-20); CALCIUM 9.9 mg/dL (8.4-10.2); CARBON DIOXIDE 38 mmol/L (22-30); CHLORIDE 92 mmol/L (98-107); GLUCOSE 138 mg/dL (75-110); POTASSIUM 3.1 mmol/L (3.6-5.0)
[2020-02-25] MEDS: INSULIN REG, HUMAN 100 UNIT/ML 3 ML VIAL (PYX) SUBCUT SCH ×2 (07:06→11:39)
[2020-02-25] MEDS: PANTOPRAZOLE SODIUM 40 MG TABLET.DR PO SCH (07:06)
[2020-02-25] MEDS ORDERED: POTASSI CL 20 MEQ/50 ML RIDER 20 MEQ/50 ML RTUPB IV SCH (10:00)
[2020-02-25] MEDS: CLOPIDOGREL BISULFATE 75 MG TABLET PO SCH (10:19)
[2020-02-25] MEDS: METOPROLOL SUCCINATE 25 MG TAB.SR.24H PO SCH (10:19)
[2020-02-25] MEDS: LISINOPRIL 10 MG TABLET PO SCH (10:19)
[2020-02-25] MEDS: PREDNISONE 20 MG TABLET PO SCH (10:19)
[2020-02-25] MEDS: GABAPENTIN 100 MG CAPSULE PO SCH (10:19)
[2020-02-25] MEDS: ASPIRIN 81 MG TABLET, CHEWABLE PO SCH (10:19)
[2020-02-25] MEDS: POTASSIUM CHLORIDE 10 MEQ TABLET.ER PO ONE ×2 (10:20→10:59)
[2020-02-25] MEDS: FUROSEMIDE INJ/PF 40 MG/4 ML SDV IV SCH (10:20)
[2020-02-25] MEDS ORDERED: MAGNESIUM SULFATE 4 GM/100 ML RTUPB IV ONE (10:30)
[2020-02-25] MEDS: AMLODIPINE BESYLATE 2.5 MG TABLET PO SCH (10:32)
[2020-02-25] MEDS: ENOXAPARIN SODIUM INJ 40 MG/0.4 ML DISP.SYRIN SUBCUT SCH (10:32)
[2020-02-25] MEDS ORDERED: MAGNESIUM OXIDE 400 MG TABLET PO ONE (11:00)
--- NOTE | 2020-02-25 11:06 | PDOC DISCHARGE SUMMARY ---
Impression - Admit/DC Date/PCP Admission Date/Primary Care Provider: 02/24/20 02:31 GERRY HOUSE DO Discharge Date: 02/25/20 - Assessment Summary: Ms. STELLA FRANKLIN is a 64 year old life-long smoker with a history of HTN, HLD, DM2, COPD, CHF (TTE 06/07/2019 revealed LV EF 40-50%, LVH, G2DD) who presented on 02/23/2020 with a 2-day history of SOB, [place], cough and wheezing. She also had increased bilateral lower extremity swelling. She denied any sick contacts or recent fevers/chills. In the ED, she was found to be hypoxic. CXR was notable for increased pulmonary vascular edema. She was admitted for COPD exacerbation and CHF exacerbation. She was treated with diuresis, steroids and breathing treatments. Of note, this is her third visit to the hospital since in 2019 for SOB. She has severe COPD and likely previously undiagnosed chronic hypoxemia. Despite improvement in symptoms with above treatment, she continued to require supplemental O2, which was felt to be a chronic issue related to chronic COPD. She was therefore set up with home oxygen therapy. Her home dose of Lasix was increased from 20 to 40 mg daily, and she was started on oral Mg/K repletion therapy. She is now safe for discharge home with home O2 therapy. She has received smoking cessation counseling. She is interested in stopping smoking altogether. She was advised of the risks of smoking with oxygen therapy. UCx performed in the ED was positive for 20K CFU of GPC, likely due to a contaminant. She has no urinary symptoms and does not require treatment for UTI. She will follow up with her PCP and Counter Checker in 1-2 weeks. - Additional Information Resuscitation Status: Full Code Discharge Diet: Cardiac, Diabetic Discharge Activity: Activity As Tolerated, Balance Activity w/Rest, Energy Conservation, Walk Frequently, Weigh Daily Referrals: DORIS CHILDRESS MD [ACTIVE STAFF] - GERRY HOUSE DO [Primary Care Provider] - 03/02/20 4:15 pm Prescriptions: Prednisone [Deltasone 20 mg Tablet] 40 mg PO DAILY #6 tablet Furosemide [Lasix 20 mg Tablet] 40 mg PO DAILY #60 Magnesium Oxide [Mag-Ox 400 mg Tablet] 400 mg PO BID #60 tablet Potassium Chloride [Potassium Chloride 20 Meq Packet] 40 meq PO DAILY #60 packet Home Medications: Albuterol Sulfate [Proair Respiclick] 2 puff IH Q4HP PRN #1 05/30/19 Atorvastatin Calcium [Lipitor 80 mg Tablet] 80 mg PO QHS #30 05/30/19 Fluticasone/Vilanterol [Breo 100-25 Mcg Ellipta 14 Dose/Dpi] 1 puff IH DAILY #1 inhaler 05/30/19 Metformin HCl [Glucophage] 1,000 mg PO BIDBS #60 05/30/19 Fenofibrate 160 mg PO DAILY 06/06/19 Gabapentin [Neurontin 100 mg Capsule] 100 mg PO Q12 06/06/19 Ranolazine [Ranexa 500 mg Tab.sr] 500 mg PO BID 06/06/19 Clopidogrel Bisulfate [Plavix 75 mg Tablet] 75 mg PO DAILY 06/09/19 Cephalexin [Keflex] 500 mg PO BID #13 capsule MDD FILLED 02/19 FOR 10 DAY SUPPLY 10/25/19 Amlodipine Besylate [Norvasc 2.5 mg Tablet] 2.5 mg PO DAILY 02/24/20 Buspirone HCl 7.5 mg PO Q12 02/24/20 Lisinopril [Prinivil 10 mg Tablet] 20 mg PO DAILY 02/24/20 Metoprolol Tartrate [Lopressor 50 mg Tablet] 50 mg PO Q12 02/24/20 Nicotine [Nicoderm 21 mg/24 Hr Transderm Patch] 1 patch TD DAILY 02/24/20 Trazodone HCl [Desyrel 50 mg Tablet] 50 mg PO QHS 02/24/20 Furosemide [Lasix 20 mg Tablet] 40 mg PO DAILY #60 02/25/20 Magnesium Oxide [Mag-Ox 400 mg Tablet] 400 mg PO BID #60 tablet 02/25/20 Potassium Chloride [Potassium Chloride 20 Meq Packet] 40 meq PO DAILY #60 packet 02/25/20 Prednisone [Deltasone 20 mg Tablet] 40 mg PO DAILY #6 tablet 02/25/20 History of Present Illiness History of Present Illness: STELLA FRANKLIN is a 64 year old female Physical Exam Vital Signs: Temp Pulse Resp BP Pulse Ox 97.4 F 95 26 H 127/68 H 99 02/25/20 07:38 02/25/20 09:06 02/25/20 09:06 02/25/20 07:21 02/25/20 09:06 Intake & Output 02/24/20 02/25/20 02/26/20 06:59 06:59 06:59 Intake Total 100 2150 Output Total 1650 1400 Balance -1550 750 Weight 54.6 kg 54.6 kg Results Laboratory Results: WBC 9.6 10^3/uL (4.0-10.5) 02/23/20 21:11 RBC 4.76 10^6/uL (3.72-5.28) 02/23/20 21:11 Hgb 12.3 g/dL (12.0-15.5) 02/23/20 21:11 Hct 36.8 % (36.0-47.0) 02/23/20 21:11 MCV 77 fl (80-97) L 02/23/20 21:11 MCH 25.9 pg (27.0-33.4) L 02/23/20 21:11 MCHC 33.5 g/dL (32.0-36.0) 02/23/20 21:11 RDW 17.1 % (11.5-14.0) H 02/23/20 21:11 Plt Count 283 10^3/uL (150-450) 02/23/20 21:11 Lymph % (Auto) 15.4 % (13-45) 02/23/20 21:11 [place] % (Auto) 7.4 % (3-13) 02/23/20 21:11 Eos % (Auto) 1.1 % (0-6) 02/23/20 21:11 Baso % (Auto) 0.4 % (0-2) 02/23/20 21:11 Absolute Neuts (auto) 7.3 10^3/uL (1.7-8.2) 02/23/20 21:11 Absolute Lymphs (auto) 1.5 10^3/uL (0.5-4.7) 02/23/20 21:11 Absolute Monos (auto) 0.7 10^3/uL (0.1-1.4) 02/23/20 21:11 Absolute Eos (auto) 0.1 10^3/uL (0.0-0.6) 02/23/20 21:11 Absolute Basos (auto) 0.0 10^3/uL (0.0-0.2) 02/23/20 21:11 Seg Neutrophils % 75.7 % (42-78) 02/23/20 21:11 Sodium 141.0 mmol/L (137-145) 02/25/20 04:43 Potassium 3.1 mmol/L (3.6-5.0) L 02/25/20 04:43 Chloride 92 mmol/L (98-107) L 02/25/20 04:43 Carbon Dioxide 38 mmol/L (22-30) H 02/25/20 04:43 Anion Gap 11 (5-19) 02/25/20 04:43 BUN 31 mg/dL (7-20) H 02/25/20 04:43 Creatinine 1.08 mg/dL (0.52-1.25) 02/25/20 04:43 Est GFR ( Amer) > 60 (>60) 02/25/20 04:43 Est GFR (MDRD) Non-Af 51 (>60) L 02/25/20 04:43 Glucose 138 mg/dL (75-110) H 02/25/20 04:43 POC Glucose 127 mg/dL (70-110) H 02/25/20 06:20 Hemoglobin A1c % 7.4 % (4.7-6.0) H 02/24/20 07:19 Calcium 9.9 mg/dL (8.4-10.2) 02/25/20 04:43 Magnesium 1.5 mg/dL (1.6-2.3) L 02/25/20 04:43 Total Bilirubin 0.8 mg/dL (0.2-1.3) 02/23/20 21:11 Direct Bilirubin 0.3 mg/dL (0.0-0.4) 02/23/20 21:11 Neonat Total Bilirubin Not Reportable 02/23/20 21:11 Neonat Direct Bilirubin Not Reportable 02/23/20 21:11 Neonat Indirect Bili Not Reportable 02/23/20 21:11 AST 17 U/L (14-36) 02/23/20 21:11 ALT 11 U/L (<35) 02/23/20 21:11 Alkaline Phosphatase 134 U/L (38-126) H 02/23/20 21:11 Troponin I 0.019 ng/mL 02/24/20 07:12 NT-Pro-B Natriuret Pep 4840 pg/mL (<125) H 02/23/20 21:11 NT-Pro-B Natriuret Pep Cancelled 02/23/20 21:11 Total Protein 7.6 g/dL (6.3-8.2) 02/23/20 21:11 Albumin 3.6 g/dL (3.5-5.0) 02/23/20 21:11 Urine Color YELLOW 02/23/20 22:45 Urine Appearance CLEAR 02/23/20 22:45 Urine pH 6.0 (5.0-9.0) 02/23/20 22:45 Ur Specific [place] 1.006 02/23/20 22:45 Urine Protein 30 mg/dL (NEGATIVE) H 02/23/20 22:45 Urine Glucose (UA) NEGATIVE mg/dL (NEGATIVE) 02/23/20 22:45 Urine Ketones NEGATIVE mg/dL (NEGATIVE) 02/23/20 22:45 Urine Blood NEGATIVE (NEGATIVE) 02/23/20 22:45 Urine Nitrite (Reflex) NEGATIVE (NEGATIVE) 02/23/20 22:45 Urine Bilirubin NEGATIVE (NEGATIVE) 02/23/20 22:45 Urine Urobilinogen 2.0 mg/dL (<2.0) H 02/23/20 22:45 Leukocyte Esterase Rfl MODERATE (NEGATIVE) H 02/23/20 22:45 Urine RBC (Auto) 0 /HPF 02/23/20 22:45 Urine Bacteria (Auto) TRACE /HPF 02/23/20 22:45 Urine WBC (Reflex) 11 /HPF 02/23/20 22:45 Squamous Epi Cells Auto 1 /HPF 02/23/20 22:45 Urine Mucus (Auto) RARE /LPF 02/23/20 22:45 Urine Ascorbic Acid NEGATIVE (NEGATIVE) 02/23/20 22:45 02/23/20 02/23/20 02/23/20 21:11 21:11 21:11 Troponin I 0.043 Cancelled NT-Pro-B Natriuret Pep Cancelled 4840 H 02/24/20 02/24/20 00:25 07:12 Troponin I 0.027 0.019 NT-Pro-B Natriuret Pep Impressions: Chest X-Ray 02/23/20 20:36 IMPRESSION: Suspect mild interstitial edema. copyright 2011 [employer]- All Rights Reserved Stroke Is this a Stroke Patient?: No Acute Heart Failure Is this a Heart Failure Patient?: Yes Documentation of LVEF assessment?: Yes LVEF: LVEF Greater Than 40% Anticoagulant Therapy: N/A
[2020-02-25] MEDS: POTASSIUM CHLORIDE 20 MEQ PACKET PO SCH ×3 (11:39→13:10)
[2020-02-25] MEDS ORDERED: MAGNESIUM OXIDE 400 MG TABLET PO SCH (12:00)
[2020-02-25] MEDS ORDERED: POTASSIUM CHLORIDE 10 MEQ TABLET.ER PO SCH (12:00)
[2020-02-25 12:02] VITALS: BP 129/72
--- NOTE | 2020-02-25 14:34 | Progress Note ---
Provider Note Provider Note: Repeat ambulatory saturation testing was performed prior to discharge home. She did not show evidence of hypoxemia with ambulation today. She will NOT need home O2 therapy, as previously thought. She is stable for discharge home without home O2 at this time.
== END 2020-02-25 15:06 | disposition home or self-care (01) ==
LOC: ER 20:09 → EH 02-24 02:31 → 4W 02-24 05:24
PROVIDERS: ADMIT Student in an Organized Health Care Education/Training Program; ATTEND Hospitalist
DX: I11.0 Hypertensive heart disease with heart failure (principal); I50.33 Acute on chronic diastolic (congestive) heart failure; J44.1 Chronic obstructive pulmonary disease with (acute) exacerbation; J96.21 Acute and chronic respiratory failure with hypoxia; E87.6 Hypokalemia; E83.42 Hypomagnesemia; N39.0 Urinary tract infection, site not specified; I25.10 Atherosclerotic heart disease of native coronary artery without angina pectoris; E11.9 Type 2 diabetes mellitus without complications; E78.5 Hyperlipidemia, unspecified; R05 Cough; R60.0 Localized edema; R79.89 Other specified abnormal findings of blood chemistry; R07.9 Chest pain, unspecified; Z79.4 Long term (current) use of insulin; Z79.899 Other long term (current) drug therapy; F17.200 Nicotine dependence, unspecified, uncomplicated
CPT/HCPCS: 36415; 71045; 80048; 80053; 81001; 82962; 83036; 83735; 83880; 84484; 85025; 87086; 87088; 87186; 93005; 93010; 94640; 96365; 96366; 96375; 99285; G0378; J0696; J1650; J1815; J1940; J2930; J3480; J3490; J7512

== ENCOUNTER → 2020-04-10 | Outpatient (CLI) | payer MEDICARE, MEDICAID ==
[2020-04-10 11:38] LABS: PROTHROMBIN TIME 12.4 SEC (11.4-15.4)
[2020-04-10 11:39] LABS: PARTIAL THROMBOPLASTIN TIME 27.5 SEC (23.5-35.8)
[2020-04-10 11:53] LABS: ANION GAP 7 (5-19); BLOOD UREA NITROGEN 16 mg/dL (7-20); CARBON DIOXIDE 31 mmol/L (22-30); CHLORIDE 104 mmol/L (98-107); GLUCOSE 150 mg/dL (75-110); POTASSIUM 4.6 mmol/L (3.6-5.0)
== END ==
LOC: OD 10:07
PROVIDERS: ATTEND Specialist
DX: I25.10 Atherosclerotic heart disease of native coronary artery without angina pectoris (principal); I11.0 Hypertensive heart disease with heart failure; I50.22 Chronic systolic (congestive) heart failure; I25.9 Chronic ischemic heart disease, unspecified; J44.9 Chronic obstructive pulmonary disease, unspecified; F17.219 Nicotine dependence, cigarettes, with unspecified nicotine-induced disorders; E11.9 Type 2 diabetes mellitus without complications; E78.5 Hyperlipidemia, unspecified; R94.30 Abnormal result of cardiovascular function study, unspecified; R06.00 Dyspnea, unspecified; R01.1 Cardiac murmur, unspecified; I73.9 Peripheral vascular disease, unspecified; I25.2 Old myocardial infarction; Z79.899 Other long term (current) drug therapy
CPT/HCPCS: 36415; 80051; 82565; 82947; 83735; 84520; 85610; 85730